=== PATIENT | male | born 1960 | race Caucasian/White ===

== ENCOUNTER 2016-12-01 20:32 | Emergency (ER) | payer MEDICARE ==
[2016-12-01] MEDS ORDERED: METHYLPREDNISOLONE INJ 125 MG/2 ML SDV IV ONE (20:49)
[2016-12-01] MEDS ORDERED: IPRATROPIUM/ALBUTEROL 0.5-2.5 MG/3 ML AMPUL NEB ONE ×2 (20:49)
--- NOTE | 2016-12-01 20:51 | ER Document Report ---
ED General - General Chief Complaint: Chest Pain Stated Complaint: CHEST PAIN Notes: Patient is a 56-year-old male that comes emergency department by EMS for complaints of chest pain, cough, feeling feverish, and shortness of breath. Patient states he did have a substernal chest pain that started about 1900, patient was given 324 mg of aspirin and 3 sublingual nitroglycerin doses, patient states the pressure has resolved but he still feels an intermittent sharp pain in the left side of his chest, still feels somewhat short of breath, and still has a cough. Patient smokes daily, has a history of COPD, has only albuterol inhaler at home, is not on home oxygen. Patient has also had a CABG after an IL in 2013 in [place]. He sees cardiology Dr. Tucker, Primary Dr. Leon. TRAVEL OUTSIDE OF THE [place] IN LAST 30 DAYS: No - Related Data Allergies/Adverse Reactions: codeine [Codeine] Allergy (Verified 04/10/14 08:13) latex [Latex] Allergy (Verified 04/10/14 08:13) adhesive tape [Adhesive Tape] Adverse Reaction (Intermediate, Verified 04/10/14 08:13) Urticaria Past Medical History - General Information source: Patient - Social History Smoking Status: Never Smoker Frequency of alcohol use: None Drug Abuse: None Lives with: Family Family History: Reviewed & Not Pertinent - Past Medical History Cardiac Medical History: Reports: Hx Coronary Artery Disease, Hx Heart Attack, Hx Hypercholesterolemia, Hx Hypertension Pulmonary Medical History: Reports: Hx Bronchitis, Hx COPD Denies: Hx Asthma, Hx Pneumonia, Hx Tuberculosis Neurological Medical History: Denies: Hx Cerebrovascular Accident, Hx Seizures Renal/ Medical History: Reports: Hx Benign Prostatic Hyperplasia GI Medical History: Reports: Hx Gastroesophageal Reflux Disease Musculoskeltal Medical History: Reports Hx Arthritis Psychiatric Medical History: Reports: Hx Bipolar Disorder, Hx Depression Traumatic Medical History: Reports: Hx Fractures - R wrist, nose Past Surgical History: Reports: Hx Cardiac Surgery - bypass 2007, Hx Coronary Artery Bypass Graft - 2007, Hx Orthopedic Surgery - metal plate in right wrist. Denies: Hx Pacemaker - Immunizations Hx Diphtheria, Pertussis, Tetanus Vaccination: Yes Hx Pneumococcal Vaccination: 09/11/10 Review of Systems - Review of Systems Constitutional: See HPI EENT: No symptoms reported Cardiovascular: See HPI Respiratory: See HPI Gastrointestinal: No symptoms reported Genitourinary: No symptoms reported Male Genitourinary: No symptoms reported Musculoskeletal: No symptoms reported Skin: No symptoms reported Hematologic/Lymphatic: No symptoms reported Neurological/Psychological: No symptoms reported Physical Exam - Vital signs Vitals: Resp Pulse Ox 25 H 97 12/01/16 21:07 12/01/16 21:07 Interpretation: Normal - General General appearance: Appears well In distress: None - HEENT Head: Normocephalic, Atraumatic Eyes: Normal Conjunctiva: Normal Extraocular movements intact: Yes Eyelashes: Normal Pupils: PERRL Nasal: Normal Mouth/Lips: Normal Mucous membranes: Normal Pharynx: Normal Neck: Normal - Respiratory Respiratory status: No respiratory distress, Tachypnea. No: Respiratory distress Chest status: Nontender Breath sounds: Nonproductive cough, Wheezing Chest palpation: Normal - Cardiovascular Rhythm: Regular Heart sounds: Normal auscultation Murmur: No - Abdominal Inspection: Normal Distension: No distension Bowel sounds: Normal Tenderness: Nontender Organomegaly: No organomegaly - Back Back: Normal, Nontender - Extremities General upper extremity: Normal inspection, Nontender, Normal color, Normal ROM , Normal temperature General lower extremity: Normal inspection, Nontender, Normal color, Normal ROM , Normal temperature, Normal weight bearing. No: Camille's sign - Neurological Neuro grossly intact: Yes Cognition: Normal Orientation: AAOx4 Magy Coma Scale Eye Opening: Spontaneous Magy Coma Scale Verbal: Oriented Magy Coma Scale Motor: Obeys Commands Magy Coma Scale Total: 15 Speech: Normal Motor strength normal: LUE, RUE, LLE, RLE Sensory: Normal - Psychological Associated symptoms: Normal affect, Normal mood - Skin Skin Temperature: Warm Skin Moisture: Dry Skin Color: Normal Course - Re-evaluation Re-evalutation: 12/01/16 22:15 On reassessment patient's tachypnea is resolved, patient's lungs are much clearer with only a few scattered rhonchi, wheezing has resolved. Patient states he feels much more comfortable, patient appears much more relaxed. 12/02/16 On begin evaluating patient patient is completely asymptomatic, smiling, states he wants to go home. EKG with no T-wave inversions in consecutive leads, no ST segment changes, patient denying chest pain without cough, patient denying any pain or symptoms at this time. Troponin indeterminate, cycled and second troponin negative. Chemistry generally unremarkable. X-ray unremarkable. CBC shows leukocytosis of 18,000 with no shift, patient always has some leukocytosis on evaluation of previous labs. Discussed with hospitalist, Dr. Mccoy, Dr. Mccoy recommends that if patient does well on ambulation with pulse ox that he could be treated at home with return precautions and primary care follow-up. Patient did very well in his ambulation, averaging about 92%, no labored breathing, continued to appear well. Patient again requesting to go home. Placing on Levaquin, prednisone, discussed return precautions in detail, patient states he will follow-up closely with primary care and return if he worsens in any way. - Vital Signs Vital signs: Temp Pulse Resp BP Pulse Ox 98.7 F 78 20 120/75 94 12/01/16 21:08 12/01/16 21:08 12/02/16 04:31 12/02/16 04:31 12/02/16 04:31 - Laboratory Result Diagrams: 12/01/16 21:00 12/01/16 21:00 Laboratory results interpreted by me: 12/01/16 12/01/16 21:00 21:00 WBC 18.3 H RBC 4.07 L Hgb 12.3 L Hct 36.3 L Absolute Neutrophils 11.2 H Absolute Lymphocytes 5.1 H Absolute Monocytes 1.6 H Carbon Dioxide 31 H Discharge - Discharge Clinical Impression: Cough, Shortness of breath Chest pain Qualifiers: Chest pain type: unspecified Qualified Code(s): R07.9 - Chest pain, unspecified Condition: Stable Disposition: HOME, SELF-CARE Additional Instructions: Please take the prednisone as directed, taking the antibiotic as directed. Follow-up within the next 2-3 days with her primary care provider for a reevaluation. Return the emergency department immediately if you worsen in any way. Prescriptions: Levofloxacin [Levaquin 750 mg Tablet] 750 mg PO DAILY #7 tablet Prednisone 20 mg PO DAILY #15 tablet Forms: Smoking Cessation Education
[2016-12-01 21:16] LABS: ABSOLUTE BASOPHILS # (AUTO) 0.1 10^3/uL (0.0-0.2); ABSOLUTE EOSINOPHILS # (AUTO) 0.4 10^3/uL (0.0-0.6); ABSOLUTE LYMPHOCYTES (AUTO) 5.1 10^3/uL (0.5-4.7); ABSOLUTE MONOCYTES (AUTO) 1.6 10^3/uL (0.1-1.4); ABSOLUTE NEUT (AUTO) 11.2 10^3/uL (1.7-8.2); BASOPHILS % (AUTO) 0.7 % (0-2); HEMATOCRIT 36.3 % (37.9-51.0); HEMOGLOBIN 12.3 g/dL (13.5-17.0); HGB HCT DIFFERENCE 0.6; LYMPHOCYTES % (AUTO) 27.6 % (13-45); MEAN CORPUSCULAR HEMOGLOBIN 30.3 pg (27.0-33.4); MEAN CORPUSCULAR VOLUME 89 fl (80-97); MONOCYTES % (AUTO) 8.5 % (3-13); RED BLOOD COUNT 4.07 10^6/uL (4.35-5.55); RED CELL DISTRIBUTION WIDTH 13.9 % (11.5-14.0); SEGMENTED NEUTROPHILS % (AUTO) 61.2 % (42-78); WHITE BLOOD COUNT 18.3 10^3/uL (4.0-10.5)
[2016-12-01] MEDS ORDERED: MORPHINE SULFATE 10 MG/ML INJ IV ONE (21:30)
[2016-12-01 21:34] LABS: ALANINE AMINOTRANSFERASE 22 U/L (21-72); ALBUMIN 3.7 g/dL (3.5-5.0); ALKALINE PHOSPHATASE 66 U/L (38-126); ANION GAP 10 (5-19); ASPARTATE AMINO TRANSFERASE 20 U/L (17-59); BILIRUBIN,DIRECT 0.4 mg/dL (0.0-0.4); BILIRUBIN,TOTAL 0.5 mg/dL (0.2-1.3); BLOOD UREA NITROGEN 12 mg/dL (7-20); CARBON DIOXIDE 31 mmol/L (22-30); CHLORIDE 98 mmol/L (98-107); CREATINE KINASE 109 U/L (55-170); CREATININE RESULT 0.72 mg/dL (0.52-1.25); GLUCOSE 102 mg/dL (75-110); POTASSIUM 4.4 mmol/L (3.6-5.0); SODIUM 139.4 mmol/L (137-145); TOTAL PROTEIN 6.9 g/dL (6.3-8.2)
[2016-12-01 21:46] LABS: CREATINE KINASE MB 1.14 ng/mL (<4.55); TROPONIN I 0.024 ng/mL
[2016-12-01] MEDS ORDERED: LEVOFLOXACIN 750 MG/D5W RTU 150 ML IV ONE (21:50)
[2016-12-01 22:40] LABS: VENOUS BLOOD BASE EXCESS 0.7 mmol/L; VENOUS BLOOD HCO3 26.7 mmol/L (20-32); VENOUS BLOOD PCO2 48.4 mmHg (35-63); VENOUS BLOOD PH 7.36 (7.30-7.42)
[2016-12-02 05:05] VITALS: BP 120/75
--- NOTE | 2016-12-02 08:35 | EKG REPORT ---
SEVERITY:- BORDERLINE ECG - SINUS RHYTHM NONSPECIFIC ST-T CHANGES ANT. LEADS : Confirmed by: Jeremy Curtis MD 02-Dec-2016 08:35:30
== END 2016-12-02 04:45 | disposition home or self-care (01) ==
LOC: ER 20:32
DX: R05 Cough (principal); R06.02 Shortness of breath; R07.9 Chest pain, unspecified; R50.9 Fever, unspecified; F17.200 Nicotine dependence, unspecified, uncomplicated; J44.9 Chronic obstructive pulmonary disease, unspecified
CPT/HCPCS: 94640 ×2; 99285; 96374; 96375; 36415; 87040; 82553; 82550; 85025; 87077; 80053; 84484; 87186; 82803; 71010; 93005; 93010; J2930; J2270; A9270; J7620

== ENCOUNTER 2016-12-21 22:37 | Emergency (ER) | payer MEDICARE ==
[2016-12-21 23:06] LABS: ABSOLUTE BASOPHILS # (AUTO) 0.1 10^3/uL (0.0-0.2); ABSOLUTE EOSINOPHILS # (AUTO) 0.3 10^3/uL (0.0-0.6); ABSOLUTE LYMPHOCYTES (AUTO) 2.5 10^3/uL (0.5-4.7); ABSOLUTE MONOCYTES (AUTO) 1.2 10^3/uL (0.1-1.4); ABSOLUTE NEUT (AUTO) 11.9 10^3/uL (1.7-8.2); BASOPHILS % (AUTO) 0.5 % (0-2); EOSINOPHILS % (AUTO) 1.8 % (0-6); HEMATOCRIT 43.2 % (37.9-51.0); HEMOGLOBIN 14.5 g/dL (13.5-17.0); HGB HCT DIFFERENCE 0.3; LYMPHOCYTES % (AUTO) 15.9 % (13-45); MEAN CORPUSCULAR HEMOGLOBIN 30.3 pg (27.0-33.4); MEAN CORPUSCULAR HGB CONC 33.5 g/dL (32.0-36.0); MEAN CORPUSCULAR VOLUME 90 fl (80-97); MONOCYTES % (AUTO) 7.2 % (3-13); RED BLOOD COUNT 4.78 10^6/uL (4.35-5.55); RED CELL DISTRIBUTION WIDTH 14.5 % (11.5-14.0); SEGMENTED NEUTROPHILS % (AUTO) 74.6 % (42-78); WHITE BLOOD COUNT 15.9 10^3/uL (4.0-10.5)
[2016-12-21 23:09] LABS: APPEARANCE,URINE CLEAR; BILIRUBIN,URINE NEGATIVE (NEGATIVE); GLUCOSE, URINE NEGATIVE (NEGATIVE); KETONES,URINE NEGATIVE (NEGATIVE); LEUKOCYTE ESTERASE,URINE NEGATIVE (NEGATIVE); NITRITE,URINE NEGATIVE (NEGATIVE); PROTEIN,URINE NEGATIVE (NEGATIVE); URINE SPECIFIC GRAVITY 1.002; UROBILINOGEN,URINE NEGATIVE mg/dL (<2.0)
[2016-12-21 23:36] LABS: ALANINE AMINOTRANSFERASE 27 U/L (21-72); ALBUMIN 4.3 g/dL (3.5-5.0); ALKALINE PHOSPHATASE 69 U/L (38-126); ANION GAP 15 (5-19); ASPARTATE AMINO TRANSFERASE 21 U/L (17-59); BILIRUBIN,DIRECT 0.2 mg/dL (0.0-0.4); BILIRUBIN,TOTAL 0.5 mg/dL (0.2-1.3); BLOOD UREA NITROGEN 10 mg/dL (7-20); CALCIUM 10.2 mg/dL (8.4-10.2); CARBON DIOXIDE 28 mmol/L (22-30); CHLORIDE 98 mmol/L (98-107); GLUCOSE 101 mg/dL (75-110); LIPASE 220.8 U/L (23-300); POTASSIUM 3.9 mmol/L (3.6-5.0); TOTAL PROTEIN 7.4 g/dL (6.3-8.2)
[2016-12-22] MEDS ORDERED: ONDANSETRON HCL INJ/PF 4 MG/2 ML SDV IV ONE (04:30)
[2016-12-22] MEDS ORDERED: NORMAL SALINE 1000 ML 1,000 ML IV ONE (04:30)
[2016-12-22] MEDS ORDERED: FENTANYL CITRATE INJ/PF 100 MCG/2 ML AMPUL IV ONE (04:30)
--- NOTE | 2016-12-22 04:36 | ER Document Report ---
ED General - General Chief Complaint: Abdominal Pain Stated Complaint: ABDOMINAL PAIN Notes: Patient is a 56-year-old male presents with complaint of bilateral lower abdominal pain. Also some pain and burning with urination. He says he feels like he has to go frequently. Says some vomiting. No diarrhea. No fevers. He did pull to call for him today. He is unsure if maybe the tick bite is causing his symptoms. No other complaints at this time. No recent abdominal surgeries. He denies alcohol use. TRAVEL OUTSIDE OF THE [place] IN LAST 30 DAYS: No - Related Data Allergies/Adverse Reactions: codeine [Codeine] Allergy (Verified 04/10/14 08:13) latex [Latex] Allergy (Verified 04/10/14 08:13) adhesive tape [Adhesive Tape] Adverse Reaction (Intermediate, Verified 04/10/14 08:13) Urticaria Past Medical History - Social History Smoking Status: Current Every Day Smoker Frequency of alcohol use: None Drug Abuse: Marijuana Family History: Reviewed & Not Pertinent Patient has suicidal ideation: No Patient has homicidal ideation: No - Past Medical History Cardiac Medical History: Reports: Hx Coronary Artery Disease, Hx Heart Attack, Hx Hypercholesterolemia, Hx Hypertension Pulmonary Medical History: Reports: Hx Bronchitis, Hx COPD Denies: Hx Asthma, Hx Pneumonia, Hx Tuberculosis Neurological Medical History: Denies: Hx Cerebrovascular Accident, Hx Seizures Renal/ Medical History: Reports: Hx Benign Prostatic Hyperplasia. Denies: Hx Peritoneal Dialysis GI Medical History: Reports: Hx Gastroesophageal Reflux Disease Musculoskeltal Medical History: Reports Hx Arthritis Psychiatric Medical History: Reports: Hx Bipolar Disorder, Hx Depression Traumatic Medical History: Reports: Hx Fractures - R wrist, nose Past Surgical History: Reports: Hx Cardiac Surgery - bypass 2007, Hx Coronary Artery Bypass Graft - 2007, Hx Orthopedic Surgery - metal plate in right wrist. Denies: Hx Pacemaker - Immunizations Hx Diphtheria, Pertussis, Tetanus Vaccination: Yes Hx Pneumococcal Vaccination: 09/11/10 Review of Systems - Review of Systems Notes: My Normal Review Basic REVIEW OF SYSTEMS: CONSTITUTIONAL : Denies fever, chills, or sweats. Denies recent illness. EENT: Denies eye, ear, throat, or mouth pain or symptoms. Denies nasal or sinus congestion. CARDIOVASCULAR: Denies chest pain. RESPIRATORY: Denies cough, cold, or chest congestion. Denies shortness of breath, difficulty breathing, or wheezing. GASTROINTESTINAL: Some lower abdominal pain. Some nausea and vomiting. No diarrhea. GENITOURINARY: Denies difficulty urinating, painful urination, burning, frequency, or blood in urine. MUSCULOSKELETAL: Denies neck or back pain or joint pain or swelling. SKIN: Denies rash or skin lesions. NEUROLOGICAL: Denies altered mental status or loss of consciousness. Denies headache. Denies weakness or paralysis or loss of use of either side. Denies problems with gait or speech. Denies sensory or motor loss. ALL OTHER SYSTEMS REVIEWED AND NEGATIVE. Physical Exam - Vital signs Vitals: Temp Pulse Resp BP Pulse Ox 97 F L 83 20 97/69 L 96 12/21/16 22:41 12/21/16 22:41 12/21/16 22:41 12/21/16 22:41 12/21/16 22:41 - Notes Notes: General Appearance: Well nourished, alert, cooperative, no acute distress, mild obvious discomfort. Actively vomiting. Vitals: reviewed, See vital signs table. Head: no swelling or tenderness to the head Eyes: PERRL, EOMI, Conjuctiva clear Mouth: No decreasd moisture Neck: Supple, no neck tenderness, No thyromegaly Lungs: No wheezing, No rales, No rhonci, No accessory muscle use, good air exchange bilaterally. Heart: Normal rate, Regular rythm, No murmur, no rub Abdomen: Normal BS, soft, No rigidity, mild bilateral lower abdominal tenderness to palpation, No guarding, no rebound, no abdominal masses, no organomegaly Extremities: strength 5/5 in all extremities, good pulses in all extremities, no swelling or tenderness in the extremities, no edema. Skin: Small area of redness where he pulled a tick off them over the right lower abdomen. No spreading erythema. No target lesion. Neuro: speech clear, oriented x 3, normal affect, responds appropriately to questions. Course - Re-evaluation Re-evalutation: 12/22/16 05:30 Patient is feeling improved. His pain is improved. He still has some nausea but says is improving comparison before. I will give him a little bit more nausea medication. CT scan was obtained was negative. He does have a leukocytosis but there is no acute findings on CT scan. Exam is not consistent with appendicitis. Patient is still receiving his IV fluids. We'll give him the Reglan and recheck him. - Vital Signs Vital signs: Temp Pulse Resp BP Pulse Ox 97.7 F 83 20 97/69 L 96 12/22/16 05:30 12/21/16 22:41 12/21/16 22:41 12/21/16 22:41 12/21/16 22:41 - Laboratory Result Diagrams: 12/21/16 22:55 12/21/16 22:55 Laboratory results interpreted by me: 12/21/16 22:55 WBC 15.9 H RDW 14.5 H Absolute Neutrophils 11.9 H - Transfer of Care Notes: 12/22/16 06:12 Patient feels much better after the Reglan. His nausea is gone. He no longer has pain. He looks well. He will be discharged home with a prescription for Reglan as well as a few Zofran pills to go home with. Encouraged return to ER in 12-25 hours for reevaluation if he still has any pain whatsoever. Encourage him to follow up with his doctor in one to 2 days. I encourage him to return to ER immediately if he has fevers, worsening recurrent pain, or recurrent vomiting. Patient agrees with plan will be discharged home. Dictation of this chart was performed using voice recognition software; therefore, there may be some unintended grammatical errors. Discharge - Discharge Clinical Impression: Abdominal pain Qualifiers: Abdominal location: lower abdomen, unspecified Qualified Code(s): R10.30 - Lower abdominal pain, unspecified Vomiting Qualifiers: Vomiting type: unspecified Vomiting Intractability: non-intractable Nausea presence: with nausea Qualified Code(s): R11.2 - Nausea with vomiting, unspecified Condition: Good Disposition: HOME, SELF-CARE Additional Instructions: ABDOMINAL PAIN: There are many causes of abdominal pain. Pain can mean a serious problem requiring surgery (such as appendicitis). It can also be an innocent problem that goes away on its own (such as a viral infection). Often, time must pass to determine the cause of pain. The physician does not feel that hospitalization is necessary, at present. Things may change within the next 24 hours. Call the doctor or come back for re- examination if any problems occur, such as: (1) Pain that becomes more severe, steady, or becomes concentrated in one specific area. Also, pain that is more severe with movement or coughing. (2) Vomiting that persists or becomes more frequent. (3) Blood in the vomitus, urine, or bowel movements. Blood in the stool may have a tarry or black appearance. (4) Shaking chills or fever greater than 100 degrees F. (5) The abdomen becomes more distended or swollen. (6) Bowel movements cease. (7) Failure to improve as expected. NORMAL EXAM AND WORKUP: At this time, your examination and workup show no significant abnormality. No significant abnormal physical findings are noted. All laboratory, EKG, and imaging (CT scans) studies that were ordered show no significant abnormality. Although your examination and all studies that were ordered showed no significant abnormal finding, there are no examinations and no studies that are 100% accurate. There is always the possibility that some abnormality could exist and not be detected with physical examination or within the limits and capabilities of laboratory and other studies. You should return or follow up as you were instructed on your visit today for further evaluation if your symptoms do not resolve. PAIN MEDICATION INJECTION: You have received an injection of a pain medication. You should experience significant pain relief within 45 minutes. This drug is a narcotic - - it will impair your judgement, slow your reaction time and make you sleepy ( as well as relieve your pain). Narcotics also can cause nausea. You should not drive, work with machinery, or perform any task requiring mental alertness until all effects of the medication are gone -- six to eight hours. Do not take any alcohol, or sedatives, and do not take any other medication without checking with your physician. ANTINAUSEA MEDICATION: You have been given a medication to suppress nausea and vomiting. This type of medication can be given as a shot, pill, or suppository. It will usually last for many hours. Pills and shots usually last six to eight hours, suppositories last about 12 hours. For the typical illness, only one or two doses of the medication may be necessary. Mild lightheadedness may occur. This type of medicine can cause drowsiness. Do not drive or operate dangerous machinery while under its influence. Do not mix with alcohol. See your doctor at once if you have muscle spasms or tightness, or uncontrollable motions (particularly of the neck, mouth, or jaw). Persistent vomiting or severe lightheadedness should also be evaluated by the physician. ORAL NARCOTIC MEDICATION: You have been given a prescription for pain control. This medication is a narcotic. It's best taken with food, as nausea can result if taken on an empty stomach. Don't operate machinery or drive within six hours of taking this medication. Do not combine this medicine with alcohol, or with any medication which can cause sedation (such as cold tablets or sleeping pills) unless you get permission from the physician. Narcotics tend to cause constipation. If possible, drink plenty of fluids and eat a diet high in fiber and fruits. Please be aware that prescription narcotics also have the potential for abuse. People become addicted to these medications because of the general sense of wellbeing that they induce. This feeling along with a significant reduction in tension, anxiety, and aggression provides a stimulating seductive quality to these drugs. Once your pain is under control, we encourage you to discard your unused narcotics. FOLLOW-UP CARE: If you have been referred to a physician for follow-up care, call the physician s office for an appointment as you were instructed or within the next two days. If you experience worsening or a significant change in your symptoms, notify the physician immediately or return to the Emergency Department at any time for re-evaluation. FOLLOW-UP CARE: You should return for re-evaluation in 12 hours if you are still having pain. This follow-up visit is important. If you are unable to return, or feel that the return visit is unnecessary, please call us. Please return to the ER immediately if you have worsening pain, fevers, or recurrent vomiting despite the nausea medication. Prescriptions: Metoclopramide HCl [Reglan 10 mg Tablet] 1 tab PO ASDIR PRN #20 tablet PRN Reason:
[2016-12-22] MEDS ORDERED: METOCLOPRAMIDE HCL INJ/PF 10 MG/2 ML SDV IV ONE (05:30)
[2016-12-22] MEDS ORDERED: ONDANSETRON ODT 4 MG TAB (6 TAB/DSPK) PO PRN (06:10)
[2016-12-22 06:25] VITALS: BP 119/76
[2016-12-24 12:38] LABS: ROCKY MTN SPOTTED FEV IGG EIA Positive (Negative)
[2016-12-25 12:44] LABS: ROCKY MTN SPOTTED FEV IGG IFA <1:64 (Neg <1:64)
== END 2016-12-22 06:26 | disposition home or self-care (01) ==
LOC: ER 22:37
DX: R10.30 Lower abdominal pain, unspecified (principal); R11.2 Nausea with vomiting, unspecified; R30.9 Painful micturition, unspecified; F17.200 Nicotine dependence, unspecified, uncomplicated
CPT/HCPCS: 99284; 96361; 96374; 96375; 36415; 83690; 85025; 80053; 81001; 86757 ×2; 74176; J3010; J2765; J2405; J7030; A9270

== ENCOUNTER → 2017-07-13 | Outpatient (CLI) | payer MEDICARE ==
--- NOTE | 2017-07-13 11:40 | RADIOLOGY REPORT (SQ) ---
EXAM DESCRIPTION: CT LUNG CANCER SCREENING COMPLETED DATE/TIME: 07/13/2017 8:36 am REASON FOR STUDY: TOBACCO USE Z87.891 PERSONAL HISTORY OF NICOTINE DEPENDENCE Has the patient had a Chest CT scan within the past year? No Was the patient offered tobacco cessation counseling? Yes Was the patient engaged in shared decision making for this test? Yes Does the patient have signs or symptoms of Lung Cancer? No Is the patient a smoker? Yes How many packs per year? 365 How many years since quitting smoking? Not applicable Patients age: 57 COMPARISON: CT abdomen pelvis 12/22/2016 TECHNIQUE: Low Dose CT scan performed of the chest without intravenous contrast for purposes of scre ening for lung cancer. Images reviewed with lung, soft tissue and bone windows. Reconstructed coron al and sagittal MPR images reviewed. All images stored on PACS. All CT scanners at this facility use dose modulation, iterative reconstruction, and/or weight based d osing when appropriate to reduce radiation dose to as low as reasonably achievable (ALARA). [facility]: Dose Right [facility]: CareDose [facility]: Dose Right [facility]: Teradose 4D [facility]: Smart [employer] RADIATION DOSE: CT Rad equipment meets quality standard of care and radiation dose reduction techniq ues were employed. CTDIvol: 2.1 mGy. DLP: 90 mGy-cm. mGy. . LIMITATIONS: None FINDINGS: LUNGS AND PLEURA: No worrisome nodules. Benign calcified granuloma right middle lobe near the major fissure axial image [id number]. No pleural effusions or calcifications. No pneumothorax. No scarring or interstitial changes. HILAR AND MEDIASTINAL STRUCTURES: No identified masses. No abnormal nodes. HEART AND VASCULAR STRUCTURES: No aortic aneurysm. No pericardial effusion. No cardiac devices. CORONARY ARTERY CALCIFICATIONS: No significant calcifications. UPPER ABDOMEN, THYROID, BONES, OTHER SOFT TISSUES: No significant findings. IMPRESSION: NO SIGNIFICANT FINDING IN THE LUNGS ON NON-CONTRASTED CHEST CT. NO OTHER CLINICALLY SIGNIFICANT/POTENTIALLY CLINICALLY SIGNIFICANT FINDINGS LUNGRADS: LUNGRADS: 1 NEGATIVE. NO NODULES, OR DEFINITELY BENIGN NODULES MODIFIER: NONE RECOMMENDATION: Continue annual screening with LDCT in 12 months. COMMENT: CRITERIA: No lung nodules. Nodules with specific calcifications: Complete, central, popcorn, concentric rings and fat containin g nodules. TECHNICAL DOCUMENTATION: JOB ID: [id number] Quality ID # [id number]: Final reports with documentation of one or more dose reduction techniques (e.g., Au tomated exposure control, adjustment of the mA and/or kV according to patient size, use of iterative reconstruction technique) 2010 [employer]
== END ==
LOC: RAD 08:15
PROVIDERS: ATTEND Internal Medicine
DX: J43.9 Emphysema, unspecified (principal); Z87.891 Personal history of nicotine dependence
CPT/HCPCS: G0297

== ENCOUNTER 2018-07-06 12:51 | Inpatient (IN) | payer MEDICARE ==
[2018-07-06] MEDS ORDERED: IPRATROPIUM/ALBUTEROL 0.5-2.5 MG/3 ML AMPUL NEB ONE ×2 (14:28→14:45)
[2018-07-06 14:48] LABS: ABSOLUTE EOSINOPHILS # (AUTO) 0.3 10^3/uL (0.0-0.6); ABSOLUTE LYMPHOCYTES (AUTO) 2.8 10^3/uL (0.5-4.7); ABSOLUTE NEUT (AUTO) 14.7 10^3/uL (1.7-8.2); BASOPHILS % (AUTO) 0.2 % (0-2); EOSINOPHILS % (AUTO) 1.5 % (0-6); HEMATOCRIT 41.8 % (37.9-51.0); HEMOGLOBIN 14.2 g/dL (13.5-17.0); LYMPHOCYTES % (AUTO) 14.1 % (13-45); MEAN CORPUSCULAR HEMOGLOBIN 30.9 pg (27.0-33.4); MEAN CORPUSCULAR VOLUME 91 fl (80-97); MONOCYTES % (AUTO) 9.9 % (3-13); PLATELET COUNT 360 10^3/uL (150-450); RED BLOOD COUNT 4.61 10^6/uL (4.35-5.55); RED CELL DISTRIBUTION WIDTH 14.2 % (11.5-14.0); SEGMENTED NEUTROPHILS % (AUTO) 74.3 % (42-78); TOTAL CELLS COUNTED % (AUTO) 100 %; WHITE BLOOD COUNT 19.8 10^3/uL (4.0-10.5)
--- NOTE | 2018-07-06 14:52 | RADIOLOGY REPORT (SQ) ---
EXAM DESCRIPTION: CHEST SINGLE VIEW COMPLETED DATE/TIME: 07/06/2018 2:41 pm REASON FOR STUDY: chest pian, cough, sob COMPARISON: Screening CT for lung cancer on 07/13/2017 AP chest 12/01/2016, 12/15/2012 EXAM PARAMETERS: NUMBER OF VIEWS: One view. TECHNIQUE: Single frontal radiographic view of the chest acquired. RADIATION DOSE: NA LIMITATIONS: None. FINDINGS: LUNGS AND PLEURA: No opacities, masses or pneumothorax. No pleural effusion. MEDIASTINUM AND HILAR STRUCTURES: No masses. Contour normal. HEART AND VASCULAR STRUCTURES: No cardiomegaly. Old sternotomy for CABG BONES: No acute findings. HARDWARE: None in the chest. OTHER: No other significant finding. IMPRESSION: Old sternotomy for CABG. No acute infiltrates TECHNICAL DOCUMENTATION: JOB ID: [id number] [employer]- All Rights Reserved Reading location - IP/workstation name: [email or web address]
[2018-07-06] MEDS: MAGNESIUM SULFATE/D5W 1 GM/100 ML RTUPB IV SCH ×2 (14:53→15:47)
--- NOTE | 2018-07-06 14:59 | ER Document Report ---
ED Respiratory Problem - General Chief Complaint: Shortness Of Breath Stated Complaint: SHORTNESS OF BREATH Time Seen by Provider: 07/06/18 14:38 Mode of Arrival: Medic Notes: Patient is a 58-year-old male presenting to the emergency department complaining of cough congestion and shortness of breath for the last 5-1/2 weeks. Patient states within the last week his cough has been producing brown/ green sputum. States he tried to get into his primary care provider but was unable due to his respiratory distress he presents to the emergency room. Patient states he smokes 2 packs of cigarettes a day. EMS found the patient with a room air oxygen saturation of 86%, they gave the patient 2 albuterol treatments and 125 mg IV Solu-Medrol prior to arrival to the emergency room. Patient states he is also having chest tightness along with respiratory distress. Patient denies fever, nausea, vomiting, diarrhea. Past medical history: Hypertension, CABG, COPD, asthma, neuropathy, bipolar Medications: Omeprazole, metoprolol, aspirin, gabapentin, risperidone, clopidogrel, simvastatin, albuterol, isosorbide, escitalopram, dicyclomine Allergies: Codeine, latex, adhesive tape Surgical history: CABG Patient admits to smoking 2 packs of cigarettes a day, also admits to marijuana use, denies EtOH use. TRAVEL OUTSIDE OF THE [place] IN LAST 30 DAYS: No - Related Data Allergies/Adverse Reactions: codeine [Codeine] Allergy (Verified 04/10/14 08:13) latex [Latex] Allergy (Verified 04/10/14 08:13) adhesive tape [Adhesive Tape] Adverse Reaction (Intermediate, Verified 04/10/14 08:13) Urticaria Past Medical History - General Information source: Patient - Social History Smoking Status: Current Every Day Smoker Drug Abuse: Marijuana Family History: Reviewed & Not Pertinent Patient has suicidal ideation: No Patient has homicidal ideation: No - Past Medical History Cardiac Medical History: Reports: Hx Coronary Artery Disease, Hx Heart Attack, Hx Hypercholesterolemia, Hx Hypertension Pulmonary Medical History: Reports: Hx Bronchitis, Hx COPD Denies: Hx Asthma, Hx Pneumonia, Hx Tuberculosis Neurological Medical History: Denies: Hx Cerebrovascular Accident, Hx Seizures Renal/ Medical History: Reports: Hx Benign Prostatic Hyperplasia. Denies: Hx Peritoneal Dialysis GI Medical History: Reports: Hx Gastroesophageal Reflux Disease Musculoskeletal Medical History: Reports Hx Arthritis Psychiatric Medical History: Reports: Hx Bipolar Disorder, Hx Depression Traumatic Medical History: Reports: Hx Fractures - R wrist, nose Past Surgical History: Reports: Hx Cardiac Surgery - bypass 2007, Hx Coronary Artery Bypass Graft - 2007, Hx Orthopedic Surgery - metal plate in right wrist. Denies: Hx Pacemaker - Immunizations Hx Diphtheria, Pertussis, Tetanus Vaccination: Yes Hx Pneumococcal Vaccination: 09/11/10 Review of Systems - Review of Systems Constitutional: See HPI EENT: See HPI Cardiovascular: See HPI Respiratory: See HPI Gastrointestinal: No symptoms reported Genitourinary: No symptoms reported Male Genitourinary: No symptoms reported Musculoskeletal: No symptoms reported Skin: No symptoms reported Hematologic/Lymphatic: No symptoms reported Neurological/Psychological: No symptoms reported Physical Exam - Vital signs Vitals: Resp Pulse Ox 30 H 92 07/06/18 12:59 07/06/18 12:59 - Notes Notes: GENERAL: Alert, interacts well, respiratory rate of 22 yet patient is taking very shallow breaths. Patient is unable to speak in full sentences. HEAD: Normocephalic, atraumatic. EYES: Pupils equal, round, and reactive to light. Extraocular movements intact. ENT: Oral mucosa moist, tongue midline. NECK: Full range of motion. Supple. Trachea midline. LUNGS: Wheezes inspiratory and expiratory heard in all lung stewart, rhonchi heard bilateral bases. No rales. HEART: Regular rate and rhythm. No murmur ABDOMEN: Soft, non-tender. Non-distended. Bowel sounds present in all 4 quadrants. EXTREMITIES: Moves all 4 extremities spontaneously. No edema, normal radial and dorsalis pedis pulses bilaterally. No cyanosis. BACK: no cervical, thoracic, lumbar midline tenderness. No saddle anesthesia, normal distal neurovascular exam. NEUROLOGICAL: Alert and oriented x3. Normal speech. cranial nerves II through XII grossly intact PSYCH: Normal affect, normal mood. SKIN: Warm, dry, normal turgor. No rashes or lesions noted. Course - Re-evaluation Re-evalutation: 07/06/18 14:59 Patient initially on 4 L of oxygen nasal cannula and a DuoNeb treatment ordered by nursing staff. Although patient has a respiratory rate of 22 he is taking very shallow breaths , still 94% on 4 L oxygen nasal cannula. BiPAP ordered, respiratory currently at patient's bedside. Patient currently on BiPAP with last respiratory distress. Maintains a oxygen saturation of 96%. Chest x-ray shows no signs of pneumonia, pneumothorax. Labs reveal leukocytosis, due to patient's current condition on BiPAP he will need to be admitted. Discussed case with Dr. Baumann who states Dr. Weller will admit the patient to [facility]. Discussed case with Dr. Weller who agrees to admission and will see the patient in the emergency room. - Vital Signs Vital signs: Temp Pulse Resp BP Pulse Ox 98.5 F 21 H 133/85 H 94 07/06/18 13:48 07/06/18 19:01 07/06/18 19:00 07/06/18 19:01 - Laboratory Result Diagrams: 07/06/18 12:25 07/06/18 12:25 Laboratory results interpreted by me: 07/06/18 07/06/18 07/06/18 12:25 12:25 15:14 WBC 19.8 H RDW 14.2 H Absolute Neutrophils 14.7 H Absolute Monocytes 2.0 H VBG pCO2 66.6 H* VBG HCO3 33.9 H Chloride 94 L Carbon Dioxide 35 H ALT 16 L Discharge - Discharge Clinical Impression: COPD exacerbation Condition: Stable Disposition: ADMITTED INPATIENT Admitting Provider: Hospitalist - Dr. Weller Unit Admitted: [facility]
[2018-07-06 15:08] LABS: ALANINE AMINOTRANSFERASE 16 U/L (21-72); ALBUMIN 3.6 g/dL (3.5-5.0); ALKALINE PHOSPHATASE 85 U/L (38-126); ANION GAP 10 (5-19); ASPARTATE AMINO TRANSFERASE 17 U/L (17-59); BILIRUBIN,DIRECT 0.3 mg/dL (0.0-0.4); BILIRUBIN,TOTAL 0.3 mg/dL (0.2-1.3); BLOOD UREA NITROGEN 8 mg/dL (7-20); CALCIUM 9.3 mg/dL (8.4-10.2); CARBON DIOXIDE 35 mmol/L (22-30); CHLORIDE 94 mmol/L (98-107); GLUCOSE 100 mg/dL (75-110); POTASSIUM 4.4 mmol/L (3.6-5.0); SODIUM 139.1 mmol/L (137-145)
[2018-07-06 15:35] LABS: VENOUS BLOOD BASE EXCESS 5.7 mmol/L; VENOUS BLOOD HCO3 33.9 mmol/L (20-32); VENOUS BLOOD PH 7.33 (7.30-7.42)
[2018-07-06 15:53] LABS: VENOUS BLOOD PCO2 66.6 mmHg (35-63)
[2018-07-06] MEDS ORDERED: ALBUTEROL SULFATE 0.083% NEB 2.5 MG/3 ML AMPUL NEB ONE (15:58)
[2018-07-06] MEDS ORDERED: NORMAL SALINE 1000 ML 1,000 ML IV PRN (18:08)
[2018-07-06] MEDS ORDERED: ACETAMINOPHEN 650 MG SUPP.RECT PR PRN (18:08)
[2018-07-06] MEDS ORDERED: ACETAMINOPHEN 325 MG TABLET PO PRN (18:08)
[2018-07-06] MEDS ORDERED: LEVALBUTEROL HCL NEB 1.25 MG/3 ML AMPUL NEB PRN (18:08)
--- NOTE | 2018-07-06 19:38 | PDOC H&P ---
History of Present Illness Admission Date/PCP: 07/06/18 17:08 LYNDA DUGGAN MD Patient complains of: Cough with difficulty breathing History of Present Illness: ELLA HILL is a 58 year old male with a complex history of chronic obstructive pulmonary disease. He also has a history of coronary disease disease including cardiac bypass. He is also bipolar. For the last 4-5 weeks he has been noticing increased cough and worsening shortness of breath. Multiple family members in the house have been sick with respiratory illness. He finally became compromised enough to present to the emergency department. When he presented to the emergency department he was hypoxic with oxygen saturation in the low 80s. With nebulizer treatments, IV magnesium and BiPAP his saturations are holding greater than 90. He will be admitted for aggressive management of his COPD with likely underlying infection. Past Medical History Past Medical History: The patient was unable to answer questions and extremely somnolent at the time of this encounter. History was obtained from old records as well as speaking with his Kait and 1 of his daughters. Cardiac Medical History: Reports: Coronary Artery Disease, Myocardial Infarction , Hyperlipidema, Hypertension, Other - Coronary artery bypass Pulmonary Medical History: Reports: Bronchitis, Chronic Obstructive Pulmonary Disease (COPD), Respiratory Failure Denies: Asthma, Pneumonia, Tuberculosis EENT Medical History: Reports: None Neurological Medical History: Denies: Hemorrhagic CVA, Ischemic CVA, Seizures Endocrine Medical History: Denies: Diabetes Mellitus Type 2, Hypothyroidism Renal/ Medical History: Denies: Chronic Kidney Disease Malignancy Medical History: Reports: None GI Medical History: Reports: Gastroesophageal Reflux Disease Denies: Cirrhosis, Hiatal Hernia, Peptic Ulcer Disease Musculoskeltal Medical History: Reports: Arthritis Skin Medical History: Denies: Eczema, Psoriasis Psychiatric Medical History: Reports: Bipolar Disorder, Depression, Tobacco Dependency Hematology: Denies: Anemia Past Surgical History Past Surgical History: Reports: Cardiac Catheterization, Coronary Artery Bypass Graft - 2007, Orthopedic Surgery - metal plate in right wrist Denies: Pacemaker Social History Information Source: [facility] Records - As well as his and 1 of his daughters Occupation: Unemployed Lives with: Family Smoking Status: Current Every Day Smoker Hx Recreational Drug Use: No Hx Prescription Drug Abuse: No - Advance Directive Resuscitation Status: Full Code Surrogate healthcare decision maker:: I spoke to the patient's Kait and 1 of her daughters in a separate phone call. After a brief discussion the did inform me that the patient's wishes were to be a full code. This despite his significant cardiopulmonary history. He does not have an advanced health care document in place. That is one thing that his states she would like to obtain. Family History Family History: Was not able to get further information from the patient due to his clinical state. Parental Family History Reviewed: No - Patient minimally responsive. Unable to provide history. Children Family History Reviewed: Unknown - See above Sibling(s) Family History Reviewed.: Unknown - See above Medication/Allergy Home Medications: Clopidogrel Bisulfate [Plavix 75 mg Tablet] 75 mg PO DAILY 07/06/18 Dicyclomine HCl [Bentyl 10 mg Capsule] 10 mg PO BID 07/06/18 Escitalopram Oxalate [Lexapro] 30 mg PO DAILY 07/06/18 Gabapentin [Neurontin 300 mg Capsule] 300 mg PO DAILY 07/06/18 Isosorbide Mononitrate [Imdur 30 mg Tablet.er] 60 mg PO Q12 07/06/18 Lorazepam [Ativan 1 mg Tablet] 1 mg PO Q6HP PRN 07/06/18 Metoprolol Tartrate [Lopressor 25 mg Tablet] 12.5 mg PO Q12 07/06/18 Omeprazole 40 mg PO DAILY 07/06/18 Pramipexole Di-HCl [Mirapex 0.5 mg Tablet] 0.5 mg PO QHS 07/06/18 Risperidone [Risperdal] 2 mg PO Q8 07/06/18 Simvastatin [Zocor 40 mg Tablet] 40 mg PO QPM 07/06/18 Allergies/Adverse Reactions: codeine [Codeine] Allergy (Verified 04/10/14 08:13) latex [Latex] Allergy (Verified 04/10/14 08:13) adhesive tape [Adhesive Tape] Adverse Reaction (Intermediate, Verified 04/10/14 08:13) Urticaria Review of Systems ROS unobtainable: Due to mental status - The patient was somnolent and on BiPAP. He only briefly opened his eyes and attempted to verbalize during the whole encounter. Respiratory: PRESENT: other - Per his she does state that people in the household have been sick and that the patient was progressing with respiratory difficulty. Physical Exam Vital Signs: Temp Pulse Resp BP Pulse Ox 98.5 F 25 H 157/103 H 93 07/06/18 13:48 07/06/18 17:01 07/06/18 17:01 07/06/18 17:01 General appearance: PRESENT: obese - BMI 25 Exam: The patient was in moderate respiratory distress Head exam: PRESENT: atraumatic, normocephalic Eye exam: PRESENT: conjunctiva pale. ABSENT: scleral icterus Ear exam: PRESENT: normal external ear exam Mouth exam: PRESENT: other - Unable to assess. BiPAP mask in place. Teeth exam: PRESENT: other - Unable to assess. BiPAP mask in place. Throat exam: PRESENT: other - Unable to assess. BiPAP mask in place. Neck exam: ABSENT: carotid bruit, JVD, lymphadenopathy Respiratory exam: PRESENT: accessory muscle use, prolonged expiratory phas, symmetrical, tachypnea. ABSENT: rales, rhonchi, wheezes Cardiovascular exam: PRESENT: RRR, +S1, +S2 Pulses: PRESENT: normal radial pulses GI/Abdominal exam: PRESENT: normal bowel sounds, soft. ABSENT: distended, tenderness Rectal exam: PRESENT: deferred Gentrourinary exam: ABSENT: indwelling catheter Extremities exam: ABSENT: calf tenderness, pedal edema Musculoskeletal exam: PRESENT: other - Decreased muscle mass Neurological exam: PRESENT: altered - Extremely somnolent Psychiatric exam: PRESENT: other - Patient not verbally responsive. Unable to assess. Focused psych exam: PRESENT: other - Unable to assess as above. Skin exam: PRESENT: erythema, other - Multiple excoriated lesions as well as small ulcerated areas especially on arms. Results Laboratory Results: Please see laboratory data. White blood cell count was increased to 19,000. Serum CO2 was 35. Impressions: Chest X-Ray 07/06/18 14:30 IMPRESSION: Old sternotomy for CABG. No acute infiltrates Assessment & Plan - Diagnosis (1) Acute on chronic respiratory failure with hypoxia Is this a current diagnosis for this admission?: Yes Plan: Patient has a history of chronic obstructive pulmonary disease. There is no evidence of inhaler therapy on his medication list. He is currently on BiPAP. We will try and taper him from this. We will try and keep his oxygen saturation between 90 and 95%. He likely lives between 88 and 94 or 95%. Chest x-ray did not reveal obvious infiltrate or pulmonary edema, pleural effusion or congestive failure. Because of the multiple respiratory infections in the household as well as his elevated white blood cell count the patient will be placed on antibiotic therapy with ceftriaxone and azithromycin.. We will repeat laboratory studies in the morning. In addition we will repeat an ABG this evening and tomorrow. (2) COPD exacerbation Is this a current diagnosis for this admission?: Yes Plan: As noted above this is likely an exacerbation of his COPD from an infectious source. Nebulizer treatments, antibiotics and steroids will be implemented. (3) Coronary artery disease involving [place] coronary artery of [place] heart Qualifiers: Associated angina: without angina Qualified Code(s): I25.10 - Atherosclerotic heart disease of [place] coronary artery without angina pectoris Is this a current diagnosis for this admission?: Yes Plan: The patient will continue on his metoprolol, simvastatin and isosorbide mononitrate therapy as well as Plavix. His first serum troponin was negative. He will have 2 additional studies. His EKG did not show evidence of acute change. (4) Bipolar disorder with depression Is this a current diagnosis for this admission?: Yes Plan: Patient was unable to provide specific details at this time. We will continue his current medications including Lexapro and Risperdal. (5) GERD (gastroesophageal reflux disease) Qualifiers: Esophagitis presence: without esophagitis Qualified Code(s): K21.9 - Gastro -esophageal reflux disease without esophagitis Is this a current diagnosis for this admission?: Yes Plan: The patient takes 40 mg of omeprazole daily at home. Because of a questionable swallow I will start with Protonix 40 mg by IV. If his swallow is deemed acceptable then we will use a therapeutic interchange of Prevacid during his hospitalization. (6) Advance care planning Is this a current diagnosis for this admission?: Yes Plan: As noted above I did discuss advance care planning with the patient's and daughter. Both confirmed that the patient's wishes would be to be aggressive in the event of a catastrophic failure. I did explain that patients with this level of illness typically do not do well after a catastrophic event. His did show interest in pursuing some advance care planning once her recovers. She also has chronic illnesses and will likely pursue the same for herself. - Time Time Spent: 50 to 70 Minutes Smoking Cessation Education: - Unable to pursue at this encounter due to the patient's clinical condition. Medications reviewed and adjusted accordingly: Yes - Inpatient Certification Based on my medical assessment, after consideration of the patient's comorbidities, presenting symptoms, or acuity I expect that the services needed warrant INPATIENT care.: Yes I certify that my determination is in accordance with my understanding of Medicare's requirements for reasonable and necessary INPATIENT services [42 CFR 412.3e].: Yes Medical Necessity: Significant Comorbidiites Make Outpatient Treatment Too Risky , Need For Continuous Telemetry Monitoring, Need for Nebulizer Therapy and Monitoring of Response, Need for IV Antibiotics, Risk of Complication if Not Cared For in Hospital - Plan Summary Plan Summary: The patient will be admitted to the IMCU. We will undertaken aggressive treatment plan as outlined above. I believe family will be visiting tomorrow.
[2018-07-06] MEDS: IPRATROPIUM/ALBUTEROL 0.5-2.5 MG/3 ML AMPUL NEB SCH (20:35)
[2018-07-06 21:11] LABS: ARTERIAL BLOOD BASE EXCESS 1.4 mmol/L; ARTERIAL BLOOD H2CO3 1.89 mmol/L (1.05-1.35); ARTERIAL BLOOD HCO3 29.5 mmol/L (20-24); ARTERIAL BLOOD O2 SATURATION 94.4 % (94-98); ARTERIAL BLOOD PCO2 62.8 mmHg (35-45); ARTERIAL BLOOD PH 7.29 (7.35-7.45); ARTERIAL BLOOD PO2 81.2 mmHg (80-100); ARTERIAL BLOOD TOTAL CO2 31.4 mmol/L (23-27)
[2018-07-06 21:15] LABS: ARTERIAL BLOOD FIO2 40%
[2018-07-06] MEDS: AZITHROMYCIN 500 MG in DEXTROSE 5%-WATER 250 ML IV SCH (22:39)
[2018-07-06] MEDS: METHYLPREDNISOLONE INJ 125 MG/2 ML SDV IV SCH (22:39)
[2018-07-06] MEDS: RISPERIDONE 1 MG TABLET PO SCH (22:50)
[2018-07-06] MEDS: METOPROLOL TARTRATE 25 MG TABLET PO SCH (22:51)
[2018-07-06] MEDS: ISOSORBIDE MONONITRATE 30 MG TAB.ER.24H PO SCH (22:51)
[2018-07-07] MEDS: IPRATROPIUM/ALBUTEROL 0.5-2.5 MG/3 ML AMPUL NEB SCH ×6 (00:14→20:23)
[2018-07-07] MEDS: RISPERIDONE 1 MG TABLET PO SCH ×3 (05:27→21:56)
[2018-07-07 06:49] LABS: MEAN CORPUSCULAR HEMOGLOBIN 30.2 pg (27.0-33.4); MEAN CORPUSCULAR HGB CONC 33.5 g/dL (32.0-36.0); MEAN CORPUSCULAR VOLUME 90 fl (80-97); PLATELET COUNT 336 10^3/uL (150-450); RED BLOOD COUNT 3.99 10^6/uL (4.35-5.55); RED CELL DISTRIBUTION WIDTH 14.4 % (11.5-14.0)
[2018-07-07 07:18] LABS: NT PRO BNP 330 pg/mL (5-900)
[2018-07-07 07:21] LABS: TROPONIN I < 0.012 ng/mL
[2018-07-07 07:31] LABS: APPEARANCE,URINE CLEAR; BILIRUBIN,URINE NEGATIVE (NEGATIVE); COLOR,URINE YELLOW; GLUCOSE, URINE NEGATIVE (NEGATIVE); KETONES,URINE NEGATIVE (NEGATIVE); LEUKOCYTE ESTERASE,URINE NEGATIVE (NEGATIVE); NITRITE,URINE NEGATIVE (NEGATIVE); PROTEIN,URINE NEGATIVE (NEGATIVE); UROBILINOGEN,URINE NEGATIVE mg/dL (<2.0)
[2018-07-07 07:39] LABS: HEMOGLOBIN 12.1 g/dL (13.5-17.0)
[2018-07-07 07:50] LABS: ABSOLUTE LYMPHOCYTES# (MANUAL) 1.3 10^3/uL (0.5-4.7); ABSOLUTE MONOCYTES # (MANUAL) 1.3 10^3/uL (0.1-1.4); ABSOLUTE NEUTROPHILS# (MANUAL) 28.8 10^3/uL (1.7-8.2); ANION GAP 12 (5-19); BAND NEUTROPHILS % (MANUAL) 3 % (3-5); BASOPHILS % (MANUAL) 0 % (0-2); BLOOD UREA NITROGEN 9 mg/dL (7-20); CALCIUM 9.3 mg/dL (8.4-10.2); CARBON DIOXIDE 29 mmol/L (22-30); CHLORIDE 98 mmol/L (98-107); EOSINOPHILS % (MANUAL) 0 % (0-6); GLUCOSE 134 mg/dL (75-110); LYMPHOCYTES % (MANUAL) 4 % (13-45); MONOCYTES % (MANUAL) 4 % (3-13); POTASSIUM 4.9 mmol/L (3.6-5.0); SEGMENTED NEUTROPHILS % (MAN) 89 % (42-78); SODIUM 138.6 mmol/L (137-145); TOTAL CELLS COUNTED 100
[2018-07-07 07:51] LABS: HYPOCHROMASIA SLIGHT; PLATELET COMMENT ADEQUATE; POLYCHROMASIA SLIGHT; TOXIC GRANULATION 1+; TOXIC VACUOLATION PRESENT
[2018-07-07 08:02] LABS: WHITE BLOOD COUNT 31.3 10^3/uL (4.0-10.5)
--- NOTE | 2018-07-07 09:04 | RADIOLOGY REPORT (SQ) ---
EXAM DESCRIPTION: CHEST SINGLE VIEW COMPLETED DATE/TIME: 07/07/2018 8:44 am REASON FOR STUDY: resp failure COMPARISON: CT chest 07/13/2017 AP chest 07/06/2018 EXAM PARAMETERS: NUMBER OF VIEWS: One view. TECHNIQUE: Single frontal radiographic view of the chest acquired. RADIATION DOSE: NA LIMITATIONS: None. FINDINGS: LUNGS AND PLEURA: Lungs are hyperinflated and hyperlucent from obstructive disease. No fo francheska infiltrates. No pleural effusion. No pneumothorax. MEDIASTINUM AND HILAR STRUCTURES: No masses. Contour normal. HEART AND VASCULAR STRUCTURES: Post sternotomy for CABG. No cardiomegaly BONES: No acute findings. HARDWARE: None in the chest. OTHER: No other significant finding. IMPRESSION: Obstructive lung disease. No acute infiltrate TECHNICAL DOCUMENTATION: JOB ID: [id number] [employer]- All Rights Reserved Reading location - IP/workstation name: [email or web address]
[2018-07-07] MEDS ORDERED: CEFTRIAXONE 1 GM/D5W RTU 1 GM/50 ML RTUPB IV SCH (10:00)
[2018-07-07] MEDS: CLOPIDOGREL BISULFATE 75 MG TABLET PO SCH (10:33)
[2018-07-07] MEDS: METOPROLOL TARTRATE 25 MG TABLET PO SCH ×2 (10:33→21:56)
[2018-07-07] MEDS: ISOSORBIDE MONONITRATE 30 MG TAB.ER.24H PO SCH ×2 (10:33→21:56)
[2018-07-07] MEDS: PANTOPRAZOLE SODIUM 40 MG VIAL IV SCH (10:33)
[2018-07-07] MEDS: ESCITALOPRAM OXALATE 10 MG TABLET PO SCH (10:34)
[2018-07-07] MEDS: GABAPENTIN 300 MG CAPSULE PO SCH (10:34)
[2018-07-07 10:35] LABS: ARTERIAL BLOOD HCO3 34.4 mmol/L (20-24); ARTERIAL BLOOD O2 SATURATION 97.6 % (94-98); ARTERIAL BLOOD PCO2 66.5 mmHg (35-45); ARTERIAL BLOOD PH 7.33 (7.35-7.45); ARTERIAL BLOOD PO2 110.2 mmHg (80-100); ARTERIAL BLOOD TOTAL CO2 36.5 mmol/L (23-27)
[2018-07-07] MEDS: ENOXAPARIN SODIUM INJ 40 MG/0.4 ML DISP.SYRIN SUBCUT SCH (10:35)
[2018-07-07] MEDS: NICOTINE 14 MG/24 HR PATCH.TD24 TD SCH (10:35)
[2018-07-07 10:36] LABS: ARTERIAL BLOOD FIO2 40%
[2018-07-07] MEDS: CEFTRIAXONE SODIUM 1,000 MG in DEXTROSE 5%-WATER 50 ML IV SCH (10:36)
[2018-07-07] MEDS: METHYLPREDNISOLONE INJ 125 MG/2 ML SDV IV SCH ×2 (10:38→21:56)
--- NOTE | 2018-07-07 10:47 | EKG REPORT ---
SEVERITY:- ABNORMAL ECG - SINUS TACHYCARDIA CONSIDER RIGHT VENTRICULAR HYPERTROPHY INFERIOR INFARCT, OLD : Confirmed by: Gabrielle Ballesteros 07-Jul-2018 10:46:43
[2018-07-07 11:40] LABS: PATH REVIEW PATHOLOGIST REVIEWED
[2018-07-07 17:07] LABS: ARTERIAL BLOOD BASE EXCESS 8.1 mmol/L; ARTERIAL BLOOD FIO2 35%; ARTERIAL BLOOD H2CO3 1.66 mmol/L (1.05-1.35); ARTERIAL BLOOD HCO3 34.3 mmol/L (20-24); ARTERIAL BLOOD O2 SATURATION 95.1 % (94-98); ARTERIAL BLOOD PCO2 55.1 mmHg (35-45); ARTERIAL BLOOD PH 7.41 (7.35-7.45)
[2018-07-07] MEDS: SIMVASTATIN 40 MG TABLET PO SCH (18:00)
[2018-07-07] MEDS: AZITHROMYCIN 500 MG in DEXTROSE 5%-WATER 250 ML IV SCH (21:57)
[2018-07-08] MEDS: IPRATROPIUM/ALBUTEROL 0.5-2.5 MG/3 ML AMPUL NEB SCH ×6 (00:27→20:08)
[2018-07-08] MEDS: RISPERIDONE 1 MG TABLET PO SCH ×3 (05:03→21:10)
[2018-07-08] MEDS: GABAPENTIN 300 MG CAPSULE PO SCH (09:54)
[2018-07-08] MEDS: CLOPIDOGREL BISULFATE 75 MG TABLET PO SCH (09:54)
[2018-07-08] MEDS: ESCITALOPRAM OXALATE 10 MG TABLET PO SCH (09:54)
[2018-07-08] MEDS: NICOTINE 14 MG/24 HR PATCH.TD24 TD SCH (09:55)
[2018-07-08] MEDS: METHYLPREDNISOLONE INJ 125 MG/2 ML SDV IV SCH (09:55)
[2018-07-08] MEDS: ISOSORBIDE MONONITRATE 30 MG TAB.ER.24H PO SCH ×2 (09:55→21:10)
[2018-07-08] MEDS: PANTOPRAZOLE SODIUM 40 MG VIAL IV SCH (09:56)
[2018-07-08] MEDS: ENOXAPARIN SODIUM INJ 40 MG/0.4 ML DISP.SYRIN SUBCUT SCH (09:56)
[2018-07-08] MEDS: CEFTRIAXONE SODIUM 1,000 MG in DEXTROSE 5%-WATER 50 ML IV SCH (09:56)
[2018-07-08] MEDS: METOPROLOL TARTRATE 25 MG TABLET PO SCH ×2 (09:58→21:09)
[2018-07-08] MEDS ORDERED: IPRATROPIUM/ALBUTEROL 0.5-2.5 MG/3 ML AMPUL NEB PRN (10:10)
[2018-07-08] MEDS ORDERED: BUDESONIDE/FORMOTEROL 160-4.5 MCG 60 PUFF/6 GM MDI IH ONE (10:14)
--- NOTE | 2018-07-08 10:26 | PDOC PROGRESS REPORT ---
Subjective Progress Note for:: 07/08/18 Subjective:: The patient is feeling much better today. He is awake alert resting in bed on nasal cannula. Reason For Visit: ACUTE RESP FAILURE,COMM ACQUIRED PNEUMONIA Physical Exam Vital Signs: Temp Pulse Resp BP Pulse Ox 98.3 F 83 20 152/82 H 90 L 07/08/18 07:56 07/08/18 07:56 07/08/18 07:56 07/08/18 07:56 07/08/18 07:56 Intake & Output 07/07/18 07/08/18 07/09/18 06:59 06:59 06:59 Intake Total 250 2251 Output Total 75 300 Balance 175 1951 Weight 69.1 kg 70.6 kg General appearance: PRESENT: no acute distress, cooperative, disheveled, well- developed Head exam: PRESENT: atraumatic, normocephalic Eye exam: PRESENT: conjunctiva pink. ABSENT: scleral icterus Mouth exam: PRESENT: moist, tongue midline Neck exam: PRESENT: full ROM. ABSENT: carotid bruit, JVD, lymphadenopathy Respiratory exam: PRESENT: decreased breath sounds, prolonged expiratory phas, symmetrical. ABSENT: crackles, rales, rhonchi, wheezes Cardiovascular exam: PRESENT: RRR, +S1, +S2 GI/Abdominal exam: PRESENT: normal bowel sounds, soft. ABSENT: distended, tenderness Extremities exam: ABSENT: pedal edema Musculoskeletal exam: PRESENT: normal inspection Neurological exam: PRESENT: alert, awake, oriented to person, oriented to place , oriented to situation, CN II-XII grossly intact Psychiatric exam: PRESENT: appropriate affect, normal mood. ABSENT: agitated, anxious Focused psych exam: ABSENT: restlessness Skin exam: PRESENT: other - Large benign polypoid growth lateral aspect of left fifth finger. Sporadic small excoriated lesions on arms and chest. Results Laboratory Results: 07/07/18 06:17 07/07/18 06:17 07/07/18 07/07/18 09:50 15:40 Carbonic Acid 2.00 H 1.66 H HCO3/H2CO3 Ratio 17:1 20:1 ABG pH 7.33 L 7.41 ABG pCO2 66.5 H 55.1 H ABG pO2 110.2 H 76.0 L ABG HCO3 34.4 H 34.3 H ABG O2 Saturation 97.6 95.1 ABG Base Excess 6.0 8.1 FiO2 40% 35% 07/07/18 07/07/18 00:10 06:17 Troponin I < 0.012 < 0.012 NT-Pro-B Natriuret Pep 330 Impressions: Chest X-Ray 07/07/18 06:00 IMPRESSION: Obstructive lung disease. No acute infiltrate Assessment & Plan - Diagnosis (1) Acute on chronic respiratory failure with hypoxia Is this a current diagnosis for this admission?: Yes Plan: Patient has a history of chronic obstructive pulmonary disease. There is no evidence of inhaler therapy on his medication list. He is currently on BiPAP. We will try and taper him from this. We will try and keep his oxygen saturation between 90 and 95%. He likely lives between 88 and 94 or 95%. Chest x-ray did not reveal obvious infiltrate or pulmonary edema, pleural effusion or congestive failure. Because of the multiple respiratory infections in the household as well as his elevated white blood cell count the patient will be placed on antibiotic therapy with ceftriaxone and azithromycin.. We will repeat laboratory studies in the morning. In addition we will repeat an ABG this evening and tomorrow. 07/08/2018-the patient is doing well. He is currently on nasal cannula. (2) COPD exacerbation Is this a current diagnosis for this admission?: Yes Plan: As noted above this is likely an exacerbation of his COPD from an infectious source. Nebulizer treatments, antibiotics and steroids will be implemented. 07/08/2018-I asked patient what medications he is on at home for his COPD. He told me a "red inhaler ". I asked him how often he uses it. He says that he uses it only once in a while and has not used it lately. I explained to him that if he keeps that pattern of behavior up he will not reach the age of 62. I told him we would start inhaler therapy today and that he should continue these inhalers as outpatient. He also needs to establish with a doctor in follow-up regularly. They may refer him to pulmonology as well. (3) Coronary artery disease involving [place] coronary artery of [place] heart Qualifiers: Associated angina: without angina Qualified Code(s): I25.10 - Atherosclerotic heart disease of [place] coronary artery without angina pectoris Is this a current diagnosis for this admission?: Yes Plan: The patient will continue on his metoprolol, simvastatin and isosorbide mononitrate therapy as well as Plavix. His first serum troponin was negative. He will have 2 additional studies. His EKG did not show evidence of acute change. 07/08/2018-patient had serial troponins negative x3. A brain atretic peptide was normal as well. He has no complaints of chest pain, pressure or palpitations. (4) Bipolar disorder with depression Is this a current diagnosis for this admission?: Yes Plan: Patient was unable to provide specific details at this time. We will continue his current medications including Lexapro and Risperdal. 07/08/2018-patient is back on his home regimen of medications. He is in good spirits and exhibits no anxiety or depressive symptoms. (5) GERD (gastroesophageal reflux disease) Qualifiers: Esophagitis presence: without esophagitis Qualified Code(s): K21.9 - Gastro -esophageal reflux disease without esophagitis Is this a current diagnosis for this admission?: Yes Plan: The patient takes 40 mg of omeprazole daily at home. Because of a questionable swallow I will start with Protonix 40 mg by IV. If his swallow is deemed acceptable then we will use a therapeutic interchange of Prevacid during his hospitalization. 07/08/2018-continue proton pump inhibitor therapy. (6) Tobacco abuse counseling Is this a current diagnosis for this admission?: Yes Plan: The patient continued to smoke up until the day of admission. I explained to the patient that he is he continues to smoke she will not reach the age of 62. He will also start spending more time in the hospital than he does at home. I explained to him that his life literally depends on him stopping his smoking. A nicotine patch is available but he defers using it. Hopefully his daughter will also continue to encourage him not to smoke once he is discharged. (7) Advance care planning Is this a current diagnosis for this admission?: Yes - Time Time Spent with patient: 25-34 minutes Smoking Cessation Education: 3 to 10 minutes Medications reviewed and adjusted accordingly: Yes Anticipated discharge: Home Within: within 48 hours
[2018-07-08] MEDS: TIOTROPIUM BROMIDE DPI 5 CAP/KIT (18 MCG/CAP) IH SCH (11:17)
[2018-07-08] MEDS: SIMVASTATIN 40 MG TABLET PO SCH (17:14)
[2018-07-08] MEDS: PRAMIPEXOLE DI-HCL 0.5 MG TABLET PO SCH (21:10)
[2018-07-08] MEDS: BUDESONIDE/FORMOTEROL 160-4.5 MCG 60 PUFF/6 GM MDI IH SCH (21:10)
[2018-07-08] MEDS: AZITHROMYCIN 500 MG in DEXTROSE 5%-WATER 250 ML IV SCH (22:00)
[2018-07-09] MEDS: IPRATROPIUM/ALBUTEROL 0.5-2.5 MG/3 ML AMPUL NEB SCH ×3 (00:07→08:31)
[2018-07-09] MEDS: RISPERIDONE 1 MG TABLET PO SCH ×3 (05:23→23:27)
[2018-07-09] MEDS ORDERED: LANSOPRAZOLE 30 MG TAB.RAP.DR PO SCH (06:00)
[2018-07-09 06:44] LABS: HEMATOCRIT 38.2 % (37.9-51.0); HEMOGLOBIN 12.8 g/dL (13.5-17.0); MEAN CORPUSCULAR HGB CONC 33.5 g/dL (32.0-36.0); MEAN CORPUSCULAR VOLUME 90 fl (80-97); PLATELET COUNT 388 10^3/uL (150-450); RED BLOOD COUNT 4.27 10^6/uL (4.35-5.55); RED CELL DISTRIBUTION WIDTH 14.4 % (11.5-14.0); WHITE BLOOD COUNT 24.1 10^3/uL (4.0-10.5)
[2018-07-09] MEDS ORDERED: ALBUTEROL SULFATE 0.083% NEB 2.5 MG/3 ML AMPUL NEB PRN (08:46)
[2018-07-09] MEDS: NICOTINE 14 MG/24 HR PATCH.TD24 TD SCH (09:34)
[2018-07-09] MEDS: TIOTROPIUM BROMIDE DPI 5 CAP/KIT (18 MCG/CAP) IH SCH (09:38)
[2018-07-09] MEDS: BUDESONIDE/FORMOTEROL 160-4.5 MCG 60 PUFF/6 GM MDI IH SCH ×2 (09:39→23:26)
[2018-07-09] MEDS: ISOSORBIDE MONONITRATE 30 MG TAB.ER.24H PO SCH ×2 (09:41→23:26)
[2018-07-09] MEDS: METOPROLOL TARTRATE 25 MG TABLET PO SCH ×2 (09:41→23:26)
[2018-07-09] MEDS: ESCITALOPRAM OXALATE 10 MG TABLET PO SCH (09:41)
[2018-07-09] MEDS: GABAPENTIN 300 MG CAPSULE PO SCH (09:41)
[2018-07-09] MEDS: CLOPIDOGREL BISULFATE 75 MG TABLET PO SCH (09:41)
[2018-07-09] MEDS: METHYLPREDNISOLONE INJ 40 MG/1 ML SDV IV SCH (09:42)
[2018-07-09] MEDS: CEFTRIAXONE SODIUM 1,000 MG in DEXTROSE 5%-WATER 50 ML IV SCH (09:42)
[2018-07-09] MEDS: PANTOPRAZOLE SODIUM 40 MG VIAL IV SCH (09:42)
[2018-07-09] MEDS: ENOXAPARIN SODIUM INJ 40 MG/0.4 ML DISP.SYRIN SUBCUT SCH (09:42)
[2018-07-09] MEDS ORDERED: METHYLPREDNISOLONE INJ 125 MG/2 ML SDV IV SCH ×2 (10:00)
--- NOTE | 2018-07-09 11:18 | PDOC PROGRESS REPORT ---
Subjective Progress Note for:: 07/09/18 Subjective:: The patient is feeling much better today. He is awake alert resting in bed on nasal cannula. 07/08/2018-the patient was up in the bathroom earlier. He ambulated to bed. He is on nasal cannula. He appears comfortable. Reason For Visit: ACUTE RESP FAILURE,COMM ACQUIRED PNEUMONIA Physical Exam Vital Signs: Temp Pulse Resp BP Pulse Ox 97.6 F 73 16 140/69 H 94 07/09/18 07:30 07/09/18 08:30 07/09/18 08:30 07/09/18 07:30 07/09/18 08:30 Intake & Output 07/08/18 07/09/18 07/10/18 06:59 06:59 06:59 Intake Total 2251 2920 50 Output Total 300 1800 Balance 1951 1120 50 Weight 70.6 kg 69.2 kg General appearance: PRESENT: no acute distress, cooperative, thin, well- developed Head exam: PRESENT: atraumatic, normocephalic Eye exam: PRESENT: conjunctiva pink. ABSENT: scleral icterus Ear exam: PRESENT: normal external ear exam Mouth exam: PRESENT: moist, tongue midline Teeth exam: PRESENT: poor dentation Neck exam: PRESENT: full ROM. ABSENT: carotid bruit, JVD, lymphadenopathy Respiratory exam: PRESENT: prolonged expiratory phas, symmetrical, unlabored, wheezes - Faint occasional expiratory wheeze. ABSENT: rales, rhonchi, tachypnea Cardiovascular exam: PRESENT: RRR, +S1, +S2, systolic murmur - 2/6 GI/Abdominal exam: PRESENT: normal bowel sounds, soft. ABSENT: distended, guarding, tenderness Neurological exam: PRESENT: alert, awake, oriented to person, oriented to place , oriented to situation, CN II-XII grossly intact Psychiatric exam: PRESENT: appropriate affect, normal mood - Appears to be in good spirits today. Focused psych exam: ABSENT: restlessness Skin exam: PRESENT: abrasion - Sparse excoriated lesions chest and arms. Likely from the patient scratching., other - Benign polypoid lesion left fifth finger Results Laboratory Results: 07/09/18 05:39 07/07/18 06:17 07/09/18 05:39 WBC 24.1 H RBC 4.27 L Hgb 12.8 L Hct 38.2 MCV 90 MCH 30.0 MCHC 33.5 RDW 14.4 H Plt Count 388 07/07/18 07/07/18 00:10 06:17 Troponin I < 0.012 < 0.012 NT-Pro-B Natriuret Pep 330 Impressions: Chest X-Ray 07/07/18 06:00 IMPRESSION: Obstructive lung disease. No acute infiltrate Assessment & Plan - Diagnosis (1) Acute on chronic respiratory failure with hypoxia Is this a current diagnosis for this admission?: Yes Plan: Patient has a history of chronic obstructive pulmonary disease. There is no evidence of inhaler therapy on his medication list. He is currently on BiPAP. We will try and taper him from this. We will try and keep his oxygen saturation between 90 and 95%. He likely lives between 88 and 94 or 95%. Chest x-ray did not reveal obvious infiltrate or pulmonary edema, pleural effusion or congestive failure. Because of the multiple respiratory infections in the household as well as his elevated white blood cell count the patient will be placed on antibiotic therapy with ceftriaxone and azithromycin.. We will repeat laboratory studies in the morning. In addition we will repeat an ABG this evening and tomorrow. 07/08/2018-the patient is doing well. He is currently on nasal cannula. 07/09/2017-the patient is much improved again today. At rest he was on 1 L. He does not wear oxygen at home. I did order a walking oximetry as well as PFTs pre-and post bronchodilator. I also ordered nocturnal oximetry. The patient does not have BiPAP at home either. Interestingly he was not on any inhaler therapy and continues to smoke. I believe he will need oxygen at home. He will continue his current inhaler regimen. I will refer him to pulmonology as an outpatient. (2) COPD exacerbation Is this a current diagnosis for this admission?: Yes Plan: As noted above this is likely an exacerbation of his COPD from an infectious source. Nebulizer treatments, antibiotics and steroids will be implemented. 07/08/2018-I asked patient what medications he is on at home for his COPD. He told me a "red inhaler ". I asked him how often he uses it. He says that he uses it only once in a while and has not used it lately. I explained to him that if he keeps that pattern of behavior up he will not reach the age of 62. I told him we would start inhaler therapy today and that he should continue these inhalers as outpatient. He also needs to establish with a doctor in follow-up regularly. They may refer him to pulmonology as well. 07/09/2018-as noted above the patient was not following with anyone for his COPD. He was not on any medications nor oxygen at home. He continues to smoke. Plan as outlined above. (3) Coronary artery disease involving [place] coronary artery of [place] heart Qualifiers: Associated angina: without angina Qualified Code(s): I25.10 - Atherosclerotic heart disease of [place] coronary artery without angina pectoris Is this a current diagnosis for this admission?: Yes Plan: The patient will continue on his metoprolol, simvastatin and isosorbide mononitrate therapy as well as Plavix. His first serum troponin was negative. He will have 2 additional studies. His EKG did not show evidence of acute change. 07/08/2018-patient had serial troponins negative x3. A brain atretic peptide was normal as well. He has no complaints of chest pain, pressure or palpitations. 07/09/2018-the patient has been resting comfortably. He has not exhibited any cardiac symptoms. Continue treatment as ordered. (4) Bipolar disorder with depression Is this a current diagnosis for this admission?: Yes Plan: Patient was unable to provide specific details at this time. We will continue his current medications including Lexapro and Risperdal. 07/08/2018-patient is back on his home regimen of medications. He is in good spirits and exhibits no anxiety or depressive symptoms. 07/09/2018-I have continue the patient's medications unchanged with the exception of his Mirapex which I decreased to 0.5 mg. Once he is more active at home this medication can be modified based on his clinical presentation. (5) GERD (gastroesophageal reflux disease) Qualifiers: Esophagitis presence: without esophagitis Qualified Code(s): K21.9 - Gastro -esophageal reflux disease without esophagitis Is this a current diagnosis for this admission?: Yes Plan: The patient takes 40 mg of omeprazole daily at home. Because of a questionable swallow I will start with Protonix 40 mg by IV. If his swallow is deemed acceptable then we will use a therapeutic interchange of Prevacid during his hospitalization. 07/08/2018-continue proton pump inhibitor therapy. 07/09/2018-asymptomatic on his proton pump inhibitor. Continue the same. (6) Tobacco abuse counseling Is this a current diagnosis for this admission?: Yes Plan: The patient continued to smoke up until the day of admission. I explained to the patient that he is he continues to smoke she will not reach the age of 62. He will also start spending more time in the hospital than he does at home. I explained to him that his life literally depends on him stopping his smoking. A nicotine patch is available but he defers using it. Hopefully his daughter will also continue to encourage him not to smoke once he is discharged. 07/09/2018-the patient has a NicoDerm patch available but has declined. I will continue to encourage smoking cessation. (7) Advance care planning Is this a current diagnosis for this admission?: Yes Plan: As noted above I did discuss advance care planning with the patient's and daughter. Both confirmed that the patient's wishes would be to be aggressive in the event of a catastrophic failure. I did explain that patients with this level of illness typically do not do well after a catastrophic event. His did show interest in pursuing some advance care planning once her recovers. She also has chronic illnesses and will likely pursue the same for herself. - Time Time Spent with patient: 25-34 minutes Smoking Cessation Education: 3 to 10 minutes Medications reviewed and adjusted accordingly: Yes Anticipated discharge: Home - Plan Summary Plan Summary: As outlined above
[2018-07-09] MEDS: ONDANSETRON HCL INJ/PF 4 MG/2 ML SDV IV PRN (13:48)
--- NOTE | 2018-07-09 15:00 | Progress Note ---
Provider Note Provider Note: This is an addendum to the progress note 07/09/2018. As contacted by respiratory therapy. We were trying to obtain PFTs on Mr. Turner. Prior therapy noted that he was unable to even provide 3 good breaths for the pre-bronchodilator testing. We will try again tomorrow. I will likely ask pulmonology to see the patient as well.
[2018-07-09] MEDS: SIMVASTATIN 40 MG TABLET PO SCH (18:10)
[2018-07-09] MEDS: AZITHROMYCIN 500 MG in DEXTROSE 5%-WATER 250 ML IV SCH (23:26)
[2018-07-09] MEDS: PRAMIPEXOLE DI-HCL 0.5 MG TABLET PO SCH (23:26)
[2018-07-10 04:58] LABS: HEMATOCRIT 39.9 % (37.9-51.0); HEMOGLOBIN 13.5 g/dL (13.5-17.0); MEAN CORPUSCULAR HEMOGLOBIN 30.3 pg (27.0-33.4); MEAN CORPUSCULAR HGB CONC 33.9 g/dL (32.0-36.0); MEAN CORPUSCULAR VOLUME 89 fl (80-97); PLATELET COUNT 352 10^3/uL (150-450); RED BLOOD COUNT 4.47 10^6/uL (4.35-5.55); RED CELL DISTRIBUTION WIDTH 14.2 % (11.5-14.0)
[2018-07-10 05:20] LABS: ANION GAP 9 (5-19); BLOOD UREA NITROGEN 14 mg/dL (7-20); CALCIUM 9.5 mg/dL (8.4-10.2); CARBON DIOXIDE 34 mmol/L (22-30); CHLORIDE 95 mmol/L (98-107); GLUCOSE 87 mg/dL (75-110); POTASSIUM 4.1 mmol/L (3.6-5.0); SODIUM 138.4 mmol/L (137-145)
[2018-07-10] MEDS: RISPERIDONE 1 MG TABLET PO SCH ×3 (06:34→22:15)
[2018-07-10] MEDS: ONDANSETRON HCL INJ/PF 4 MG/2 ML SDV IV PRN (08:13)
[2018-07-10 10:24] LABS: ALANINE AMINOTRANSFERASE 23 U/L (21-72); ALBUMIN 3.3 g/dL (3.5-5.0); ALKALINE PHOSPHATASE 76 U/L (38-126); ASPARTATE AMINO TRANSFERASE 22 U/L (17-59); BILIRUBIN,DIRECT 0.3 mg/dL (0.0-0.4); BILIRUBIN,TOTAL 0.4 mg/dL (0.2-1.3); LIPASE 77.4 U/L (23-300); TOTAL PROTEIN 6.2 g/dL (6.3-8.2)
[2018-07-10] MEDS: CEFTRIAXONE SODIUM 1,000 MG in DEXTROSE 5%-WATER 50 ML IV SCH (10:31)
[2018-07-10] MEDS: METOPROLOL TARTRATE 25 MG TABLET PO SCH ×2 (10:33→22:15)
[2018-07-10] MEDS: TIOTROPIUM BROMIDE DPI 5 CAP/KIT (18 MCG/CAP) IH SCH (10:36)
[2018-07-10] MEDS: ESCITALOPRAM OXALATE 10 MG TABLET PO SCH (10:36)
[2018-07-10] MEDS: BUDESONIDE/FORMOTEROL 160-4.5 MCG 60 PUFF/6 GM MDI IH SCH ×2 (10:37→22:15)
[2018-07-10] MEDS: METHYLPREDNISOLONE INJ 40 MG/1 ML SDV IV SCH (10:38)
[2018-07-10] MEDS: GABAPENTIN 300 MG CAPSULE PO SCH (10:38)
[2018-07-10] MEDS: ENOXAPARIN SODIUM INJ 40 MG/0.4 ML DISP.SYRIN SUBCUT SCH (10:38)
[2018-07-10] MEDS: CLOPIDOGREL BISULFATE 75 MG TABLET PO SCH (10:38)
[2018-07-10] MEDS: ISOSORBIDE MONONITRATE 30 MG TAB.ER.24H PO SCH ×2 (10:42→22:14)
[2018-07-10] MEDS: NICOTINE 14 MG/24 HR PATCH.TD24 TD SCH (11:01)
--- NOTE | 2018-07-10 11:16 | PDOC PROGRESS REPORT ---
Subjective Progress Note for:: 07/10/18 Subjective:: The patient is feeling much better today. He is awake alert resting in bed on nasal cannula. 07/09/2018-the patient was up in the bathroom earlier. He ambulated to bed. He is on nasal cannula. He appears comfortable. 07/10/2018-resting in bed. Quite comfortable. His breathing is relaxed. Reason For Visit: ACUTE RESP FAILURE,COMM ACQUIRED PNEUMONIA Physical Exam Vital Signs: Temp Pulse Resp BP Pulse Ox 97.6 F 72 14 154/85 H 95 07/10/18 07:30 07/10/18 07:30 07/10/18 07:30 07/10/18 07:30 07/10/18 07:30 Pulse Oximeter Nocturnal Start: 07/09/18 09: 00 Freq: Status: Active Document 07/09/18 12:00 [facility] (Rec: 07/09/18 12:23 [facility] [id number]) Nocturnal Pulse Oximetry Equipment Usage Initial Set Up Nocturnal Spo2 Charge Charge Now Oxygen Delivery Method (includes room Nasal Cannula air) O2 Sat by Pulse Oximetry (92-100) 97 Continuous Pulse Oximeter Set Up Yes Continuous SpO2 Discontinued No Continuous SpO2 Machine # [id number] Intake & Output 07/09/18 07/10/18 07/11/18 06:59 06:59 06:59 Intake Total 2920 1943 Output Total 1800 1600 Balance 1120 343 Weight 69.2 kg 66.6 kg General appearance: PRESENT: no acute distress, cooperative, thin, well- developed Head exam: PRESENT: atraumatic, normocephalic Respiratory exam: PRESENT: prolonged expiratory phas, symmetrical, wheezes - Faint sporadic expiratory wheeze otherwise clear. ABSENT: chest wall tenderness , crackles, rales, retraction, stridor Cardiovascular exam: PRESENT: RRR, +S1, +S2, systolic murmur Pulses: PRESENT: normal carotid pulses, normal radial pulses GI/Abdominal exam: PRESENT: normal bowel sounds, soft. ABSENT: distended, tenderness Musculoskeletal exam: PRESENT: ambulatory, normal inspection Neurological exam: PRESENT: alert, awake, oriented to person, oriented to place , oriented to situation, CN II-XII grossly intact Psychiatric exam: PRESENT: appropriate affect, normal mood. ABSENT: agitated, anxious Focused psych exam: ABSENT: restlessness Skin exam: PRESENT: other - Scattered excoriated areas both arms and chest likely from scratching Results Laboratory Results: 07/10/18 04:15 07/10/18 04:15 07/10/18 07/10/18 07/10/18 04:15 04:15 04:15 WBC 21.0 H RBC 4.47 Hgb 13.5 Hct 39.9 MCV 89 MCH 30.3 MCHC 33.9 RDW 14.2 H Plt Count 352 Sodium 138.4 Potassium 4.1 Chloride 95 L Carbon Dioxide 34 H Anion Gap 9 BUN 14 Creatinine 0.62 Est GFR ( Amer) > 60 Est GFR (Non-Af Amer) > 60 Glucose 87 Calcium 9.5 Total Bilirubin 0.4 AST 22 ALT 23 Alkaline Phosphatase 76 Total Protein 6.2 L Albumin 3.3 L Lipase 77.4 07/07/18 07/07/18 00:10 06:17 Troponin I < 0.012 < 0.012 NT-Pro-B Natriuret Pep 330 Impressions: Chest X-Ray 07/07/18 06:00 IMPRESSION: Obstructive lung disease. No acute infiltrate Assessment & Plan - Diagnosis (1) Acute on chronic respiratory failure with hypoxia Is this a current diagnosis for this admission?: Yes Plan: Patient has a history of chronic obstructive pulmonary disease. There is no evidence of inhaler therapy on his medication list. He is currently on BiPAP. We will try and taper him from this. We will try and keep his oxygen saturation between 90 and 95%. He likely lives between 88 and 94 or 95%. Chest x-ray did not reveal obvious infiltrate or pulmonary edema, pleural effusion or congestive failure. Because of the multiple respiratory infections in the household as well as his elevated white blood cell count the patient will be placed on antibiotic therapy with ceftriaxone and azithromycin.. We will repeat laboratory studies in the morning. In addition we will repeat an ABG this evening and tomorrow. 07/08/2018-the patient is doing well. He is currently on nasal cannula. 07/09/2017-the patient is much improved again today. At rest he was on 1 L. He does not wear oxygen at home. I did order a walking oximetry as well as PFTs pre-and post bronchodilator. I also ordered nocturnal oximetry. The patient does not have BiPAP at home either. Interestingly he was not on any inhaler therapy and continues to smoke. I believe he will need oxygen at home. He will continue his current inhaler regimen. I will refer him to pulmonology as an outpatient. 07/10/2017-patient is resting comfortably. He could not perform for a PFT test yesterday. He has been doing well on inhalers and steroid therapy. He also has a complex cardiac history but has been stable. Dr. Petersen will also be seeing the patient to establish pulmonary care and provide additional guidance regarding his treatment plan. (2) COPD exacerbation Is this a current diagnosis for this admission?: Yes Plan: As noted above this is likely an exacerbation of his COPD from an infectious source. Nebulizer treatments, antibiotics and steroids will be implemented. 07/08/2018-I asked patient what medications he is on at home for his COPD. He told me a "red inhaler ". I asked him how often he uses it. He says that he uses it only once in a while and has not used it lately. I explained to him that if he keeps that pattern of behavior up he will not reach the age of 62. I told him we would start inhaler therapy today and that he should continue these inhalers as outpatient. He also needs to establish with a doctor in follow-up regularly. They may refer him to pulmonology as well. 07/09/2018-as noted above the patient was not following with anyone for his COPD. He was not on any medications nor oxygen at home. He continues to smoke. Plan as outlined above. 07/10/2018-the patient needs an ongoing consistent plan of care including inhaler therapy, oxygen and establishing with pulmonology. (3) Coronary artery disease involving [place] coronary artery of [place] heart Qualifiers: Associated angina: without angina Qualified Code(s): I25.10 - Atherosclerotic heart disease of [place] coronary artery without angina pectoris Is this a current diagnosis for this admission?: Yes Plan: The patient will continue on his metoprolol, simvastatin and isosorbide mononitrate therapy as well as Plavix. His first serum troponin was negative. He will have 2 additional studies. His EKG did not show evidence of acute change. 07/08/2018-patient had serial troponins negative x3. A brain atretic peptide was normal as well. He has no complaints of chest pain, pressure or palpitations. 07/09/2018-the patient has been resting comfortably. He has not exhibited any cardiac symptoms. Continue treatment as ordered. 07/10/2018-complex cardiac history. Asymptomatic. Continue current regimen. (4) Bipolar disorder with depression Is this a current diagnosis for this admission?: Yes Plan: Patient was unable to provide specific details at this time. We will continue his current medications including Lexapro and Risperdal. 07/08/2018-patient is back on his home regimen of medications. He is in good spirits and exhibits no anxiety or depressive symptoms. 07/09/2018-I have continue the patient's medications unchanged with the exception of his Mirapex which I decreased to 0.5 mg. Once he is more active at home this medication can be modified based on his clinical presentation. 07/10/2018-patient has remained in excellent spirits. Continue current regimen. (5) GERD (gastroesophageal reflux disease) Qualifiers: Esophagitis presence: without esophagitis Qualified Code(s): K21.9 - Gastro -esophageal reflux disease without esophagitis Is this a current diagnosis for this admission?: Yes (6) Tobacco abuse counseling Is this a current diagnosis for this admission?: Yes Plan: The patient continued to smoke up until the day of admission. I explained to the patient that he is he continues to smoke she will not reach the age of 62. He will also start spending more time in the hospital than he does at home. I explained to him that his life literally depends on him stopping his smoking. A nicotine patch is available but he defers using it. Hopefully his daughter will also continue to encourage him not to smoke once he is discharged. 07/09/2018-the patient has a NicoDerm patch available but has declined. I will continue to encourage smoking cessation. 07/10/2018-once again I stressed the importance of not smoking. The patient has declined a nicotine patch but states emphatically that he is quitting. He also asked about family members smoking in the household. He said that they will be quitting as well. (7) Advance care planning Is this a current diagnosis for this admission?: Yes Plan: As noted above I did discuss advance care planning with the patient's and daughter. Both confirmed that the patient's wishes would be to be aggressive in the event of a catastrophic failure. I did explain that patients with this level of illness typically do not do well after a catastrophic event. His did show interest in pursuing some advance care planning once her recovers. She also has chronic illnesses and will likely pursue the same for herself. - Time Time Spent with patient: 15-24 minutes Smoking Cessation Education: 3 to 10 minutes Medications reviewed and adjusted accordingly: Yes Anticipated discharge: Home
[2018-07-10] MEDS: ONDANSETRON 4 MG TAB.RAPDIS PO PRN (12:11)
--- NOTE | 2018-07-10 17:09 | Pulmonary Function Test ---
Pulmonary Function Test Date of Procedure:: 07/10/18 INDICATION:: Dyspnea Referring Provider: Dr.E Weller - Report Spirometry: FVC 4.22 L 108% postbronchodilator 4.17 L 107% FEV1 1.88 L 59% postbronchodilator 1.67 L 53% FEV1/FVC % 45 postbronchodilator 40 predicted 81 FEF 25-75% 0.99 L 30% postbronchodilator 0.86 L 26% Impression: Severe obstructive ventilatory defect with insignificant response to bronchodilator therapy. This in and of itself does not preclude a clinical trial of bronchodilator therapy
[2018-07-10] MEDS: SIMVASTATIN 40 MG TABLET PO SCH (17:57)
[2018-07-10] MEDS: PRAMIPEXOLE DI-HCL 0.5 MG TABLET PO SCH (22:14)
[2018-07-10] MEDS: AZITHROMYCIN 500 MG in DEXTROSE 5%-WATER 250 ML IV SCH (22:18)
[2018-07-11] MEDS: RISPERIDONE 1 MG TABLET PO SCH ×3 (05:14→21:46)
[2018-07-11] MEDS: ONDANSETRON HCL INJ/PF 4 MG/2 ML SDV IV PRN ×2 (08:00→14:30)
[2018-07-11] MEDS: ISOSORBIDE MONONITRATE 30 MG TAB.ER.24H PO SCH ×2 (10:29→21:47)
[2018-07-11] MEDS: METOPROLOL TARTRATE 25 MG TABLET PO SCH ×2 (10:29→21:46)
[2018-07-11] MEDS: GABAPENTIN 300 MG CAPSULE PO SCH (10:30)
[2018-07-11] MEDS: METHYLPREDNISOLONE INJ 40 MG/1 ML SDV IV SCH (10:30)
[2018-07-11] MEDS: ESCITALOPRAM OXALATE 10 MG TABLET PO SCH (10:30)
[2018-07-11] MEDS: CLOPIDOGREL BISULFATE 75 MG TABLET PO SCH (10:30)
[2018-07-11] MEDS: CEFTRIAXONE SODIUM 1,000 MG in DEXTROSE 5%-WATER 50 ML IV SCH (10:32)
[2018-07-11] MEDS: BUDESONIDE/FORMOTEROL 160-4.5 MCG 60 PUFF/6 GM MDI IH SCH ×2 (10:32→21:47)
[2018-07-11] MEDS: ENOXAPARIN SODIUM INJ 40 MG/0.4 ML DISP.SYRIN SUBCUT SCH (10:33)
[2018-07-11] MEDS: NICOTINE 14 MG/24 HR PATCH.TD24 TD SCH (10:33)
[2018-07-11] MEDS: TIOTROPIUM BROMIDE DPI 5 CAP/KIT (18 MCG/CAP) IH SCH (10:33)
[2018-07-11] MEDS: ONDANSETRON 4 MG TAB.RAPDIS PO PRN ×2 (11:41→16:59)
--- NOTE | 2018-07-11 14:42 | PDOC PROGRESS REPORT ---
Subjective Progress Note for:: 07/11/18 Subjective:: Patient's denies any complaints today. Comfortably resting in bed. Not on nasal cannula. Reason For Visit: ACUTE RESP FAILURE,COMM ACQUIRED PNEUMONIA Physical Exam Vital Signs: Temp Pulse Resp BP Pulse Ox 98.5 F 73 17 137/90 H 94 07/11/18 12:37 07/11/18 14:00 07/11/18 12:37 07/11/18 12:37 07/11/18 12:37 Pulse Oximeter Nocturnal Start: 07/09/18 09: 00 Freq: Status: Active Document 07/10/18 21:50 [facility] (Rec: 07/10/18 22:21 [facility] [id number]) Nocturnal Pulse Oximetry Equipment Usage Equipment in Use Nocturnal Spo2 Charge Charge Now Oxygen Delivery Method (includes room Nasal Cannula air) O2 Sat by Pulse Oximetry (92-100) 94 Continuous Pulse Oximeter Set Up Yes Continuous SpO2 Discontinued No Continuous SpO2 Machine # [id number] Intake & Output 07/10/18 07/11/18 07/12/18 06:59 06:59 06:59 Intake Total 1943 1887 168 Output Total 1600 875 Balance 343 1012 168 Weight 66.6 kg 65.8 kg General appearance: PRESENT: no acute distress, well-developed, well-nourished Head exam: PRESENT: atraumatic, normocephalic Neck exam: ABSENT: carotid bruit, JVD, lymphadenopathy, thyromegaly Respiratory exam: PRESENT: clear to auscultation carlos, unlabored Cardiovascular exam: PRESENT: RRR. ABSENT: diastolic murmur, rubs, systolic murmur Pulses: PRESENT: normal dorsalis pedis pul GI/Abdominal exam: PRESENT: normal bowel sounds, soft. ABSENT: distended, guarding, mass, organolmegaly, rebound, tenderness Extremities exam: PRESENT: full ROM. ABSENT: calf tenderness, clubbing, pedal edema Neurological exam: PRESENT: alert, awake, oriented to person, oriented to place , oriented to time, oriented to situation, CN II-XII grossly intact. ABSENT: motor sensory deficit Skin exam: PRESENT: dry, intact, warm. ABSENT: cyanosis, rash Results Laboratory Results: 07/10/18 04:15 07/10/18 04:15 07/07/18 07/07/18 00:10 06:17 Troponin I < 0.012 < 0.012 NT-Pro-B Natriuret Pep 330 Impressions: Chest X-Ray 07/07/18 06:00 IMPRESSION: Obstructive lung disease. No acute infiltrate Assessment & Plan - Diagnosis (1) Acute on chronic respiratory failure with hypoxia Is this a current diagnosis for this admission?: Yes Plan: 07/11/2018 patient is not in respiratory distress. Patient was is on IV ceftriaxone and IV azithromycin and also on IV Solu-Medrol for community- acquired pneumonia the cultures came back negative I am going to change her medications to p.o. Levaquin and going to start him on a prednisone 10 mg p.o. twice daily. (2) COPD exacerbation Is this a current diagnosis for this admission?: Yes Plan: 07/11/2018 patient has history of COPD and recurrent episodes of exacerbation of COPD on. His pulse ox right now is 98% on room air he is not requiring any oxygen. He is presently on IV antibiotic therapy and IV Solu-Medrol I am going to change the medications to p.o. from today (3) Coronary artery disease involving [place] coronary artery of [place] heart Qualifiers: Associated angina: without angina Qualified Code(s): I25.10 - Atherosclerotic heart disease of [place] coronary artery without angina pectoris Is this a current diagnosis for this admission?: Yes Plan: 07/11/2018 patient asymptomatic plan is to continue with the current regimen. (4) Bipolar disorder with depression Is this a current diagnosis for this admission?: Yes Plan: 07/11/2018 patient denies any anxiety or depression today. Plan is to continue the present medication. - Time Time Spent with patient: 15-24 minutes
[2018-07-11] MEDS: LEVOFLOXACIN 500 MG TABLET PO SCH (16:57)
[2018-07-11] MEDS: SIMVASTATIN 40 MG TABLET PO SCH (17:00)
[2018-07-11] MEDS: PRAMIPEXOLE DI-HCL 0.5 MG TABLET PO SCH (21:48)
[2018-07-12] MEDS: RISPERIDONE 1 MG TABLET PO SCH (06:26)
[2018-07-12] MEDS: ONDANSETRON HCL INJ/PF 4 MG/2 ML SDV IV PRN (08:33)
[2018-07-12 08:39] VITALS: BP 130/93
[2018-07-12] MEDS: ISOSORBIDE MONONITRATE 30 MG TAB.ER.24H PO SCH (09:41)
[2018-07-12] MEDS: CLOPIDOGREL BISULFATE 75 MG TABLET PO SCH (09:42)
[2018-07-12] MEDS: GABAPENTIN 300 MG CAPSULE PO SCH (09:42)
[2018-07-12] MEDS: BUDESONIDE/FORMOTEROL 160-4.5 MCG 60 PUFF/6 GM MDI IH SCH (09:42)
[2018-07-12] MEDS: METOPROLOL TARTRATE 25 MG TABLET PO SCH (09:42)
[2018-07-12] MEDS: ESCITALOPRAM OXALATE 10 MG TABLET PO SCH (09:42)
[2018-07-12] MEDS: NICOTINE 14 MG/24 HR PATCH.TD24 TD SCH (09:43)
[2018-07-12] MEDS: ENOXAPARIN SODIUM INJ 40 MG/0.4 ML DISP.SYRIN SUBCUT SCH (09:43)
[2018-07-12] MEDS: LEVOFLOXACIN 500 MG TABLET PO SCH (10:01)
[2018-07-12] MEDS: TIOTROPIUM BROMIDE DPI 5 CAP/KIT (18 MCG/CAP) IH SCH (10:39)
--- NOTE | 2018-07-12 14:37 | PDOC DISCHARGE SUMMARY ---
General - Admit/Disc Date/PCP Admission Date/Primary Care Provider: 07/06/18 17:08 LNYDA DUGGAN MD Discharge Date: 07/12/18 - Discharge Diagnosis (1) Acute on chronic respiratory failure with hypoxia Is this a current diagnosis for this admission?: Yes Summary: 07/12/[id number]-old male with history of COPD admitted on 07/06/2018 with complaints of cough worsening shortness of breath, family members also are sick with respiratory illness. At the time of presentation to the hospital patient was hypoxic on pulse ox's are in the 80s. He was admitted for COPD exacerbation and possible underlying pneumonia and hypoxia. He was treated with IV antibiotic therapy and IV Solu-Medrol, his pulse ox are improved since yesterday he does not need any oxygen requirements pulse ox on room air this morning is 95%. Patient comfortably in the bed not in distress at all. We are planning to send him home on a Xopenex nebulization every 4 as needed. (2) COPD exacerbation Is this a current diagnosis for this admission?: Yes Summary: 07/12/2018-patient was admitted on 07/06/2018 for COPD exacerbation and possible underlying pneumonia. And on examination today chest bilateral entry was decreased no wheezing no crepitations no rhonchi was heard. COPD exacerbation was resolved. (3) Coronary artery disease involving [place] coronary artery of [place] heart Is this a current diagnosis for this admission?: Yes Summary: 09/11/2017-and history of coronary artery disease and bypass but no complaints of chest pain while he was in the hospital, patient is asymptomatic today. She was advised to continue his heart medications once he goes home. (4) Bipolar disorder with depression Is this a current diagnosis for this admission?: Yes Summary: 07/16/2018-has history of bipolar disorder and depression, no episodes of anxiety or depression episodes while he was in the hospital. - Additional Information Resuscitation Status: Full Code Discharge Diet: As Tolerated Discharge Activity: Activity As Tolerated Prescriptions: Levalbuterol HCl [Xopenex Neb 1.25 mg/3 ml Ampul] 1.25 mg NEB RTQ4HP PRN #20 vial.neb PRN Reason: Shortness Of Breath Levofloxacin [Levaquin 500 mg Tablet] 500 mg PO DAILY #7 tablet Ondansetron HCl [Zofran 4 mg Tablet] 1 - 2 tab PO Q4H PRN #10 tablet PRN Reason: Home Medications: Clopidogrel Bisulfate [Plavix 75 mg Tablet] 75 mg PO DAILY 07/06/18 Dicyclomine HCl [Bentyl 10 mg Capsule] 10 mg PO BID 07/06/18 Escitalopram Oxalate [Lexapro] 30 mg PO DAILY 07/06/18 Gabapentin [Neurontin 300 mg Capsule] 300 mg PO DAILY 07/06/18 Isosorbide Mononitrate [Imdur 30 mg Tablet.er] 60 mg PO Q12 07/06/18 Lorazepam [Ativan 1 mg Tablet] 1 mg PO Q6HP PRN 07/06/18 Metoprolol Tartrate [Lopressor 25 mg Tablet] 12.5 mg PO Q12 07/06/18 Omeprazole 40 mg PO DAILY 07/06/18 Pramipexole Di-HCl [Mirapex 0.5 mg Tablet] 0.5 mg PO QHS 07/06/18 Risperidone [Risperdal] 2 mg PO Q8 07/06/18 Simvastatin [Zocor 40 mg Tablet] 40 mg PO QPM 07/06/18 Levalbuterol HCl [Xopenex Neb 1.25 mg/3 ml Ampul] 1.25 mg NEB RTQ4HP PRN #20 vial.neb 07/12/18 Levofloxacin [Levaquin 500 mg Tablet] 500 mg PO DAILY #7 tablet 07/12/18 Ondansetron HCl [Zofran 4 mg Tablet] 1 - 2 tab PO Q4H PRN #10 tablet 07/12/18 History of Present Illness History of Present Illness: ELLA HILL is a 58 year old male with a complex history of chronic obstructive pulmonary disease. He also has a history of coronary disease disease including cardiac bypass. He is also bipolar. For the last 4-5 weeks he has been noticing increased cough and worsening shortness of breath. Multiple family members in the house have been sick with respiratory illness. He finally became compromised enough to present to the emergency department. When he presented to the emergency department he was hypoxic with oxygen saturation in the low 80s. With nebulizer treatments, IV magnesium and BiPAP his saturations are holding greater than 90. He will be admitted for aggressive management of his COPD with likely underlying infection. Physical Exam Vital Signs: Temp Pulse Resp BP Pulse Ox 98.1 F 116 H 14 130/93 H 96 07/12/18 10:25 07/12/18 10:25 07/12/18 10:25 07/12/18 07:39 07/12/18 10:25 Pulse Oximeter Nocturnal Start: 07/09/18 09: 00 Freq: Status: Complete Document 07/10/18 21:50 [facility] (Rec: 07/10/18 22:21 [facility] [id number]) Nocturnal Pulse Oximetry Equipment Usage Equipment in Use Nocturnal Spo2 Charge Charge Now Oxygen Delivery Method (includes room Nasal Cannula air) O2 Sat by Pulse Oximetry (92-100) 94 Continuous Pulse Oximeter Set Up Yes Continuous SpO2 Discontinued No Continuous SpO2 Machine # N-[id number] Intake & Output 07/11/18 07/12/18 07/13/18 06:59 06:59 06:59 Intake Total 1887 405 Output Total 875 Balance 1012 405 Weight 65.8 kg 64.1 kg General appearance: PRESENT: no acute distress Head exam: PRESENT: atraumatic Eye exam: PRESENT: PERRLA Neck exam: ABSENT: carotid bruit, JVD, lymphadenopathy, thyromegaly Respiratory exam: PRESENT: clear to auscultation carlos. ABSENT: rales, rhonchi, wheezes Cardiovascular exam: PRESENT: RRR. ABSENT: diastolic murmur, rubs, systolic murmur GI/Abdominal exam: PRESENT: normal bowel sounds, soft. ABSENT: distended, guarding, mass, organolmegaly, rebound, tenderness Neurological exam: PRESENT: alert, awake, oriented to person, oriented to place , oriented to time, oriented to situation, CN II-XII grossly intact. ABSENT: motor sensory deficit Results Laboratory Results: 07/10/18 04:15 07/10/18 04:15 07/07/18 06:17 Blood Blood Culture - Final NO GROWTH IN 5 DAYS 07/07/18 01:10 Blood Blood Culture - Final NO GROWTH IN 5 DAYS 07/07/18 07/07/18 00:10 06:17 Troponin I < 0.012 < 0.012 NT-Pro-B Natriuret Pep 330 Impressions: Chest X-Ray 07/07/18 06:00 IMPRESSION: Obstructive lung disease. No acute infiltrate Qualifiers - * PATIENT BEING DISCHARGED WITH ANY OF THE FOLLOWING DIAGNOSIS: No VTE patient discharged on overlapping Therapy?: Yes Plan Time Spent: Less than 30 Minutes
--- NOTE | 2018-07-17 14:53 | PDOC CONSULTATION ---
Consultation Consult Date: 07/10/18 Attending physician:: HANNAH MILLAN Consult reason:: Cute on chronic respiratory failure History of Present Illness Admission Date/PCP: 07/06/18 17:08 LYNDA DUGGAN MD History of Present Illness: ELLA HILL is a 58 year old male, presented to the emergency room with progressive shortness of breath and cough productive of yellow phlegm he states is been getting worse over the last 7 days most the members of his family also had carpal syndromes however they did not have the underlying edema diagnosed that the patient currently carries denies hemoptysis PPD was negative dates unknown no history of chronic lung disease as a child or adolescent missed exposure to passive smoke as a child as well as an adult has 1 dog no recent travel no angina-like chest pain sleeps on 2 pillows no PND no nocturnal cough intermittent episodes of edema snoring restless sleep nocturia 2-3 times per night on restful sleep and excessive daytime somnolence. Past Medical History Cardiac Medical History: Reports: Coronary Artery Disease, Myocardial Infarction , Hyperlipidema, Hypertension, Other - Coronary artery bypass Pulmonary Medical History: Reports: Bronchitis, Chronic Obstructive Pulmonary Disease (COPD), Respiratory Failure Denies: Asthma, Pneumonia, Tuberculosis EENT Medical History: Reports: None Neurological Medical History: Denies: Hemorrhagic CVA, Ischemic CVA, Seizures Endocrine Medical History: Denies: Diabetes Mellitus Type 2, Hypothyroidism Renal/ Medical History: Denies: Chronic Kidney Disease Malignancy Medical History: Reports: None GI Medical History: Reports: Gastroesophageal Reflux Disease Denies: Cirrhosis, Hiatal Hernia, Peptic Ulcer Disease Musculoskeltal Medical History: Reports: Arthritis Skin Medical History: Denies: Eczema, Psoriasis Psychiatric Medical History: Reports: Bipolar Disorder, Depression, Tobacco Dependency Hematology: Denies: Anemia Infectious Medical History: Denies: Hepatitis B, Hepatitis C, HIV Past Surgical History Past Surgical History: Reports: Cardiac Catheterization, Coronary Artery Bypass Graft - 2008, Orthopedic Surgery - metal plate in right wrist Denies: Pacemaker Social History Information Source: Patient, [facility] Records 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 Lives with: Family Smoking Status: Current Every Day Smoker Cigarettes Packs Per Day: 1 Number of Years Smokin Passive smoke exposure as: Both Hx Recreational Drug Use: No Hx Prescription Drug Abuse: No Do you have pets?: Yes Have you had any respiratory illnesses as a child?: No Have you been exposed to any sick contacts recently?: Yes Have you had any recent respiratory illnesses?: Yes Have you travelled outside of [place] in the past 12 months?: No - Advance Directive Resuscitation Status: Full Code Family History Family History: CAD, Hypertension Parental Family History Reviewed: Yes Children Family History Reviewed: Yes Sibling(s) Family History Reviewed.: Yes Medication/Allergy Home Medications: Clopidogrel Bisulfate [Plavix 75 mg Tablet] 75 mg PO DAILY 07/06/18 Dicyclomine HCl [Bentyl 10 mg Capsule] 10 mg PO BID 07/06/18 Escitalopram Oxalate [Lexapro] 30 mg PO DAILY 07/06/18 Gabapentin [Neurontin 300 mg Capsule] 300 mg PO DAILY 07/06/18 Isosorbide Mononitrate [Imdur 30 mg Tablet.er] 60 mg PO Q12 07/06/18 Lorazepam [Ativan 1 mg Tablet] 1 mg PO Q6HP PRN 07/06/18 Metoprolol Tartrate [Lopressor 25 mg Tablet] 12.5 mg PO Q12 07/06/18 Omeprazole 40 mg PO DAILY 07/06/18 Pramipexole Di-HCl [Mirapex 0.5 mg Tablet] 0.5 mg PO QHS 07/06/18 Risperidone [Risperdal] 2 mg PO Q8 07/06/18 Simvastatin [Zocor 40 mg Tablet] 40 mg PO QPM 07/06/18 Levalbuterol HCl [Xopenex Neb 1.25 mg/3 ml Ampul] 1.25 mg NEB RTQ4HP PRN #20 vial.neb 07/12/18 Levofloxacin [Levaquin 500 mg Tablet] 500 mg PO DAILY #7 tablet 07/12/18 Ondansetron HCl [Zofran 4 mg Tablet] 1 - 2 tab PO Q4H PRN #10 tablet 07/12/18 Allergies/Adverse Reactions: codeine [Codeine] Allergy (Verified 04/10/14 08:13) latex [Latex] Allergy (Verified 04/10/14 08:13) adhesive tape [Adhesive Tape] Adverse Reaction (Intermediate, Verified 04/10/14 08:13) Urticaria Review of Systems Constitutional: PRESENT: chills, fever(s) Eyes: ABSENT: visual disturbances Ears: ABSENT: hearing changes Nose, Mouth, and Throat: ABSENT: mouth pain Cardiovascular: PRESENT: dyspnea on exertion, edema. ABSENT: palpitations Respiratory: PRESENT: cough, dyspnea, sputum. ABSENT: hemoptysis Gastrointestinal: ABSENT: abdominal pain, bloating, coffee ground emesis, hematemesis, hematochezia, melena Genitourinary: ABSENT: difficulty urinating, dysuria, hematuria Integumentary: ABSENT: pruritus, rash Neurological: ABSENT: abnormal gait, abnormal movements, abnormal speech, focal weakness, frequent falls, memory loss Psychiatric: ABSENT: hallucinations, homidical ideation, suicidal ideation Endocrine: ABSENT: cold intolerance, heat intolerance, polydipsia, polyuria Hematologic/Lymphatic: ABSENT: easy bruising, lymphadenopathy Allergic/Immunologic: ABSENT: seasonal rhinorrhea Physical Exam Vital Signs: Temp Pulse Resp BP Pulse Ox 97.6 F 82 19 129/95 H 94 07/11/18 07:58 07/11/18 07:58 07/11/18 07:58 07/11/18 07:58 07/11/18 07:58 Pulse Oximeter Nocturnal Start: 07/09/18 09: 00 Freq: Status: Active Document 07/10/18 21:50 [facility] (Rec: 07/10/18 22:21 [facility] [id number]) Nocturnal Pulse Oximetry Equipment Usage Equipment in Use Nocturnal Spo2 Charge Charge Now Oxygen Delivery Method (includes room Nasal Cannula air) O2 Sat by Pulse Oximetry (92-100) 94 Continuous Pulse Oximeter Set Up Yes Continuous SpO2 Discontinued No Continuous SpO2 Machine # N-13 Intake & Output 07/10/18 07/11/18 07/12/18 06:59 06:59 06:59 Intake Total 1943 1887 Output Total 1600 875 Balance 343 1012 Weight 66.6 kg 65.8 kg General appearance: PRESENT: no acute distress, cooperative, disheveled, thin Head exam: PRESENT: atraumatic, normocephalic Eye exam: PRESENT: conjunctiva pale, EOMI. ABSENT: nystagmus, periorbital swelling Mouth exam: PRESENT: dry mucosa, neck supple, tongue midline Neck exam: ABSENT: carotid bruit, JVD, lymphadenopathy, thyromegaly, tracheal deviation Respiratory exam: PRESENT: decreased breath sounds, prolonged expiratory phas, rales, rhonchi, unlabored, wheezes. ABSENT: retraction, stridor Cardiovascular exam: PRESENT: RRR, +S1, +S2 Pulses: PRESENT: normal radial pulses GI/Abdominal exam: PRESENT: soft. ABSENT: tenderness Extremities exam: ABSENT: calf tenderness, clubbing, joint swelling, pedal edema Musculoskeletal exam: ABSENT: deformity, dislocation Neurological exam: PRESENT: awake Skin exam: PRESENT: dry, warm Results Laboratory Results: 07/10/18 04:15 07/10/18 04:15 07/10/18 04:15 Total Bilirubin 0.4 AST 22 ALT 23 Alkaline Phosphatase 76 Total Protein 6.2 L Albumin 3.3 L Lipase 77.4 07/07/18 07/07/18 00:10 06:17 Troponin I < 0.012 < 0.012 NT-Pro-B Natriuret Pep 330 Impressions: Chest X-Ray 07/07/18 06:00 IMPRESSION: Obstructive lung disease. No acute infiltrate Assessment & Plan - Diagnosis (1) Acute on chronic respiratory failure with hypoxia Is this a current diagnosis for this admission?: Yes Plan: Supplemental oxygen BiPAP as needed (2) COPD exacerbation Is this a current diagnosis for this admission?: Yes Plan: Continue current bronchodilator therapy (3) GERD (gastroesophageal reflux disease) Qualifiers: Esophagitis presence: without esophagitis Qualified Code(s): K21.9 - Gastro -esophageal reflux disease without esophagitis Is this a current diagnosis for this admission?: Yes Plan: PPI elevate head of bed (4) Tobacco abuse counseling Is this a current diagnosis for this admission?: Yes Plan: Stop smoking
--- NOTE | 2018-07-17 14:55 | PDOC PROGRESS REPORT ---
Subjective Progress Note for:: 07/11/18 Subjective:: Somewhat better Reason For Visit: ACUTE RESP FAILURE,COMM ACQUIRED PNEUMONIA Physical Exam Vital Signs: Temp Pulse Resp BP Pulse Ox 97.6 F 82 19 129/95 H 94 07/11/18 07:58 07/11/18 07:58 07/11/18 07:58 07/11/18 07:58 07/11/18 07:58 Pulse Oximeter Nocturnal Start: 07/09/18 09: 00 Freq: Status: Active Document 07/10/18 21:50 [facility] (Rec: 07/10/18 22:21 [facility] [id number]) Nocturnal Pulse Oximetry Equipment Usage Equipment in Use Nocturnal Spo2 Charge Charge Now Oxygen Delivery Method (includes room Nasal Cannula air) O2 Sat by Pulse Oximetry (92-100) 94 Continuous Pulse Oximeter Set Up Yes Continuous SpO2 Discontinued No Continuous SpO2 Machine # [id number]-13 Intake & Output 07/10/18 07/11/18 07/12/18 06:59 06:59 06:59 Intake Total 1943 1887 Output Total 1600 875 Balance 343 1012 Weight 66.6 kg 65.8 kg General appearance: PRESENT: no acute distress, cooperative, disheveled, thin Head exam: PRESENT: atraumatic, normocephalic Eye exam: PRESENT: conjunctiva pale, EOMI. ABSENT: nystagmus, periorbital swelling, scleral icterus Mouth exam: PRESENT: dry mucosa, neck supple, tongue midline Neck exam: ABSENT: carotid bruit, JVD, lymphadenopathy, thyromegaly, tracheal deviation, tracheostomy Respiratory exam: PRESENT: decreased breath sounds, prolonged expiratory phas, rales, rhonchi, unlabored. ABSENT: retraction, stridor, tachypnea Cardiovascular exam: PRESENT: RRR, +S1, +S2 Pulses: PRESENT: normal radial pulses GI/Abdominal exam: PRESENT: soft. ABSENT: tenderness Extremities exam: ABSENT: calf tenderness, clubbing, joint swelling, pedal edema Musculoskeletal exam: ABSENT: deformity, dislocation Neurological exam: PRESENT: alert, awake Psychiatric exam: PRESENT: normal mood Skin exam: PRESENT: dry, warm Results Laboratory Results: 07/10/18 04:15 07/10/18 04:15 07/10/18 04:15 Total Bilirubin 0.4 AST 22 ALT 23 Alkaline Phosphatase 76 Total Protein 6.2 L Albumin 3.3 L Lipase 77.4 07/07/18 07/07/18 00:10 06:17 Troponin I < 0.012 < 0.012 NT-Pro-B Natriuret Pep 330 Impressions: Chest X-Ray 07/07/18 06:00 IMPRESSION: Obstructive lung disease. No acute infiltrate Assessment & Plan - Diagnosis (1) Acute on chronic respiratory failure with hypoxia Is this a current diagnosis for this admission?: Yes Plan: Supplemental oxygen BiPAP as needed (2) COPD exacerbation Is this a current diagnosis for this admission?: Yes Plan: Continue current bronchodilator therapy (3) GERD (gastroesophageal reflux disease) Qualifiers: Esophagitis presence: without esophagitis Qualified Code(s): K21.9 - Gastro -esophageal reflux disease without esophagitis Is this a current diagnosis for this admission?: Yes Plan: PPI elevate head of bed (4) Tobacco abuse counseling Is this a current diagnosis for this admission?: Yes Plan: Stop smoking
--- NOTE | 2018-07-17 15:00 | PDOC PROGRESS REPORT ---
Subjective Progress Note for:: 07/12/18 Subjective:: Somewhat better Reason For Visit: ACUTE RESP FAILURE,COMM ACQUIRED PNEUMONIA Physical Exam Vital Signs: Temp Pulse Resp BP Pulse Ox 98.1 F 116 H 14 130/93 H 96 07/12/18 10:25 07/12/18 10:25 07/12/18 10:25 07/12/18 07:39 07/12/18 10:25 Pulse Oximeter Nocturnal Start: 07/09/18 09: 00 Freq: Status: Complete Document 07/10/18 21:50 [facility] (Rec: 07/10/18 22:21 [facility] [id number]) Nocturnal Pulse Oximetry Equipment Usage Equipment in Use Nocturnal Spo2 Charge Charge Now Oxygen Delivery Method (includes room Nasal Cannula air) O2 Sat by Pulse Oximetry (92-100) 94 Continuous Pulse Oximeter Set Up Yes Continuous SpO2 Discontinued No Continuous SpO2 Machine # [id number]-13 General appearance: PRESENT: no acute distress, cooperative, disheveled, thin Head exam: PRESENT: atraumatic, normocephalic Eye exam: PRESENT: conjunctiva pale, EOMI. ABSENT: nystagmus, periorbital swelling Mouth exam: PRESENT: dry mucosa, neck supple, tongue midline Neck exam: ABSENT: carotid bruit, JVD, lymphadenopathy, thyromegaly, tracheal deviation, tracheostomy Respiratory exam: PRESENT: rhonchi, wheezes. ABSENT: decreased breath sounds, prolonged expiratory phas, retraction, stridor, unlabored Cardiovascular exam: PRESENT: RRR, +S1, +S2 Pulses: PRESENT: normal radial pulses GI/Abdominal exam: PRESENT: soft. ABSENT: tenderness Extremities exam: ABSENT: calf tenderness, clubbing, joint swelling, pedal edema Musculoskeletal exam: ABSENT: deformity, dislocation Neurological exam: PRESENT: alert, awake Skin exam: PRESENT: dry, warm Results Laboratory Results: 07/10/18 04:15 07/10/18 04:15 07/07/18 07/07/18 00:10 06:17 Troponin I < 0.012 < 0.012 NT-Pro-B Natriuret Pep 330 Impressions: Chest X-Ray 07/07/18 06:00 IMPRESSION: Obstructive lung disease. No acute infiltrate Assessment & Plan - Diagnosis (1) Acute on chronic respiratory failure with hypoxia Is this a current diagnosis for this admission?: Yes Plan: Supplemental oxygen BiPAP as needed (2) COPD exacerbation Is this a current diagnosis for this admission?: Yes Plan: Continue current bronchodilator therapy (3) GERD (gastroesophageal reflux disease) Qualifiers: Esophagitis presence: without esophagitis Qualified Code(s): K21.9 - Gastro -esophageal reflux disease without esophagitis Is this a current diagnosis for this admission?: Yes Plan: PPI elevate head of bed (4) Tobacco abuse counseling Is this a current diagnosis for this admission?: Yes Plan: Stop smoking
== END 2018-07-12 10:54 | disposition home or self-care (01) | DRG 190 ==
LOC: ER 12:51 → EH 17:08 → 3S 19:56 → 3N 07-09 21:35
PROVIDERS: ADMIT Hospitalist; ATTEND Hospitalist
PROC: 5A09457 Assistance with Respiratory Ventilation, 24-96 Consecutive Hours, Continuous Positive Airway Pressure (ICD-10-PCS; principal; 2018-07-06)
PROC: 3E0F73Z Introduction of Anti-inflammatory into Respiratory Tract, Via Natural or Artificial Opening (ICD-10-PCS; 2018-07-06)
PROC: 3E02340 Introduction of Influenza Vaccine into Muscle, Percutaneous Approach (ICD-10-PCS; 2018-07-12)
DX: J44.1 Chronic obstructive pulmonary disease with (acute) exacerbation (principal); J96.21 Acute and chronic respiratory failure with hypoxia; I25.10 Atherosclerotic heart disease of native coronary artery without angina pectoris; F31.9 Bipolar disorder, unspecified; E78.00 Pure hypercholesterolemia, unspecified; M19.90 Unspecified osteoarthritis, unspecified site; I10 Essential (primary) hypertension; F17.210 Nicotine dependence, cigarettes, uncomplicated; K21.9 Gastro-esophageal reflux disease without esophagitis; N40.0 Benign prostatic hyperplasia without lower urinary tract symptoms; I25.2 Old myocardial infarction; Z23 Encounter for immunization; Z79.899 Other long term (current) drug therapy; Z95.1 Presence of aortocoronary bypass graft; Z88.6 Allergy status to analgesic agent; Z91.040 Latex allergy status; Z79.02 Long term (current) use of antithrombotics/antiplatelets; Z82.49 Family history of ischemic heart disease and other diseases of the circulatory system
CPT/HCPCS: 36415; 36600; 71045; 80048; 80053; 80076; 81001; 82803; 83690; 83735; 83880; 84484; 85025; 85027; 87040; 90686; 93005; 93010; 94640; 94660; 94762; 96365; 96366; 99285; J0456; J0696; J1650; J2405; J2920; J2930; J3475; J3490; J7030; J7060; J7620; S0119; S0164

== ENCOUNTER 2019-01-22 08:57 | Emergency (ER) | payer MEDICARE ==
[2019-01-22] MEDS ORDERED: METHYLPREDNISOLONE INJ 125 MG/2 ML SDV ONE (09:02)
[2019-01-22] MEDS ORDERED: IPRATROPIUM/ALBUTEROL 0.5-2.5 MG/3 ML AMPUL NEB ONE ×2 (09:02→09:56)
[2019-01-22] MEDS ORDERED: VECURONIUM BROMIDE INJ 10 MG VIAL IV ONE ×2 (09:05→09:06)
[2019-01-22] MEDS ORDERED: NORMAL SALINE 1000 ML 1,000 ML IV ONE ×2 (09:05→09:06)
[2019-01-22] MEDS ORDERED: PIPERACILLIN/TAZOBACTAM 3.375 GM VIAL IV ONE (09:06)
[2019-01-22] MEDS ORDERED: KETAMINE HCL INJ 500 MG/10 ML VIAL IV ONE (09:07)
--- NOTE | 2019-01-22 09:09 | ER Document Report ---
ED Respiratory Problem - General Stated Complaint: UNRESPONSIVE Time Seen by Provider: 01/22/19 09:04 Primary Care Provider: LYNDA DUGGAN MD [COMMUNITY BASED STAFF] - Follow up as needed Notes: 58-year-old male to emerge department chief complaint of respiratory arrest. Patient was having a hard time breathing according to family. Family member that wears oxygen checked his oxygen level and noticed that it was in the 70s so she put some of her oxygen on him. Patient became unresponsive. By the time EMS got there patient had complete unconsciousness but was breathing approximately 40 times a minute, with pale and diaphoretic. Under medical direction EMS performed RSI and intubated the patient. Patient was brought to the ER. Patient seen immediately on arrival. Tube placement was confirmed. TRAVEL OUTSIDE OF THE [place] IN LAST 30 DAYS: No - HPI Patient complains to provider of: COPD Onset: Just prior to arrival Duration: Continuous Severity: Severe - Related Data Allergies/Adverse Reactions: codeine [Codeine] Allergy (Verified 04/10/14 08:13) latex [Latex] Allergy (Verified 04/10/14 08:13) adhesive tape [Adhesive Tape] Adverse Reaction (Intermediate, Verified 04/10/14 08:13) Urticaria Past Medical History - General Information source: Relative, [facility] Records Cannot obtain history due to: Unstable vital signs, Uncooperative, Altered mental status - Social History Smoking Status: Smoker,Current Status Unk Lives with: Spouse/Significant other Family History: CAD, Hypertension - Past Medical History Cardiac Medical History: Reports: Hx Coronary Artery Disease, Hx Heart Attack, Hx Hypercholesterolemia, Hx Hypertension Pulmonary Medical History: Reports: Hx Bronchitis, Hx COPD, Hx Respiratory Failure Denies: Hx Asthma, Hx Pneumonia, Hx Tuberculosis Neurological Medical History: Denies: Hx Cerebrovascular Accident, Hx Seizures Endocrine Medical History: Denies: Hx Diabetes Mellitus Type 2, Hx Hypothyroidism Renal/ Medical History: Reports: Hx Benign Prostatic Hyperplasia. Denies: Hx Peritoneal Dialysis GI Medical History: Reports: Hx Gastroesophageal Reflux Disease. Denies: Hx Cirrhosis, Hx Hiatal Hernia Musculoskeletal Medical History: Reports Hx Arthritis Skin Medical History: Denies Hx Eczema, Denies Hx Psoriasis Psychiatric Medical History: Reports: Hx Bipolar Disorder, Hx Depression Traumatic Medical History: Reports: Hx Fractures - R wrist, nose Infectious Medical History: Denies: Hx HIV Past Surgical History: Reports: Hx Cardiac Catheterization, Hx Cardiac Surgery - bypass 2007, Hx Coronary Artery Bypass Graft - 2007, Hx Orthopedic Surgery - metal plate in right wrist. Denies: Hx Pacemaker - Immunizations Hx Diphtheria, Pertussis, Tetanus Vaccination: Yes Hx Pneumococcal Vaccination: 09/11/10 Review of Systems - Review of Systems -: Yes ROS unobtainable due to patient's medical condition Physical Exam - Vital signs Vitals: Resp BP Pulse Ox 16 95/75 L 100 01/22/19 08:59 01/22/19 08:59 01/22/19 08:59 Interpretation: Normal - General General appearance: Appears well, Alert - HEENT Head: Normocephalic, Atraumatic Eyes: Normal Pupils: PERRL Notes: Endotracheal tube is present. - Respiratory Respiratory status: No respiratory distress Chest status: Nontender Breath sounds: Wheezing Chest palpation: Normal - Cardiovascular Rhythm: Regular Heart sounds: Normal auscultation Murmur: No - Abdominal Inspection: Normal Distension: No distension Bowel sounds: Normal Tenderness: Nontender Organomegaly: No organomegaly - Back Back: Normal, Nontender - Extremities General upper extremity: Normal inspection, Nontender, Normal color, Normal ROM, Normal temperature General lower extremity: Normal inspection, Nontender, Normal color, Normal ROM, Normal temperature, Normal weight bearing. No: Camille's sign - Neurological Neuro grossly intact: Yes Noel Coma Scale Eye Opening: None Magy Coma Scale Verbal: None Magy Coma Scale Motor: None Magy Coma Scale Total: 3 - Skin Skin Temperature: Warm Skin Moisture: Dry Skin Color: Normal Course - Re-evaluation Re-evalutation: 01/22/19 11:07 Patient was seen immediately on arrival. Tube placement was confirmed with chest x-ray and auscultation. In-line breathing treatment, Solu-Medrol ordered. His blood pressure was very low so 2 L of normal saline bolus ordered. Antibiotics ordered for presumed sepsis. EKG shows minimal ST depression in the inferior leads. EKG x2 does not show any ST elevation. Cardiac troponin is elevated as well as CK-MB. pH of 7.22 with a PCO2 of 88. Patient with presumed hypercarbic and hypoxic respiratory failure with myocardial ischemia. Will transfer to higher level of care at this time. 01/22/19 11:08 Laboratory 01/22/19 01/22/19 01/22/19 09:00 09:00 09:00 WBC 20.8 H RBC 3.72 L Hgb 11.4 L Hct 34.0 L MCV 92 MCH 30.7 MCHC 33.5 RDW 14.6 H Plt Count 364 Total Counted 100 Seg Neutrophils % Not Reportable Seg Neuts % (Manual) 95 H Band Neutrophils % 4 Lymphocytes % Not Reportable Lymphocytes % (Manual) 1 L Monocytes % Not Reportable Monocytes % (Manual) 0 L Eosinophils % Not Reportable Eosinophils % (Manual) 0 Basophils % Not Reportable Basophils % (Manual) 0 Absolute Neutrophils Not Reportable Abs Neuts (Manual) 20.6 H Absolute Lymphocytes Not Reportable Abs Lymphs (Manual) 0.2 L Absolute Monocytes Not Reportable Abs Monocytes (Manual) 0.0 L Absolute Eosinophils Not Reportable Absolute Eos (Manual) 0.0 Absolute Basophils Not Reportable Abs Basophils (Manual) 0.0 Platelet Comment ADEQUATE Anisocytosis SLIGHT Carbonic Acid HCO3/H2CO3 Ratio ABG pH ABG pCO2 ABG pO2 ABG HCO3 ABG Total CO2 ABG O2 Saturation ABG Base Excess FiO2 Sodium 135.7 L Potassium 4.6 Chloride 92 L Carbon Dioxide 34 H Anion Gap 10 BUN 13 Creatinine 0.44 L Est GFR ( Amer) > 60 Est GFR (Non-Af Amer) > 60 Glucose 169 H Lactic Acid Calcium 9.4 Total Bilirubin 0.3 Direct Bilirubin 0.3 Neonat Total Bilirubin Not Reportable Neonat Direct Bilirubin Not Reportable Neonat Indirect Bili Not Reportable AST 26 ALT 20 L Alkaline Phosphatase 97 Creatine Kinase 147 CK-MB (CK-2) 17.60 H Troponin I 0.837 Total Protein 6.7 Albumin 3.2 L 01/22/19 01/22/19 09:00 09:00 WBC RBC Hgb Hct MCV MCH MCHC RDW Plt Count Total Counted Seg Neutrophils % Seg Neuts % (Manual) Band Neutrophils % Lymphocytes % Lymphocytes % (Manual) Monocytes % Monocytes % (Manual) Eosinophils % Eosinophils % (Manual) Basophils % Basophils % (Manual) Absolute Neutrophils Abs Neuts (Manual) Absolute Lymphocytes Abs Lymphs (Manual) Absolute Monocytes Abs Monocytes (Manual) Absolute Eosinophils Absolute Eos (Manual) Absolute Basophils Abs Basophils (Manual) Platelet Comment Anisocytosis Carbonic Acid 2.65 H HCO3/H2CO3 Ratio 14:1 ABG pH 7.25 L ABG pCO2 88.1 H* ABG pO2 559.1 H ABG HCO3 38.0 H ABG Total CO2 40.7 H ABG O2 Saturation 99.9 H ABG Base Excess 7.5 FiO2 100% Sodium Potassium Chloride Carbon Dioxide Anion Gap BUN Creatinine Est GFR ( Amer) Est GFR (Non-Af Amer) Glucose Lactic Acid 1.0 Calcium Total Bilirubin Direct Bilirubin Neonat Total Bilirubin Neonat Direct Bilirubin Neonat Indirect Bili AST ALT Alkaline Phosphatase Creatine Kinase CK-MB (CK-2) Troponin I Total Protein Albumin Chest X-Ray 01/22/19 09:05 IMPRESSION: Good position of support apparatus. No pneumothorax. 01/22/19 11:08 Dr. Valdez at [facility] has accepted to the ICU. Pending transfer at this time. 01/22/19 11:12 01/22/19 13:12 Patient starting on heparin drip at this time. Aspirin given rectally. Fentanyl and Versed added for sedation. Still having quite low blood pressure for so potential of sepsis still exist as well with a low-grade fever so proceeding with antibiotics and sepsis protocol. 01/22/19 13:16 Troponin is gone from a 0.8-2.1. CK-MB is gone from 17-24. We will continue with the heparin drip. Aspirin rectally. Repeat EKG performed. Patient still has ST depression in V3, V4, V5 with some T wave inversion in lead III. Unchanged from prior. 01/22/19 13:32 Patient is adequately sedated. Patient's blood pressure 87/60 on the vent. Heart rate 101. Patient remained stable for transport at this time. - Vital Signs Vital signs: Temp Pulse Resp BP Pulse Ox 18 106/83 100 01/22/19 11:00 01/22/19 11:00 01/22/19 11:00 - Laboratory Result Diagrams: 01/22/19 09:00 01/22/19 09:00 Laboratory results interpreted by me: 01/22/19 01/22/19 01/22/19 09:00 09:00 09:00 WBC 20.8 H RBC 3.72 L Hgb 11.4 L Hct 34.0 L RDW 14.6 H Seg Neuts % (Manual) 95 H Lymphocytes % (Manual) 1 L Monocytes % (Manual) 0 L Abs Neuts (Manual) 20.6 H Abs Lymphs (Manual) 0.2 L Abs Monocytes (Manual) 0.0 L Carbonic Acid ABG pH ABG pCO2 ABG pO2 ABG HCO3 ABG Total CO2 ABG O2 Saturation Sodium 135.7 L Chloride 92 L Carbon Dioxide 34 H Creatinine 0.44 L Glucose 169 H POC Glucose ALT 20 L Creatine Kinase CK-MB (CK-2) 17.60 H Albumin 3.2 L 01/22/19 01/22/19 01/22/19 09:00 12:21 12:21 WBC RBC Hgb Hct RDW Seg Neuts % (Manual) Lymphocytes % (Manual) Monocytes % (Manual) Abs Neuts (Manual) Abs Lymphs (Manual) Abs Monocytes (Manual) Carbonic Acid 2.65 H ABG pH 7.25 L ABG pCO2 88.1 H* ABG pO2 559.1 H ABG HCO3 38.0 H ABG Total CO2 40.7 H ABG O2 Saturation 99.9 H Sodium Chloride Carbon Dioxide Creatinine Glucose POC Glucose ALT Creatine Kinase 197 H CK-MB (CK-2) 29.00 H Albumin 01/22/19 13:08 WBC RBC Hgb Hct RDW Seg Neuts % (Manual) Lymphocytes % (Manual) Monocytes % (Manual) Abs Neuts (Manual) Abs Lymphs (Manual) Abs Monocytes (Manual) Carbonic Acid ABG pH ABG pCO2 ABG pO2 ABG HCO3 ABG Total CO2 ABG O2 Saturation Sodium Chloride Carbon Dioxide Creatinine Glucose POC Glucose 142 H ALT Creatine Kinase CK-MB (CK-2) Albumin - EKG Interpretation by Me Rate: Tachycardia Additional EKG results interpreted by me: 01/22/19 11:10 Patient was sinus tachycardia. Nonspecific intraventricular conduction delay with old infarct. Has ST depression in the V3 and V4 and V5 leads. 01/22/19 11:11 KG #2: Normal sinus rhythm with a rate of 95. Minimal ST depression in V3 and V4. T wave inversion in lead III and aVF Critical Care Note - Critical Care Note Total time excluding time spent on procedures (mins): 90 Comments: Hypercarbia, respiratory failure, sepsis, consultation with specialist, non-ST segment elevation AK, multiple medication management. Discharge - Discharge Clinical Impression: NSTEMI (non-ST elevated myocardial infarction), Acute respiratory failure with hypoxia and hypercarbia Condition: Poor Disposition: [facility] Referrals: LYNDA DUGGAN MD [COMMUNITY BASED STAFF] - Follow up as needed
[2019-01-22 09:21] LABS: HEMOGLOBIN 11.4 g/dL (13.5-17.0); MEAN CORPUSCULAR HEMOGLOBIN 30.7 pg (27.0-33.4); MEAN CORPUSCULAR HGB CONC 33.5 g/dL (32.0-36.0); MEAN CORPUSCULAR VOLUME 92 fl (80-97); PLATELET COUNT 364 10^3/uL (150-450); RED BLOOD COUNT 3.72 10^6/uL (4.35-5.55); RED CELL DISTRIBUTION WIDTH 14.6 % (11.5-14.0); WHITE BLOOD COUNT 20.8 10^3/uL (4.0-10.5)
[2019-01-22 09:25] LABS: ARTERIAL BLOOD BASE EXCESS 7.5 mmol/L; ARTERIAL BLOOD FIO2 100%; ARTERIAL BLOOD H2CO3 2.65 mmol/L (1.05-1.35); ARTERIAL BLOOD O2 SATURATION 99.9 % (94-98); ARTERIAL BLOOD PH 7.25 (7.35-7.45); ARTERIAL BLOOD PO2 559.1 mmHg (80-100); ARTERIAL BLOOD TOTAL CO2 40.7 mmol/L (23-27)
[2019-01-22 09:27] LABS: ARTERIAL BLOOD PCO2 88.1 mmHg (35-45)
[2019-01-22] MEDS ORDERED: METHYLPREDNISOLONE INJ 125 MG/2 ML SDV IV ONE (09:34)
[2019-01-22 09:42] LABS: ALANINE AMINOTRANSFERASE 20 U/L (21-72); ALBUMIN 3.2 g/dL (3.5-5.0); ALKALINE PHOSPHATASE 97 U/L (38-126); ANION GAP 10 (5-19); ASPARTATE AMINO TRANSFERASE 26 U/L (17-59); BILIRUBIN,DIRECT 0.3 mg/dL (0.0-0.4); BILIRUBIN,TOTAL 0.3 mg/dL (0.2-1.3); BLOOD UREA NITROGEN 13 mg/dL (7-20); CALCIUM 9.4 mg/dL (8.4-10.2); CARBON DIOXIDE 34 mmol/L (22-30); CHLORIDE 92 mmol/L (98-107); CREATINE KINASE 147 U/L (55-170); GLUCOSE 169 mg/dL (75-110); POTASSIUM 4.6 mmol/L (3.6-5.0); SODIUM 135.7 mmol/L (137-145); TOTAL PROTEIN 6.7 g/dL (6.3-8.2)
[2019-01-22 09:44] LABS: ABSOLUTE LYMPHOCYTES# (MANUAL) 0.2 10^3/uL (0.5-4.7); ABSOLUTE NEUTROPHILS# (MANUAL) 20.6 10^3/uL (1.7-8.2); BAND NEUTROPHILS % (MANUAL) 4 % (3-5); BASOPHILS % (MANUAL) 0 % (0-2); EOSINOPHILS % (MANUAL) 0 % (0-6); LYMPHOCYTES % (MANUAL) 1 % (13-45); MONOCYTES % (MANUAL) 0 % (3-13); SEGMENTED NEUTROPHILS % (MAN) 95 % (42-78); TOTAL CELLS COUNTED 100
[2019-01-22 09:45] LABS: ANISOCYTOSIS SLIGHT
[2019-01-22 09:46] LABS: PLATELET COMMENT ADEQUATE
[2019-01-22] MEDS ORDERED: KETAMINE HCL IV PRN ×2 (09:53)
[2019-01-22] MEDS ORDERED: NORMAL SALINE IV PRN ×2 (09:53)
--- NOTE | 2019-01-22 09:59 | RADIOLOGY REPORT (SQ) ---
EXAM DESCRIPTION: CHEST SINGLE VIEW COMPLETED DATE/TIME: 01/22/2019 9:35 am REASON FOR STUDY: ET AND NG TUBE PLACEMENT COMPARISON: 07/07/2018 EXAM PARAMETERS: NUMBER OF VIEWS: One view. TECHNIQUE: Single frontal radiographic view of the chest acquired. RADIATION DOSE: NA LIMITATIONS: None. FINDINGS: LUNGS AND PLEURA: Apical pleural thickening. No infiltrate or pneumothorax. MEDIASTINUM AND HILAR STRUCTURES: No masses. Contour normal. HEART AND VASCULAR STRUCTURES: Heart normal in size. Normal vasculature. BONES: No acute findings. HARDWARE: CABG. OTHER: Endotracheal tube tip between thoracic inlet and [place]. Nasogastric tube tip overlying stoma ch. IMPRESSION: Good position of support apparatus. No pneumothorax. TECHNICAL DOCUMENTATION: JOB ID: [id number] [employer]- All Rights Reserved Reading location - IP/workstation name: [email or web address]
[2019-01-22 10:06] LABS: CREATINE KINASE MB 17.6 ng/mL (<4.55)
[2019-01-22 10:09] LABS: TROPONIN I 0.837 ng/mL
--- NOTE | 2019-01-22 11:48 | RADIOLOGY REPORT (SQ) ---
EXAM DESCRIPTION: CT HEAD WITHOUT COMPLETED DATE/TIME: 01/22/2019 11:35 am REASON FOR STUDY: altered mental COMPARISON: None. TECHNIQUE: Axial images acquired through the brain without intravenous contrast. Images reviewed wi th bone, brain and subdural windows. Additional sagittal and coronal reconstructions were generated. Images stored on PACS. All CT scanners at this facility use dose modulation, iterative reconstruction, and/or weight based d osing when appropriate to reduce radiation dose to as low as reasonably achievable (ALARA). [facility]: Dose Right [facility]: CareDose [facility]: Dose Right [facility]: Teradose 4D [facility]: Secret Space RADIATION DOSE: CT Rad equipment meets quality standard of care and radiation dose reduction techniq ues were employed. CTDIvol: 53.2 mGy. DLP: 1097 mGy-cm. mGy. LIMITATIONS: None. FINDINGS: VENTRICLES: Normal size and contour. CEREBRUM: No masses. No hemorrhage. No midline shift. No evidence for acute infarction. Normal gra y/white matter differentiation. No areas of low density in the white matter. CEREBELLUM: No masses. No hemorrhage. No alteration of density. No evidence for acute infarction. EXTRAAXIAL SPACES: No fluid collections. No masses. ORBITS AND GLOBE: No intra- or extraconal masses. Normal contour of globe without masses. CALVARIUM: No fracture. PARANASAL SINUSES: No fluid or mucosal thickening. SOFT TISSUES: No mass or hematoma. OTHER: No other significant finding. IMPRESSION: NORMAL BRAIN CT WITHOUT CONTRAST. EVIDENCE OF ACUTE STROKE: NO. COMMENT: Quality ID # 436: Final reports with documentation of one or more dose reduction techniques (e.g., Automated exposure control, adjustment of the mA and/or kV according to patient size, use of iterative reconstruction technique) TECHNICAL DOCUMENTATION: JOB ID: [id number] [employer]- All Rights Reserved Reading location - IP/workstation name: [email or web address]
--- NOTE | 2019-01-22 12:00 | RADIOLOGY REPORT (SQ) ---
EXAM DESCRIPTION: CTA CHEST COMPLETED DATE/TIME: 01/22/2019 11:35 am REASON FOR STUDY: sob, unresponsive COMPARISON: None. TECHNIQUE: CT scan of the chest performed using helical scanning technique with dynamic intravenous contrast injection. Images reviewed with lung, soft tissue and bone windows. Reconstructed coronal and sagittal MPR images reviewed. Additional 3 dimensional post-processing performed to develop Maximal Intensity Projection images (TN P). All images stored on PACS. All CT scanners at this facility use dose modulation, iterative reconstruction, and/or weight based d osing when appropriate to reduce radiation dose to as low as reasonably achievable (ALARA). [facility]: Dose Right [facility]: CareDose [facility]: Dose Right [facility]: Teradose 4D [facility]: CallAround CONTRAST TYPE AND DOSE: contrast/concentration: Isovue 350.00 mg/ml; Total Contrast Delivered: 67.0 ml; Total Saline Delivered: 90.0 ml Contrast bolus optimized for the pulmonary arteries. Not diagnostic for the aorta. RENAL FUNCTION: GFR > 60. RADIATION DOSE: CT Rad equipment meets quality standard of care and radiation dose reduction techniq ues were employed. CTDIvol: 29.8 - 37.2 mGy. DLP: 1280 mGy-cm. . LIMITATIONS: None. FINDINGS: LUNGS AND PLEURA: No pneumothorax. Scattered parenchymal nodular and tree-in-bud opacitie s throughout both lungs. There are scattered areas of emphysema and bronchiectasis with endoluminal debris. Small areas of basilar subsegmental atelectasis. Trace left pleural effusion. . AORTA AND GREAT VESSELS: No aneurysm. Contrast bolus not optimized for the aorta. HEART: No pericardial effusion. CABG. PULMONARY ARTERIES: No emboli visualized in the main pulmonary arteries or the segmental branches. HILAR AND MEDIASTINAL STRUCTURES: No identified masses or abnormal nodes. HARDWARE: CABG. UPPER ABDOMEN: Small areas of ascites and hepatic periportal edema. . Limited exam. THYROID AND OTHER SOFT TISSUES: No masses. No adenopathy. BONES: No acute or significant finding. 3D MIPS: Confirm above findings. OTHER: Endotracheal tube and nasogastric tubes are in expected position. IMPRESSION: No emboli visualized in the main pulmonary arteries or the segmental branches. Scattered parenchymal nodular and tree-in-bud opacities throughout both lungs, this appearance can b e seen with small airways fungal infections. There are scattered areas of emphysema and bronchiectas is with endoluminal debris. Small areas of basilar subsegmental atelectasis. Trace left pleural eff usion. Small areas of ascites and hepatic periportal edema. COMMENT: Quality ID # [id number]: Final reports with documentation of one or more dose reduction techniques (e.g., Automated exposure control, adjustment of the mA and/or kV according to patient size, use of iterative reconstruction technique) TECHNICAL DOCUMENTATION: JOB ID: [id number] [employer]- All Rights Reserved Reading location - IP/workstation name: [email or web address]
[2019-01-22] MEDS ORDERED: DEXTROSE 5%-WATER 250 ML with NOREPINEPHRINE BITARTRATE 4 MG IV PRN ×2 (12:33)
[2019-01-22] MEDS ORDERED: FENTANYL CITRATE INJ/PF 100 MCG/2 ML AMPUL IV ONE (12:58)
[2019-01-22] MEDS ORDERED: MIDAZOLAM 2 MG/2 ML INJ IV ONE (12:59)
[2019-01-22 13:06] LABS: TROPONIN I 2.37 ng/mL
[2019-01-22] MEDS ORDERED: HEPARIN SODIUM,PORCINE/D5W 25,000 UNIT/250 ML RTUINJ IV PRN (13:11)
[2019-01-22] MEDS ORDERED: HEPARIN SOD (PORCINE) 1,000 UNIT/ML 10 ML VIAL IV ONE (13:11)
[2019-01-22] MEDS ORDERED: ASPIRIN 300 MG SUPP, RECTAL PR ONE (13:11)
--- NOTE | 2019-01-22 13:22 | EKG REPORT ---
SEVERITY:- ABNORMAL ECG - SINUS RHYTHM NONSPECIFIC INTRAVENTRICULAR CONDUCTION DELAY CONSIDER INFERIOR INFARCT , OLD , SEEN IN LAST EKG.BUT NEW INFERIOR ST-T CHANGES ARE NEW, NEED CLINI CHAVO CORRELATION. MINIMAL ST DEPRESSION, INFERIOR LEADS : Confirmed by: Jeremy Curtis MD 22-Jan-2019 13:21:54
[2019-01-22 13:24] LABS: INTERNATIONAL RATION (INR) 0.92; PROTHROMBIN TIME 12.9 SEC (11.4-15.4)
[2019-01-22] MEDS ORDERED: NOREPINEPHRINE BITARTRATE INJ/PF 4 MG/4 ML SDV IV ONE (13:25)
[2019-01-22] MEDS ORDERED: HEPARIN SODIUM,PORCINE/D5W 250 ML IV PRN (13:35)
[2019-01-22 14:06] VITALS: BP 87/70
[2019-01-22] MEDS ORDERED: HEPARIN SOD (PORCINE) 1,000 UNIT/ML 10 ML VIAL IV PRN (16:12)
--- NOTE | 2019-01-23 08:06 | EKG REPORT ---
SEVERITY:- ABNORMAL ECG - SINUS TACHYCARDIA PROBABLE LEFT ATRIAL ABNORMALITY NONSPECIFIC INTRAVENTRICULAR CONDUCTION DELAY PROBABLE INFERIOR INFARCT, OLD : Confirmed by: Jeremy Curtis MD 23-Jan-2019 08:05:53
--- NOTE | 2019-01-23 13:59 | EKG REPORT ---
SEVERITY:- ABNORMAL ECG - SINUS TACHYCARDIA RIGHT ATRIAL ABNORMALITY NONSPECIFIC INTRAVENTRICULAR CONDUCTION DELAY INFERIOR INFARCT, AGE INDETERMINATE ST DEPRESSION, CONSIDER ISCHEMIA, ANT LEADS, NEW. : Confirmed by: Jeremy Curtis MD 23-Jan-2019 13:58:13
== END 2019-01-22 13:45 | disposition short-term general hospital (02) ==
LOC: ER 08:57
DX: I21.4 Non-ST elevation (NSTEMI) myocardial infarction (principal); J96.02 Acute respiratory failure with hypercapnia; J96.01 Acute respiratory failure with hypoxia; R40.4 Transient alteration of awareness; I95.9 Hypotension, unspecified; R61 Generalized hyperhidrosis; Z91.040 Latex allergy status; Z88.6 Allergy status to analgesic agent
CPT/HCPCS: 93005; 94640 ×2; 99291; 99292; 96375; 96365; 36415; 87040; 82553; 82962; 82803; 82550; 85025; 85610; 85730; 80053; 84484; 83605; 71045; 70450; 71275; 94660; 93010; J2250; J1644 ×2; A9270 ×2; J3010; J3490 ×3; J2930; J7060; J7030; J7040; J2543; J7620

== ENCOUNTER 2019-05-30 18:37 | Emergency (ER) | payer MEDICARE ==
--- NOTE | 2019-05-30 19:20 | ER Document Report ---
ED Medical Screen (RME) - General Chief Complaint: Nausea/Vomiting Stated Complaint: NAUSEA/VOMITING Time Seen by Provider: 05/30/19 19:17 Primary Care Provider: BAUDILIO BAINS MD [Primary Care Provider] - Follow up as needed Mode of Arrival: Ambulatory Information source: Patient Notes: 59-year-old male presented to ED for complaint of vomiting for the last 3 weeks. He states he is lost 20 pounds in the last 3 weeks. He still has a MD about 2 weeks ago started him on Zofran. He states he is continued to vomit. He has seen the slate cutter today Dr. Lukas Reid and [place] and they told him that he needed to go straight to the ER. She states he went to the ER in [place] and states that there was a major accident would be at least 3 hours or more before he was seen so she came here. She states that she does live here. He does have a history of [place] with a 3 way back past and beginnings of heart failure. He does have high blood pressure cholesterol reflux COPD anxiety. He has broken his right wrist and had surgical repair. He states he is having upper abdominal pain level 4 / 5 was cramping. He states he has been taking his nausea medicine as instructed. He does smoke a pack a day even with his heart failure and COPD. He does not drink alcohol but he does smoke marijuana. He is disabled living with his family. I have greeted and performed a rapid initial assessment of this patient. A comprehensive ED assessment and evaluation of the patient, analysis of test results and completion of medical decision making process will be conducted by an additional ED providers. TRAVEL OUTSIDE OF THE [place] IN LAST 30 DAYS: No - Related Data Allergies/Adverse Reactions: codeine [Codeine] Allergy (Verified 05/30/19 19:13) latex [Latex] Allergy (Verified 05/30/19 19:13) adhesive tape [Adhesive Tape] Adverse Reaction (Intermediate, Verified 05/30/19 19:13) Urticaria Past Medical History - Past Medical History Cardiac Medical History: Reports: Hx Coronary Artery Disease, Hx Heart Attack, Hx Hypercholesterolemia, Hx Hypertension Pulmonary Medical History: Reports: Hx Bronchitis, Hx COPD, Hx Respiratory Failure Denies: Hx Asthma, Hx Pneumonia, Hx Tuberculosis Neurological Medical History: Denies: Hx Cerebrovascular Accident, Hx Seizures Endocrine Medical History: Denies: Hx Diabetes Mellitus Type 2, Hx H ypothyroidism Renal/ Medical History: Reports: Hx Benign Prostatic Hyperplasia. Denies: Hx Peritoneal Dialysis GI Medical History: Reports: Hx Gastroesophageal Reflux Disease. Denies: Hx Cirrhosis, Hx Hiatal Hernia Musculoskeltal Medical History: Reports Hx Arthritis Skin Medical History: Denies Hx Eczema, Denies Hx Psoriasis Psychiatric Medical History: Reports: Hx Bipolar Disorder, Hx Depression Traumatic Medical History: Reports: Hx Fractures - R wrist, nose Infectious Medical History: Denies: Hx HIV Past Surgical History: Reports: Hx Cardiac Catheterization, Hx Cardiac Surgery - bypass 2007, Hx Coronary Artery Bypass Graft - 2007, Hx Orthopedic Surgery - metal plate in right wrist. Denies: Hx Pacemaker - Immunizations Hx Diphtheria, Pertussis, Tetanus Vaccination: Yes Physical Exam - Vital signs Vitals: Temp Pulse Resp BP Pulse Ox 97.8 F 100 20 165/104 H 92 05/30/19 18:41 05/30/19 18:41 05/30/19 18:41 05/30/19 18:41 05/30/19 18:41 Course - Vital Signs Vital signs: Temp Pulse Resp BP Pulse Ox 97.8 F 100 20 165/104 H 92 05/30/19 18:41 05/30/19 18:41 05/30/19 18:41 05/30/19 18:41 05/30/19 18:41 Doctor's Discharge - Discharge Referrals: BAUDILIO BAINS MD [Primary Care Provider] - Follow up as needed
[2019-05-30 20:30] LABS: ABSOLUTE BASOPHILS # (AUTO) 0.1 10^3/uL (0.0-0.2); ABSOLUTE EOSINOPHILS # (AUTO) 0.1 10^3/uL (0.0-0.6); ABSOLUTE LYMPHOCYTES (AUTO) 2.2 10^3/uL (0.5-4.7); ABSOLUTE MONOCYTES (AUTO) 2.3 10^3/uL (0.1-1.4); ABSOLUTE NEUT (AUTO) 14.3 10^3/uL (1.7-8.2); BASOPHILS % (AUTO) 0.4 % (0-2); EOSINOPHILS % (AUTO) 0.4 % (0-6); HEMATOCRIT 46.2 % (37.9-51.0); HEMOGLOBIN 15.7 g/dL (13.5-17.0); LYMPHOCYTES % (AUTO) 11.5 % (13-45); MEAN CORPUSCULAR HEMOGLOBIN 31.1 pg (27.0-33.4); MEAN CORPUSCULAR VOLUME 91 fl (80-97); MONOCYTES % (AUTO) 12.1 % (3-13); PLATELET COUNT 403 10^3/uL (150-450); RED BLOOD COUNT 5.06 10^6/uL (4.35-5.55); RED CELL DISTRIBUTION WIDTH 13.9 % (11.5-14.0); SEGMENTED NEUTROPHILS % (AUTO) 75.6 % (42-78); TOTAL CELLS COUNTED % (AUTO) 100 %; WHITE BLOOD COUNT 18.9 10^3/uL (4.0-10.5)
--- NOTE | 2019-05-30 20:33 | RADIOLOGY REPORT (SQ) ---
US ABDOMEN DOPPLER LIMITED EXAM DATE: 05/30/2019 7:21 PM CDT HISTORY: Right upper quadrant pain. COMPARISON: None. TECHNIQUE: Grayscale and color Doppler imaging of the right upper quadrant was performed. FINDINGS: There is increased echogenicity of the hepatic parenchyma, likely representing hepatic steatosis. The main portal vein has normal hepatopetal flow. No shadowing gallstones are seen. No pericholecystic fluid or gallbladder wall thickening. The common bile duct is normal caliber. The visualized portions of the pancreas are unremarkable. No hydronephrosis or shadowing renal stones are identified. The right kidney is normal in size. The visualized portions of the IVC and aorta are patent. IMPRESSION: No gallstones or acute cholecystitis. Hepatic steatosis.
[2019-05-30 20:43] LABS: APPEARANCE,URINE SLIGHTLY-CLOUDY; BILIRUBIN,URINE NEGATIVE (NEGATIVE); COLOR,URINE YELLOW; GLUCOSE, URINE NEGATIVE (NEGATIVE); KETONES,URINE NEGATIVE (NEGATIVE); LEUKOCYTE ESTERASE,URINE NEGATIVE (NEGATIVE); NITRITE,URINE NEGATIVE (NEGATIVE); PROTEIN,URINE 30 mg/dL (NEGATIVE); URINE SPECIFIC GRAVITY 1.014
[2019-05-30 20:47] LABS: ALBUMIN 4.4 g/dL (3.5-5.0); ALKALINE PHOSPHATASE 84 U/L (38-126); ANION GAP 11 (5-19); ASPARTATE AMINO TRANSFERASE 34 U/L (17-59); BILIRUBIN,DIRECT 0.2 mg/dL (0.0-0.4); BILIRUBIN,TOTAL 0.5 mg/dL (0.2-1.3); BLOOD UREA NITROGEN 7 mg/dL (7-20); CALCIUM 9.9 mg/dL (8.4-10.2); CARBON DIOXIDE 34 mmol/L (22-30); CHLORIDE 83 mmol/L (98-107); GLUCOSE 117 mg/dL (75-110); POTASSIUM 4.4 mmol/L (3.6-5.0); TOTAL PROTEIN 7.9 g/dL (6.3-8.2)
--- NOTE | 2019-05-31 00:49 | ER Document Report ---
ED GI/ - General Chief Complaint: Vomiting Stated Complaint: NAUSEA/VOMITING Time Seen by Provider: 05/31/19 00:50 Primary Care Provider: BAUDILIO BAINS MD [Primary Care Provider] - Follow up as needed Mode of Arrival: Ambulatory Information source: Patient, Relative Notes: HISTORY OF PRESENT ILLNESS: Patient is a 59-year-old male with a past medical history of COPD, coronary artery disease, and bipolar disorder who presents with 3 weeks of persistent nausea and decreased food tolerance, also associated with nausea and vomiting that he describes as nonbloody and nonbilious. Patient denies injuries, has been seen by his primary physician who "is supposed to be sending us to a specialist." Location: Abdomen Onset: 3 weeks ago Alleviation: None Provocation: Food intake Quality: Nausea, burning Radiation: None Severity: Mild to moderate Timing: Constant History of abdominal surgery: None Associated symptoms: Denies fevers or chills, no chest pain or shortness of breath, no diarrhea or constipation Last bowel movement: Today and normal REVIEW OF SYSTEMS: CONSTITUTIONAL : Denies fever or chills, no sweats. Denies recent illness. EENT: Denies eye, ear, throat, or mouth pain or symptoms. Denies nasal or sinus congestion. CARDIOVASCULAR: Denies chest pain. Denies swelling of the legs. RESPIRATORY: Denies cough, cold, or chest congestion. Denies shortness of breath or difficulty breathing. Denies wheezing. GASTROINTESTINAL: Denies abdominal pain. Positive for nausea vomiting but no diarrhea. Denies constipation. GENITOURINARY: Denies difficulty urinating, painful urination, burning, frequency, or blood in urine. FEMALE GENITOURINARY: Denies vaginal bleeding, abnormal or irregular periods. MUSCULOSKELETAL: Denies neck or back pain or joint pain or swelling. SKIN: Denies rash or skin lesions. HEMATOLOGIC : Denies easy bruising or bleeding. LYMPHATIC: Denies swollen, enlarged glands. NEUROLOGICAL: Denies altered mental status or loss of consciousness. Denies headache. Denies weakness or paralysis or loss of use of either side. Denies problems with gait or speech. Denies sensory or motor loss. PSYCHIATRIC: Denies anxiety or stress or depression. All other systems reviewed and negative. PHYSICAL EXAMINATION: GENERAL: Somewhat disheveled-appearing, well-nourished and in no acute distress. HEAD: Atraumatic, normocephalic. No scalp deformity, depression, or crepitance. EYES: Pupils are 3 mm and equal/round/reactive to light, extraocular movements intact, sclera anicteric, conjunctiva are normal. ENT: Nares patent bilaterally, oropharynx. Moist mucous membranes. No tonsil hypertrophy. NECK: Normal range of motion, supple without lymphadenopathy. LUNGS: Breath sounds present diminished bilaterally. No wheezes, rales, or rhonchi. HEART: Regular rate and rhythm without murmurs, rubs, or gallops. 2+ peripheral pulses. Normal capillary refill. ABDOMEN: Soft, nontender, nondistended. Normoactive bowel sounds. No guarding, no rebound. No masses appreciated. BACK: Normal contour, no midline tenderness. Rectal exam deferred. GENITAL/PELVIC: Deferred. EXTREMITIES: Normal range of motion, no pitting or edema. No cyanosis. NEUROLOGICAL: No focal neurological deficits. Moves all extremities spontaneously and on command. PSYCH: Normal mood, normal affect. No suicidal thoughts/ideations. No homicidal thoughts/ideations. No hallucinations. SKIN: Warm, dry, normal turgor, no rashes or lesions noted. ASSESSMENT AND PLAN: This patient is a 59-year-old male who presents with 3 weeks of progressively worsening and persistent nausea, abdomen is benign on exam. Concern for gastritis versus pancreatitis versus cholecystitis. 1. Will obtain labs, urine, lipase, and reassess. 2. Will give IV fluids with Reglan. TRAVEL OUTSIDE OF THE [place] IN LAST 30 DAYS: No - HPI Patient complains to provider of: Vomiting Onset: Other - 3 weeks ago Timing/Duration: Constant Quality of pain: No pain Severity at maximum: Moderate Severity in ED: Mild Pain Level: Denies Location: Epigastric Associated symptoms: Nausea, Vomiting Exacerbated by: Food Relieved by: Denies Similar symptoms previously: Yes Recently seen / treated by doctor: No - Related Data Allergies/Adverse Reactions: codeine [Codeine] Allergy (Verified 05/30/19 19:13) latex [Latex] Allergy (Verified 05/30/19 19:13) adhesive tape [Adhesive Tape] Adverse Reaction (Intermediate, Verified 05/30/19 19:13) Urticaria Home Medications: see med list copied on chart from patient. Past Medical History - General Information source: Patient, Relative - Social History Smoking Status: Current Every Day Smoker Chew tobacco use (# tins/day): No Frequency of alcohol use: None Drug Abuse: Marijuana Lives with: Family Family History: CAD, Hypertension Patient has suicidal ideation: No Patient has homicidal ideation: No - Past Medical History Cardiac Medical History: Reports: Hx Coronary Artery Disease, Hx Heart Attack, Hx Hypercholesterolemia, Hx Hypertension Pulmonary Medical History: Reports: Hx Bronchitis, Hx COPD, Hx Respiratory Failure Denies: Hx Asthma, Hx Pneumonia, Hx Tuberculosis EENT Medical History: Reports: None Neurological Medical History: Reports: None. Denies: Hx Cerebrovascular Ac cident, Hx Seizures Endocrine Medical History: Reports: None. Denies: Hx Diabetes Mellitus Type 2, Hx Hypothyroidism Renal/ Medical History: Reports: Hx Benign Prostatic Hyperplasia. Denies: Hx Peritoneal Dialysis Malignancy Medical History: Reports None GI Medical History: Reports: Hx Gastroesophageal Reflux Disease. Denies: Hx Cirrhosis, Hx Hiatal Hernia Musculoskeletal Medical History: Reports Hx Arthritis Skin Medical History: Reports None, Denies Hx Eczema, Denies Hx Psoriasis Psychiatric Medical History: Reports: Hx Bipolar Disorder, Hx Depression Traumatic Medical History: Reports: Hx Fractures - R wrist, nose Infectious Medical History: Reports: None. Denies: Hx HIV Past Surgical History: Reports: Hx Cardiac Catheterization, Hx Cardiac Surgery - bypass 2007, Hx Coronary Artery Bypass Graft - 2007, Hx Orthopedic Surgery - met al plate in right wrist. Denies: Hx Pacemaker - Immunizations Hx Diphtheria, Pertussis, Tetanus Vaccination: Yes Hx Pneumococcal Vaccination: 09/11/10 Review of Systems - Review of Systems Constitutional: No symptoms reported EENT: No symptoms reported Cardiovascular: No symptoms reported Respiratory: No symptoms reported Gastrointestinal: See HPI, Nausea, Vomiting Genitourinary: No symptoms reported Male Genitourinary: No symptoms reported Musculoskeletal: No symptoms reported Skin: No symptoms reported Hematologic/Lymphatic: No symptoms reported Neurological/Psychological: No symptoms reported -: Yes All other systems reviewed and negative Physical Exam - Vital signs Vitals: Temp Pulse Resp BP Pulse Ox 97.8 F 100 20 165/104 H 92 05/30/19 18:41 05/30/19 18:41 05/30/19 18:41 05/30/19 18:41 05/30/19 18:41 Interpretation: Normal Course - Re-evaluation Re-evalutation: 05/31/19 05:25 Initial hyponatremia has improved and the patient is able to tolerate oral intake. Will discharge the patient home with strict return precautions and follow-up with primary care. All results were explained to and discussed with the patient, and all questions addressed and answered. The patient voices both understanding and agreeing with the plan. - Vital Signs Vital signs: Temp Pulse Resp BP Pulse Ox 97.7 F 81 22 H 155/94 H 92 05/30/19 23:33 05/30/19 23:33 05/31/19 05:00 05/31/19 05:00 05/31/19 05:00 - Laboratory Result Diagrams: 05/30/19 20:13 05/30/19 20:13 Laboratory results interpreted by me: 05/30/19 05/30/19 05/30/19 20:04 20:13 20:13 WBC 18.9 H Lymph % (Auto) 11.5 L Absolute Neuts (auto) 14.3 H Absolute Monos (auto) 2.3 H Sodium 128.3 L Chloride 83 L Carbon Dioxide 34 H Glucose 117 H Urine Protein 30 H Urine Urobilinogen 4.0 H Discharge - Discharge Clinical Impression: Dyspepsia, Hyponatremia Condition: Good Disposition: HOME, SELF-CARE Instructions: Dyspepsia ([facility]) Additional Instructions: You have been evaluated in the Emergency Department for vomiting. While here, you had blood work and were given medications with improvement and it is now safe to be discharged home. Please follow-up with your primary physician as instructed in one week to be rechecked. Return to the Emergency Department if you experience worsening vomiting, uncontrollable abdominal pain, bloody vomit or blood in your stools, or any other concerning symptoms. Prescriptions: Metoclopramide HCl [Reglan 10 mg Tablet] 10 mg PO Q8HP PRN #30 tablet PRN Reason: For Nausea/Vomiting Referrals: BAUDILIO BAINS MD [Primary Care Provider] - Follow up as needed Print Language: Hungarian
[2019-05-31] MEDS ORDERED: NORMAL SALINE 1000 ML 1,000 ML IV ONE (02:05)
[2019-05-31] MEDS ORDERED: METOCLOPRAMIDE HCL INJ/PF 10 MG/2 ML SDV IV ONE (02:06)
[2019-05-31] MEDS ORDERED: METOPROLOL TARTRATE PF/INJ 5 MG/5 ML SDV IV ONE (02:27)
[2019-05-31 05:24] VITALS: BP 155/94
== END 2019-05-31 05:00 | disposition home or self-care (01) ==
LOC: ER 18:37
DX: E87.1 Hypo-osmolality and hyponatremia (principal); R10.13 Epigastric pain; R11.2 Nausea with vomiting, unspecified; J44.9 Chronic obstructive pulmonary disease, unspecified; I25.10 Atherosclerotic heart disease of native coronary artery without angina pectoris; E78.00 Pure hypercholesterolemia, unspecified; I10 Essential (primary) hypertension; Z95.1 Presence of aortocoronary bypass graft; Z88.6 Allergy status to analgesic agent; Z91.040 Latex allergy status; I25.2 Old myocardial infarction
CPT/HCPCS: 36415; 83690; 85025; 80053; 81001; 76705; 93976; J2765; J3490; J7030; 96361; 96374; 96375; 99284

== ENCOUNTER 2019-06-05 15:16 | Inpatient (IN) | payer MEDICARE ==
[2019-06-05] MEDS ORDERED: ALBUTEROL SULFATE 0.083% NEB 2.5 MG/3 ML AMPUL NEB ONE (15:28)
[2019-06-05 15:35] LABS: HEMATOCRIT 38.3 % (37.9-51.0); HEMOGLOBIN 12.8 g/dL (13.5-17.0); MEAN CORPUSCULAR HEMOGLOBIN 30.9 pg (27.0-33.4); MEAN CORPUSCULAR HGB CONC 33.6 g/dL (32.0-36.0); MEAN CORPUSCULAR VOLUME 92 fl (80-97); PLATELET COUNT 351 10^3/uL (150-450); RED BLOOD COUNT 4.15 10^6/uL (4.35-5.55); RED CELL DISTRIBUTION WIDTH 13.9 % (11.5-14.0)
--- NOTE | 2019-06-05 15:35 | ER Document Report ---
ED General - General Chief Complaint: Breathing Difficulty Stated Complaint: DIFFICULTY BREATHING Time Seen by Provider: 06/05/19 15:20 Primary Care Provider: BAUDILIO BAINS MD [Primary Care Provider] - Follow up as needed TRAVEL OUTSIDE OF THE [place] IN LAST 30 DAYS: No - HPI Notes: Patient is a 59-year-old male that presents to the emergency department for chief complaint of shortness of breath. Patient reports history of COPD. He states he has been getting progressively short of breath over the last 1 to 2 weeks. He states his symptoms became more severe today. Patient was seen at an urgent care facility who reported his O2 saturation was 78% on room air. EMS was called and states they got 88% on room air, this was after patient received 1 DuoNeb and 12 mg of Decadron at the urgent care. Patient states he does not wear oxygen at home. He does have a history of intubation from his COPD in the past. He is currently still smoking. He denies recent illness fevers and chills. He denies associated chest pain nausea vomiting or diaphoresis. Past Medical History: COPD Past Surgical History: Reviewed in chart Social History: Daily tobacco. Denies drug use Family History: Reviewed and noncontributory for presenting illness Allergies: Reviewed, see documented allergy list. REVIEW OF SYSTEMS: CONSTITUTIONAL : No fever No chills No diaphoresis No recent illness EENT: No vision changes No congestion No sore throat CARDIOVASCULAR: No chest pain No palpitations RESPIRATORY: Shortness of breath Cough Difficulty breathing GASTROINTESTINAL: No abdominal pain No nausea No vomiting No diarrhea GENITOURINARY: No dysuria No hematuria No difficulty urinating MUSCULOSKELETAL: No back pain No leg pain No arm pain SKIN: No rashes No lesions LYMPHATIC: No swollen, enlarged glands. NEUROLOGICAL: No lightheadedness No headache No weakness No paresthesias PSYCHIATRIC: No anxiety No depression PHYSICAL EXAMINATION: Vital signs reviewed, nursing noted reviewed. GENERAL: Well-appearing, thin and in moderate acute distress. HEAD: Atraumatic, normocephalic. EYES: Eyes appear normal, extraocular movements intact, sclera anicteric, conjunctiva are normal. ENT: nares patent, oropharynx clear without exudates. Moist mucous membranes. NECK: Normal range of motion, supple without lymphadenopathy LUNGS: Breath sounds diminished to auscultation bilaterally. Prolonged expiratory phase. Moderate accessory muscle use. No retractions. Pursed lip breathing. HEART: Regular rate and rhythm without murmurs ABDOMEN: Soft, nontender, normoactive bowel sounds. No rebound, guarding, or rigidity. No masses appreciated. EXTREMITIES: Nontender, good range of motion, no pitting or edema. NEUROLOGICAL: No focal neurological deficits. Moves all extremities spontaneously Motor and sensory grossly intact on exam. PSYCH: Normal mood, normal affect. SKIN: Warm, Dry, normal turgor, no rashes or lesions noted on exposed skin - Related Data Allergies/Adverse Reactions: codeine [Codeine] Allergy (Verified 05/30/19 19:13) latex [Latex] Allergy (Verified 05/30/19 19:13) adhesive tape [Adhesive Tape] Adverse Reaction (Intermediate, Verified 05/30/19 19:13) Urticaria Past Medical History - Social History Smoking Status: Current Every Day Smoker Family History: CAD, Hypertension - Past Medical History Cardiac Medical History: Reports: Hx Coronary Artery Disease, Hx Heart Attack, Hx Hypercholesterolemia, Hx Hypertension Pulmonary Medical History: Reports: Hx Bronchitis, Hx COPD, Hx Respiratory Failure Denies: Hx Asthma, Hx Pneumonia, Hx Tuberculosis Neurological Medical History: Denies: Hx Cerebrovascular Accident, Hx Seizures Endocrine Medical History: Denies: Hx Diabetes Mellitus Type 2, Hx Hypothyroidism Renal/ Medical History: Reports: Hx Benign Prostatic Hyperplasia. Denies: Hx Peritoneal Dialysis GI Medical History: Reports: Hx Gastroesophageal Reflux Disease. Denies: Hx Cirrhosis, Hx Hiatal Hernia Musculoskeletal Medical History: Reports Hx Arthritis Skin Medical History: Denies Hx Eczema, Denies Hx Psoriasis Psychiatric Medical History: Reports: Hx Bipolar Disorder, Hx Depression Traumatic Medical History: Reports: Hx Fractures - R wrist, nose Infectious Medical History: Denies: Hx HIV Past Surgical History: Reports: Hx Cardiac Catheterization, Hx Cardiac Surgery - bypass 2007, Hx Coronary Artery Bypass Graft - 2007, Hx Orthopedic Surgery - metal plate in right wrist. Denies: Hx Pacemaker - Immunizations Hx Diphtheria, Pertussis, Tetanus Vaccination: Yes Hx Pneumococcal Vaccination: 09/11/10 Physical Exam - Vital signs Vitals: Resp Pulse Ox 29 H 97 06/05/19 15:23 06/05/19 15:23 Course - Re-evaluation Re-evalutation: 06/05/19 15:34 Vitals reviewed. Nursing notes reviewed. Patient presentation consistent with acute COPD exacerbation. He received 12 mg of Decadron by urgent care facility prior to coming to the emergency room. Patient also received 3 DuoNeb treatments. He still have significant decreased air movement to auscultation and will be ordered BiPAP and albuterol for further management. Patient currently protecting his airway not requiring intubation. 06/05/19 16:26 Patient's chest x-ray shows bibasilar opacities concerning for possible early pneumonia. He does have a WBC count of 27. Patient was given Levaquin for possible underlying pneumonia. His ABG shows hypercapnic respiratory failure with respiratory acidosis. Patient is tolerating BiPAP well. He also has hyponatremia which is worse than previous testing. Patients potassium is slightly elevated, he has no EKG changes of hyperkalemia and will be initially treated with fluid resuscitation. Patient's troponin is also slightly elevated at 0.111, he has a history of CAD but has not had any active chest pain to suggest ACS. This is likely secondary to prolonged hypoxia. Patient will be admitted to the hospital for further medical management. He is improved at time of admission. Care discussed with admitting provider Laboratory 06/05/19 06/05/19 06/05/19 14:55 14:55 14:55 WBC 27.0 H RBC 4.15 L Hgb 12.8 L Hct 38.3 MCV 92 MCH 30.9 MCHC 33.6 RDW 13.9 Plt Count 351 Lymph % (Auto) Not Reportable Meagher % (Auto) Not Reportable Eos % (Auto) Not Reportable Baso % (Auto) Not Reportable Absolute Neuts (auto) Not Reportable Absolute Lymphs (auto) Not Reportable Absolute Monos (auto) Not Reportable Absolute Eos (auto) Not Reportable Absolute Basos (auto) Not Reportable Total Counted 100 Seg Neutrophils % Not Reportable Seg Neuts % (Manual) 84 H Band Neutrophils % 1 L Lymphocytes % (Manual) 7 L Monocytes % (Manual) 8 Eosinophils % (Manual) 0 Basophils % (Manual) 0 Abs Neuts (Manual) 23.0 H Abs Lymphs (Manual) 1.9 Abs Monocytes (Manual) 2.2 H Absolute Eos (Manual) 0.0 Abs Basophils (Manual) 0.0 Platelet Comment ADEQUATE Carbonic Acid HCO3/H2CO3 Ratio ABG pH ABG pCO2 ABG pO2 ABG HCO3 ABG Total CO2 ABG O2 Saturation ABG Base Excess FiO2 Sodium 123.5 L Potassium 5.1 H Chloride 82 L Carbon Dioxide 34 H Anion Gap 8 BUN 11 Creatinine 0.46 L Est GFR ( Amer) > 60 Est GFR (MDRD) Non-Af > 60 Glucose 109 Calcium 9.3 Total Bilirubin 0.6 Direct Bilirubin 0.2 Neonat Total Bilirubin Not Reportable Neonat Direct Bilirubin Not Reportable Neonat Indirect Bili Not Reportable AST 36 ALT 34 Alkaline Phosphatase 82 Troponin I 0.111 Total Protein 6.6 Albumin 3.4 L 06/05/19 15:28 WBC RBC Hgb Hct MCV MCH MCHC RDW Plt Count Lymph % (Auto) Meagher % (Auto) Eos % (Auto) Baso % (Auto) Absolute Neuts (auto) Absolute Lymphs (auto) Absolute Monos (auto) Absolute Eos (auto) Absolute Basos (auto) Total Counted Seg Neutrophils % Seg Neuts % (Manual) Band Neutrophils % Lymphocytes % (Manual) Monocytes % (Manual) Eosinophils % (Manual) Basophils % (Manual) Abs Neuts (Manual) Abs Lymphs (Manual) Abs Monocytes (Manual) Absolute Eos (Manual) Abs Basophils (Manual) Platelet Comment Carbonic Acid 2.24 H HCO3/H2CO3 Ratio 16:1 ABG pH 7.31 L ABG pCO2 74.4 H* ABG pO2 94.5 ABG HCO3 36.2 H ABG Total CO2 38.5 H ABG O2 Saturation 96.2 ABG Base Excess 7.2 FiO2 7L Sodium Potassium Chloride Carbon Dioxide Anion Gap BUN Creatinine Est GFR ( Amer) Est GFR (MDRD) Non-Af Glucose Calcium Total Bilirubin Direct Bilirubin Neonat Total Bilirubin Neonat Direct Bilirubin Neonat Indirect Bili AST ALT Alkaline Phosphatase Troponin I Total Protein Albumin Chest X-Ray 06/05/19 15:20 IMPRESSION: FAINT PARENCHYMAL DENSITIES IN THE LOWER LOBES. POSSIBLE ATELECTASIS, PNEUMONITIS, OR EARLY PNEUMONIA. - Vital Signs Vital signs: Temp Pulse Resp BP Pulse Ox 17 114/71 90 L 06/05/19 16:00 06/05/19 16:00 06/05/19 16:01 - Laboratory Result Diagrams: 06/05/19 14:55 06/05/19 14:55 Laboratory results interpreted by me: 06/05/19 06/05/19 06/05/19 14:55 14:55 15:28 WBC 27.0 H RBC 4.15 L Hgb 12.8 L Seg Neuts % (Manual) 84 H Band Neutrophils % 1 L Lymphocytes % (Manual) 7 L Abs Neuts (Manual) 23.0 H Abs Monocytes (Manual) 2.2 H Carbonic Acid 2.24 H ABG pH 7.31 L ABG pCO2 74.4 H* ABG HCO3 36.2 H ABG Total CO2 38.5 H Sodium 123.5 L Potassium 5.1 H Chloride 82 L Carbon Dioxide 34 H Creatinine 0.46 L Albumin 3.4 L - EKG Interpretation by Me Additional EKG results interpreted by me: 06/05/19 15:34 Interpreted by myself 1526: Normal sinus rhythm, rate 96, normal axis, no STEMI, no ectopy Critical Care Note - Critical Care Note Total time excluding time spent on procedures (mins): 36 Comments: Critical care time 36 exclusive from separate billable procedures for a patient requiring complex medical decision making, and high potential for clinical deterioration. Time spent obtaining history from patient or surrogate, discussions with consultants, development of treatment plan with patient or surrogate, evaluation of patient's response to treatment, examination of patient, ordering and performing treatments and interventions, ordering and review of laboratory studies, re-evaluation of patient's condition, ordering and review of radiographic studies and review of old charts Discharge - Discharge Clinical Impression: COPD exacerbation, Hyponatremia, Hyperkalemia, Elevated troponin Hypercapnic respiratory failure Qualifiers: Chronicity: acute Qualified Code(s): J96.02 - Acute respiratory failure with hypercapnia Pneumonia Qualifiers: Pneumonia type: due to unspecified organism Laterality: bilateral Lung location: lower lobe of lung Qualified Code(s): J18.1 - Lobar pneumonia, unspecified organism Condition: Stable Disposition: ADMITTED INPATIENT Admitting Provider: Rebeca (Hospitalist) Unit Admitted: IMCU Referrals: BAUDILIO BAINS MD [Primary Care Provider] - Follow up as needed
[2019-06-05 15:41] LABS: ARTERIAL BLOOD BASE EXCESS 7.2 mmol/L; ARTERIAL BLOOD H2CO3 2.24 mmol/L (1.05-1.35); ARTERIAL BLOOD HCO3 36.2 mmol/L (20-24); ARTERIAL BLOOD O2 SATURATION 96.2 % (94-98); ARTERIAL BLOOD PH 7.31 (7.35-7.45); ARTERIAL BLOOD PO2 94.5 mmHg (80-100); ARTERIAL BLOOD TOTAL CO2 38.5 mmol/L (23-27)
[2019-06-05 15:47] LABS: ARTERIAL BLOOD FIO2 7L; ARTERIAL BLOOD PCO2 74.4 mmHg (35-45)
[2019-06-05 15:47] LABS: ALBUMIN 3.4 g/dL (3.5-5.0); ALKALINE PHOSPHATASE 82 U/L (38-126); ANION GAP 8 (5-19); ASPARTATE AMINO TRANSFERASE 36 U/L (17-59); BILIRUBIN,DIRECT 0.2 mg/dL (0.0-0.4); BILIRUBIN,TOTAL 0.6 mg/dL (0.2-1.3); BLOOD UREA NITROGEN 11 mg/dL (7-20); CALCIUM 9.3 mg/dL (8.4-10.2); CARBON DIOXIDE 34 mmol/L (22-30); CHLORIDE 82 mmol/L (98-107); GLUCOSE 109 mg/dL (75-110); POTASSIUM 5.1 mmol/L (3.6-5.0); TOTAL PROTEIN 6.6 g/dL (6.3-8.2)
[2019-06-05 15:51] LABS: ABSOLUTE LYMPHOCYTES# (MANUAL) 1.9 10^3/uL (0.5-4.7); ABSOLUTE MONOCYTES # (MANUAL) 2.2 10^3/uL (0.1-1.4); BAND NEUTROPHILS % (MANUAL) 1 % (3-5); BASOPHILS % (MANUAL) 0 % (0-2); EOSINOPHILS % (MANUAL) 0 % (0-6); LYMPHOCYTES % (MANUAL) 7 % (13-45); MONOCYTES % (MANUAL) 8 % (3-13); PLATELET COMMENT ADEQUATE; SEGMENTED NEUTROPHILS % (MAN) 84 % (42-78); TOTAL CELLS COUNTED 100
--- NOTE | 2019-06-05 16:16 | RADIOLOGY REPORT (SQ) ---
EXAM DESCRIPTION: CHEST SINGLE VIEW COMPLETED DATE/TIME: 06/05/2019 4:04 pm REASON FOR STUDY: shortness of breath COMPARISON: 01/22/2019. EXAM PARAMETERS: NUMBER OF VIEWS: One view. TECHNIQUE: Single frontal radiographic view of the chest acquired. RADIATION DOSE: NA LIMITATIONS: None. FINDINGS: LUNGS AND PLEURA: Indistinct parenchymal densities in the lower lobes, slightly more promi nent on the right. No pleural effusion. No pneumothorax. MEDIASTINUM AND HILAR STRUCTURES: No masses. Contour normal. HEART AND VASCULAR STRUCTURES: Heart normal in size. Normal vasculature. BONES: No acute findings. HARDWARE: None in the chest. OTHER: No other significant finding. IMPRESSION: FAINT PARENCHYMAL DENSITIES IN THE LOWER LOBES. POSSIBLE ATELECTASIS, PNEUMONITIS, OR E LAW PNEUMONIA. TECHNICAL DOCUMENTATION: JOB ID: [id number] [employer]- All Rights Reserved Reading location - IP/workstation name: [email or web address]
[2019-06-05] MEDS ORDERED: ASPIRIN 81 MG TABLET, CHEWABLE PO ONE (16:19)
[2019-06-05] MEDS ORDERED: NORMAL SALINE 1000 ML 1,000 ML IV ONE (16:21)
[2019-06-05] MEDS ORDERED: LEVOFLOXACIN 750 MG/D5W RTU 750 MG/150 ML RTUPB IV ONE ×2 (16:21→16:44)
[2019-06-05] MEDS ORDERED: NORMAL SALINE 1000 ML 1,000 ML IV PRN (16:54)
[2019-06-05] MEDS ORDERED: ACETAMINOPHEN 325 MG TABLET PO PRN (16:54)
[2019-06-05] MEDS ORDERED: ONDANSETRON HCL INJ/PF 4 MG/2 ML SDV IV PRN (16:54)
--- NOTE | 2019-06-05 17:21 | PDOC H&P ---
History of Present Illness Admission Date/PCP: 06/05/19 16:49 BAUDILIO BAINS MD Patient complains of: Shortness of breath from this morning History of Present Illness: ELLA HILL is a 59 year old male history of COPD not on home oxygen, chronic smoker, history of coronary artery disease with CABG in 2018 and has another heart attack in December this year, hypertension, hypercholesterolemia went to his primary care physician's office found to have a pulse ox of 79% and he was referred to the ER for further evaluation. In the emergency room patient required BiPAP to bring his pulse ox is more than 80%. Chest x-ray suggestive of bilateral basilar infiltrates. WBC count is 27,000 and medical consult was called for admission. He received nebulizer treatments and IV Solu-Medrol in the emergency room. if Needed patient wants intubation but did not want CPR. Past Medical History Cardiac Medical History: Reports: Coronary Artery Disease, Myocardial Infarction, Hyperlipidema, Hypertension Pulmonary Medical History: Reports: Bronchitis, Chronic Obstructive Pulmonary Disease (COPD), Respiratory Failure Denies: Asthma, Pneumonia, Tuberculosis Neurological Medical History: Denies: Seizures Endocrine Medical History: Denies: Diabetes Mellitus Type 2, Hypothyroidism GI Medical History: Reports: Gastroesophageal Reflux Disease Denies: Cirrhosis, Hiatal Hernia Musculoskeltal Medical History: Reports: Arthritis Skin Medical History: Denies: Eczema, Psoriasis Psychiatric Medical History: Reports: Bipolar Disorder, Depression Hematology: Denies: Anemia Infectious Medical History: Denies: HIV Past Surgical History Past Surgical History: Reports: Cardiac Catheterization, Coronary Artery Bypass Graft - 2007, Orthopedic Surgery - metal plate in right wrist Denies: Pacemaker Social History Smoking Status: Current Every Day Smoker Hx Recreational Drug Use: No Hx Prescription Drug Abuse: No - Advance Directive Resuscitation Status: If necessary requesting intubation. Family History Family History: CAD, Hypertension Parental Family History Reviewed: Yes - Family history of coronary artery disease and hypertension. Children Family History Reviewed: Yes Sibling(s) Family History Reviewed.: Yes Medication/Allergy Allergies/Adverse Reactions: codeine [Codeine] Allergy (Verified 05/30/19 19:13) latex [Latex] Allergy (Verified 05/30/19 19:13) adhesive tape [Adhesive Tape] Adverse Reaction (Intermediate, Verified 05/30/19 19:13) Urticaria Review of Systems Constitutional: PRESENT: fatigue, weakness. ABSENT: fever(s), headache(s), night sweats Eyes: ABSENT: visual disturbances Ears: ABSENT: hearing changes Nose, Mouth, and Throat: ABSENT: sore throat Cardiovascular: PRESENT: dyspnea on exertion, palpitations. ABSENT: chest pain, edema, orthropnea Respiratory: PRESENT: dyspnea, other - Coughing yellowish-green sputum.. ABSENT: hemoptysis Gastrointestinal: ABSENT: abdominal pain, constipation, diarrhea, hematemesis, hematochezia, nausea, vomiting Musculoskeletal: ABSENT: joint swelling Neurological: ABSENT: abnormal gait, abnormal speech, confusion, dizziness, focal weakness, syncope Psychiatric: ABSENT: anxiety, depression, homidical ideation, suicidal ideation Physical Exam Vital Signs: Temp Pulse Resp BP Pulse Ox 17 114/71 90 L 06/05/19 16:00 06/05/19 16:00 06/05/19 16:01 Intake & Output 06/04/19 06/05/19 06/06/19 06:59 06:59 06:59 Weight 63.2 kg General appearance: PRESENT: no acute distress, disheveled, thin Head exam: PRESENT: atraumatic Eye exam: PRESENT: PERRLA Mouth exam: PRESENT: dry mucosa, neck supple Teeth exam: PRESENT: poor dentation Neck exam: ABSENT: carotid bruit, JVD, lymphadenopathy, thyromegaly Respiratory exam: PRESENT: decreased breath sounds, wheezes Cardiovascular exam: PRESENT: tachycardia GI/Abdominal exam: PRESENT: normal bowel sounds, soft. ABSENT: distended, guarding, mass, organolmegaly, rebound, tenderness Rectal exam: PRESENT: deferred Neurological exam: PRESENT: alert, awake, oriented to person, oriented to place, oriented to time, oriented to situation, CN II-XII grossly intact. ABSENT: motor sensory deficit Psychiatric exam: PRESENT: appropriate affect, normal mood. ABSENT: homicidal ideation, suicidal ideation Results Laboratory Results: 06/05/19 14:55 06/05/19 14:55 06/05/19 06/05/19 06/05/19 14:55 14:55 15:28 WBC 27.0 H RBC 4.15 L Hgb 12.8 L Hct 38.3 MCV 92 MCH 30.9 MCHC 33.6 RDW 13.9 Plt Count 351 Seg Neutrophils % Not Reportable Carbonic Acid 2.24 H HCO3/H2CO3 Ratio 16:1 ABG pH 7.31 L ABG pCO2 74.4 H* ABG pO2 94.5 ABG HCO3 36.2 H ABG O2 Saturation 96.2 ABG Base Excess 7.2 FiO2 7L Sodium 123.5 L Potassium 5.1 H Chloride 82 L Carbon Dioxide 34 H Anion Gap 8 BUN 11 Creatinine 0.46 L Est GFR ( Amer) > 60 Glucose 109 Lactic Acid Calcium 9.3 Total Bilirubin 0.6 AST 36 Alkaline Phosphatase 82 Total Protein 6.6 Albumin 3.4 L 06/05/19 16:35 WBC RBC Hgb Hct MCV MCH MCHC RDW Plt Count Seg Neutrophils % Carbonic Acid HCO3/H2CO3 Ratio ABG pH ABG pCO2 ABG pO2 ABG HCO3 ABG O2 Saturation ABG Base Excess FiO2 Sodium Potassium Chloride Carbon Dioxide Anion Gap BUN Creatinine Est GFR ( Amer) Glucose Lactic Acid 0.5 L Calcium Total Bilirubin AST Alkaline Phosphatase Total Protein Albumin 06/05/19 14:55 Troponin I 0.111 Impressions: Chest X-Ray 06/05/19 15:20 IMPRESSION: FAINT PARENCHYMAL DENSITIES IN THE LOWER LOBES. POSSIBLE ATE LECTASIS, PNEUMONITIS, OR EARLY PNEUMONIA. Assessment and Plan - Diagnosis (1) Acute on chronic respiratory failure with hypoxia Is this a current diagnosis for this admission?: Yes Plan: 06/05/2019-patient is going to be admitted to [facility] for acute on chronic respiratory failure with hypoxia and hypercapnia. Patient request is no CPR but if necessary requesting intubation. To start him on IV Levaquin 750 mg daily, Xopenex nebulizations, chest physical therapy was requested. Started on IV Solu-Medrol 40 mg every 8 hours. To continue BiPAP on PRN basis. GI prophylaxis DVT prophylaxis initiated. Blood cultures and sputum cultures urine cultures are requested. (2) Elevated troponin Is this a current diagnosis for this admission?: Yes Plan: 06/05/2019-troponin is 0.11 elevated troponin most likely secondary to COPD exacerbation. Plan is to trend the troponins. (3) Hyperkalemia Is this a current diagnosis for this admission?: Yes Plan: 06/05/2019-serum potassium is 5.1 hyperkalemia plan is to recheck the labs tomorrow. (4) Hyponatremia Is this a current diagnosis for this admission?: Yes Plan: 06/05/2019-serum sodium is 123.5 hyponatremia most likely secondary to prerenal causes. Patient is receiving normal saline at 75 cc/h. (5) Pneumonia Qualifiers: Pneumonia type: due to unspecified organism Laterality: bilateral Lung location: lower lobe of lung Qualified Code(s): J18.1 - Lobar pneumonia, unspecified organism Is this a current diagnosis for this admission?: Yes Plan: 06/05/2019-chest x-ray suggestive of bilateral basilar infiltrates most likely community-acquired pneumonia. Most likely gram-positive organisms responsible. Blood cultures sputum cultures requested started on IV levo floxacillin 750 mg daily. (6) COPD exacerbation Is this a current diagnosis for this admission?: Yes Plan: 06/05/2019-patient has history of COPD most likely secondary to chronic smoking. Patient is current day smoker. He is not on home oxygen. To check for the home oxygen requirements at the time of discharge. To treat him with IV Levaquin 750 mg daily, Xopenex nebulizations, IV Solu-Medrol 40 mg every 8 hours. (7) Tobacco abuse Is this a current diagnosis for this admission?: No Plan: 06/05/2019-patient is a daily day smoker smoking counseling was provided for more than 20 minutes to placement nicotine patch 21 mg daily. - Time Time Spent with patient: 25-34 minutes Smoking Cessation Education: over 10 minutes Medications reviewed and adjusted accordingly: Yes Anticipated discharge: Home
[2019-06-05 18:46] LABS: URINE AMPHETAMINES SCREEN NEGATIVE; URINE BARBITURATES SCREEN NEGATIVE; URINE BENZODIAZEPINES SCREEN NEGATIVE; URINE COCAINE SCREEN NEGATIVE; URINE MARIJUANA (THC) SCREEN UNCONFIRMED POSITIVE; URINE METHADONE SCREEN NEGATIVE; URINE PHENCYCLIDINE SCREEN NEGATIVE
--- NOTE | 2019-06-05 21:43 | EKG REPORT ---
SEVERITY:- ABNORMAL ECG - SINUS RHYTHM NONSPECIFIC INTRAVENTRICULAR CONDUCTION DELAY PROBABLE INFEROLATERAL INFARCT, AGE INDETERM : Confirmed by: Gabrielle Ballesteros 05-Jun-2019 21:42:16
[2019-06-05] MEDS ORDERED: FAMOTIDINE 20 MG TABLET PO SCH (22:00)
[2019-06-05] MEDS: HEPARIN SOD (PORCINE) 5,000 UNIT/ML 1 ML VIAL SUBCUT SCH (22:51)
[2019-06-05] MEDS: METHYLPREDNISOLONE INJ 40 MG/1 ML SDV IV SCH (22:51)
--- NOTE | 2019-06-06 00:48 | RADIOLOGY REPORT (SQ) ---
CLINICAL HISTORY: pneumonia COMPARISON: None. TECHNIQUE: CT CHEST WITH IV CONTRAST on 06/05/2019 12:00 AM CDT. MIPS reconstructions were generated. This exam was performed according to our departmental dose-optimization program, which includes automated exposure control, adjustment of the mA and/or kV according to patient size and/or use of iterative reconstruction technique. MIP images were generated. FINDINGS: Thoracic aorta is normal in course and caliber without aneurysm or dissection. Pulmonary arteries are adequately opacified without acute or chronic filling defects. The heart is normal in size. There is no pericardial effusion. Intrathoracic lymph nodes are not enlarged. There is no pleural effusion, pleural thickening or pneumothorax. Central airways are patent. There are moderate diffuse tree-in-bud nodules throughout both lungs, the lower lung predominance. There are no acute abnormalities within the limited images of the upper abdomen. There are no acute osseous findings. No suspicious bony lesions. IMPRESSION: Diffuse most likely infectious bronchiolitis.
[2019-06-06] MEDS: METHYLPREDNISOLONE INJ 40 MG/1 ML SDV IV SCH ×2 (06:27→17:27)
[2019-06-06] MEDS: HEPARIN SOD (PORCINE) 5,000 UNIT/ML 1 ML VIAL SUBCUT SCH ×3 (06:27→22:44)
[2019-06-06 07:42] LABS: HEMATOCRIT 42.4 % (37.9-51.0); HEMOGLOBIN 14.3 g/dL (13.5-17.0); MEAN CORPUSCULAR HEMOGLOBIN 31.1 pg (27.0-33.4); MEAN CORPUSCULAR HGB CONC 33.8 g/dL (32.0-36.0); MEAN CORPUSCULAR VOLUME 92 fl (80-97); PLATELET COUNT 408 10^3/uL (150-450); RED BLOOD COUNT 4.61 10^6/uL (4.35-5.55); WHITE BLOOD COUNT 22.5 10^3/uL (4.0-10.5)
[2019-06-06 07:59] LABS: ALBUMIN 3.8 g/dL (3.5-5.0); ALKALINE PHOSPHATASE 109 U/L (38-126); ANION GAP 10 (5-19); ASPARTATE AMINO TRANSFERASE 30 U/L (17-59); BILIRUBIN,DIRECT 0.2 mg/dL (0.0-0.4); BILIRUBIN,TOTAL 0.4 mg/dL (0.2-1.3); BLOOD UREA NITROGEN 8 mg/dL (7-20); CARBON DIOXIDE 33 mmol/L (22-30); CHLORIDE 90 mmol/L (98-107); CHOLESTEROL 170.75 mg/dL (0-200); GLUCOSE 155 mg/dL (75-110); POTASSIUM 4.9 mmol/L (3.6-5.0); TOTAL PROTEIN 7.3 g/dL (6.3-8.2); TRIGLYCERIDES 115 mg/dL (<150)
[2019-06-06] MEDS ORDERED: ZOLPIDEM TARTRATE 5 MG TABLET PO PRN (08:04)
[2019-06-06 08:09] LABS: DIRECT LDL 81 mg/dL (<100)
[2019-06-06] MEDS: LORAZEPAM 1 MG TABLET PO PRN ×2 (08:23→14:44)
[2019-06-06] MEDS: PANTOPRAZOLE SODIUM 40 MG TABLET.DR PO SCH (08:25)
--- NOTE | 2019-06-06 09:53 | PDOC PROGRESS REPORT ---
Subjective Progress Note for:: 06/06/19 Subjective:: 59 year old male history of COPD not on home oxygen, chronic smoker, history of coronary artery disease with CABG in 2018 and has another heart attack in December this year, hypertension, hypercholesterolemia went to his primary care physician's office found to have a pulse ox of 79% and he was referred to the ER for further evaluation. In the emergency room patient required BiPAP to bring his pulse ox is more than 80%. Chest x-ray suggestive of bilateral basilar in filtrates. WBC count is 27,000 and medical consult was called for admission. He received nebulizer treatments and IV Solu-Medrol in the emergency room. if Needed patient wants intubation but did not want CPR. 06/[id number]-puii-old male with history of COPD chronic smoker admitted with increasing shortness of breath acute on chronic respiratory failure with hypoxia and hypercapnia requiring BiPAP in the emergency room. Pulse ox this morning is 98% on 2 L. Significant improvement in his respiratory status. No acute events in the last 24 hours. Afebrile. Reason For Visit: COPD EXACERBATION,HYPERCAPNIC RESPIRATORY FAILURE, Physical Exam Vital Signs: Temp Pulse Resp BP Pulse Ox 97.3 F 100 17 150/96 H 97 06/06/19 08:18 06/06/19 08:18 06/06/19 08:18 06/06/19 08:18 06/06/19 08:18 Intake & Output 06/05/19 06/06/19 06/07/19 06:59 06:59 06:59 Intake Total 1150 Output Total 775 Balance 375 Weight 66.5 kg General appearance: PRESENT: no acute distress, cooperative, thin Head exam: PRESENT: atraumatic Eye exam: PRESENT: PERRLA Mouth exam: PRESENT: neck supple Teeth exam: PRESENT: poor dentation Neck exam: ABSENT: carotid bruit, JVD, lymphadenopathy, thyromegaly Respiratory exam: PRESENT: decreased breath sounds, wheezes Cardiovascular exam: PRESENT: tachycardia GI/Abdominal exam: PRESENT: normal bowel sounds, soft. ABSENT: distended, guarding, mass, organolmegaly, rebound, tenderness Rectal exam: PRESENT: deferred Extremities exam: PRESENT: full ROM. ABSENT: calf tenderness, clubbing, pedal edema Neurological exam: PRESENT: alert, awake, oriented to person, oriented to place, oriented to time, oriented to situation, CN II-XII grossly intact. ABSENT: motor sensory deficit Psychiatric exam: PRESENT: appropriate affect, normal mood. ABSENT: homicidal ideation, suicidal ideation Results Laboratory Results: 06/06/19 07:16 06/06/19 07:16 06/05/19 06/05/19 06/05/19 14:55 14:55 15:28 WBC 27.0 H RBC 4.15 L Hgb 12.8 L Hct 38.3 MCV 92 MCH 30.9 MCHC 33.6 RDW 13.9 Plt Count 351 Seg Neutrophils % Not Reportable Carbonic Acid 2.24 H HCO3/H2CO3 Ratio 16:1 ABG pH 7.31 L ABG pCO2 74.4 H* ABG pO2 94.5 ABG HCO3 36.2 H ABG O2 Saturation 96.2 ABG Base Excess 7.2 FiO2 7L Sodium 123.5 L Potassium 5.1 H Chloride 82 L Carbon Dioxide 34 H Anion Gap 8 BUN 11 Creatinine 0.46 L Est GFR ( Amer) > 60 Glucose 109 Lactic Acid Calcium 9.3 Magnesium Total Bilirubin 0.6 AST 36 Alkaline Phosphatase 82 Total Protein 6.6 Albumin 3.4 L Triglycerides Cholesterol LDL Cholesterol Direct VLDL Cholesterol HDL Cholesterol TSH 06/05/19 06/06/19 06/06/19 16:35 07:16 07:16 WBC 22.5 H RBC 4.61 Hgb 14.3 Hct 42.4 MCV 92 MCH 31.1 MCHC 33.8 RDW 14.0 Plt Count 408 Seg Neutrophils % Carbonic Acid HCO3/H2CO3 Ratio ABG pH ABG pCO2 ABG pO2 ABG HCO3 ABG O2 Saturation ABG Base Excess FiO2 Sodium 132.8 L Potassium 4.9 Chloride 90 L Carbon Dioxide 33 H Anion Gap 10 BUN 8 Creatinine 0.49 L Est GFR ( Amer) > 60 Glucose 155 H Lactic Acid 0.5 L Calcium 10.0 Magnesium 2.1 Total Bilirubin 0.4 AST 30 Alkaline Phosphatase 109 Total Protein 7.3 Albumin 3.8 Triglycerides 115 Cholesterol 170.75 LDL Cholesterol Direct 81 VLDL Cholesterol 23.0 HDL Cholesterol 56 TSH 06/06/19 07:16 WBC RBC Hgb Hct MCV MCH MCHC RDW Plt Count Seg Neutrophils % Carbonic Acid HCO3/H2CO3 Ratio ABG pH ABG pCO2 ABG pO2 ABG HCO3 ABG O2 Saturation ABG Base Excess FiO2 Sodium Potassium Chloride Carbon Dioxide Anion Gap BUN Creatinine Est GFR ( Amer) Glucose Lactic Acid Calcium Magnesium Total Bilirubin AST Alkaline Phosphatase Total Protein Albumin Triglycerides Cholesterol LDL Cholesterol Direct VLDL Cholesterol HDL Cholesterol TSH 0.41 L 06/05/19 06/05/19 06/05/19 14:55 14:55 14:55 Creatine Kinase 144 CK-MB (CK-2) 5.81 H Troponin I 0.111 06/06/19 06/06/19 06/06/19 00:04 00:04 00:04 Creatine Kinase 94 CK-MB (CK-2) 4.85 H Troponin I 0.116 Cancelled Impressions: Chest CT 06/05/19 00:00 IMPRESSION: Diffuse most likely infectious bronchiolitis. Chest X-Ray 06/05/19 15:20 IMPRESSION: FAINT PARENCHYMAL DENSITIES IN THE LOWER LOBES. POSSIBLE ATELECTASIS, PNEUMONITIS, OR EARLY PNEUMONIA. Assessment and Plan - Diagnosis (1) Acute on chronic respiratory failure with hypoxia Is this a current diagnosis for this admission?: Yes Plan: 06/05/2019-patient is going to be admitted to [facility] for acute on chronic respiratory failure with hypoxia and hypercapnia. Patient request is no CPR but if necessary requesting intubation. To start him on IV Levaquin 750 mg daily, Xopenex nebulizations, chest physical therapy was requested. Started on IV Solu-Medrol 40 mg every 8 hours. To continue BiPAP on PRN basis. GI prophylaxis DVT prophylaxis initiated. Blood cultures and sputum cultures urine cultures are requested. 06/[id number]-ul[age]-old male admitted with acute on chronic respiratory failure with hypoxia requiring BiPAP in the emergency room. Pulse ox today is 98% on 2 L. Improving. Acute on chronic respiratory failure with hypoxia and hypercapnia most likely secondary to underlying pneumonia. And is to decrease the IV Solu-Medrol to 40 mg every 12 hours and continue Xopenex nebulizations and chest physical therapy. (2) Elevated troponin Is this a current diagnosis for this admission?: Yes Plan: 06/05/2019-troponin is 0.11 elevated troponin most likely secondary to COPD exacerbation. Plan is to trend the troponins. 06/06/2019-second troponin is 0.116 stable. Elevated troponin most likely secondary to COPD exacerbation. No complaints of chest pains. (3) Hyperkalemia Is this a current diagnosis for this admission?: Yes Plan: 06/05/2019-serum potassium is 5.1 hyperkalemia plan is to recheck the labs tomorrow. 06/06/2019-patient came in with serum potassium of 5.1, repeat potassium today is 4.9. Hyperkalemia resolved. (4) Hyponatremia Is this a current diagnosis for this admission?: Yes Plan: 06/05/2019-serum sodium is 123.5 hyponatremia most likely secondary to prerenal causes. Patient is receiving normal saline at 75 cc/h. 06/06/2019-patient admitted with serum sodium of 123.5 with IV fluids normal saline at 75 cc/h rate improved to 132.8 today. Plan is to discontinue IV fluids. (5) Pneumonia Qualifiers: Pneumonia type: due to unspecified organism Laterality: bilateral Lung location: lower lobe of lung Qualified Code(s): J18.1 - Lobar pneumonia, unspecified organism Is this a current diagnosis for this admission?: Yes Plan: 06/05/2019-chest x-ray suggestive of bilateral basilar infiltrates most likely community-acquired pneumonia. Most likely gram-positive organisms responsible. Blood cultures sputum cultures requested started on IV levo floxacillin 750 mg daily. 06/06/2019-chest x-ray suggestive of pneumonia CT scan of the chest suggestive of bronchiolitis plan is to continue IV levo floxacillin 750 mg daily. Blood cultures and sputum cultures are pending. (6) COPD exacerbation Is this a current diagnosis for this admission?: Yes Plan: 06/05/2019-patient has history of COPD most likely secondary to chronic smoking. Patient is current day smoker. To treat him with IV Levaquin 750 mg daily, Xopenex nebulizations, IV Solu-Medrol 40 mg every 8 hours. 06/06/2019-pulse ox today is 98% on 2 L on examination chest bilateral entry was severely decreased minimal wheezing plan is to decrease IV Solu-Medrol to 40 mg every 12 hours continue Xopenex nebulizations and chest physical therapy. pt is not on home oxygen, plan to check for home oxygen requirements at the time of discharge. (7) Tobacco abuse Is this a current diagnosis for this admission?: No - Time Time Spent with patient: 25-34 minutes Smoking Cessation Education: over 10 minutes Medications reviewed and adjusted accordingly: Yes Anticipated discharge: Home
[2019-06-06] MEDS ORDERED: (PENDING PHARMACY ID) (Risperidone [Risperdal] 2 MG) PO SCH (10:00)
[2019-06-06] MEDS ORDERED: (PENDING PHARMACY ID) (Escitalopram Oxalate [Lexapro] 30 MG) PO SCH (10:00)
[2019-06-06] MEDS ORDERED: METHYLPREDNISOLONE INJ 40 MG/1 ML SDV IV SCH (10:00)
[2019-06-06] MEDS ORDERED: (PENDING PHARMACY ID) (Umeclidinium Brm/Vilanterol Tr [Anoro Ellipta 62.5-25 Mcg Inh] 1 PU IH SCH (10:00)
[2019-06-06] MEDS: ESCITALOPRAM OXALATE 10 MG TABLET PO SCH (10:23)
[2019-06-06] MEDS: RISPERIDONE 1 MG TABLET PO SCH ×2 (10:24→22:44)
[2019-06-06] MEDS: RANOLAZINE 500 MG TAB.SR.12H PO SCH ×2 (10:24→22:44)
[2019-06-06] MEDS: GABAPENTIN 300 MG CAPSULE PO SCH (10:24)
[2019-06-06] MEDS: METOPROLOL TARTRATE 25 MG TABLET PO SCH (10:25)
[2019-06-06] MEDS: NICOTINE 21 MG/24 HR PATCH.TD24 TD SCH (10:25)
[2019-06-06] MEDS ORDERED: METHYLPREDNISOLONE INJ 40 MG/1 ML SDV ONE (10:35)
[2019-06-06] MEDS: DICYCLOMINE HCL 10 MG CAPSULE PO SCH ×2 (10:36→17:28)
[2019-06-06 11:35] LABS: CREATINE KINASE MB 7.59 ng/mL (<4.55)
[2019-06-06 11:50] LABS: TROPONIN I 0.149 ng/mL
[2019-06-06] MEDS: LEVALBUTEROL HCL NEB 1.25 MG/3 ML AMPUL NEB PRN (11:50)
[2019-06-06] MEDS: LEVOFLOXACIN 750 MG/D5W RTU 750 MG/150 ML RTUPB IV SCH (17:26)
[2019-06-06] MEDS: ATORVASTATIN CALCIUM 80 MG TABLET PO SCH (22:44)
[2019-06-07] MEDS: HEPARIN SOD (PORCINE) 5,000 UNIT/ML 1 ML VIAL SUBCUT SCH ×3 (05:35→21:19)
[2019-06-07] MEDS: PANTOPRAZOLE SODIUM 40 MG TABLET.DR PO SCH (05:36)
[2019-06-07] MEDS: LEVALBUTEROL HCL NEB 1.25 MG/3 ML AMPUL NEB PRN (06:58)
--- NOTE | 2019-06-07 09:58 | PDOC PROGRESS REPORT ---
Subjective Progress Note for:: 06/07/19 Subjective:: 59 year old male history of COPD not on home oxygen, chronic smoker, history of coronary artery disease with CABG in 2018 and has another heart attack in December this year, hypertension, hypercholesterolemia went to his primary care physician's office found to have a pulse ox of 79% and he was referred to the ER for further evaluation. In the emergency room patient required BiPAP to bring his pulse ox is more than 80%. Chest x-ray suggestive of bilateral basilar in filtrates. WBC count is 27,000 and medical consult was called for admission. He received nebulizer treatments and IV Solu-Medrol in the emergency room. if Needed patient wants intubation but did not want CPR. 06/06/[id number]-lzjx-old male with history of COPD chronic smoker admitted with increasing shortness of breath acute on chronic respiratory failure with hypoxia and hypercapnia requiring BiPAP in the emergency room. Pulse ox this morning is 98% on 2 L. Significant improvement in his respiratory status. No acute events in the last 24 hours. Afebrile. 06/07/[id number]-vamx-old male with history of COPD chronic smoker not on home oxygen admitted with COPD exacerbation and shortness of breath. Initially required BiPAP. Today his pulse ox is 96% on 3 L. Coughing up yellowish sputum. Receiving IV levo floxacillin. Reason For Visit: COPD EXACERBATION,HYPERCAPNIC RESPIRATORY FAILURE, Physical Exam Vital Signs: Temp Pulse Resp BP Pulse Ox 98.1 F 101 H 17 141/94 H 100 06/07/19 08:00 06/07/19 08:00 06/07/19 08:00 06/07/19 08:00 06/07/19 08:00 Intake & Output 06/06/19 06/07/19 06/08/19 06:59 06:59 06:59 Intake Total 1150 870 Output Total 775 1500 Balance 375 -630 Weight 66.5 kg 65.2 kg General appearance: PRESENT: no acute distress, disheveled Head exam: PRESENT: atraumatic Eye exam: PRESENT: PERRLA Mouth exam: PRESENT: moist, tongue midline Teeth exam: PRESENT: poor dentation Neck exam: ABSENT: carotid bruit, JVD, lymphadenopathy, thyromegaly Respiratory exam: PRESENT: decreased breath sounds Cardiovascular exam: PRESENT: RRR. ABSENT: diastolic murmur, rubs, systolic murmur GI/Abdominal exam: PRESENT: normal bowel sounds, soft. ABSENT: distended, guarding, mass, organolmegaly, rebound, tenderness Rectal exam: PRESENT: deferred Extremities exam: PRESENT: full ROM. ABSENT: calf tenderness, clubbing, pedal edema Neurological exam: PRESENT: alert, awake, oriented to person, oriented to place, oriented to time, oriented to situation, CN II-XII grossly intact. ABSENT: motor sensory deficit Psychiatric exam: PRESENT: appropriate affect, normal mood. ABSENT: homicidal ideation, suicidal ideation Results Laboratory Results: 06/06/19 07:16 06/06/19 07:16 06/05/19 16:35 Catheterized Urine Urine Culture - Final NO GROWTH 2 DAYS 06/05/19 06/05/19 06/05/19 14:55 14:55 14:55 Creatine Kinase 144 CK-MB (CK-2) 5.81 H Troponin I 0.111 06/06/19 06/06/19 06/06/19 00:04 00:04 00:04 Creatine Kinase 94 CK-MB (CK-2) 4.85 H Troponin I 0.116 Cancelled 06/06/19 06/06/19 09:43 09:43 Creatine Kinase 108 CK-MB (CK-2) 7.59 H Troponin I 0.149 Impressions: Chest CT 06/05/19 00:00 IMPRESSION: Diffuse most likely infectious bronchiolitis. Chest X-Ray 06/05/19 15:20 IMPRESSION: FAINT PARENCHYMAL DENSITIES IN THE LOWER LOBES. POSSIBLE ATELECTASIS, PNEUMONITIS, OR EARLY PNEUMONIA. Assessment and Plan - Diagnosis (1) Acute on chronic respiratory failure with hypoxia Is this a current diagnosis for this admission?: Yes Plan: 06/05/2019-patient is going to be admitted to [facility] for acute on chronic respiratory failure with hypoxia and hypercapnia. Patient request is no CPR but if necessary requesting intubation. To start him on IV Levaquin 750 mg daily, Xopenex nebulizations, chest physical therapy was requested. Started on IV Solu-Medrol 40 mg every 8 hours. To continue BiPAP on PRN basis. GI prophylaxis DVT prophylaxis initiated. Blood cultures and sputum cultures urine cultures are requested. 06/06/[id number]-pbfw-old male admitted with acute on chronic respiratory failure with hypoxia requiring BiPAP in the emergency room. Pulse ox today is 98% on 2 L. Improving. Acute on chronic respiratory failure with hypoxia and hyperc apnia most likely secondary to underlying pneumonia. And is to decrease the IV Solu-Medrol to 40 mg every 12 hours and continue Xopenex nebulizations and chest physical therapy. 06/07/[id number]-wyzo-old male admitted with acute on chronic respiratory failure with hypoxia presently on oxygen 3 L per nasal cannula pulse ox 96%. On examination chest bilateral entry was still severely decreased minimal wheezing present. (2) Elevated troponin Is this a current diagnosis for this admission?: Yes Plan: 06/05/2019-troponin is 0.11 elevated troponin most likely secondary to COPD exacerbation. Plan is to trend the troponins. 06/06/2019-second troponin is 0.116 stable. Elevated troponin most likely secondary to COPD exacerbation. No complaints of chest pains. 06/07/2019-patient's latest troponin is 0.146 most likely secondary to COPD exacerbation due to oxygen supply demand mismatch. (3) Hyperkalemia Is this a current diagnosis for this admission?: Yes Plan: 06/05/2019-serum potassium is 5.1 hyperkalemia plan is to recheck the labs tomorrow. 06/06/2019-patient came in with serum potassium of 5.1, repeat potassium today is 4.9. Hyperkalemia resolved. 06/07/2019-patient came in with potassium of 5.1 today's potassium levels are pending. (4) Hyponatremia Is this a current diagnosis for this admission?: Yes Plan: 06/05/2019-serum sodium is 123.5 hyponatremia most likely secondary to prerenal causes. Patient is receiving normal saline at 75 cc/h. 06/06/2019-patient admitted with serum sodium of 123.5 with IV fluids normal saline at 75 cc/h rate improved to 132.8 today. Plan is to discontinue IV fluids. 06/07/2019-patient serum sodium is 132.8 today. Improved. To check his labs today. (5) Pneumonia Qualifiers: Pneumonia type: due to unspecified organism Laterality: bilateral Lung location: lower lobe of lung Qualified Code(s): J18.1 - Lobar pneumonia, unspecified organism Is this a current diagnosis for this admission?: Yes Plan: 06/05/2019-chest x-ray suggestive of bilateral basilar infiltrates most likely community-acquired pneumonia. Most likely gram-positive organisms responsible. Blood cultures sputum cultures requested started on IV levo floxacillin 750 mg daily. 06/06/2019-chest x-ray suggestive of pneumonia CT scan of the chest suggestive of bronchiolitis plan is to continue IV levo floxacillin 750 mg daily. Blood cultures and sputum cultures are pending. 2018-CT of the chest suggestive of bronchiolitis. On IV levo floxacillin. Blood cultures and sputum cultures are negative so far. (6) COPD exacerbation Is this a current diagnosis for this admission?: Yes (7) Tobacco abuse Is this a current diagnosis for this admission?: No - Time Time Spent with patient: 25-34 minutes Smoking Cessation Education: over 10 minutes Medications reviewed and adjusted accordingly: Yes Anticipated discharge: Home
[2019-06-07] MEDS: NICOTINE 21 MG/24 HR PATCH.TD24 TD SCH (10:14)
[2019-06-07] MEDS: METOPROLOL TARTRATE 25 MG TABLET PO SCH (10:16)
[2019-06-07] MEDS: GABAPENTIN 300 MG CAPSULE PO SCH (10:16)
[2019-06-07] MEDS: METHYLPREDNISOLONE INJ 40 MG/1 ML SDV IV SCH ×2 (10:16→17:44)
[2019-06-07] MEDS: DICYCLOMINE HCL 10 MG CAPSULE PO SCH ×2 (10:16→17:44)
[2019-06-07] MEDS: RISPERIDONE 1 MG TABLET PO SCH ×2 (10:16→21:19)
[2019-06-07] MEDS: ESCITALOPRAM OXALATE 10 MG TABLET PO SCH (10:16)
[2019-06-07] MEDS: RANOLAZINE 500 MG TAB.SR.12H PO SCH ×2 (10:17→21:19)
[2019-06-07] MEDS: LEVOFLOXACIN 750 MG/D5W RTU 750 MG/150 ML RTUPB IV SCH (17:44)
[2019-06-07] MEDS: ATORVASTATIN CALCIUM 80 MG TABLET PO SCH (21:19)
[2019-06-08 04:39] LABS: ABSOLUTE BASOPHILS # (AUTO) 0.1 10^3/uL (0.0-0.2); ABSOLUTE MONOCYTES (AUTO) 1.5 10^3/uL (0.1-1.4); BASOPHILS % (AUTO) 0.8 % (0-2); HEMATOCRIT 40.6 % (37.9-51.0); HEMOGLOBIN 13.5 g/dL (13.5-17.0); LYMPHOCYTES % (AUTO) 5.8 % (13-45); MEAN CORPUSCULAR HEMOGLOBIN 30.5 pg (27.0-33.4); MEAN CORPUSCULAR HGB CONC 33.2 g/dL (32.0-36.0); MEAN CORPUSCULAR VOLUME 92 fl (80-97); MONOCYTES % (AUTO) 8.7 % (3-13); PLATELET COUNT 399 10^3/uL (150-450); RED BLOOD COUNT 4.41 10^6/uL (4.35-5.55); RED CELL DISTRIBUTION WIDTH 13.8 % (11.5-14.0); SEGMENTED NEUTROPHILS % (AUTO) 84.7 % (42-78); TOTAL CELLS COUNTED % (AUTO) 100 %; WHITE BLOOD COUNT 17.7 10^3/uL (4.0-10.5)
[2019-06-08 05:04] LABS: BLOOD UREA NITROGEN 13 mg/dL (7-20); CALCIUM 9.1 mg/dL (8.4-10.2); GLUCOSE 96 mg/dL (75-110)
[2019-06-08 05:05] LABS: ALKALINE PHOSPHATASE 75 U/L (38-126); ASPARTATE AMINO TRANSFERASE 39 U/L (17-59); BILIRUBIN,DIRECT 0.2 mg/dL (0.0-0.4); BILIRUBIN,TOTAL 0.4 mg/dL (0.2-1.3); POTASSIUM 4.5 mmol/L (3.6-5.0)
[2019-06-08 05:11] LABS: CARBON DIOXIDE 39 mmol/L (22-30); CHLORIDE 89 mmol/L (98-107)
[2019-06-08 05:12] LABS: ANION GAP 4 (5-19)
[2019-06-08] MEDS: HEPARIN SOD (PORCINE) 5,000 UNIT/ML 1 ML VIAL SUBCUT SCH ×3 (05:30→21:55)
[2019-06-08] MEDS: PANTOPRAZOLE SODIUM 40 MG TABLET.DR PO SCH (05:30)
[2019-06-08] MEDS: DICYCLOMINE HCL 10 MG CAPSULE PO SCH ×2 (09:21→17:26)
[2019-06-08] MEDS: METOPROLOL TARTRATE 25 MG TABLET PO SCH (09:22)
[2019-06-08] MEDS: RISPERIDONE 1 MG TABLET PO SCH ×2 (09:22→21:55)
[2019-06-08] MEDS: RANOLAZINE 500 MG TAB.SR.12H PO SCH ×2 (09:22→21:55)
[2019-06-08] MEDS: ESCITALOPRAM OXALATE 10 MG TABLET PO SCH (09:24)
[2019-06-08] MEDS: LORAZEPAM 1 MG TABLET PO PRN (09:25)
[2019-06-08] MEDS: METHYLPREDNISOLONE INJ 40 MG/1 ML SDV IV SCH ×2 (09:25→17:26)
[2019-06-08] MEDS: GABAPENTIN 300 MG CAPSULE PO SCH (09:26)
[2019-06-08] MEDS: NICOTINE 21 MG/24 HR PATCH.TD24 TD SCH (09:26)
--- NOTE | 2019-06-08 13:24 | PDOC PROGRESS REPORT ---
Subjective Progress Note for:: 06/08/19 Subjective:: The patient is resting in bed and appears comfortable on his nasal cannula. Fingers are nicotine stained. No acute complaints. Reason For Visit: COPD EXACERBATION,HYPERCAPNIC RESPIRATORY FAILURE, Physical Exam Vital Signs: Temp Pulse Resp BP Pulse Ox 97.8 F 82 18 144/93 H 95 06/08/19 08:27 06/08/19 08:27 06/08/19 08:27 06/08/19 08:27 06/08/19 09:13 Intake & Output 06/07/19 06/08/19 06/09/19 06:59 06:59 06:59 Intake Total 870 2052 360 Output Total 1500 Balance -630 2052 360 Weight 65.2 kg 64.4 kg General appearance: PRESENT: no acute distress, cooperative, thin, well- developed Head exam: PRESENT: atraumatic, normocephalic Ear exam: PRESENT: normal external ear exam. ABSENT: bleeding, drainage Mouth exam: PRESENT: dry mucosa, tongue midline Respiratory exam: PRESENT: symmetrical, unlabored, wheezes - Sporadic expiratory wheezes. ABSENT: rales, rhonchi, tachypnea Cardiovascular exam: PRESENT: RRR, +S1, +S2 GI/Abdominal exam: PRESENT: normal bowel sounds, soft. ABSENT: distended, guarding, tenderness Rectal exam: PRESENT: deferred Gentrourinary exam: ABSENT: indwelling catheter Extremities exam: PRESENT: full ROM. ABSENT: pedal edema Musculoskeletal exam: PRESENT: ambulatory, full ROM, normal inspection Neurological exam: PRESENT: alert, awake, oriented to person, oriented to place, oriented to time, oriented to situation, CN II-XII grossly intact Psychiatric exam: PRESENT: appropriate affect. ABSENT: agitated, anxious Focused psych exam: ABSENT: delusional, restlessness Skin exam: PRESENT: dry, normal color, warm, other - Badly stained fingers from nicotine Results Laboratory Results: 06/08/19 03:47 06/08/19 03:47 06/08/19 06/08/19 03:47 03:47 WBC 17.7 H RBC 4.41 Hgb 13.5 Hct 40.6 MCV 92 MCH 30.5 MCHC 33.2 RDW 13.8 Plt Count 399 Seg Neutrophils % 84.7 H Sodium 132.0 L Potassium 4.5 Chloride 89 L Carbon Dioxide 39 H Anion Gap 4 L BUN 13 Creatinine 0.55 Est GFR ( Amer) > 60 Glucose 96 Calcium 9.1 Magnesium 2.1 Total Bilirubin 0.4 AST 39 Alkaline Phosphatase 75 Total Protein 6.0 L Albumin 3.0 L 06/05/19 06/05/19 06/05/19 14:55 14:55 14:55 Creatine Kinase 144 CK-MB (CK-2) 5.81 H Troponin I 0.111 06/06/19 06/06/19 06/06/19 00:04 00:04 00:04 Creatine Kinase 94 CK-MB (CK-2) 4.85 H Troponin I 0.116 Cancelled 06/06/19 06/06/19 09:43 09:43 Creatine Kinase 108 CK-MB (CK-2) 7.59 H Troponin I 0.149 Impressions: Chest CT 06/05/19 00:00 IMPRESSION: Diffuse most likely infectious bronchiolitis. Chest X-Ray 06/05/19 15:20 IMPRESSION: FAINT PARENCHYMAL DENSITIES IN THE LOWER LOBES. POSSIBLE ATELECTASIS, PNEUMONITIS, OR EARLY PNEUMONIA. Assessment and Plan - Diagnosis (1) Acute on chronic respiratory failure with hypoxia Is this a current diagnosis for this admission?: Yes Plan: 06/08/2019-continue nebulizer treatments and oxygen supplementation. I have instituted Brio Ellipta and Umeclidinium inhalers (2) Elevated troponin Is this a current diagnosis for this admission?: Yes Plan: 06/08/2019-likely supply demand mismatch with COPD. His troponin was increasing. I have ordered another troponin for the morning just to ensure that it is starting to decrease. (3) Hyperkalemia Is this a current diagnosis for this admission?: Yes Plan: 06/08/2019-resolved. Continue to monitor potassium (4) Hyponatremia Is this a current diagnosis for this admission?: Yes Plan: 06/08/2019-still with low sodium likely related to his primary pulmonary process. Continue to monitor sodium. (5) COPD exacerbation Is this a current diagnosis for this admission?: Yes Plan: 06/08/2019-the patient is on systemic steroids. In an effort to transition to home I have started Brio Ellipta and Umeclidinium. We will try and taper the oxygen to off and I explained to the patient that he needs to keep his saturation between 88 and 92%. I did ask the nurse for a walking oximetry to see if the patient needs and/or qualifies for home oxygen. (6) Pneumonia Qualifiers: Pneumonia type: due to unspecified organism Laterality: bilateral Lung location: lower lobe of lung Qualified Code(s): J18.1 - Lobar pneumonia, unspecified organism Is this a current diagnosis for this admission?: Yes Plan: 06/08/2019-continue levofloxacin (7) Tobacco abuse Is this a current diagnosis for this admission?: Yes Plan: 06/08/2019-continue nicotine patch and encourage cessation - Time Time Spent with patient: 15-24 minutes Smoking Cessation Education: 3 to 10 minutes Medications reviewed and adjusted accordingly: Yes Anticipated discharge: Home
[2019-06-08] MEDS: LEVALBUTEROL HCL NEB 1.25 MG/3 ML AMPUL NEB PRN ×2 (17:19→22:34)
[2019-06-08] MEDS: LEVOFLOXACIN 750 MG/D5W RTU 750 MG/150 ML RTUPB IV SCH (17:26)
[2019-06-08] MEDS: ATORVASTATIN CALCIUM 80 MG TABLET PO SCH (21:55)
[2019-06-09] MEDS: PANTOPRAZOLE SODIUM 40 MG TABLET.DR PO SCH (05:50)
[2019-06-09] MEDS: HEPARIN SOD (PORCINE) 5,000 UNIT/ML 1 ML VIAL SUBCUT SCH ×3 (05:51→21:37)
[2019-06-09 06:29] LABS: ABSOLUTE LYMPHOCYTES (AUTO) 1.9 10^3/uL (0.5-4.7); ABSOLUTE MONOCYTES (AUTO) 1.8 10^3/uL (0.1-1.4); ABSOLUTE NEUT (AUTO) 14.1 10^3/uL (1.7-8.2); BASOPHILS % (AUTO) 0.1 % (0-2); HEMATOCRIT 41.4 % (37.9-51.0); HEMOGLOBIN 13.9 g/dL (13.5-17.0); LYMPHOCYTES % (AUTO) 10.6 % (13-45); MEAN CORPUSCULAR HEMOGLOBIN 30.8 pg (27.0-33.4); MEAN CORPUSCULAR HGB CONC 33.7 g/dL (32.0-36.0); MEAN CORPUSCULAR VOLUME 92 fl (80-97); MONOCYTES % (AUTO) 10.3 % (3-13); PLATELET COUNT 414 10^3/uL (150-450); RED BLOOD COUNT 4.52 10^6/uL (4.35-5.55); RED CELL DISTRIBUTION WIDTH 13.7 % (11.5-14.0); TOTAL CELLS COUNTED % (AUTO) 100 %; WHITE BLOOD COUNT 17.8 10^3/uL (4.0-10.5)
[2019-06-09 07:00] LABS: ANION GAP 6 (5-19); BLOOD UREA NITROGEN 12 mg/dL (7-20); CALCIUM 9.3 mg/dL (8.4-10.2); CARBON DIOXIDE 35 mmol/L (22-30); CHLORIDE 91 mmol/L (98-107); GLUCOSE 107 mg/dL (75-110); POTASSIUM 4.2 mmol/L (3.6-5.0)
[2019-06-09] MEDS: NICOTINE 21 MG/24 HR PATCH.TD24 TD SCH (10:12)
[2019-06-09] MEDS: RANOLAZINE 500 MG TAB.SR.12H PO SCH ×2 (10:13→21:36)
[2019-06-09] MEDS: ESCITALOPRAM OXALATE 10 MG TABLET PO SCH (10:13)
[2019-06-09] MEDS: GABAPENTIN 300 MG CAPSULE PO SCH (10:13)
[2019-06-09] MEDS: METOPROLOL TARTRATE 25 MG TABLET PO SCH (10:13)
[2019-06-09] MEDS: DICYCLOMINE HCL 10 MG CAPSULE PO SCH ×2 (10:13→17:13)
[2019-06-09] MEDS: RISPERIDONE 1 MG TABLET PO SCH ×2 (10:13→21:36)
[2019-06-09] MEDS: FLUTICASONE/VILANTEROL 200-25 MCG/DOSE IH SCH (10:14)
[2019-06-09] MEDS: FLUTICASONE NASAL SPRAY 50 MCG/SPRY 120 SPRAY/16 GM NASL SCH ×2 (10:15→21:37)
[2019-06-09] MEDS: UMECLIDINIUM BROMIDE 62.5 MCG/DOSE IH SCH (10:15)
[2019-06-09] MEDS: METHYLPREDNISOLONE INJ 40 MG/1 ML SDV IV SCH ×2 (10:15→17:13)
--- NOTE | 2019-06-09 14:21 | PDOC PROGRESS REPORT ---
Subjective Progress Note for:: 06/09/19 Subjective:: No adverse events overnight. No new complaints. Vital signs been stable. He is not having any chest pain or shortness of breath. His relates that he has a rather extensive history of coronary artery disease and she says he also has a history of congestive heart failure. He apparently had some cardiac testing in [place] earlier this summer. She said that the recruiting coordinator there told him that there was nothing else really they could do for him, since he is already had bypass surgery and they did not think that he would be able to tolerate having any more cardiac stents placed. Reason For Visit: COPD EXACERBATION,HYPERCAPNIC RESPIRATORY FAILURE, Physical Exam Vital Signs: Temp Pulse Resp BP Pulse Ox 97.4 F 88 18 104/84 94 06/09/19 11:59 06/09/19 11:59 06/09/19 11:59 06/09/19 11:59 06/09/19 11:59 Intake & Output 06/08/19 06/09/19 06/10/19 06:59 06:59 06:59 Intake Total 2051 1482 250 Balance 2051 1482 250 Weight 64.4 kg 63.9 kg General appearance: PRESENT: no acute distress, cooperative, disheveled Teeth exam: PRESENT: poor dentation Respiratory exam: PRESENT: decreased breath sounds, prolonged expiratory phas, symmetrical, unlabored, other - Increased AP chest diameter. ABSENT: accessory muscle use, chest wall tenderness, crackles, rales, rhonchi, tachypnea, wheezes Cardiovascular exam: PRESENT: RRR, +S1, +S2 Pulses: PRESENT: normal carotid pulses Vascular exam: PRESENT: normal capillary refill GI/Abdominal exam: PRESENT: normal bowel sounds, soft. ABSENT: distended, guarding, rebound, tenderness Extremities exam: ABSENT: clubbing, pedal edema Musculoskeletal exam: PRESENT: normal inspection. ABSENT: deformity Neurological exam: PRESENT: alert, awake, oriented to person, oriented to place, oriented to situation Psychiatric exam: PRESENT: appropriate affect, normal mood Skin exam: PRESENT: dry, warm Results Laboratory Results: 06/09/19 06:09 06/09/19 06:09 06/09/19 06/09/19 06:09 06:09 WBC 17.8 H RBC 4.52 Hgb 13.9 Hct 41.4 MCV 92 MCH 30.8 MCHC 33.7 RDW 13.7 Plt Count 414 Seg Neutrophils % 79.0 H Sodium 132.1 L Potassium 4.2 Chloride 91 L Carbon Dioxide 35 H Anion Gap 6 BUN 12 Creatinine 0.56 Est GFR ( Amer) > 60 Glucose 107 Calcium 9.3 Magnesium 2.1 06/05/19 06/05/19 06/05/19 14:55 14:55 14:55 Creatine Kinase 144 CK-MB (CK-2) 5.81 H Troponin I 0.111 06/06/19 06/06/19 06/06/19 00:04 00:04 00:04 Creatine Kinase 94 CK-MB (CK-2) 4.85 H Troponin I 0.116 Cancelled 06/06/19 06/06/19 06/09/19 09:43 09:43 06:09 Creatine Kinase 108 CK-MB (CK-2) 7.59 H Troponin I 0.149 0.848 06/09/19 11:42 Creatine Kinase CK-MB (CK-2) Troponin I 0.868 Impressions: Chest CT 06/05/19 00:00 IMPRESSION: Diffuse most likely infectious bronchiolitis. Chest X-Ray 06/05/19 15:20 IMPRESSION: FAINT PARENCHYMAL DENSITIES IN THE LOWER LOBES. POSSIBLE ATELECTASIS, PNEUMONITIS, OR EARLY PNEUMONIA. Assessment and Plan - Diagnosis (1) COPD exacerbation Is this a current diagnosis for this admission?: Yes Plan: Improved nicely. Anticipate discharge home with a burst of prednisone. (2) Elevated troponin Is this a current diagnosis for this admission?: Yes Plan: I think this is just troponin spillage from a demand mismatch, not an acute WA. He is not having any chest pain. On repeat a troponin just to make sure it trends down. (3) Hypercapnic respiratory failure Qualifiers: Chronicity: acute on chronic Qualified Code(s): J96.22 - Acute and chronic respiratory failure with hypercapnia Is this a current diagnosis for this admission?: Yes Plan: He is a chronic CO2 retainer. He is now at baseline. (4) Tobacco abuse Is this a current diagnosis for this admission?: Yes Plan: Strongly encourage cessation, but his fingers are stained with nicotine and he still smells of it (5) Pneumonia Qualifiers: Pneumonia type: due to unspecified organism Laterality: bilateral Lung location: lower lobe of lung Qualified Code(s): J18.1 - Lobar pneumonia, unspecified organism Is this a current diagnosis for this admission?: Yes Plan: We will continue Levaquin - Time Time Spent with patient: 15-24 minutes
[2019-06-09] MEDS: LEVOFLOXACIN 750 MG/D5W RTU 750 MG/150 ML RTUPB IV SCH (17:13)
[2019-06-09] MEDS: ATORVASTATIN CALCIUM 80 MG TABLET PO SCH (21:36)
[2019-06-09] MEDS: LORAZEPAM 1 MG TABLET PO PRN (21:36)
[2019-06-10] MEDS: HEPARIN SOD (PORCINE) 5,000 UNIT/ML 1 ML VIAL SUBCUT SCH ×2 (06:34→13:16)
[2019-06-10] MEDS: PANTOPRAZOLE SODIUM 40 MG TABLET.DR PO SCH (06:34)
[2019-06-10] MEDS: NICOTINE 21 MG/24 HR PATCH.TD24 TD SCH (10:26)
[2019-06-10] MEDS: DICYCLOMINE HCL 10 MG CAPSULE PO SCH (10:26)
[2019-06-10] MEDS: RANOLAZINE 500 MG TAB.SR.12H PO SCH (10:26)
[2019-06-10] MEDS: RISPERIDONE 1 MG TABLET PO SCH (10:26)
[2019-06-10] MEDS: METOPROLOL TARTRATE 25 MG TABLET PO SCH (10:26)
[2019-06-10] MEDS: FLUTICASONE NASAL SPRAY 50 MCG/SPRY 120 SPRAY/16 GM NASL SCH (10:27)
[2019-06-10] MEDS: ESCITALOPRAM OXALATE 10 MG TABLET PO SCH (10:27)
[2019-06-10] MEDS: GABAPENTIN 300 MG CAPSULE PO SCH (10:27)
[2019-06-10] MEDS: UMECLIDINIUM BROMIDE 62.5 MCG/DOSE IH SCH (10:27)
[2019-06-10] MEDS: FLUTICASONE/VILANTEROL 200-25 MCG/DOSE IH SCH (10:27)
[2019-06-10] MEDS: METHYLPREDNISOLONE INJ 40 MG/1 ML SDV IV SCH (10:27)
[2019-06-10 14:28] VITALS: BP 141/94
--- NOTE | 2019-06-10 16:50 | PDOC DISCHARGE SUMMARY ---
Impression - Admit/DC Date/PCP Admission Date/Primary Care Provider: 06/05/19 16:49 BAUDILIO BAINS MD Discharge Date: 06/10/19 - Discharge Diagnosis (1) COPD exacerbation Is this a current diagnosis for this admission?: Yes (2) Elevated troponin Is this a current diagnosis for this admission?: Yes (3) Hypercapnic respiratory failure Is this a current diagnosis for this admission?: Yes (4) Tobacco abuse Is this a current diagnosis for this admission?: Yes (5) Pneumonia Is this a current diagnosis for this admission?: Yes - Additional Information Resuscitation Status: If necessary requesting intubation. Discharge Diet: Cardiac Discharge Activity: Activity As Tolerated, Balance Activity w/Rest Referrals: BAUDILIO BAINS MD [Primary Care Provider] - Follow up as needed Prescriptions: Prednisone [Deltasone] 40 mg PO DAILY #10 tablet Doxycycline Hyclate 100 mg PO BID #10 capsule Home Medications: Albuterol Sulfate [Albuterol Sulfate Hfa] 2 puff IH Q6HP PRN 06/05/19 Atorvastatin Calcium [Lipitor 80 mg Tablet] 80 mg PO QPM@2000 06/05/19 Escitalopram Oxalate [Lexapro] 30 mg PO DAILY 06/05/19 Gabapentin [Neurontin 300 mg Capsule] 300 mg PO DAILY 06/05/19 Lorazepam [Ativan 1 mg Tablet] 1 mg PO Q6HP PRN 06/05/19 Metoprolol Tartrate [Lopressor 25 mg Tablet] 12.5 mg PO DAILY 06/05/19 Omeprazole 40 mg PO DAILY 06/05/19 Ranolazine [Ranolazine ER] 500 mg PO Q12 06/05/19 Risperidone [Risperdal] 2 mg PO Q8 06/05/19 Umeclidinium Brm/Vilanterol Tr [Anoro Ellipta 62.5-25 Mcg INH] 1 puff IH DAILY 06/05/19 Aspirin [Ecotrin 81 mg EC Tablet] 81 mg PO DAILY 06/09/19 Budesonide/Formoterol Fumarate [Symbicort HFA 80-4.5 mcg Inhaler 6.9 gm] 2 puff IH Q12 06/09/19 Ipratropium/Albuterol Sulfate [Duoneb 3 ml Ampul] 3 ml NEB Q4HP PRN 06/09/19 Isosorbide Mononitrate [Imdur 30 mg Tablet.er] 15 mg PO DAILY 06/09/19 Lisinopril [Prinivil 5 mg Tablet] 5 mg PO DAILY 06/09/19 Tiotropium Hector [Spiriva Handihaler 5 Cap/Kit (18 Mcg/Cap)] 1 puff IH DAILY 06/09/19 Doxycycline Hyclate 100 mg PO BID #10 capsule 06/10/19 Prednisone [Deltasone] 40 mg PO DAILY #10 tablet 06/10/19 History of Present Illiness History of Present Illness: ELLA HILL is a 59 year old male history of COPD not on home oxygen, chr onic smoker, history of coronary artery disease with CABG in 2018 and has another heart attack in December this year, hypertension, hypercholesterolemia went to his primary care physician's office found to have a pulse ox of 79% and he was referred to the ER for further evaluation. In the emergency room patient required BiPAP to bring his pulse ox is more than 80%. Chest x-ray suggestive of bilateral basilar infiltrates. WBC count is 27,000 and medical consult was called for admission. He received nebulizer treatments and IV Solu-Medrol in the emergency room. if Needed patient wants intubation but did not want CPR. Hospital Course Hospital Course: He responded well to steroids and bronchodilators. He has not complained of any chest pain but some out a troponin was checked. He does have a impressive cardiac history. No intervention was done, but the troponins began to trend down. This was likely just demand mismatch. Patient will finish up a short course of prednisone and antibiotics as an outpatient. His labs and examination were reassuring and he was discharged in good condition. Physical Exam Vital Signs: Temp Pulse Resp BP Pulse Ox 97.4 F 68 18 141/94 H 96 06/10/19 14:26 06/10/19 14:26 06/10/19 14:26 06/10/19 14:26 06/10/19 14:26 Intake & Output 06/09/19 06/10/19 06/11/19 06:59 06:59 06:59 Intake Total 1482 2204 700 Balance 1482 2204 700 Weight 63.9 kg 62.6 kg General appearance: PRESENT: no acute distress, cooperative, disheveled Teeth exam: PRESENT: poor dentation Respiratory exam: PRESENT: decreased breath sounds, prolonged expiratory phas, symmetrical, unlabored, other - Increased AP chest diameter. ABSENT: accessory muscle use, chest wall tenderness, crackles, rales, rhonchi, tachypnea, wheezes Cardiovascular exam: PRESENT: RRR, +S1, +S2 Pulses: PRESENT: normal carotid pulses Vascular exam: PRESENT: normal capillary refill GI/Abdominal exam: PRESENT: normal bowel sounds, soft. ABSENT: distended, guarding, rebound, tenderness Extremities exam: ABSENT: clubbing, pedal edema Musculoskeletal exam: PRESENT: normal inspection. ABSENT: deformity Neurological exam: PRESENT: alert, awake, oriented to person, oriented to place, oriented to situation Psychiatric exam: PRESENT: appropriate affect, normal mood Skin exam: PRESENT: dry, warm Results Laboratory Results: WBC 17.8 10^3/uL (4.0-10.5) H 06/09/19 06:09 RBC 4.52 10^6/uL (4.35-5.55) 06/09/19 06:09 Hgb 13.9 g/dL (13.5-17.0) 06/09/19 06:09 Hct 41.4 % (37.9-51.0) 06/09/19 06:09 MCV 92 fl (80-97) 06/09/19 06:09 MCH 30.8 pg (27.0-33.4) 06/09/19 06:09 MCHC 33.7 g/dL (32.0-36.0) 06/09/19 06:09 RDW 13.7 % (11.5-14.0) 06/09/19 06:09 Plt Count 414 10^3/uL (150-450) 06/09/19 06:09 Lymph % (Auto) 10.6 % (13-45) L 06/09/19 06:09 Lawrence % (Auto) 10.3 % (3-13) 06/09/19 06:09 Eos % (Auto) 0.0 % (0-6) 06/09/19 06:09 Baso % (Auto) 0.1 % (0-2) 06/09/19 06:09 Absolute Neuts (auto) 14.1 10^3/uL (1.7-8.2) H 06/09/19 06:09 Absolute Lymphs (auto) 1.9 10^3/uL (0.5-4.7) 06/09/19 06:09 Absolute Monos (auto) 1.8 10^3/uL (0.1-1.4) H 06/09/19 06:09 Absolute Eos (auto) 0.0 10^3/uL (0.0-0.6) 06/09/19 06:09 Absolute Basos (auto) 0.0 10^3/uL (0.0-0.2) 06/09/19 06:09 Total Counted 100 06/05/19 14:55 Seg Neutrophils % 79.0 % (42-78) H 06/09/19 06:09 Seg Neuts % (Manual) 84 % (42-78) H 06/05/19 14:55 Band Neutrophils % 1 % (3-5) L 06/05/19 14:55 Lymphocytes % (Manual) 7 % (13-45) L 06/05/19 14:55 Monocytes % (Manual) 8 % (3-13) 06/05/19 14:55 Eosinophils % (Manual) 0 % (0-6) 06/05/19 14:55 Basophils % (Manual) 0 % (0-2) 06/05/19 14:55 Abs Neuts (Manual) 23.0 10^3/uL (1.7-8.2) H 06/05/19 14:55 Abs Lymphs (Manual) 1.9 10^3/uL (0.5-4.7) 06/05/19 14:55 Abs Monocytes (Manual) 2.2 10^3/uL (0.1-1.4) H 06/05/19 14:55 Absolute Eos (Manual) 0.0 10^3/uL (0.0-0.6) 06/05/19 14:55 Abs Basophils (Manual) 0.0 10^3/uL (0.0-0.2) 06/05/19 14:55 Platelet Comment ADEQUATE 06/05/19 14:55 Carbonic Acid 2.24 mmol/L (1.05-1.35) H 06/05/19 15:28 HCO3/H2CO3 Ratio 16:1 06/05/19 15:28 ABG pH 7.31 (7.35-7.45) L 06/05/19 15:28 ABG pCO2 74.4 mmHg (35-45) H* 06/05/19 15:28 ABG pO2 94.5 mmHg (80-100) 06/05/19 15:28 ABG HCO3 36.2 mmol/L (20-24) H 06/05/19 15:28 ABG Total CO2 38.5 mmol/L (23-27) H 06/05/19 15:28 ABG O2 Saturation 96.2 % (94-98) 06/05/19 15:28 ABG Base Excess 7.2 mmol/L 06/05/19 15:28 FiO2 7L 06/05/19 15:28 Sodium 132.1 mmol/L (137-145) L 06/09/19 06:09 Potassium 4.2 mmol/L (3.6-5.0) 06/09/19 06:09 Chloride 91 mmol/L (98-107) L 06/09/19 06:09 Carbon Dioxide 35 mmol/L (22-30) H 06/09/19 06:09 Anion Gap 6 (5-19) 06/09/19 06:09 BUN 12 mg/dL (7-20) 06/09/19 06:09 Creatinine 0.56 mg/dL (0.52-1.25) 06/09/19 06:09 Est GFR ( Amer) > 60 (>60) 06/09/19 06:09 Est GFR (MDRD) Non-Af > 60 (>60) 06/09/19 06:09 Glucose 107 mg/dL (75-110) 06/09/19 06:09 Lactic Acid 0.5 mmol/L (0.7-2.1) L 06/05/19 16:35 Calcium 9.3 mg/dL (8.4-10.2) 06/09/19 06:09 Magnesium 2.1 mg/dL (1.6-2.3) 06/09/19 06:09 Total Bilirubin 0.4 mg/dL (0.2-1.3) 06/08/19 03:47 Direct Bilirubin 0.2 mg/dL (0.0-0.4) 06/08/19 03:47 Neonat Total Bilirubin Not Reportable 06/08/19 03:47 Neonat Direct Bilirubin Not Reportable 06/08/19 03:47 Neonat Indirect Bili Not Reportable 06/08/19 03:47 AST 39 U/L (17-59) 06/08/19 03:47 ALT 49 U/L (<50) 06/08/19 03:47 Alkaline Phosphatase 75 U/L (38-126) 06/08/19 03:47 Creatine Kinase 108 U/L (55-170) 06/06/19 09:43 CK-MB (CK-2) 7.59 ng/mL (<4.55) H 06/06/19 09:43 Troponin I 0.640 ng/mL 06/09/19 17:40 Total Protein 6.0 g/dL (6.3-8.2) L 06/08/19 03:47 Albumin 3.0 g/dL (3.5-5.0) L 06/08/19 03:47 Triglycerides 115 mg/dL (<150) 06/06/19 07:16 Cholesterol 170.75 mg/dL (0-200) 06/06/19 07:16 LDL Cholesterol Direct 81 mg/dL (<100) 06/06/19 07:16 VLDL Cholesterol 23.0 mg/dL (10-31) 06/06/19 07:16 HDL Cholesterol 56 mg/dL (>40) 06/06/19 07:16 TSH 0.41 uIU/mL (0.47-4.68) L 06/06/19 07:16 Urine Opiates Screen NEGATIVE 06/05/19 16:35 Urine Methadone Screen NEGATIVE 06/05/19 16:35 Ur Barbiturates Screen NEGATIVE 06/05/19 16:35 Ur Phencyclidine Scrn NEGATIVE 06/05/19 16:35 Ur Amphetamines Screen NEGATIVE 06/05/19 16:35 U Benzodiazepines Scrn NEGATIVE 06/05/19 16:35 Urine Cocaine Screen NEGATIVE 06/05/19 16:35 U Marijuana (THC) Screen UNCONFIRMED POSITIVE 06/05/19 16:35 06/05/19 06/05/19 06/06/19 14:55 14:55 00:04 CK-MB (CK-2) 5.81 H Troponin I 0.111 0.116 06/06/19 06/06/19 06/09/19 00:04 09:43 06:09 CK-MB (CK-2) 4.85 H 7.59 H Troponin I Cancelled 0.149 0.848 06/09/19 06/09/19 11:42 17:40 CK-MB (CK-2) Troponin I 0.868 0.640 Impressions: Chest CT 06/05/19 00:00 IMPRESSION: Diffuse most likely infectious bronchiolitis. Chest X-Ray 06/05/19 15:20 IMPRESSION: FAINT PARENCHYMAL DENSITIES IN THE LOWER LOBES. POSSIBLE ATELECTASIS, PNEUMONITIS, OR EARLY PNEUMONIA. Plan Time Spent: Greater than 30 Minutes Stroke Is this a Stroke Patient?: No Acute Heart Failure - Is this a Heart Failure Patient?: No
== END 2019-06-10 15:01 | disposition home or self-care (01) | DRG 189 ==
LOC: ER 15:16 → EH 16:49 → 3S 21:55
PROVIDERS: ADMIT Internal Medicine; ATTEND Internal Medicine
DX: J96.22 Acute and chronic respiratory failure with hypercapnia (principal); J18.1 Lobar pneumonia, unspecified organism; J44.1 Chronic obstructive pulmonary disease with (acute) exacerbation; E87.2 Acidosis; E87.1 Hypo-osmolality and hyponatremia; R79.89 Other specified abnormal findings of blood chemistry; J96.21 Acute and chronic respiratory failure with hypoxia; E87.5 Hyperkalemia; I25.10 Atherosclerotic heart disease of native coronary artery without angina pectoris; I10 Essential (primary) hypertension; E78.00 Pure hypercholesterolemia, unspecified; N40.0 Benign prostatic hyperplasia without lower urinary tract symptoms; E11.8 Type 2 diabetes mellitus with unspecified complications; E03.9 Hypothyroidism, unspecified; K21.9 Gastro-esophageal reflux disease without esophagitis; F31.9 Bipolar disorder, unspecified; I25.2 Old myocardial infarction; F17.210 Nicotine dependence, cigarettes, uncomplicated; Z95.1 Presence of aortocoronary bypass graft
CPT/HCPCS: 36415; 71045; 71260; 80048; 80053; 80061; 80307; 82550; 82553; 82803; 83605; 83735; 84443; 84484; 85025; 85027; 87040; 87070; 87086; 87205; 93005; 93010; 94640; 94660; 99291; J1644; J1956; J2405; J2920; J3490; J7030

== ENCOUNTER 2019-08-01 19:31 | Inpatient (IN) | payer MEDICARE ==
[2019-08-01] MEDS ORDERED: IPRATROPIUM/ALBUTEROL 0.5-2.5 MG/3 ML AMPUL NEB ONE ×2 (20:02→21:03)
[2019-08-01] MEDS ORDERED: METHYLPREDNISOLONE INJ 125 MG/2 ML SDV ONE (20:06)
[2019-08-01 21:03] LABS: ALBUMIN 3.7 g/dL (3.5-5.0); ALKALINE PHOSPHATASE 79 U/L (38-126); ANION GAP 7 (5-19); ASPARTATE AMINO TRANSFERASE 30 U/L (17-59); BILIRUBIN,DIRECT 0.2 mg/dL (0.0-0.4); BILIRUBIN,TOTAL 0.4 mg/dL (0.2-1.3); BLOOD UREA NITROGEN 7 mg/dL (7-20); CALCIUM 9.6 mg/dL (8.4-10.2); CARBON DIOXIDE 38 mmol/L (22-30); CHLORIDE 89 mmol/L (98-107); CREATINE KINASE 90 U/L (55-170); GLUCOSE 112 mg/dL (75-110); POTASSIUM 4.6 mmol/L (3.6-5.0)
[2019-08-01] MEDS ORDERED: ALBUTEROL SULFATE 0.083% NEB 2.5 MG/3 ML AMPUL NEB ONE (21:03)
[2019-08-01] MEDS ORDERED: METHYLPREDNISOLONE INJ 125 MG/2 ML SDV IV ONE (21:03)
--- NOTE | 2019-08-01 21:08 | ER Document Report ---
ED General - General Chief Complaint: Altered Mental Status Stated Complaint: ALTERED MENTAL STATE Time Seen by Provider: 08/01/19 20:22 Primary Care Provider: BAUDILIO BAINS MD [Primary Care Provider] - Follow up as needed Notes: 59-year-old male presents emergency department complaining of increasing shortness of breath starting this afternoon, denies cough, denies chest pain, denies fevers. states that the patient has a history of COPD and has been on BiPAP before, states that he has been out of his Ativan for a week and was given his first dose of Ativan in a week this afternoon. Patient reportedly had an IL 6 months ago but was not cathed. Patient is a poor historian. TRAVEL OUTSIDE OF THE [place] IN LAST 30 DAYS: No - Related Data Allergies/Adverse Reactions: codeine [Codeine] Allergy (Verified 05/30/19 19:13) latex [Latex] Allergy (Verified 05/30/19 19:13) adhesive tape [Adhesive Tape] Adverse Reaction (Intermediate, Verified 05/30/19 19:13) Urticaria Past Medical History - General Information source: Patient, Relative - Social History Smoking Status: Current Every Day Smoker Frequency of alcohol use: Occasional Drug Abuse: Marijuana Family History: CAD, Hypertension Patient has suicidal ideation: No Patient has homicidal ideation: No - Past Medical History Cardiac Medical History: Reports: Hx Coronary Artery Disease, Hx Heart Attack, Hx Hypercholesterolemia, Hx Hypertension Pulmonary Medical History: Reports: Hx Bronchitis, Hx COPD, Hx Respiratory Failure Denies: Hx Asthma, Hx Pneumonia, Hx Tuberculosis Neurological Medical History: Denies: Hx Cerebrovascular Accident, Hx Seizures Endocrine Medical History: Denies: Hx Diabetes Mellitus Type 2, Hx Hypot hyroidism Renal/ Medical History: Reports: Hx Benign Prostatic Hyperplasia. Denies: Hx Peritoneal Dialysis GI Medical History: Reports: Hx Gastroesophageal Reflux Disease. Denies: Hx Cirrhosis, Hx Hiatal Hernia Musculoskeletal Medical History: Reports Hx Arthritis Skin Medical History: Denies Hx Eczema, Denies Hx Psoriasis Psychiatric Medical History: Reports: Hx Bipolar Disorder, Hx Depression Traumatic Medical History: Reports: Hx Fractures - R wrist, nose Infectious Medical History: Denies: Hx HIV Past Surgical History: Reports: Hx Cardiac Catheterization, Hx Cardiac Surgery - bypass 2007, Hx Coronary Artery Bypass Graft - 2007, Hx Orthopedic Surgery - metal plate in right wrist. Denies: Hx Pacemaker - Immunizations Hx Diphtheria, Pertussis, Tetanus Vaccination: Yes Hx Pneumococcal Vaccination: 09/11/10 Review of Systems - Review of Systems Constitutional: denies: Chills, Diaphoresis, Fever EENT: No symptoms reported Cardiovascular: No symptoms reported. denies: Chest pain, Syncope, Dizziness Respiratory: See HPI, Short of breath. denies: Cough -: Yes All other systems reviewed and negative Physical Exam - Vital signs Vitals: Temp Pulse Resp BP Pulse Ox 97.6 F 107 H 25 H 123/76 84 L 08/01/19 19:53 08/01/19 19:53 08/01/19 19:53 08/01/19 19:53 08/01/19 19:53 Interpretation: Tachycardic, Hypoxic, Tachypneic - Notes Notes: GENERAL: Sleeping, had to be shaken to be woken up, on BiPAP, able to answer questions once he is awake. HEAD: Normocephalic, atraumatic EYES: Pupils equal, round and reactive to light, extraocular movements intact. ENT: Oral mucosa moist, tongue midline. NECK: Full range of motion, supple, trachea midline. LUNGS: Diffuse expiratory wheezing, on BiPAP, tachypneic. HEART: Tachycardic rate and rhythm, no murmurs, gallops, rubs. Well-healed sternotomy scar noted ABDOMEN: Soft, nontender, nondistended, bowel sounds present in all 4 quadrants. EXTREMITIES: Moves all 4 extremities spontaneously, no edema, radial and dorsalis pedis pulses 2/4 bilaterally. No cyanosis. NEUROLOGICAL: Sleeping but able to be awakened, and oriented x3, normal speech. PSYCH: Normal mood, normal affect. SKIN: Warm, Dry, normal turgor, skin tears in various degrees of healing. Course - Re-evaluation Re-evalutation: 08/02/19 01:39 CBC shows leukocytosis of 14.9, CMP shows slight low sodium at 134, CO2 elevated at 38, glucose elevated at 112, cardiac enzymes negative x2, chest x-ray does not show an acute pneumonia, there is a previous sternotomy, ABG shows acute on chronic respiratory acidosis with a pH of 7.32, PCO2 of 71.2, oxygen saturation is 88%. Upon arrival in the emergency department patient was immediately seen, started on BiPAP, breathing treatments and Solu-Medrol. Patient's wheezing improved however he has remained on BiPAP. Patient has been consistently sleepy while here, he has not been getting worsening somnolence. When I walk into the room he does not wake up to voice however he does wake up when I shake his shoulder and then he will answer my questions. Discussed with Dr. Baumann who agrees to accept the patient to his service on the medical floor. - Vital Signs Vital signs: Temp Pulse Resp BP Pulse Ox 97.6 F 107 H 29 H 103/72 92 08/01/19 20:59 08/01/19 20:59 08/02/19 01:33 08/01/19 23:30 08/02/19 01:33 - Laboratory Result Diagrams: 08/01/19 20:00 08/01/19 20:00 Laboratory results interpreted by me: 08/01/19 08/01/19 08/01/19 20:00 20:00 20:38 WBC 14.9 H RDW 15.5 H Absolute Neuts (auto) 9.7 H Absolute Monos (auto) 1.7 H Carbonic Acid 2.14 H ABG pH 7.32 L ABG pCO2 71.2 H* ABG pO2 61.5 L ABG HCO3 35.9 H ABG Total CO2 38.1 H ABG O2 Saturation 88.8 L Sodium 134.0 L Chloride 89 L Carbon Dioxide 38 H Glucose 112 H - EKG Interpretation by Me Additional EKG results interpreted by me: 08/01/19 21:07 EKG shows sinus rhythm at a rate of 91, interventricular conduction delay, no ST segment elevations or depressions, poor R wave progression, no T wave inversions per my interpretation. Critical Care Note - Critical Care Note Total time excluding time spent on procedures (mins): 55 Discharge - Discharge Clinical Impression: Acute on chronic respiratory failure with hypoxia, Acute on chronic respiratory acidosis Condition: Fair Disposition: ADMITTED INPATIENT Admitting Provider: Pastor (Hospitalist) Unit Admitted: Medical Floor Referrals: BAUDILIO BAINS MD [Primary Care Provider] - Follow up as needed
[2019-08-01 21:10] LABS: ABSOLUTE BASOPHILS # (AUTO) 0.1 10^3/uL (0.0-0.2); ABSOLUTE EOSINOPHILS # (AUTO) 0.2 10^3/uL (0.0-0.6); ABSOLUTE LYMPHOCYTES (AUTO) 3.3 10^3/uL (0.5-4.7); ABSOLUTE MONOCYTES (AUTO) 1.7 10^3/uL (0.1-1.4); ABSOLUTE NEUT (AUTO) 9.7 10^3/uL (1.7-8.2); BASOPHILS % (AUTO) 0.4 % (0-2); EOSINOPHILS % (AUTO) 1.4 % (0-6); HEMATOCRIT 41.6 % (37.9-51.0); MEAN CORPUSCULAR HEMOGLOBIN 31.8 pg (27.0-33.4); MEAN CORPUSCULAR HGB CONC 33.7 g/dL (32.0-36.0); MEAN CORPUSCULAR VOLUME 95 fl (80-97); MONOCYTES % (AUTO) 11.4 % (3-13); PLATELET COUNT 431 10^3/uL (150-450); RED CELL DISTRIBUTION WIDTH 15.5 % (11.5-14.0); SEGMENTED NEUTROPHILS % (AUTO) 64.8 % (42-78); TOTAL CELLS COUNTED % (AUTO) 100 %; WHITE BLOOD COUNT 14.9 10^3/uL (4.0-10.5)
[2019-08-01 21:13] LABS: ARTERIAL BLOOD BASE EXCESS 7.3 mmol/L; ARTERIAL BLOOD H2CO3 2.14 mmol/L (1.05-1.35); ARTERIAL BLOOD HCO3 35.9 mmol/L (20-24); ARTERIAL BLOOD O2 SATURATION 88.8 % (94-98); ARTERIAL BLOOD PH 7.32 (7.35-7.45); ARTERIAL BLOOD PO2 61.5 mmHg (80-100); ARTERIAL BLOOD TOTAL CO2 38.1 mmol/L (23-27)
[2019-08-01 21:15] LABS: CREATINE KINASE MB 4.53 ng/mL (<4.55); TROPONIN I 0.016 ng/mL
[2019-08-01 21:15] LABS: ARTERIAL BLOOD FIO2 ROOM AIR; ARTERIAL BLOOD PCO2 71.2 mmHg (35-45)
--- NOTE | 2019-08-01 21:25 | RADIOLOGY REPORT (SQ) ---
EXAM DESCRIPTION: [facility]: XR CHEST 1 VIEW CLINICAL HISTORY: 59 years Male, SOB, cough COMPARISON: 06/05/2019 FINDINGS: There is no focal infiltrate. Mildly increased interstitial markings in both lungs are similar to prior exam. No pneumothorax or pleural effusion. Sternal wires are again noted. Mediastinum is unchanged. Bony structures are unremarkable. IMPRESSION: 1. No focal acute infiltrates 2. Previous sternotomy
--- NOTE | 2019-08-01 23:46 | EKG REPORT ---
SEVERITY:- ABNORMAL ECG - SINUS RHYTHM NONSPECIFIC INTRAVENTRICULAR CONDUCTION DELAY PROBABLE INFERIOR INFARCT, OLD : Confirmed by: Jeremy Curtis MD 01-Aug-2019 23:44:07
[2019-08-02] MEDS ORDERED: ALBUTEROL SULFATE 0.083% NEB 2.5 MG/3 ML AMPUL NEB ONE (00:34)
[2019-08-02] MEDS ORDERED: MAGNESIUM HYDROXIDE SUSP 30 ML UDCUP PO PRN (01:58)
[2019-08-02] MEDS ORDERED: PROMETHAZINE HCL INJ 25 MG/1 ML VIAL IV PRN ×2 (01:58→11:30)
[2019-08-02] MEDS ORDERED: MAG HYDROX/AL HYDROX/SIMETH SUSP 30 ML UDCUP PO PRN (01:58)
[2019-08-02] MEDS ORDERED: LEVALBUTEROL HCL NEB 0.63 MG/3 ML AMPUL NEB PRN (01:58)
[2019-08-02] MEDS ORDERED: NICOTINE 21 MG/24 HR PATCH.TD24 TD PRN (02:03)
[2019-08-02] MEDS ORDERED: NALBUPHINE HCL INJ 10 MG/1 ML AMPULE IV PRN ×3 (02:03→03:06)
[2019-08-02] MEDS ORDERED: ACETAMINOPHEN 325 MG TABLET PO PRN (02:03)
[2019-08-02] MEDS ORDERED: HYDRALAZINE HCL INJ/PF 20 MG/1 ML SDV IV PRN (02:03)
[2019-08-02] MEDS ORDERED: METHYLPREDNISOLONE INJ 40 MG/1 ML SDV IV SCH (02:15)
--- NOTE | 2019-08-02 04:11 | PDOC H&P ---
History of Present Illness Admission Date/PCP: 08/02/2019 01:45 BAUDILIO BAINS MD Patient complains of: Dyspnea History of Present Illness: ELLA HILL is a 59 year old male who presented emergency room with a 3- week history of dyspnea. Patient admits to progressively worsening dyspnea over the last 3 weeks becoming severe on the afternoon prior to admission. His dyspnea is made worse by exertion or activity and is somewhat improved by rest. He admits to associated intermittently productive cough with small amounts of yellow to green mucus. He denies other associated or accompanying signs and symptoms. He admits prior similar episodes with exacerbations of his COPD in past. He has not identified any additional aggravating or ameliorating factors for his dyspnea. In the emergency the patient was found to have hypoxia and hypercapnia with a mild respiratory acidosis. He was subsequently treated with BiPAP and admitted to the hospital for further evaluation and treatment. Past Medical History Cardiac Medical History: Reports: Coronary Artery Disease, Myocardial Infarction, Hyperlipidema, Hypertension Pulmonary Medical History: Reports: Bronchitis, Chronic Obstructive Pulmonary Disease (COPD), Respiratory Failure Denies: Asthma, Intubation, Pneumonia, Tuberculosis EENT Medical History: Denies: Cataracts, Ears - Hearing aids Neurological Medical History: Denies: Hemorrhagic CVA, Ischemic CVA, Seizures Endocrine Medical History: Denies: Diabetes Mellitus Type 1, Diabetes Mellitus Type 2, Hyperthyroidism, Hypothyroidism Renal/ Medical History: Denies: Chronic Kidney Disease, Nephrolithiasis Malignancy Medical History: Reports: None GI Medical History: Reports: Gastroesophageal Reflux Disease Denies: Cirrhosis, Crohn's Disease, Hepatitis, Hiatal Hernia, Peptic Ulcer Disease, Ulcerative Colitis Musculoskeltal Medical History: Reports: Arthritis Denies: Fibromyalgia, Gout Skin Medical History: Denies: Eczema, Psoriasis Psychiatric Medical History: Reports: Bipolar Disorder, Depression, Tobacco Dependency Denies: Alcohol Dependency, Substance Abuse Traumatic Medical History: Reports: None Hematology: Denies: Anemia, Bleeding Tendencies Infectious Medical History: Reports: None Past Surgical History Past Surgical History: Reports: Cardiac Catheterization, Coronary Artery Bypass Graft - 2007, Orthopedic Surgery - Right wrist fracture treated with internal fixation using hardware Social History Information Source: Patient Lives with: Spouse/Significant other Smoking Status: Current Every Day Smoker Electronic Cigarette use?: No Frequency of Alcohol Use: None Hx Recreational Drug Use: Yes Drugs: Marijuana Hx Prescription Drug Abuse: No - Advance Directive Resuscitation Status: Full Code Surrogate healthcare decision maker:: Pretty Marie Family History Family History: CAD, DM, Hypertension, Malignancy Parental Family History Reviewed: Yes Children Family History Reviewed: No Sibling(s) Family History Reviewed.: Yes Medication/Allergy Home Medications: Albuterol Sulfate [Albuterol Sulfate Hfa] 2 puff IH Q6HP PRN 06/05/19 Atorvastatin Calcium [Lipitor 80 mg Tablet] 80 mg PO QPM@2000 06/05/19 Escitalopram Oxalate [Lexapro] 30 mg PO DAILY 06/05/19 Gabapentin [Neurontin 300 mg Capsule] 300 mg PO DAILY 06/05/19 Lorazepam [Ativan 1 mg Tablet] 1 mg PO Q6HP PRN 06/05/19 Metoprolol Tartrate [Lopressor 25 mg Tablet] 12.5 mg PO DAILY 06/05/19 Omeprazole 40 mg PO DAILY 06/05/19 Ranolazine [Ranolazine ER] 500 mg PO Q12 06/05/19 Risperidone [Risperdal] 2 mg PO Q8 06/05/19 Umeclidinium Brm/Vilanterol Tr [Anoro Ellipta 62.5-25 Mcg INH] 1 puff IH DAILY 06/05/19 Aspirin [Ecotrin 81 mg EC Tablet] 81 mg PO DAILY 06/09/19 Budesonide/Formoterol Fumarate [Symbicort HFA 80-4.5 mcg Inhaler 6.9 gm] 2 puff IH Q12 06/09/19 Ipratropium/Albuterol Sulfate [Duoneb 3 ml Ampul] 3 ml NEB Q4HP PRN 06/09/19 Isosorbide Mononitrate [Imdur 30 mg Tablet.er] 15 mg PO DAILY 06/09/19 Lisinopril [Prinivil 5 mg Tablet] 5 mg PO DAILY 06/09/19 Tiotropium [place] [Spiriva Handihaler 5 Cap/Kit (18 Mcg/Cap)] 1 puff IH DAILY 06/09/19 Doxycycline Hyclate 100 mg PO BID #10 capsule 06/10/19 Prednisone [Deltasone] 40 mg PO DAILY #10 tablet 06/10/19 Allergies/Adverse Reactions: codeine [Codeine] Allergy (Verified 05/30/19 19:13) latex [Latex] Allergy (Verified 05/30/19 19:13) adhesive tape [Adhesive Tape] Adverse Reaction (Intermediate, Verified 05/30/19 19:13) Urticaria Review of Systems Constitutional: ABSENT: chills, fever(s) Eyes: ABSENT: visual disturbances, other - Eye pain Ears: ABSENT: hearing changes, other - Ear pain Nose, Mouth, and Throat: ABSENT: headache(s), mouth pain, sore throat Cardiovascular: PRESENT: as per HPI, dyspnea on exertion. ABSENT: chest pain, edema, orthropnea, palpitations Respiratory: PRESENT: as per HPI, cough, dyspnea, sputum. ABSENT: hemoptysis Gastrointestinal: ABSENT: abdominal pain, constipation, diarrhea, nausea, vomiting Genitourinary: ABSENT: dysuria, hematuria Musculoskeletal: ABSENT: back pain, joint swelling, muscle weakness Integumentary: ABSENT: pruritus, rash Neurological: ABSENT: confusion, convulsions, focal weakness, memory loss, syncope Psychiatric: ABSENT: anxiety, depression Endocrine: ABSENT: cold intolerance, heat intolerance Hematologic/Lymphatic: ABSENT: easy bleeding, easy bruising Allergic/Immunologic: ABSENT: seasonal rhinorrhea Physical Exam Vital Signs: Temp Pulse Resp BP Pulse Ox 97.6 F 107 H 29 H 103/72 92 08/01/19 20:59 08/01/19 20:59 08/02/19 01:33 08/01/19 23:30 08/02/19 01:33 Intake & Output 07/31/19 08/01/19 08/02/19 23:59 23:59 23:59 Output Total 350 Balance -350 Weight 66 kg General appearance: PRESENT: no acute distress, cooperative, other - On BiPAP Head exam: PRESENT: atraumatic, normocephalic Eye exam: PRESENT: conjunctiva pink. ABSENT: conjunctival injection, scleral icterus Ear exam: PRESENT: normal external ear exam. ABSENT: bleeding, drainage Mouth exam: PRESENT: dry mucosa, neck supple Neck exam: ABSENT: thyromegaly, tracheal deviation Respiratory exam: PRESENT: decreased breath sounds - Mildly decreased breath sounds present throughout, prolonged expiratory phas - Moderately prolonged expiratory phase present stewart, symmetrical, wheezes - Expiratory wheezes present throughout all stewart, other - On BiPAP Cardiovascular exam: PRESENT: RRR. ABSENT: clicks, gallop, rubs Pulses: PRESENT: normal radial pulses, normal dorsalis pedis pul Vascular exam: PRESENT: normal capillary refill. ABSENT: pallor GI/Abdominal exam: PRESENT: normal bowel sounds, soft Rectal exam: PRESENT: deferred Extremities exam: ABSENT: joint swelling, pedal edema Musculoskeletal exam: ABSENT: deformity, dislocation Neurological exam: PRESENT: alert, oriented to person, oriented to place, oriented to time, oriented to situation, CN II-XII grossly intact. ABSENT: motor sensory deficit Psychiatric exam: PRESENT: appropriate affect, normal mood Skin exam: PRESENT: dry, intact, warm. ABSENT: jaundice, rash, urticaria Results Laboratory Results: 08/01/19 20:00 08/01/19 20:00 08/01/19 08/01/19 08/01/19 20:00 20:00 20:38 WBC 14.9 H RBC 4.40 Hgb 14.0 Hct 41.6 MCV 95 MCH 31.8 MCHC 33.7 RDW 15.5 H Plt Count 431 Seg Neutrophils % 64.8 Carbonic Acid 2.14 H HCO3/H2CO3 Ratio 16:1 ABG pH 7.32 L ABG pCO2 71.2 H* ABG pO2 61.5 L ABG HCO3 35.9 H ABG O2 Saturation 88.8 L ABG Base Excess 7.3 FiO2 ROOM AIR Sodium 134.0 L Potassium 4.6 Chloride 89 L Carbon Dioxide 38 H Anion Gap 7 BUN 7 Creatinine 0.63 Est GFR ( Amer) > 60 Glucose 112 H Calcium 9.6 Total Bilirubin 0.4 AST 30 Alkaline Phosphatase 79 Total Protein 7.0 Albumin 3.7 08/01/19 08/01/19 08/01/19 20:00 20:00 22:34 Creatine Kinase 90 CK-MB (CK-2) 4.53 Troponin I 0.016 0.012 Impressions: Chest X-Ray 08/01/19 20:27 IMPRESSION: 1. No focal acute infiltrates 2. Previous sternotomy Assessment and Plan - Diagnosis (1) COPD exacerbation Is this a current diagnosis for this admission?: Yes (2) Acute respiratory failure with hypoxia and hypercapnia Is this a current diagnosis for this admission?: Yes (3) Coronary artery disease involving [place] coronary artery of [place] heart Qualifiers: Associated angina: without angina Qualified Code(s): I25.10 - Atherosclero tic heart disease of [place] coronary artery without angina pectoris Is this a current diagnosis for this admission?: Yes (4) Bipolar disorder with depression Is this a current diagnosis for this admission?: Yes (5) GERD (gastroesophageal reflux disease) Qualifiers: Esophagitis presence: with esophagitis Qualified Code(s): K21.0 - Gastro- esophageal reflux disease with esophagitis Is this a current diagnosis for this admission?: Yes (6) Tobacco abuse Is this a current diagnosis for this admission?: Yes - Plan Summary Summary: Patient will be admitted to medical floor where he will receive routine supportive and symptomatic cares. He will receive supplemental oxygen utilizing BiPAP in order to maintain an O2 sat between 90 and 94%. He will receive an aggressive pulmonary toilet utilizing Xopenex, Atrovent and Pulmicort delivered via nebulizer. He receive a short course of IV Solu-Medrol. He will receive Nubain 5 to 10 mg IV every 3 hours as needed on a as needed basis using a sliding scale for dosage. ABGs, CBC and metabolic profiles will be obtained as needed. Smoking cessation is advised and counseled briefly at the bedside. He will be continued on his usual medications for his chronic medical problems if appropriate. A nicotine replacement patch will be available for the patient's use, if desired. - Time Time Spent with patient: 25-34 minutes Smoking Cessation Education: 3 to 10 minutes Medications reviewed and adjusted accordingly: Yes Anticipated discharge: Home - Inpatient Certification Based on my medical assessment, after consideration of the patient's comorbiditi es, presenting symptoms, or acuity I expect that the services needed warrant INPATIENT care.: Yes I certify that my determination is in accordance with my understanding of [facility]'s requirements for reasonable and necessary INPATIENT services [42 CFR 412.3e].: Yes Medical Necessity: Need Close Monitoring Due to Risk of Patient Decompensation, Need for Nebulizer Therapy and Monitoring of Response, Risk of Complication if Not Cared For in Hospital
[2019-08-02] MEDS: HEPARIN SOD (PORCINE) 5,000 UNIT/ML 1 ML VIAL SUBCUT SCH ×3 (06:17→21:25)
[2019-08-02] MEDS: LEVALBUTEROL HCL NEB 1.25 MG/3 ML AMPUL NEB SCH ×2 (08:23→18:19)
[2019-08-02] MEDS: IPRATROPIUM BROMIDE 0.02% NEB 0.5 MG/2.5 ML AMPUL NEB SCH ×2 (08:23→18:19)
[2019-08-02] MEDS: BUDESONIDE NEB 0.5 MG/2 ML AMPUL NEB SCH ×2 (08:23→20:51)
[2019-08-02] MEDS: FAMOTIDINE 20 MG TABLET PO SCH ×2 (10:27→21:21)
[2019-08-02] MEDS: DOCUSATE SODIUM 100 MG CAPSULE PO SCH ×2 (10:28→18:46)
[2019-08-02] MEDS ORDERED: LORAZEPAM INJ 2 MG/1 ML VIAL IV PRN (11:50)
[2019-08-02] MEDS: METHYLPREDNISOLONE INJ 40 MG/1 ML SDV IV SCH ×2 (12:10→18:46)
[2019-08-02] MEDS ORDERED: LORAZEPAM INJ 2 MG/1 ML VIAL IV ONE (12:15)
[2019-08-02] MEDS ORDERED: TRAMADOL HCL 50 MG TABLET PO PRN (13:19)
[2019-08-02] MEDS ORDERED: (PENDING PHARMACY ID) (Umeclidinium Brm/Vilanterol Tr [Anoro Ellipta 62.5-25 Mcg Inh] 1 PU IH SCH (13:30)
[2019-08-02] MEDS ORDERED: ISOSORBIDE MONONITRATE 20 MG TABLET PO SCH (13:30)
[2019-08-02] MEDS: LORAZEPAM 1 MG TABLET PO SCH ×2 (15:10→21:21)
[2019-08-02] MEDS: LISINOPRIL 5 MG TABLET PO SCH (15:14)
[2019-08-02] MEDS: ISOSORBIDE MONONITRATE 30 MG TAB.ER.24H PO SCH (15:14)
[2019-08-02] MEDS: ESCITALOPRAM OXALATE 10 MG TABLET PO SCH (15:14)
[2019-08-02] MEDS: RANOLAZINE 500 MG TAB.SR.12H PO SCH ×2 (15:14→21:21)
[2019-08-02] MEDS: DICYCLOMINE HCL 10 MG CAPSULE PO SCH (15:15)
[2019-08-02] MEDS: METOPROLOL TARTRATE 25 MG TABLET PO SCH (15:15)
[2019-08-02] MEDS ORDERED: (PENDING PHARMACY ID) (Risperidone [Risperdal] 2 MG) PO SCH (18:00)
[2019-08-02] MEDS: RISPERIDONE 1 MG TABLET PO SCH (21:22)
[2019-08-02] MEDS: ATORVASTATIN CALCIUM 80 MG TABLET PO SCH (21:22)
[2019-08-03] MEDS: LEVALBUTEROL HCL NEB 1.25 MG/3 ML AMPUL NEB SCH ×3 (00:46→15:46)
[2019-08-03] MEDS: IPRATROPIUM BROMIDE 0.02% NEB 0.5 MG/2.5 ML AMPUL NEB SCH ×3 (00:46→15:46)
[2019-08-03 04:35] LABS: HEMATOCRIT 38.6 % (37.9-51.0); MEAN CORPUSCULAR HEMOGLOBIN 31.4 pg (27.0-33.4); MEAN CORPUSCULAR HGB CONC 33.8 g/dL (32.0-36.0); MEAN CORPUSCULAR VOLUME 93 fl (80-97); PLATELET COUNT 423 10^3/uL (150-450); RED BLOOD COUNT 4.15 10^6/uL (4.35-5.55); WHITE BLOOD COUNT 15.9 10^3/uL (4.0-10.5)
[2019-08-03 04:53] LABS: ANION GAP 6 (5-19); BLOOD UREA NITROGEN 8 mg/dL (7-20); CALCIUM 9.4 mg/dL (8.4-10.2); CARBON DIOXIDE 36 mmol/L (22-30); CHLORIDE 93 mmol/L (98-107); GLUCOSE 115 mg/dL (75-110); POTASSIUM 4.8 mmol/L (3.6-5.0)
[2019-08-03 06:40] LABS: ARTERIAL BLOOD BASE EXCESS 8.1 mmol/L; ARTERIAL BLOOD HCO3 34.1 mmol/L (20-24); ARTERIAL BLOOD O2 SATURATION 92.2 % (94-98); ARTERIAL BLOOD PCO2 53.3 mmHg (35-45); ARTERIAL BLOOD PH 7.42 (7.35-7.45); ARTERIAL BLOOD TOTAL CO2 35.7 mmol/L (23-27)
[2019-08-03 06:41] LABS: ARTERIAL BLOOD FIO2 21%
[2019-08-03] MEDS: HEPARIN SOD (PORCINE) 5,000 UNIT/ML 1 ML VIAL SUBCUT SCH ×3 (06:42→22:10)
[2019-08-03] MEDS: LORAZEPAM 1 MG TABLET PO SCH ×3 (06:42→22:11)
[2019-08-03] MEDS: DICYCLOMINE HCL 10 MG CAPSULE PO SCH ×2 (07:31→17:44)
[2019-08-03] MEDS: BUDESONIDE NEB 0.5 MG/2 ML AMPUL NEB SCH ×2 (07:36→20:59)
[2019-08-03] MEDS: RISPERIDONE 1 MG TABLET PO SCH ×2 (09:11→22:11)
[2019-08-03] MEDS: ESCITALOPRAM OXALATE 10 MG TABLET PO SCH (09:11)
[2019-08-03] MEDS: LISINOPRIL 5 MG TABLET PO SCH (09:11)
[2019-08-03] MEDS: DOCUSATE SODIUM 100 MG CAPSULE PO SCH ×2 (09:12→17:44)
[2019-08-03] MEDS: GABAPENTIN 300 MG CAPSULE PO SCH (09:12)
[2019-08-03] MEDS: FAMOTIDINE 20 MG TABLET PO SCH ×2 (09:12→22:11)
[2019-08-03] MEDS: RANOLAZINE 500 MG TAB.SR.12H PO SCH ×2 (09:12→22:11)
[2019-08-03] MEDS: METOPROLOL TARTRATE 25 MG TABLET PO SCH (09:12)
[2019-08-03] MEDS: ISOSORBIDE MONONITRATE 30 MG TAB.ER.24H PO SCH (09:12)
[2019-08-03] MEDS: LEVOFLOXACIN 500 MG TABLET PO SCH (10:33)
--- NOTE | 2019-08-03 13:26 | PDOC PROGRESS REPORT ---
Subjective Progress Note for:: 08/03/19 Subjective:: ELLA HILL is a 59 year old male with past medical history of CAD, hyperlipidemia, hypertension, COPD, bipolar disorder, tobacco dependency, presented to ED complaining of 3 weeks of worsening dyspnea. 08/03/2018. No acute events overnight. Patient has been more compliant with his BiPAP, denies any fever, chills, nausea, vomiting, diarrhea, constipation or any urinary symptoms. Reason For Visit: ACUTE EXACERBATION OF COPD,ACUTE RESPIRATORY Physical Exam Vital Signs: Temp Pulse Resp BP Pulse Ox 97.4 F 76 16 124/83 99 08/03/19 12:32 08/03/19 12:32 08/03/19 12:32 08/03/19 12:32 08/03/19 12:32 Intake & Output 08/02/19 08/03/19 08/04/19 06:59 06:59 06:59 Intake Total 880 4378 738 Output Total 350 120 Balance 530 4258 738 Weight 66.2 kg 66.4 kg General appearance: PRESENT: no acute distress, well-developed, well-nourished Head exam: PRESENT: atraumatic, normocephalic Respiratory exam: PRESENT: prolonged expiratory phas, wheezes. ABSENT: rales, rhonchi GI/Abdominal exam: PRESENT: normal bowel sounds, soft. ABSENT: distended, guarding, mass, organolmegaly, rebound, tenderness Neurological exam: PRESENT: alert, awake, oriented to person, oriented to place, oriented to time, oriented to situation, CN II-XII grossly intact. ABSENT: motor sensory deficit Results Laboratory Results: 08/03/19 03:41 08/03/19 03:41 08/03/19 08/03/19 08/03/19 03:41 03:41 06:20 WBC 15.9 H RBC 4.15 L Hgb 13.0 L Hct 38.6 MCV 93 MCH 31.4 MCHC 33.8 RDW 15.0 H Plt Count 423 Carbonic Acid 1.60 H HCO3/H2CO3 Ratio 21:1 ABG pH 7.42 ABG pCO2 53.3 H ABG pO2 63.0 L ABG HCO3 34.1 H ABG O2 Saturation 92.2 L ABG Base Excess 8.1 FiO2 21% Sodium 134.7 L Potassium 4.8 Chloride 93 L Carbon Dioxide 36 H Anion Gap 6 BUN 8 Creatinine 0.48 L Est GFR ( Amer) > 60 Glucose 115 H Calcium 9.4 Magnesium 2.1 08/01/19 08/01/19 08/01/19 20:00 20:00 22:34 Creatine Kinase 90 CK-MB (CK-2) 4.53 Troponin I 0.016 0.012 Impressions: Chest X-Ray 08/01/19 20:27 IMPRESSION: 1. No focal acute infiltrates 2. Previous sternotomy Assessment and Plan - Diagnosis (1) Acute respiratory failure with hypoxemia Is this a current diagnosis for this admission?: Yes Plan: Improving. Due to COPD exacerbation. Initial ABG positive for hypoxemia and hypercarbia. Continue duo nebs, IV steroids, empiric IV antibiotics, flutter valve, BiPAP, incentive spirometer, LMA, ICS, LABA. (2) Bipolar disorder with depression Is this a current diagnosis for this admission?: Yes Plan: Restart home meds. (3) COPD exacerbation Is this a current diagnosis for this admission?: Yes Plan: As per #1. (4) Coronary artery disease involving [place] coronary artery of [place] heart Qualifiers: Associated angina: without angina Qualified Code(s): I25.10 - At herosclerotic heart disease of [place] coronary artery without angina pectoris Is this a current diagnosis for this admission?: Yes Plan: Denies any anginal symptoms. Restart home meds. Adjust meds as needed. (5) GERD (gastroesophageal reflux disease) Qualifiers: Esophagitis presence: with esophagitis Qualified Code(s): K21.0 - Gastro- esophageal reflux disease with esophagitis Is this a current diagnosis for this admission?: Yes (6) Tobacco abuse Is this a current diagnosis for this admission?: Yes Plan: Counseled on quitting. NicoDerm patch provided. (7) Hypertension Is this a current diagnosis for this admission?: Yes Plan: Euvolemic. Normotensive. Restart home meds. Adjust dosage as needed. (8) Hyperlipidemia Is this a current diagnosis for this admission?: Yes Plan: Restart home meds. Diet and lifestyle modification recommended.
[2019-08-03] MEDS: METHYLPREDNISOLONE INJ 40 MG/1 ML SDV IV SCH ×2 (14:04→22:11)
[2019-08-03 15:28] LABS: ARTERIAL BLOOD BASE EXCESS 12.2 mmol/L; ARTERIAL BLOOD H2CO3 1.76 mmol/L (1.05-1.35); ARTERIAL BLOOD HCO3 38.8 mmol/L (20-24); ARTERIAL BLOOD O2 SATURATION 89.6 % (94-98); ARTERIAL BLOOD PCO2 58.5 mmHg (35-45); ARTERIAL BLOOD PH 7.44 (7.35-7.45); ARTERIAL BLOOD PO2 56.3 mmHg (80-100); ARTERIAL BLOOD TOTAL CO2 40.6 mmol/L (23-27)
[2019-08-03 15:31] LABS: ARTERIAL BLOOD FIO2 ROOM AIR
[2019-08-03] MEDS: ATORVASTATIN CALCIUM 80 MG TABLET PO SCH (22:11)
[2019-08-04] MEDS: IPRATROPIUM BROMIDE 0.02% NEB 0.5 MG/2.5 ML AMPUL NEB SCH ×3 (00:58→16:13)
[2019-08-04] MEDS: LEVALBUTEROL HCL NEB 1.25 MG/3 ML AMPUL NEB SCH ×3 (00:58→16:13)
[2019-08-04 05:14] LABS: HEMATOCRIT 38.9 % (37.9-51.0); HEMOGLOBIN 13.1 g/dL (13.5-17.0); MEAN CORPUSCULAR HEMOGLOBIN 31.4 pg (27.0-33.4); MEAN CORPUSCULAR HGB CONC 33.5 g/dL (32.0-36.0); MEAN CORPUSCULAR VOLUME 94 fl (80-97); PLATELET COUNT 395 10^3/uL (150-450); RED BLOOD COUNT 4.16 10^6/uL (4.35-5.55); RED CELL DISTRIBUTION WIDTH 14.8 % (11.5-14.0); WHITE BLOOD COUNT 11.9 10^3/uL (4.0-10.5)
[2019-08-04 05:43] LABS: ABSOLUTE LYMPHOCYTES# (MANUAL) 0.8 10^3/uL (0.5-4.7); ABSOLUTE MONOCYTES # (MANUAL) 0.4 10^3/uL (0.1-1.4); ANISOCYTOSIS SLIGHT; BAND NEUTROPHILS % (MANUAL) 4 % (3-5); BASOPHILS % (MANUAL) 0 % (0-2); EOSINOPHILS % (MANUAL) 0 % (0-6); LYMPHOCYTES % (MANUAL) 7 % (13-45); MONOCYTES % (MANUAL) 3 % (3-13); SEGMENTED NEUTROPHILS % (MAN) 86 % (42-78); TOTAL CELLS COUNTED 100
[2019-08-04 05:44] LABS: PLATELET COMMENT ADEQUATE
[2019-08-04] MEDS: METHYLPREDNISOLONE INJ 40 MG/1 ML SDV IV SCH ×3 (06:26→21:45)
[2019-08-04] MEDS: HEPARIN SOD (PORCINE) 5,000 UNIT/ML 1 ML VIAL SUBCUT SCH ×3 (06:26→21:46)
[2019-08-04] MEDS: LORAZEPAM 1 MG TABLET PO SCH ×3 (06:26→21:46)
[2019-08-04 06:40] LABS: ARTERIAL BLOOD BASE EXCESS 4.4 mmol/L; ARTERIAL BLOOD H2CO3 1.54 mmol/L (1.05-1.35); ARTERIAL BLOOD HCO3 30.5 mmol/L (20-24); ARTERIAL BLOOD O2 SATURATION 89.7 % (94-98); ARTERIAL BLOOD PCO2 51.1 mmHg (35-45); ARTERIAL BLOOD PH 7.39 (7.35-7.45); ARTERIAL BLOOD PO2 58.2 mmHg (80-100); ARTERIAL BLOOD TOTAL CO2 32.1 mmol/L (23-27)
[2019-08-04 06:46] LABS: ARTERIAL BLOOD FIO2 28%
[2019-08-04] MEDS: BUDESONIDE NEB 0.5 MG/2 ML AMPUL NEB SCH ×2 (08:10→21:17)
[2019-08-04] MEDS: RANOLAZINE 500 MG TAB.SR.12H PO SCH ×2 (09:45→21:46)
[2019-08-04] MEDS: METOPROLOL TARTRATE 25 MG TABLET PO SCH (09:45)
[2019-08-04] MEDS: FAMOTIDINE 20 MG TABLET PO SCH ×2 (09:47→21:46)
[2019-08-04] MEDS: DOCUSATE SODIUM 100 MG CAPSULE PO SCH ×2 (09:47→18:24)
[2019-08-04] MEDS: ISOSORBIDE MONONITRATE 30 MG TAB.ER.24H PO SCH (09:47)
[2019-08-04] MEDS: ESCITALOPRAM OXALATE 10 MG TABLET PO SCH (09:48)
[2019-08-04] MEDS: LISINOPRIL 5 MG TABLET PO SCH (09:48)
[2019-08-04] MEDS: GABAPENTIN 300 MG CAPSULE PO SCH (09:48)
[2019-08-04] MEDS: LEVOFLOXACIN 500 MG TABLET PO SCH (09:48)
[2019-08-04] MEDS: DICYCLOMINE HCL 10 MG CAPSULE PO SCH ×2 (09:49→18:24)
[2019-08-04] MEDS: RISPERIDONE 1 MG TABLET PO SCH ×2 (09:49→21:54)
[2019-08-04] MEDS: ATORVASTATIN CALCIUM 80 MG TABLET PO SCH (21:46)
[2019-08-05] MEDS: LEVALBUTEROL HCL NEB 1.25 MG/3 ML AMPUL NEB SCH ×2 (01:15→08:06)
[2019-08-05] MEDS: IPRATROPIUM BROMIDE 0.02% NEB 0.5 MG/2.5 ML AMPUL NEB SCH ×2 (01:15→08:06)
[2019-08-05] MEDS: METHYLPREDNISOLONE INJ 40 MG/1 ML SDV IV SCH (06:40)
[2019-08-05] MEDS: HEPARIN SOD (PORCINE) 5,000 UNIT/ML 1 ML VIAL SUBCUT SCH (06:41)
[2019-08-05] MEDS: LORAZEPAM 1 MG TABLET PO SCH (06:41)
[2019-08-05] MEDS: BUDESONIDE NEB 0.5 MG/2 ML AMPUL NEB SCH (08:06)
[2019-08-05 08:09] LABS: ARTERIAL BLOOD BASE EXCESS 5.9 mmol/L; ARTERIAL BLOOD H2CO3 1.55 mmol/L (1.05-1.35); ARTERIAL BLOOD HCO3 31.9 mmol/L (20-24); ARTERIAL BLOOD O2 SATURATION 92.7 % (94-98); ARTERIAL BLOOD PCO2 51.4 mmHg (35-45); ARTERIAL BLOOD PH 7.41 (7.35-7.45); ARTERIAL BLOOD PO2 65.1 mmHg (80-100); ARTERIAL BLOOD TOTAL CO2 33.5 mmol/L (23-27)
[2019-08-05] MEDS: LISINOPRIL 5 MG TABLET PO SCH (09:14)
[2019-08-05] MEDS: METOPROLOL TARTRATE 25 MG TABLET PO SCH (09:15)
[2019-08-05] MEDS: GABAPENTIN 300 MG CAPSULE PO SCH (09:15)
[2019-08-05] MEDS: ESCITALOPRAM OXALATE 10 MG TABLET PO SCH (09:15)
[2019-08-05] MEDS: FAMOTIDINE 20 MG TABLET PO SCH (09:16)
[2019-08-05] MEDS: DOCUSATE SODIUM 100 MG CAPSULE PO SCH (09:17)
[2019-08-05] MEDS: RANOLAZINE 500 MG TAB.SR.12H PO SCH (09:17)
[2019-08-05] MEDS: ISOSORBIDE MONONITRATE 30 MG TAB.ER.24H PO SCH (09:17)
[2019-08-05] MEDS: DICYCLOMINE HCL 10 MG CAPSULE PO SCH (09:18)
[2019-08-05] MEDS: RISPERIDONE 1 MG TABLET PO SCH (09:18)
[2019-08-05] MEDS: LEVOFLOXACIN 500 MG TABLET PO SCH (09:19)
[2019-08-05] MEDS ORDERED: INFLUENZA QUAD (6MOS+) 2019-20 VAC 0.5 ML SYR IM ONE (09:26)
[2019-08-05 12:03] VITALS: BP 123/76
--- NOTE | 2019-08-05 17:58 | PDOC DISCHARGE SUMMARY ---
Impression - Admit/DC Date/PCP Admission Date/Primary Care Provider: 08/02/19 02:08 BAUDILIO BAINS MD Discharge Date: 08/05/19 - Discharge Diagnosis (1) Acute respiratory failure with hypoxemia Is this a current diagnosis for this admission?: Yes (2) Bipolar disorder with depression Is this a current diagnosis for this admission?: Yes (3) COPD exacerbation Is this a current diagnosis for this admission?: Yes (4) Coronary artery disease involving [place] coronary artery of [place] heart Is this a current diagnosis for this admission?: Yes (5) GERD (gastroesophageal reflux disease) Is this a current diagnosis for this admission?: Yes (6) Tobacco abuse Is this a current diagnosis for this admission?: Yes (7) Hypertension Is this a current diagnosis for this admission?: Yes (8) Hyperlipidemia Is this a current diagnosis for this admission?: Yes - Additional Information Resuscitation Status: Full Code Discharge Diet: Cardiac Discharge Activity: Activity As Tolerated, Balance Activity w/Rest, Energy Conservation Referrals: BAUDILIO BAINS MD [Primary Care Provider] - 08/09/19 1:15 pm TRACY PETERSEN MD [ACTIVE STAFF] - (DX: COPD) Prescriptions: Levofloxacin [Levaquin 500 mg Tablet] 500 mg PO DAILY 4 Days #4 tablet Prednisone 50 mg PO DAILY 5 Days #5 tablet Home Medications: Atorvastatin Calcium [Lipitor 80 mg Tablet] 80 mg PO QHS 08/02/19 Dicyclomine HCl [Bentyl 10 mg Capsule] 10 mg PO BID 08/02/19 Escitalopram Oxalate [Lexapro] 20 mg PO DAILY 08/02/19 Gabapentin [Neurontin 300 mg Capsule] 300 mg PO DAILY 08/02/19 Isosorbide Mononitrate [Ismo 20 Mg Tablet] 15 mg PO DAILY 08/02/19 Lisinopril [Prinivil 5 mg Tablet] 5 mg PO DAILY 08/02/19 Lorazepam [Ativan 1 mg Tablet] 1 mg PO Q8 08/02/19 Metoprolol Tartrate [Lopressor 25 mg Tablet] 12.5 mg PO DAILY 08/02/19 Omeprazole 40 mg PO DAILY 08/02/19 Ranolazine [Ranexa 500 mg Tab.sr] 500 mg PO Q12 08/02/19 Risperidone [Risperdal] 2 mg PO BID 08/02/19 Tramadol HCl [Ultram 50 mg Tablet] 50 mg PO QIDP PRN 08/02/19 Umeclidinium Brm/Vilanterol Tr [Anoro Ellipta 62.5-25 Mcg INH] 1 puff IH DAILY 08/02/19 Levofloxacin [Levaquin 500 mg Tablet] 500 mg PO DAILY 4 Days #4 tablet 08/05/19 Prednisone 50 mg PO DAILY 5 Days #5 tablet 08/05/19 History of Present Illiness History of Present Illness: ELLA HILL is a 59 year old male with past medical history of CAD, hyperlipidemia, hypertension, COPD, bipolar disorder, tobacco dependency, presented to ED complaining of 3 weeks of worsening dyspnea. Hospital Course Hospital Course: (1) Acute respiratory failure with hypoxemia Improved. Improving. Due to COPD exacerbation. Initial ABG positive for hypoxemia and hypercarbia. Was started on duo nebs, IV steroids, empiric IV antibiotics, flutter valve, BiPAP, incentive spirometer, LMA, ICS, LABA. SPO2 WNL on room air throughout hospitalization. Patient was ambulated to see if he required home O2. Patient SPO2 remained WNL on ambulation. Was asked to follow-up with Dr. Petersen hotel front desk clerk as outpatient for evaluation of ADELA and management of COPD. (2) Bipolar disorder with depression Restarted home meds. (3) COPD exacerbation As per #1. (4) Coronary artery disease involving [place] coronary artery of [place] heart Denied any anginal symptoms. Restarted home meds. (5) GERD (gastroesophageal reflux disease) Restarted home meds. (6) Tobacco abuse Counseled on quitting. NicoDerm patch provided. (7) Hypertension Euvolemic. Normotensive. Restarted home meds. (8) Hyperlipidemia Restarted home meds. Diet and lifestyle modification recommended. Physical Exam Vital Signs: Temp Pulse Resp BP Pulse Ox 97.7 F 87 16 123/76 93 08/05/19 11:57 08/05/19 11:57 08/05/19 11:57 08/05/19 11:57 08/05/19 11:57 Intake & Output 08/04/19 08/05/19 08/06/19 06:59 06:59 06:59 Intake Total 3190 3178 Output Total 600 Balance 3190 2578 Weight 64.2 kg 63.9 kg General appearance: PRESENT: no acute distress, well-developed, well-nourished Head exam: PRESENT: atraumatic, normocephalic Eye exam: PRESENT: conjunctiva pink, EOMI, PERRLA. ABSENT: scleral icterus Ear exam: PRESENT: normal external ear exam Mouth exam: PRESENT: moist, tongue midline Neck exam: ABSENT: carotid bruit, JVD, lymphadenopathy, thyromegaly Respiratory exam: PRESENT: clear to auscultation carlos. ABSENT: rales, rhonchi, wheezes Cardiovascular exam: PRESENT: RRR. ABSENT: diastolic murmur, rubs, systolic murmur Pulses: PRESENT: normal dorsalis pedis pul Vascular exam: PRESENT: normal capillary refill GI/Abdominal exam: PRESENT: normal bowel sounds, soft. ABSENT: distended, guarding, mass, organolmegaly, rebound, tenderness Rectal exam: PRESENT: deferred Extremities exam: PRESENT: full ROM. ABSENT: calf tenderness, clubbing, pedal edema Neurological exam: PRESENT: alert, awake, oriented to person, oriented to place, oriented to time, oriented to situation, CN II-XII grossly intact. ABSENT: motor sensory deficit Psychiatric exam: PRESENT: appropriate affect, normal mood. ABSENT: homicidal ideation, suicidal ideation Skin exam: PRESENT: dry, intact, warm. ABSENT: cyanosis, rash Results Laboratory Results: WBC 11.9 10^3/uL (4.0-10.5) H 08/04/19 04:26 RBC 4.16 10^6/uL (4.35-5.55) L 08/04/19 04:26 Hgb 13.1 g/dL (13.5-17.0) L 08/04/19 04:26 Hct 38.9 % (37.9-51.0) 08/04/19 04:26 MCV 94 fl (80-97) 08/04/19 04:26 MCH 31.4 pg (27.0-33.4) 08/04/19 04:26 MCHC 33.5 g/dL (32.0-36.0) 08/04/19 04:26 RDW 14.8 % (11.5-14.0) H 08/04/19 04:26 Plt Count 395 10^3/uL (150-450) 08/04/19 04:26 Lymph % (Auto) Not Reportable 08/04/19 04:26 [place] % (Auto) Not Reportable 08/04/19 04:26 Eos % (Auto) Not Reportable 08/04/19 04:26 Baso % (Auto) Not Reportable 08/04/19 04:26 Absolute Neuts (auto) Not Reportable 08/04/19 04:26 Absolute Lymphs (auto) Not Reportable 08/04/19 04:26 Absolute Monos (auto) Not Reportable 08/04/19 04:26 Absolute Eos (auto) Not Reportable 08/04/19 04:26 Absolute Basos (auto) Not Reportable 08/04/19 04:26 Total Counted 100 08/04/19 04:26 Seg Neutrophils % Not Reportable 08/04/19 04:26 Seg Neuts % (Manual) 86 % (42-78) H 08/04/19 04:26 Band Neutrophils % 4 % (3-5) 08/04/19 04:26 Lymphocytes % (Manual) 7 % (13-45) L 08/04/19 04:26 Monocytes % (Manual) 3 % (3-13) 08/04/19 04:26 Eosinophils % (Manual) 0 % (0-6) 08/04/19 04:26 Basophils % (Manual) 0 % (0-2) 08/04/19 04:26 Abs Neuts (Manual) 10.7 10^3/uL (1.7-8.2) H 08/04/19 04:26 Abs Lymphs (Manual) 0.8 10^3/uL (0.5-4.7) 08/04/19 04:26 Abs Monocytes (Manual) 0.4 10^3/uL (0.1-1.4) 08/04/19 04:26 Absolute Eos (Manual) 0.0 10^3/uL (0.0-0.6) 08/04/19 04:26 Abs Basophils (Manual) 0.0 10^3/uL (0.0-0.2) 08/04/19 04:26 Platelet Comment ADEQUATE 08/04/19 04:26 Anisocytosis SLIGHT 08/04/19 04:26 Carbonic Acid 1.55 mmol/L (1.05-1.35) H 08/05/19 08:00 HCO3/H2CO3 Ratio 20:1 08/05/19 08:00 ABG pH 7.41 (7.35-7.45) 08/05/19 08:00 ABG pCO2 51.4 mmHg (35-45) H 08/05/19 08:00 ABG pO2 65.1 mmHg (80-100) L 08/05/19 08:00 ABG HCO3 31.9 mmol/L (20-24) H 08/05/19 08:00 ABG Total CO2 33.5 mmol/L (23-27) H 08/05/19 08:00 ABG O2 Saturation 92.7 % (94-98) L 08/05/19 08:00 ABG Base Excess 5.9 mmol/L 08/05/19 08:00 FiO2 2.00 08/05/19 08:00 Sodium 134.7 mmol/L (137-145) L 08/03/19 03:41 Potassium 4.8 mmol/L (3.6-5.0) 08/03/19 03:41 Chloride 93 mmol/L (98-107) L 08/03/19 03:41 Carbon Dioxide 36 mmol/L (22-30) H 08/03/19 03:41 Anion Gap 6 (5-19) 08/03/19 03:41 BUN 8 mg/dL (7-20) 08/03/19 03:41 Creatinine 0.48 mg/dL (0.52-1.25) L 08/03/19 03:41 Est GFR ( Amer) > 60 (>60) 08/03/19 03:41 Est GFR (MDRD) Non-Af > 60 (>60) 08/03/19 03:41 Glucose 115 mg/dL (75-110) H 08/03/19 03:41 Calcium 9.4 mg/dL (8.4-10.2) 08/03/19 03:41 Magnesium 2.1 mg/dL (1.6-2.3) 08/03/19 03:41 Total Bilirubin 0.4 mg/dL (0.2-1.3) 08/01/19 20:00 Direct Bilirubin 0.2 mg/dL (0.0-0.4) 08/01/19 20:00 Neonat Total Bilirubin Not Reportable 08/01/19 20:00 Neonat Direct Bilirubin Not Reportable 08/01/19 20:00 Neonat Indirect Bili Not Reportable 08/01/19 20:00 AST 30 U/L (17-59) 08/01/19 20:00 ALT 26 U/L (<50) 08/01/19 20:00 Alkaline Phosphatase 79 U/L (38-126) 08/01/19 20:00 Creatine Kinase 90 U/L (55-170) 08/01/19 20:00 CK-MB (CK-2) 4.53 ng/mL (<4.55) 08/01/19 20:00 Troponin I 0.012 ng/mL 08/01/19 22:34 Total Protein 7.0 g/dL (6.3-8.2) 08/01/19 20:00 Albumin 3.7 g/dL (3.5-5.0) 08/01/19 20:00 08/01/19 08/01/19 20:00 22:34 CK-MB (CK-2) 4.53 Troponin I 0.016 0.012 Impressions: Chest X-Ray 08/01/19 20:27 IMPRESSION: 1. No focal acute infiltrates 2. Previous sternotomy Plan Time Spent: Greater than 30 Minutes Stroke Is this a Stroke Patient?: No Acute Heart Failure - Is this a Heart Failure Patient?: No
== END 2019-08-05 12:35 | disposition home or self-care (01) | DRG 189 ==
LOC: ER 19:31 → EH 08-02 02:08 → 5 08-02 03:57
PROVIDERS: ADMIT Emergency Medicine; ATTEND Emergency Medicine
DX: J96.01 Acute respiratory failure with hypoxia (principal); J44.1 Chronic obstructive pulmonary disease with (acute) exacerbation; J96.02 Acute respiratory failure with hypercapnia; F17.200 Nicotine dependence, unspecified, uncomplicated; I10 Essential (primary) hypertension; I25.10 Atherosclerotic heart disease of native coronary artery without angina pectoris; M19.90 Unspecified osteoarthritis, unspecified site; F31.9 Bipolar disorder, unspecified; K21.9 Gastro-esophageal reflux disease without esophagitis; E78.5 Hyperlipidemia, unspecified; Z82.49 Family history of ischemic heart disease and other diseases of the circulatory system; I25.2 Old myocardial infarction; Z95.1 Presence of aortocoronary bypass graft; Z79.82 Long term (current) use of aspirin; Z79.899 Other long term (current) drug therapy; Z88.5 Allergy status to narcotic agent; Z91.040 Latex allergy status
CPT/HCPCS: 36415; 36600; 71045; 80048; 80053; 82550; 82553; 82803; 83735; 84484; 85025; 85027; 90686; 93005; 93010; 94640; 94660; 96374; 99291; J1644; J2060; J2920; J2930; J3490; J7614; J7620

== ENCOUNTER 2019-09-10 22:39 | Emergency (ER) | payer MEDICARE ==
[2019-09-10] MEDS ORDERED: IPRATROPIUM/ALBUTEROL 0.5-2.5 MG/3 ML AMPUL NEB ONE ×2 (22:48→22:55)
[2019-09-10] MEDS ORDERED: METHYLPREDNISOLONE INJ 125 MG/2 ML SDV IV ONE (22:55)
[2019-09-10 23:08] LABS: HEMATOCRIT 42.5 % (37.9-51.0); HEMOGLOBIN 14.4 g/dL (13.5-17.0); MEAN CORPUSCULAR HEMOGLOBIN 31.2 pg (27.0-33.4); MEAN CORPUSCULAR HGB CONC 33.8 g/dL (32.0-36.0); MEAN CORPUSCULAR VOLUME 92 fl (80-97); PLATELET COUNT 353 10^3/uL (150-450); RED BLOOD COUNT 4.61 10^6/uL (4.35-5.55); RED CELL DISTRIBUTION WIDTH 13.6 % (11.5-14.0); WHITE BLOOD COUNT 20.4 10^3/uL (4.0-10.5)
[2019-09-10 23:36] LABS: ALKALINE PHOSPHATASE 104 U/L (38-126); ANION GAP 8 (5-19); ASPARTATE AMINO TRANSFERASE 41 U/L (17-59); BILIRUBIN,TOTAL 0.3 mg/dL (0.2-1.3); BLOOD UREA NITROGEN 9 mg/dL (7-20); CALCIUM 9.7 mg/dL (8.4-10.2); CARBON DIOXIDE 35 mmol/L (22-30); CHLORIDE 81 mmol/L (98-107); CREATINE KINASE 216 U/L (55-170); GLUCOSE 138 mg/dL (75-110); POTASSIUM 4.9 mmol/L (3.6-5.0); TOTAL PROTEIN 7.2 g/dL (6.3-8.2)
[2019-09-10 23:44] LABS: ABSOLUTE MONOCYTES # (MANUAL) 2.4 10^3/uL (0.1-1.4); BASOPHILS % (MANUAL) 0 % (0-2); EOSINOPHILS % (MANUAL) 0 % (0-6); LYMPHOCYTES % (MANUAL) 5 % (13-45); MONOCYTES % (MANUAL) 12 % (3-13); SEGMENTED NEUTROPHILS % (MAN) 83 % (42-78); TOTAL CELLS COUNTED 100
[2019-09-10 23:46] LABS: POIKILOCYTOSIS SLIGHT; TOXIC GRANULATION SLIGHT
[2019-09-10 23:47] LABS: OVALOCYTES SLIGHT; TEAR DROP CELLS SLIGHT
[2019-09-10 23:48] LABS: PLATELET COMMENT ADEQUATE
[2019-09-10 23:49] LABS: CREATINE KINASE MB 11.7 ng/mL (<4.55)
[2019-09-10 23:51] LABS: TROPONIN I 0.25 ng/mL
[2019-09-10 23:54] LABS: ARTERIAL BLOOD BASE EXCESS 3.9 mmol/L; ARTERIAL BLOOD H2CO3 2.48 mmol/L (1.05-1.35); ARTERIAL BLOOD HCO3 34.3 mmol/L (20-24); ARTERIAL BLOOD O2 SATURATION 83.7 % (94-98); ARTERIAL BLOOD PH 7.24 (7.35-7.45); ARTERIAL BLOOD PO2 57.9 mmHg (80-100); ARTERIAL BLOOD TOTAL CO2 36.8 mmol/L (23-27)
[2019-09-11] MEDS ORDERED: ASPIRIN 81 MG TABLET, CHEWABLE PO ONE (00:01)
[2019-09-11] MEDS ORDERED: NITROGLYCERIN 2% OINTMENT 1 GM PACKET TP ONE (00:01)
[2019-09-11] MEDS ORDERED: FUROSEMIDE INJ/PF 20 MG/2 ML SDV IV ONE (00:02)
--- NOTE | 2019-09-11 00:05 | RADIOLOGY REPORT (SQ) ---
CLINICAL HISTORY: Shortness of breath COMPARISON: 08/01/2019. TECHNIQUE: XR CHEST 2 VIEWS 09/10/2019 10:56 PM GEAR STRAIGHTENER FINDINGS: The heart is normal in size. Sternotomy was performed. There is mild left basilar airspace disease. There is no pleural effusion. There is no pneumothorax. There are no acute osseous findings. IMPRESSION: Possible left basilar pneumonia.
[2019-09-11 00:10] LABS: ARTERIAL BLOOD FIO2 3L
[2019-09-11 00:11] LABS: ARTERIAL BLOOD PCO2 82.4 mmHg (35-45)
[2019-09-11] MEDS ORDERED: ASPIRIN 81 MG TABLET, CHEWABLE ONE (00:20)
--- NOTE | 2019-09-11 00:27 | ER Document Report ---
ED Respiratory Problem - General Chief Complaint: Breathing Difficulty Stated Complaint: DIFFICULTY BREATHING Time Seen by Provider: 09/10/19 22:54 Primary Care Provider: BAUDILIO BAINS MD [Primary Care Provider] - Follow up as needed Information source: Patient Notes: 59-year-old man presents to the emergency department with a complaint of increase shortness of breath and dyspnea. His significant other noted that his oxygen saturation was low in the 60-70 range, he was placed on O2 and then came to the emergency department for further evaluation and treatment. The patient denies chest pain, has had increased work to brief. Did a nebulizer treatment prior to coming to the emergency department. He smokes approximately 1 pack of cigarettes per day. The patient has had a cough which he describes as white to yellowish sputum, denies fever and also continues to deny chest pain. Past medical history of COPD, coronary artery bypass surgery and myocardial infarct with CAD. TRAVEL OUTSIDE OF THE [place] IN LAST 30 DAYS: No - Related Data Allergies/Adverse Reactions: codeine [Codeine] Allergy (Verified 05/30/19 19:13) latex [Latex] Allergy (Verified 05/30/19 19:13) Sulfa (Sulfonamide Antibiotics) Allergy (Verified 09/10/19 23:31) adhesive tape [Adhesive Tape] Adverse Reaction (Intermediate, Verified 05/30/19 19:13) Urticaria Home Medications: isosorbide, dicyclomine, aspirin, gabapentin, anoro ellipta, lisinopril, risperidone, omperazole, atorvastatin, lorazepam, escitalopram, flonase, ranolazine, metoprolol, multivitamin Past Medical History - Social History Smoking Status: Current Every Day Smoker Family History: CAD, DM, Hypertension, Malignancy Patient has suicidal ideation: No Patient has homicidal ideation: No - Past Medical History Cardiac Medical History: Reports: Hx Coronary Artery Disease, Hx Heart Attack, Hx Hypercholesterolemia, Hx Hypertension Pulmonary Medical History: Reports: Hx Bronchitis, Hx COPD, Hx Respiratory Failure Denies: Hx Asthma, Hx Pneumonia, Hx Intubation, Hx Tuberculosis Neurological Medical History: Denies: Hx Cerebrovascular Accident, Hx Seizures Endocrine Medical History: Denies: Hx Diabetes Mellitus Type 1, Hx Diabetes Mellitus Type 2, Hx Hyperthyroidism, Hx Hypothyroidism Renal/ Medical History: Reports: Hx Benign Prostatic Hyperplasia. Denies: Hx Peritoneal Dialysis GI Medical History: Reports: Hx Gastroesophageal Reflux Disease. Denies: Hx Cirrhosis, Hx Crohn's Disease, Hx Hepatitis, Hx Hiatal Hernia, Hx Ulcerative Colitis Musculoskeletal Medical History: Reports Hx Arthritis, Denies Hx Fibromyalgia, Denies Hx Gout Skin Medical History: Denies Hx Eczema, Denies Hx Psoriasis Psychiatric Medical History: Reports: Hx Bipolar Disorder, Hx Depression Traumatic Medical History: Reports: Hx Fractures - R wrist, nose Infectious Medical History: Denies: Hx Hepatitis, Hx HIV Past Surgical History: Reports: Hx Cardiac Catheterization, Hx Cardiac Surgery - cabg, Hx Coronary Artery Bypass Graft - 2007, Hx Orthopedic Surgery - Right wrist fracture treated with internal fixation using hardware. Denies: Hx Pacemaker - Immunizations Hx Diphtheria, Pertussis, Tetanus Vaccination: Yes Hx Pneumococcal Vaccination: 09/11/10 Review of Systems - Review of Systems Notes: Constitutional: Negative for fever. HENT: Negative for sore throat. Eyes: Negative for visual changes. Cardiovascular: Negative for chest pain. Respiratory: + Shortness of breath, + cough. Gastrointestinal: Negative for abdominal pain, vomiting or diarrhea. Genitourinary: Negative for dysuria. Musculoskeletal: Negative for back pain. Skin: Negative for rash. Neurological: Negative for headaches, weakness or numbness. 10 point ROS negative except as marked above and in HPI. Physical Exam - Vital signs Vitals: Temp Resp BP Pulse Ox 97.9 F 21 H 130/72 H 89 L 09/10/19 22:49 09/10/19 22:49 09/10/19 22:49 09/10/19 22:49 - Notes Notes: PHYSICAL EXAMINATION: Physical Exam: General: Chronically ill-appearing 59-year-old man in marked respiratory distress HEENT: NC/AT, pupils equal round and reactive to light, MM moist,nares clear, Neck: supple, no adenopathy, no masses + JVD. Lungs: Poor air movement, mild wheezing, tripoding with accessory muscle respiration use. CVS: Tachycardic, rate and rhythm no murmur gallop or rub Abdomen: Soft active nontender, no masses, no hepatosplenomegaly Ext: No edema clubbing or cyanosis. Neuro: Alert and responsive, moving all 4 extremities on command, cranial nerves intact. Skin: Intact no open lesions, no rash Course - Re-evaluation Re-evalutation: 09/11/19 00:53 Patient continued to have increased respiratory difficulties, chest x-ray suggests a basilar infiltrate on the left sided pneumonia, blood cultures are drawn and the patient is given Rocephin and Zithromax IV. Cardiac connection at [facility] was called and notes that the patient has obstructed grafts which are not amenable to further interventions at this time. Given his elevated troponin and pneumonia, it is felt that transfer to the hospitalist service might be a better option. Dr. Dhillon cardiac fellow states that they will follow the patient while he is at their facility. I discussed these findings and disposition with the patient and his family and they are in agreement with the transfer. 09/11/19 02:09 After discussion with the hospitalist Dr. Jiménez, the decision was made that the patient should be admitted to the cardiology service. Patient was accepted at [facility]. Dr. Quinteros is excepting for Dr. Miller. - Vital Signs Vital signs: Temp Pulse Resp BP Pulse Ox 97.9 F 20 148/88 H 95 09/10/19 22:49 09/11/19 00:25 09/11/19 00:04 09/11/19 00:25 - Laboratory Result Diagrams: 09/10/19 22:54 09/10/19 22:54 Laboratory results interpreted by me: 09/10/19 09/10/19 09/10/19 22:54 22:54 22:54 WBC 20.4 H Seg Neuts % (Manual) 83 H Lymphocytes % (Manual) 5 L Abs Neuts (Manual) 16.9 H Abs Monocytes (Manual) 2.4 H Carbonic Acid ABG pH ABG pCO2 ABG pO2 ABG HCO3 ABG Total CO2 ABG O2 Saturation Sodium 124.2 L Chloride 81 L Carbon Dioxide 35 H Glucose 138 H Creatine Kinase 216 H CK-MB (CK-2) 11.70 H NT-Pro-B Natriuret Pep 7250 H 09/10/19 23:26 WBC Seg Neuts % (Manual) Lymphocytes % (Manual) Abs Neuts (Manual) Abs Monocytes (Manual) Carbonic Acid 2.48 H ABG pH 7.24 L ABG pCO2 82.4 H* ABG pO2 57.9 L ABG HCO3 34.3 H ABG Total CO2 36.8 H ABG O2 Saturation 83.7 L Sodium Chloride Carbon Dioxide Glucose Creatine Kinase CK-MB (CK-2) NT-Pro-B Natriuret Pep I have reviewed laboratory data and used this information for the treatment decisions regarding the patient. 09/11/19 00:58 - Diagnostic Test Radiology reviewed: Image reviewed, Reports reviewed - Chest x-ray: Left basilar infiltrate likely pneumonia. - EKG Interpretation by Ri Rate: Tachycardia - Rate 145, right axis deviation, Q waves in II,iii, and F, poor R wave progression and borderline prolonged QT interval. Critical Care Note - Critical Care Note Total time excluding time spent on procedures (mins): 60 - Critical care time spent obtaining history from patient or surrogate, discussions with consultants, development of treatment plan with patient or surrogate, evaluation of patient's response to treatment, examination of patient, ordering and performing treatments and interventions, ordering and review of laboratory studies, re- evaluation of patient's condition, ordering and review of radiographic studies and review of old charts Discharge - Discharge Clinical Impression: COPD exacerbation, Elevated troponin, Hyponatremia, Acute respiratory failure with hypoxia and hypercapnia Pneumonia Qualifiers: Aspiration pneumonia type: unspecified Laterality: left Lung location: lower lobe of lung Condition: Critical Disposition: [facility] Referrals: BAUDILIO BAINS MD [Primary Care Provider] - Follow up as needed
[2019-09-11] MEDS ORDERED: AZITHROMYCIN INJ 500 MG VIAL IV ONE (00:49)
[2019-09-11] MEDS ORDERED: CEFTRIAXONE 1 GM/D5W RTU 1 GM/50 ML RTUPB IV SCH (01:00)
[2019-09-11 01:37] LABS: APPEARANCE,URINE CLEAR; BILIRUBIN,URINE NEGATIVE (NEGATIVE); COLOR,URINE YELLOW; GLUCOSE, URINE NEGATIVE (NEGATIVE); KETONES,URINE NEGATIVE (NEGATIVE); LEUKOCYTE ESTERASE,URINE NEGATIVE (NEGATIVE); NITRITE,URINE NEGATIVE (NEGATIVE); PROTEIN,URINE NEGATIVE (NEGATIVE); URINE SPECIFIC GRAVITY 1.008; UROBILINOGEN,URINE NEGATIVE mg/dL (<2.0)
[2019-09-11 02:12] LABS: ARTERIAL BLOOD BASE EXCESS 4.8 mmol/L; ARTERIAL BLOOD H2CO3 2.47 mmol/L (1.05-1.35); ARTERIAL BLOOD O2 SATURATION 90.5 % (94-98); ARTERIAL BLOOD PH 7.25 (7.35-7.45); ARTERIAL BLOOD PO2 70.3 mmHg (80-100); ARTERIAL BLOOD TOTAL CO2 37.5 mmol/L (23-27)
[2019-09-11 02:13] LABS: ARTERIAL BLOOD FIO2 35%
[2019-09-11 02:17] LABS: ARTERIAL BLOOD PCO2 81.9 mmHg (35-45)
[2019-09-11 02:46] VITALS: BP 116/83
--- NOTE | 2019-09-11 07:28 | EKG REPORT ---
SEVERITY:- ABNORMAL ECG - SINUS TACHYCARDIA PROBABLE LEFT ATRIAL ABNORMALITY RIGHT AXIS DEVIATION = LPFB INFERIOR INFARCT, AGE INDETERMINATE CONSIDER ANTERIOR INFARCT BORDERLINE PROLONGED QT INTERVAL : Confirmed by: Jeremy Curtis MD 11-Sep-2019 07:28:07
== END 2019-09-11 02:46 | disposition short-term general hospital (02) ==
LOC: ER 22:39
DX: J18.1 Lobar pneumonia, unspecified organism (principal); J96.02 Acute respiratory failure with hypercapnia; J96.01 Acute respiratory failure with hypoxia; E87.1 Hypo-osmolality and hyponatremia; R79.89 Other specified abnormal findings of blood chemistry; J44.1 Chronic obstructive pulmonary disease with (acute) exacerbation; Z88.6 Allergy status to analgesic agent; Z91.040 Latex allergy status; Z88.2 Allergy status to sulfonamides; Z95.1 Presence of aortocoronary bypass graft; I25.2 Old myocardial infarction
CPT/HCPCS: 93005; 99291; 96375; 96365; 96367; 36415; 87040; 82553; 82803; 82550; 83605; 85025; 80053; 81001; 84484; 83880; 71046; 93010; 94660; A9270 ×3; J1940; J2930; J0456; J0696; J7620

== ENCOUNTER → 2020-04-06 | Emergency (ER) | payer MEDICARE ==
[~2020-04-06] MED LIST: ALBUTEROL SULFATE 0.083% NEB 2.5 MG/3 ML AMPUL NEB ONE; ASPIRIN 81 MG TABLET, CHEWABLE PO ONE; CALCIUM GLUCONATE 1000 MG/10 ML INJ IV ONE; CEFEPIME 2 GM/D5W RTU 2 GM/50 ML RTUPB IV ONE; DEXTROSE 50%-WATER 25 GM/50 ML DISP.SYRIN IV ONE; HEPARIN SOD (PORCINE) 1,000 UNIT/ML 10 ML VIAL IV PRN; HEPARIN SODIUM,PORCINE/D5W 25,000 UNIT/250 ML RTUINJ IV PRN; INSULIN REG, HUMAN 100 UNIT/ML 3 ML VIAL (PYX) IV ONE; LORAZEPAM INJ 2 MG/1 ML VIAL IV ONE; NORMAL SALINE 500 ML IV ONE; RINGERS SOLUTION,LACTATED 1,000 ML IV ONE; SODIUM BICARBONATE 8.4% INJ 50 MEQ/50 ML DISP.SYRIN IV ONE; SODIUM CHLORIDE 3% 500 ML IV PRN; SODIUM CHLORIDE 3% 500 ML IV SCH; VANCOMYCIN HCL INJ 1000 MG VIAL IV ONE
[2020-04-06 06:57] LABS: HEMATOCRIT 39.8 % (37.9-51.0); HEMOGLOBIN 13.6 g/dL (13.5-17.0); MEAN CORPUSCULAR HEMOGLOBIN 30.5 pg (27.0-33.4); MEAN CORPUSCULAR VOLUME 90 fl (80-97); PLATELET COUNT 439 10^3/uL (150-450); RED BLOOD COUNT 4.45 10^6/uL (4.35-5.55); RED CELL DISTRIBUTION WIDTH 14.4 % (11.5-14.0); WHITE BLOOD COUNT 20.7 10^3/uL (4.0-10.5)
[2020-04-06 07:00] LABS: INTERNATIONAL RATION (INR) 0.88; PROTHROMBIN TIME 12.2 SEC (11.4-15.4)
[2020-04-06 07:01] LABS: PARTIAL THROMBOPLASTIN TIME 41.1 SEC (23.5-35.8)
[2020-04-06] MEDS: MAGNESIUM SULFATE/D5W 1 GM/100 ML RTUPB IV SCH ×2 (07:01→07:30)
[2020-04-06 07:03] LABS: D-DIMER 0.88 ug/mL (0.00-0.50)
[2020-04-06 07:16] LABS: ALBUMIN 3.5 g/dL (3.5-5.0); ALKALINE PHOSPHATASE 102 U/L (38-126); ANION GAP 5 (5-19); ASPARTATE AMINO TRANSFERASE 461 U/L (17-59); BILIRUBIN,TOTAL 0.6 mg/dL (0.2-1.3); BLOOD UREA NITROGEN 10 mg/dL (7-20); CALCIUM 9.4 mg/dL (8.4-10.2); CARBON DIOXIDE 34 mmol/L (22-30); CHLORIDE 75 mmol/L (98-107); GLUCOSE 110 mg/dL (75-110); TOTAL PROTEIN 6.6 g/dL (6.3-8.2)
[2020-04-06 07:26] LABS: VENOUS BLOOD BASE EXCESS 7.5 mmol/L; VENOUS BLOOD HCO3 38.2 mmol/L (20-32); VENOUS BLOOD PH 7.26 (7.30-7.42)
[2020-04-06 07:27] LABS: ACETAMINOPHEN < 10 ug/mL (10-30); ALCOHOL < 10 mg/dL (NONE DETECTED)
[2020-04-06 07:28] LABS: ABSOLUTE LYMPHOCYTES# (MANUAL) 0.6 10^3/uL (0.5-4.7); ABSOLUTE MONOCYTES # (MANUAL) 2.1 10^3/uL (0.1-1.4); ANISOCYTOSIS SLIGHT; BASOPHILS % (MANUAL) 0 % (0-2); EOSINOPHILS % (MANUAL) 0 % (0-6); LYMPHOCYTES % (MANUAL) 3 % (13-45); MONOCYTES % (MANUAL) 10 % (3-13); OVALOCYTES SLIGHT; PLATELET COMMENT ADEQUATE; SEGMENTED NEUTROPHILS % (MAN) 87 % (42-78); TOTAL CELLS COUNTED 100; VENOUS BLOOD PCO2 87.6 mmHg (35-63)
[2020-04-06 07:29] LABS: POTASSIUM 6.3 mmol/L (3.6-5.0)
[2020-04-06 07:30] LABS: TROPONIN I 0.224 ng/mL
[2020-04-06 07:37] LABS: ARTERIAL BLOOD BASE EXCESS 9.8 mmol/L; ARTERIAL BLOOD HCO3 40.6 mmol/L (20-24); ARTERIAL BLOOD O2 SATURATION 93.8 % (94-98); ARTERIAL BLOOD PH 7.26 (7.35-7.45); ARTERIAL BLOOD PO2 82.7 mmHg (80-100); ARTERIAL BLOOD TOTAL CO2 43.5 mmol/L (23-27)
[2020-04-06 07:37] LABS: CREATINE KINASE 19613 U/L (55-170)
[2020-04-06 07:38] LABS: ARTERIAL BLOOD FIO2 40%
--- NOTE | 2020-04-06 07:42 | RADIOLOGY REPORT (SQ) ---
EXAM DESCRIPTION: XR CHEST 1 VIEW COMPLETED DATE/TME: 04/06/2020 06:42 CLINICAL HISTORY: 60 years, Male, sobr COMPARISON: 09/10/2019 NUMBER OF VIEWS: One TECHNIQUE: AP view the chest LIMITATIONS: None. FINDINGS: The lungs are well-inflated and clear. The heart is normal in size. There is no pneumothorax or pleural effusion. Median sternotomy wires are noted. No intraperitoneal free air. IMPRESSION: No acute cardiopulmonary abnormality. copyright 2010 [employer] All Rights Reserved
[2020-04-06 08:10] LABS: APPEARANCE,URINE SLIGHTLY-CLOUDY; BILIRUBIN,URINE NEGATIVE (NEGATIVE); COLOR,URINE YELLOW; GLUCOSE, URINE NEGATIVE (NEGATIVE); KETONES,URINE NEGATIVE (NEGATIVE); LEUKOCYTE ESTERASE,URINE NEGATIVE (NEGATIVE); NITRITE,URINE NEGATIVE (NEGATIVE); PROTEIN,URINE 100 mg/dL (NEGATIVE); URINE SPECIFIC GRAVITY 1.016
[2020-04-06 08:23] LABS: URINE AMPHETAMINES SCREEN NEGATIVE; URINE BARBITURATES SCREEN NEGATIVE; URINE BENZODIAZEPINES SCREEN NEGATIVE; URINE COCAINE SCREEN NEGATIVE; URINE MARIJUANA (THC) SCREEN UNCONFIRMED POSITIVE; URINE METHADONE SCREEN NEGATIVE; URINE PHENCYCLIDINE SCREEN NEGATIVE
--- NOTE | 2020-04-06 08:32 | EKG REPORT ---
SEVERITY:- ABNORMAL ECG - SINUS RHYTHM PROBABLE LEFT ATRIAL ABNORMALITY NONSPECIFIC INTRAVENTRICULAR CONDUCTION DELAY MINIMAL ST DEPRESSION, INFERIOR LEADS : Confirmed by: Tyrone Alcantar MD 06-Apr-2020 08:31:47
[2020-04-06 11:37] LABS: VENOUS BLOOD BASE EXCESS 7.1 mmol/L; VENOUS BLOOD HCO3 38.8 mmol/L (20-32); VENOUS BLOOD PH 7.21 (7.30-7.42)
[2020-04-06 11:40] LABS: VENOUS BLOOD PCO2 98.3 mmHg (35-63)
[2020-04-06 11:53] LABS: BLOOD UREA NITROGEN 10 mg/dL (7-20); CALCIUM 8.7 mg/dL (8.4-10.2); CARBON DIOXIDE 38 mmol/L (22-30); CHLORIDE 77 mmol/L (98-107); GLUCOSE 144 mg/dL (75-110)
[2020-04-06 12:00] LABS: ANION GAP 3 (5-19); POTASSIUM 4.8 mmol/L (3.6-5.0)
--- NOTE | 2020-04-06 12:21 | RADIOLOGY REPORT (SQ) ---
EXAM DESCRIPTION: CT HEAD WITHOUT IMAGES COMPLETED DATE/TIME: 04/06/2020 12:11 pm REASON FOR STUDY: altered mental status COMPARISON: 01/22/2019 TECHNIQUE: Axial images acquired through the brain without intravenous contrast. Images reviewed wit h bone, brain and subdural windows. Images stored on PACS. All CT scanners at this facility use dose modulation, iterative reconstruction, and/or weight based d osing when appropriate to reduce radiation dose to as low as reasonably achievable (ALARA). [facility]: Dose Right [facility]: CareDose [facility]: Dose Right [facility]: Teradose 4D [facility]: [employer] RADIATION DOSE: CT Rad equipment meets quality standard of care and radiation dose reduction techniq ues were employed. CTDIvol: 53.2 mGy. DLP: 1070 mGy-cm.. LIMITATIONS: Oblique positioning and mild motion. FINDINGS: VENTRICLES: Normal size and contour. CEREBRUM: No hemorrhage. No midline shift. Age appropriate white matter. No evidence for acute infar ction. CEREBELLUM: No masses. No hemorrhage. No alteration of density. No evidence for acute infarction. EXTRA-AXIAL SPACES: No fluid collections. ORBITS AND GLOBE: No intra- or extraconal masses. Normal contour of globe without masses. CALVARIUM: No fracture. PARANASAL SINUSES: No fluid or mucosal thickening. SOFT TISSUES: No mass or hematoma. OTHER: No other significant finding. IMPRESSION: NO ACUTE INTRACRANIAL FINDINGS. EVIDENCE OF ACUTE STROKE: NO. TECHNICAL DOCUMENTATION: JOB ID: [id number] Quality ID # [id number]: Final reports with documentation of one or more dose reduction techniques (e.g., Au tomated exposure control, adjustment of the mA and/or kV according to patient size, use of iterative reconstruction technique) 2010 [employer]- All Rights Reserved Reading location - IP/workstation name: [email or web address]
--- NOTE | 2020-04-06 12:29 | RADIOLOGY REPORT (SQ) ---
EXAM DESCRIPTION: CTA CHEST IMAGES COMPLETED DATE/TIME: 04/06/2020 12:11 pm REASON FOR STUDY: sobr/elevated d dimer COMPARISON: 06/05/2019 and 04/06/2020 TECHNIQUE: CT scan of the chest performed using helical scanning technique with dynamic intravenous contrast injection. Images reviewed with lung, soft tissue and bone windows. Reconstructed coronal and sagittal MPR images reviewed. Additional 3 dimensional post-processing performed to develop Maximal Intensity Projection images (UT P). All images stored on PACS. All CT scanners at this facility use dose modulation, iterative reconstruction, and/or weight based d osing when appropriate to reduce radiation dose to as low as reasonably achievable (ALARA). [facility]: Dose Right [facility]: CareDose [facility]: Dose Right [facility]: Teradose 4D [facility]: [employer] CONTRAST TYPE AND DOSE: contrast/concentration: Isovue 350.00 mmol/ml; Total Contrast Delivered: 52. 0 ml; Total Saline Delivered: 76.0 ml Contrast bolus adequate for pulmonary arteries and aorta. RENAL FUNCTION: GFR > 60. RADIATION DOSE: CT Rad equipment meets quality standard of care and radiation dose reduction techniq ues were employed. CTDIvol: 13.2 - 29.8 mGy. DLP: 1261 mGy-cm. . LIMITATIONS: Patient motion artifact FINDINGS: LUNGS AND PLEURA: Evaluation of the lungs is limited by patient motion artifact. Re- demo nstration of paraseptal emphysematous changes involving predominantly the apical lungs. Few residual versus recurrent tree-in-bud opacities are demonstrated. No focal consolidation. No pleural effusi on. No pneumothorax. AORTA AND GREAT VESSELS: No aneurysm. Contrast bolus not optimized for the aorta. HEART: No pericardial effusion. Moderate to marked coronary artery calcifications. PULMONARY ARTERIES: No emboli visualized in the main pulmonary arteries or the segmental branches. HILAR AND MEDIASTINAL STRUCTURES: No identified masses or abnormal nodes. HARDWARE: None in the chest. UPPER ABDOMEN: No significant findings. Limited exam. THYROID AND OTHER SOFT TISSUES: Enlarged, heterogeneous appearing thyroid gland. No focal mass. No supraclavicular or axillary lymphadenopathy. BONES: No acute or significant finding. 3D MIPS: Confirm above findings. OTHER: No other significant finding. IMPRESSION: No evidence of central or segmental pulmonary embolus. Limited evaluation of the lungs demonstrates few residual versus recurrent tree-in-bud opacities. No focal consolidation. COMMENT: Quality ID # [id number]: Final reports with documentation of one or more dose reduction techniques (e.g., Automated exposure control, adjustment of the mA and/or kV according to patient size, use of iterative reconstruction technique) TECHNICAL DOCUMENTATION: JOB ID: [id number] 2010 [employer]- All Rights Reserved Reading location - IP/workstation name: [email or web address]
[2020-04-06 13:46] LABS: ARTERIAL BLOOD BASE EXCESS 5.5 mmol/L; ARTERIAL BLOOD H2CO3 2.04 mmol/L (1.05-1.35); ARTERIAL BLOOD HCO3 33.8 mmol/L (20-24); ARTERIAL BLOOD O2 SATURATION 88.8 % (94-98); ARTERIAL BLOOD PCO2 67.8 mmHg (35-45); ARTERIAL BLOOD PH 7.32 (7.35-7.45); ARTERIAL BLOOD PO2 61.6 mmHg (80-100); ARTERIAL BLOOD TOTAL CO2 35.9 mmol/L (23-27)
[2020-04-06 13:49] LABS: ARTERIAL BLOOD FIO2 35%
--- NOTE | 2020-04-06 14:11 | PDOC CRITICAL CARE PROG REPORT ---
General Date:: 04/06/20 Events in the past 12 to 24 Hours:: This 60-year-old male seen in consultation at the request of Dr. Garcia for recommendations on further evaluation and management of acute on chronic hypoxemic and hypercapnic respiratory failure. The patient was reportedly brought to the [facility] emergency department by EMS with complaints of shortness of breath. EMS provided supplemental oxygen. In the emergency department, the patient was placed on BiPAP 16/8. FiO2 has been titrated down to 35%. Initial ABG: pH 7.26/PCO2 93/PO2 82. At the time of clinical interview, the patient is awake. He does protect his airway. He is confused. He is minimally participatory in clinical interview. Nonetheless, he denies chest pain. He does endorse shortness of breath. He denies fever. He denies chills. He denies cough or sputum production. 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 Initial ER evaluation did include twelve-lead EKG, troponin and proBNP all of which were abnormal. PAST MEDICAL HISTORY: Coronary artery disease/myocardial infarction, coronary artery bypass graft (2007) Hyperlipidemia Hypertension COPD Gastroesophageal reflux disorder Arthritis Bipolar disorder Depression Tobacco abuse Right wrist fracture, treated with internal fixation SOCIAL HISTORY: Tobacco: Current smoker. Alcohol: Denies Illicit drugs: Marijuana FAMILY HISTORY: Coronary artery disease Diabetes Hypertension Malignancy ALLERGIES: The patient reports adverse reactions to codeine, latex, sulfa, adhesive - Medications: Medications reviewed and adjusted accordingly: Yes Physical Exam Vital Signs: Temp Pulse Resp BP Pulse Ox 19 110/80 99 04/06/20 09:01 04/06/20 07:02 04/06/20 09:01 Intake & Output 04/05/20 04/06/20 04/07/20 06:59 06:59 06:59 Intake Total 700 Balance 700 Weight 66.6 kg Weight/Height Weight 66.6 kg Height 1.68 m General appearance: PRESENT: no acute distress, disheveled, well-developed, well-nourished, other - On BiPAP Head exam: PRESENT: atraumatic, normocephalic Eye exam: PRESENT: conjunctiva pink, EOMI, PERRLA. ABSENT: scleral icterus Mouth exam: PRESENT: moist, tongue midline Neck exam: PRESENT: carotid bruit Respiratory exam: PRESENT: crackles, decreased breath sounds. ABSENT: rales, rhonchi, wheezes Cardiovascular exam: PRESENT: RRR. ABSENT: diastolic murmur, rubs, systolic murmur Pulses: PRESENT: normal dorsalis pedis pul GI/Abdominal exam: PRESENT: normal bowel sounds, soft. ABSENT: distended, guarding, mass, organolmegaly, rebound, tenderness Extremities exam: PRESENT: full ROM, other - Ischemic necrosis involving virtually all of the digits (both hands, both feet). ABSENT: calf tenderness, clubbing, pedal edema Neurological exam: PRESENT: awake, oriented to person, oriented to place, oriented to situation, reflexes normal, CN II-XII grossly intact. ABSENT: motor sensory deficit Skin exam: PRESENT: dry, intact, warm. ABSENT: cyanosis, rash Laboratory/Radiographs Laboratory Results: 04/06/20 06:33 04/06/20 11:25 04/06/20 04/06/20 04/06/20 06:33 06:33 06:33 WBC 20.7 H RBC 4.45 Hgb 13.6 Hct 39.8 MCV 90 MCH 30.5 MCHC 34.0 RDW 14.4 H Plt Count 439 Seg Neutrophils % Not Reportable Carbonic Acid HCO3/H2CO3 Ratio ABG pH ABG pCO2 ABG pO2 ABG HCO3 ABG O2 Saturation ABG Base Excess VBG pH VBG pCO2 VBG HCO3 VBG Base Excess FiO2 Sodium 113.9 L* Potassium 6.3 H* Chloride 75 L Carbon Dioxide 34 H Anion Gap 5 BUN 10 Creatinine 0.44 L Est GFR ( Amer) > 60 Glucose 110 Lactic Acid 1.1 Calcium 9.4 Total Bilirubin 0.6 AST 461 H Alkaline Phosphatase 102 Total Protein 6.6 Albumin 3.5 Lipase 88.6 Urine Color Urine Appearance Urine pH Ur Specific [place] Urine Protein Urine Glucose (UA) Urine Ketones Urine Blood Urine Nitrite Ur Leukocyte Esterase Urine WBC (Auto) Urine RBC (Auto) 04/06/20 04/06/20 04/06/20 06:33 07:12 07:21 WBC RBC Hgb Hct MCV MCH MCHC RDW Plt Count Seg Neutrophils % Carbonic Acid 2.80 H HCO3/H2CO3 Ratio 14:1 ABG pH 7.26 L ABG pCO2 93.0 H* ABG pO2 82.7 ABG HCO3 40.6 H ABG O2 Saturation 93.8 L ABG Base Excess 9.8 VBG pH 7.26 L VBG pCO2 87.6 H* VBG HCO3 38.2 H VBG Base Excess 7.5 FiO2 40% Sodium Potassium Chloride Carbon Dioxide Anion Gap BUN Creatinine Est GFR ( Amer) Glucose Lactic Acid Calcium Total Bilirubin AST Alkaline Phosphatase Total Protein Albumin Lipase Urine Color YELLOW Urine Appearance SLIGHTLY-CLOUDY Urine pH 6.0 Ur Specific [place] 1.016 Urine Protein 100 H Urine Glucose (UA) NEGATIVE Urine Ketones NEGATIVE Urine Blood LARGE H Urine Nitrite NEGATIVE Ur Leukocyte Esterase NEGATIVE Urine WBC (Auto) 4 Urine RBC (Auto) 5 04/06/20 04/06/20 04/06/20 11:25 11:25 11:25 WBC RBC Hgb Hct MCV MCH MCHC RDW Plt Count Seg Neutrophils % Carbonic Acid HCO3/H2CO3 Ratio ABG pH ABG pCO2 ABG pO2 ABG HCO3 ABG O2 Saturation ABG Base Excess VBG pH 7.21 L VBG pCO2 98.3 H* VBG HCO3 38.8 H VBG Base Excess 7.1 FiO2 Sodium 118.3 L* Potassium 4.8 D Chloride 77 L Carbon Dioxide 38 H Anion Gap 3 L BUN 10 Creatinine 0.59 Est GFR ( Amer) > 60 Glucose 144 H Lactic Acid 1.3 Calcium 8.7 Total Bilirubin AST Alkaline Phosphatase Total Protein Albumin Lipase Urine Color Urine Appearance Urine pH Ur Specific [place] Urine Protein Urine Glucose (UA) Urine Ketones Urine Blood Urine Nitrite Ur Leukocyte Esterase Urine WBC (Auto) Urine RBC (Auto) 04/06/20 13:30 WBC RBC Hgb Hct MCV MCH MCHC RDW Plt Count Seg Neutrophils % Carbonic Acid 2.04 H HCO3/H2CO3 Ratio 16:1 ABG pH 7.32 L ABG pCO2 67.8 H ABG pO2 61.6 L ABG HCO3 33.8 H ABG O2 Saturation 88.8 L ABG Base Excess 5.5 VBG pH VBG pCO2 VBG HCO3 VBG Base Excess FiO2 35% Sodium Potassium Chloride Carbon Dioxide Anion Gap BUN Creatinine Est GFR ( Amer) Glucose Lactic Acid Calcium Total Bilirubin AST Alkaline Phosphatase Total Protein Albumin Lipase Urine Color Urine Appearance Urine pH Ur Specific [place] Urine Protein Urine Glucose (UA) Urine Ketones Urine Blood Urine Nitrite Ur Leukocyte Esterase Urine WBC (Auto) Urine RBC (Auto) 04/06/20 04/06/20 04/06/20 06:33 06:33 11:25 Creatine Kinase 57943 H Troponin I 0.224 0.360 NT-Pro-B Natriuret Pep 08249 H Impressions: Chest X-Ray 04/06/20 06:42 IMPRESSION: No acute cardiopulmonary abnormality. copyright 2010 [employer]- All Rights Reserved Chest/Abdomen CTA 04/06/20 07:27 IMPRESSION: No evidence of central or segmental pulmonary embolus. Limited evaluation of the lungs demonstrates few residual versus recurrent tree-in-bud opacities. No focal consolidation. Head CT 04/06/20 08:42 IMPRESSION: NO ACUTE INTRACRANIAL FINDINGS. EVIDENCE OF ACUTE STROKE: NO. All labs, radiographs, diagnostic studies and EKGs were personally reviewed: Yes In addition, reports of radiographic and diagnostic studies were read: Yes Assessment and Plan Plan Summary: I have discussed this case with Dr. Garcia. At this time, the patient does not, in fact, need ICU admission at this time. On the other hand, the patient appears to have a complicated cardiac history and is currently struggling with decompensated heart failure. EKG changes and elevated troponin raise concern for the possibility of an acute myocardial infarction. Also, the ischemic changes found on the digits raise concern for significant peripheral vascular disease. Alternatively, this can be seen with acute COVID-19, albeit the ischemic changes are quite severe and advanced compared to that seen with COVID-19. This patient should be transferred to a hospital that has an interventional cardiology service and has vascular surgery. Critical Time Critical Time (minutes): 45 Level of Care: ICU -: 1. The care of a critical patient is a dynamic process. This note is a in store marketing representative synopsis but static in nature. The timeframe for treatments given in order is not necessarily the actual time these treatments may have been done. 2. This patient requires critical care secondary to ongoing requirements for therapy not offered or safe outside the critical care environment. Transfer to a lower level of care will result in altered life or limb morbidity and mortality. 3. Multidisciplinary rounds completed. 4. ABCDE bundle addressed.
--- NOTE | 2020-04-06 17:17 | ER Document Report ---
Entered by SUDEEP WELDON SCRIBE 04/06/20 0642 Acting as scribe for:TORRES CALABRESE MD ED Respiratory Problem - General Stated Complaint: COPD/EMPHYSEMA Time Seen by Provider: 04/06/20 06:39 Primary Care Provider: BAUDILIO BAINS MD [Primary Care Provider] - Follow up as needed Information source: Emergency Med Personnel, [facility] Records Cannot obtain history due to: Other - Respiratory distress Notes: This 60 year old male patient presents to the emergency department today with arrival by EMS for respiratory distress. EMS personnel are at bedside and providing the patient's medical history. EMS states they were called this morning due to the patient being short of breath. On arrival, patient was tachypneic and hypoxic, having an oxygen saturation in the 80's. EMS also reported diffuse inspiratory and expiratory wheezing. En route to the ED, EMS administered x3 nebulizer treatments and Solumedrol 125 mg. EMS also administered Magnesium, but the patient ripped out the IV before he could receive the treatment. Patient has a history of emphysema, COPD, CAD, CO, and CABG. TRAVEL OUTSIDE OF THE [place] IN LAST 30 DAYS: No - Related Data Allergies/Adverse Reactions: codeine [Codeine] Allergy (Verified 05/30/19 19:13) latex [Latex] Allergy (Verified 05/30/19 19:13) Sulfa (Sulfonamide Antibiotics) Allergy (Verified 09/10/19 23:31) adhesive tape [Adhesive Tape] Adverse Reaction (Intermediate, Verified 05/30/19 19:13) Urticaria Past Medical History - General Information source: Emergency Med Personnel, [facility] Records Cannot obtain history due to: Other - Respiratory distress - Social History Smoking Status: Unknown if Ever Smoked Family History: CAD, DM, Hypertension, Malignancy - Past Medical History Cardiac Medical History: Reports: Hx Coronary Artery Disease, Hx Heart Attack, Hx Hypercholesterolemia, Hx Hypertension Pulmonary Medical History: Reports: Hx Bronchitis, Hx COPD, Hx Respiratory Failure, Other - Emphysema Renal/ Medical History: Reports: Hx Benign Prostatic Hyperplasia GI Medical History: Reports: Hx Gastroesophageal Reflux Disease Musculoskeletal Medical History: Reports Hx Arthritis Psychiatric Medical History: Reports: Hx Bipolar Disorder, Hx Depression Traumatic Medical History: Reports: Hx Fractures - R wrist, nose Past Surgical History: Reports: Hx Cardiac Catheterization, Hx Cardiac Surgery - cabg, Hx Coronary Artery Bypass Graft - 2007, Hx Orthopedic Surgery - Right wr ist fracture treated with internal fixation using hardware - Immunizations Hx Diphtheria, Pertussis, Tetanus Vaccination: Yes Hx Pneumococcal Vaccination: 09/11/10 Review of Systems - Review of Systems -: Yes ROS unobtainable due to patient's medical condition Physical Exam - Vital signs Vitals: Resp BP Pulse Ox 22 H 126/86 H 100 04/06/20 06:33 04/06/20 06:33 04/06/20 06:33 - General Notes: Appears emaciated and in distress. Appearance is unkempt, with dirt covering bilateral LE. - HEENT Head: Normocephalic, Atraumatic Eyes: Normal Pupils: PERRL - Respiratory Notes: Respiratory distress. Shallow breathing. No wheezing. Diminished breath sounds in bases bilaterally. Hypoxic on arrival and placed on bi-pap. - Cardiovascular Rhythm: Regular Heart sounds: Normal auscultation, S1 appreciated, S2 appreciated Murmur: No - Abdominal Inspection: Other - Soft Distension: No distension Bowel sounds: Normal Tenderness: Nontender - Extremities Notes: Burnt skin on thumb and index fingers of bilateral upper extremities, R>L. Skin is denuded and black. Lower bilateral extremities are without edema. - Neurological Notes: Arousable. Somnolent. Too weak to reply to questions. - Skin Skin Temperature: Warm Skin Moisture: Dry Skin Color: Normal Course - Re-evaluation Re-evalutation: 04/06/20 13:[address] De La Cruz who will be in the emergency department to evaluate patient. 04/06/20 16:[address] De La Cruz who recommended the patient be transferred to another hospital due to his increase in troponin. 04/06/20 16:10 Patient presented in extreme shortness of breath and EMS was called to the scene patient sats were in the 88% range at the time of EMS arrival patient had diffuse wheezing inspiratory expiratory and patient was treated with 3 neb treatments IV Solu-Medrol and IV magnesium was begun. Patient pulled out his IV so therefore a magnesium never really was administered. On arrival here patient was somnolent and had a saturation in the low 90s on nonrebreather facemask patient was placed on BiPAP 06/04 with FiO2 of 50% and a rate of 12. Patient's oxygenation improved up to 100% however patient continued to be somnolent. [place] smuch as we did not know if patient has had a bleed or some kind of cardiac or neurological event patient was worked up for both. CT scan of head did not show any acute process because of an elevated level of the d-dimer a CT angiogram was done and again no evidence that there was any pulmonary emboli or infiltrate. On chest patient's blood pressure remains somewhat marginal around 85-9 95-100. Patient was given a bolus of fluids to maintain his blood pressure between 95 and 100 if possible. Patient also had elevated troponins on initial as well as an increase on repeat exam therefore our scuba instructor suggested that patient be transferred to another hospital patient's sodium on presentation was 113 and to avoid seizure activity this is a lower low level of sodium we elected to place patient on 3% normal saline and treated him with that for 250 mL over 2 hours. Repeat test shows that patient's hyponatremia had improved to 118. Patient was also treated for hyperkalemia and patient's potassium normalized to 4.8. 04/06/20 16:13 Discussed with patient's Ms. Delilah Turner .I requested to her knowledge of patient's advanced care document or intentions and patient is stated that patient stated he prefers not to be intubated but if it was going to save his life he would prefer to be intubated. But in addition there is not to be any CPR or or chest compressions but you could do a cardiac resuscitation with IV medications and defibrillation only. She reports that patient does not like being on a mass he prefers nasal cannula and he is at home his nasal cannula is is 2 L nasal O2 and his oxygen saturation remains anywhere between 83 and 88% which patient tolerates well at home according to his . With that said we D escalated on the BiPAP since patient did have set CO2 retention patient awakened has normal conversation not showing any signs of respiratory distress at this time alert oriented and able to answer questions as well. We also asked patient what is his normal blood pressure at home what is his baseline and he says anywhere between 85 and 95 systolic. With that said again it I chose not to bolus patient with additional IV fluids but keep him on a maintenance rate of IV normal saline at this time. Patient denies any chest pain any shortness of breath at this time patient is drinking a Sprite without having any signs of distress while eating and swallowing or drinking this beverage. Patient is moving all extremities and not having any focal neuro findings at this time. Currently we are waiting for a return call from the scuba instructor at [facility]. I will update them on patient's condition. 04/06/20 16:21 04/06/20 16:21 04/06/20 16:29 Discussed case with the transfer center and [facility] that patient's condition has improved and that he is weaned off of the BiPAP and is now on nasal cannula. At this time we are still pending a phone call back from [facility]. 04/06/20 17:[address] Drake at [facility] intensive intensive care unit and Dr. Drake based on the presentation and the progress of patient is made at this point in time did not feel that the ICU was the appropriate transfer setting for patient and therefore he has decided to share with the the transfer center that patient would be better served in the IMC unit [facility] and the hospitalist should be calling back shortly. - Vital Signs Vital signs: Temp Pulse Resp BP Pulse Ox 99.5 F 17 99/88 H 96 04/06/20 16:48 04/06/20 23:01 04/06/20 23:01 04/07/20 00:45 - Laboratory Result Diagrams: 04/06/20 06:33 04/06/20 11:25 Laboratory results interpreted by me: 04/06/20 04/06/20 04/06/20 06:33 06:33 06:33 WBC 20.7 H RDW 14.4 H Seg Neuts % (Manual) 87 H Lymphocytes % (Manual) 3 L Abs Neuts (Manual) 18.0 H Abs Monocytes (Manual) 2.1 H APTT 41.1 H D-Dimer 0.88 H Carbonic Acid ABG pH ABG pCO2 ABG pO2 ABG HCO3 ABG Total CO2 ABG O2 Saturation VBG pH VBG pCO2 VBG HCO3 Sodium 113.9 L* Potassium 6.3 H* Chloride 75 L Carbon Dioxide 34 H Anion Gap Creatinine 0.44 L Glucose POC Glucose AST 461 H ALT 81 H Creatine Kinase 32968 H NT-Pro-B Natriuret Pep Urine Protein Urine Blood Urine Urobilinogen Acetaminophen < 10 L 04/06/20 04/06/20 04/06/20 06:33 06:33 07:12 WBC RDW Seg Neuts % (Manual) Lymphocytes % (Manual) Abs Neuts (Manual) Abs Monocytes (Manual) APTT D-Dimer Carbonic Acid 2.80 H ABG pH 7.26 L ABG pCO2 93.0 H* ABG pO2 ABG HCO3 40.6 H ABG Total CO2 43.5 H ABG O2 Saturation 93.8 L VBG pH 7.26 L VBG pCO2 87.6 H* VBG HCO3 38.2 H Sodium Potassium Chloride Carbon Dioxide Anion Gap Creatinine Glucose POC Glucose AST ALT Creatine Kinase NT-Pro-B Natriuret Pep 75019 H Urine Protein Urine Blood Urine Urobilinogen Acetaminophen 04/06/20 04/06/20 04/06/20 07:21 09:01 09:50 WBC RDW Seg Neuts % (Manual) Lymphocytes % (Manual) Abs Neuts (Manual) Abs Monocytes (Manual) APTT D-Dimer Carbonic Acid ABG pH ABG pCO2 ABG pO2 ABG HCO3 ABG Total CO2 ABG O2 Saturation VBG pH VBG pCO2 VBG HCO3 Sodium Potassium Chloride Carbon Dioxide Anion Gap Creatinine Glucose POC Glucose 123 H 264 H AST ALT Creatine Kinase NT-Pro-B Natriuret Pep Urine Protein 100 H Urine Blood LARGE H Urine Urobilinogen 2.0 H Acetaminophen 04/06/20 04/06/20 04/06/20 11:25 11:25 13:30 WBC RDW Seg Neuts % (Manual) Lymphocytes % (Manual) Abs Neuts (Manual) Abs Monocytes (Manual) APTT D-Dimer Carbonic Acid 2.04 H ABG pH 7.32 L ABG pCO2 67.8 H ABG pO2 61.6 L ABG HCO3 33.8 H ABG Total CO2 35.9 H ABG O2 Saturation 88.8 L VBG pH 7.21 L VBG pCO2 98.3 H* VBG HCO3 38.8 H Sodium 118.3 L* Potassium Chloride 77 L Carbon Dioxide 38 H Anion Gap 3 L Creatinine Glucose 144 H POC Glucose AST ALT Creatine Kinase NT-Pro-B Natriuret Pep Urine Protein Urine Blood Urine Urobilinogen Acetaminophen - Diagnostic Test Radiology reviewed: Image reviewed, Reports reviewed Radiology results interpreted by me: 04/06/20 16:22 Chest x-ray did not show any infiltrate. CT angiogram head chest and abdomen shows no acute process no evidence of pulmon magen emboli and no infiltrate or any other acute process other than emphysema noted. CT scan of head did not disclose any acute stroke no acute process noted. - EKG Interpretation by Me Additional EKG results interpreted by me: 04/06/20 16:25 Twelve-lead EKG shows normal sinus rhythm rate of 93 left atrial abnormality noted, nonspecific intraventricular conduction delay. Minimal ST depressions in the inferior leads. Second EKG shows normal sinus rhythm rate of 86 occasional PVC. Again nonspecific specific intraventricular conduction delay., Probable inferior CO, old. - Transfer of Care Care transferred to following provider: Dr Rapp Critical Care Note - Critical Care Note Total time excluding time spent on procedures (mins): 95 - Management of patient's respiratory distress on arrival with change in patient's delivery of O2 to a BiPAP and IV fluid bolus challenge. Patient neurological status is was somnolent and unable to answer any questions. Patient was worked up to determine if there had been a stroke as well as a cardiac event. Patient had a evaluations of EKGs blood work and metabolic derangements. Patient had hyperk alemia requiring attention immediately with this potassium was 6.3. Also patient had high pole natremia requiring 3% hypertonic 8 normal saline solution infiltration to improve his sodium of 113. Patient has an elevated troponin that increased over time requiring us to begin patient on heparin therapy and aspirin therapy. Also improving patient's respiratory status by decelerating to nasal cannula nasal O2 at this time. Discussed with the scuba instructor at [facility] who recommended that patient be transferred to another facility because of the rising troponin. Also discussed with restaurant area director regarding patient's condition EKGs and troponin levels and all are in agreement that patient should be transferred to another hospital. And phone calls to discuss patient at the consulting [facility]. Also discussed with family member patient's condition to determine his status in terms of advance care. Discharge - Discharge Clinical Impression: Acute on chronic respiratory acidosis, Acute respiratory failure with hypoxia and hypercapnia, Advance care planning, COPD exacerbation, Elevated troponin Coronary artery disease involving cahuilla coronary artery of cahuilla heart Qualifiers: Associated angina: without angina Qualified Code(s): I25.10 - Atherosclerotic heart disease of cahu[place] coronary artery without angina pectoris Condition: Critical Disposition: [facility] Referrals: BAUDILIO BAINS MD [Primary Care Provider] - Follow up as needed I personally performed the services described in the documentation, reviewed and edited the documentation which was dictated to the scribe in my presence, and it accurately records my words and actions.
--- NOTE | 2020-04-06 17:53 | ER Document Report ---
Doctor's Note Notes: 04/06/20 17:51 I received patient in sign out from Dr Garcia. I discussed with Dr Sanchez and patient was accepted in transfer to medical service to [facility].
--- NOTE | 2020-04-06 20:14 | EKG REPORT ---
SEVERITY:- ABNORMAL ECG - SINUS RHYTHM VENTRICULAR PREMATURE COMPLEX NONSPECIFIC INTRAVENTRICULAR CONDUCTION DELAY : Confirmed by: Tyrone Alcantar MD 06-Apr-2020 20:14:14
[2020-04-07 00:03] VITALS: BP 99/88
--- NOTE | 2020-04-07 02:04 | ER Document Report ---
Doctor's Note Notes: 04/07/20 02:03 Transport has arrived for patient. I went to reassess him. He is alert and oriented, his complaint is that he is hungry. He is stable for transfer at this time.
== END ==
LOC: ER 06:31
DX: E87.2 Acidosis (principal); J96.01 Acute respiratory failure with hypoxia; J96.02 Acute respiratory failure with hypercapnia; J43.9 Emphysema, unspecified; R79.89 Other specified abnormal findings of blood chemistry; Z88.2 Allergy status to sulfonamides; Z88.8 Allergy status to other drugs, medicaments and biological substances; I25.10 Atherosclerotic heart disease of native coronary artery without angina pectoris; I25.2 Old myocardial infarction; I10 Essential (primary) hypertension; Z20.828 Contact with and (suspected) exposure to other viral communicable diseases
CPT/HCPCS: 93005; 96376; 99291; 99292; 51702; 96375; 96365; 36415; 87040; 87070; 87880; 82962; 80307 ×3; 82803 ×2; 82550; 83605; 83690; 85025; 85610; 85730; 80053; 81001; 84484; 85379; 83880; 71045; 70450; 71275; 93010; U0003; J1644 ×2; A9270 ×3; J0610; J3490 ×3; J2060; J3475; J7040; J7120; J3370; J0692; C9803; 87635; J1815

== ENCOUNTER 2020-07-08 10:57 | Inpatient (IN) | payer MEDICARE, OTHER ==
[2020-07-08 11:25] LABS: INTERNATIONAL RATION (INR) 1.05; PROTHROMBIN TIME 13.9 SEC (11.4-15.4)
[2020-07-08 11:26] LABS: HEMATOCRIT 40.5 % (37.9-51.0); HEMOGLOBIN 14.5 g/dL (13.5-17.0); MEAN CORPUSCULAR HEMOGLOBIN 30.8 pg (27.0-33.4); MEAN CORPUSCULAR HGB CONC 35.8 g/dL (32.0-36.0); MEAN CORPUSCULAR VOLUME 86 fl (80-97); PLATELET COUNT 296 10^3/uL (150-450); RED BLOOD COUNT 4.71 10^6/uL (4.35-5.55); RED CELL DISTRIBUTION WIDTH 14.9 % (11.5-14.0)
[2020-07-08 11:47] LABS: ALBUMIN 3.7 g/dL (3.5-5.0); ALKALINE PHOSPHATASE 90 U/L (38-126); ASPARTATE AMINO TRANSFERASE 39 U/L (17-59); BILIRUBIN,DIRECT 0.2 mg/dL (0.0-0.4); BILIRUBIN,TOTAL 1.2 mg/dL (0.2-1.3); BLOOD UREA NITROGEN 18 mg/dL (7-20); CALCIUM 8.6 mg/dL (8.4-10.2); CARBON DIOXIDE 36 mmol/L (22-30); CHLORIDE 58 mmol/L (98-107); CREATINE KINASE 367 U/L (55-170); GLUCOSE 221 mg/dL (75-110); POTASSIUM 3.3 mmol/L (3.6-5.0); TOTAL PROTEIN 6.1 g/dL (6.3-8.2)
[2020-07-08 11:48] LABS: ANION GAP 10 (5-19)
--- NOTE | 2020-07-08 11:50 | ER Document Report ---
ED General - General Chief Complaint: Probable Seizure Stated Complaint: POSSIBLE SEIZURE/AMS Mode of Arrival: Medic Information source: Emergency Med Personnel Cannot obtain history due to: Altered mental status Notes: Patient is a 60-year-old male brought into the emergency department by EMS chief complaint of seizure while at home. Remainder of HPI and review of systems is unobtainable secondary to patient condition. On presentation to the emergency department the patient is obviously postictal and mildly combative. Soft restraints were needed to prevent pulling out of IV catheter and subsequently [place] catheter. TRAVEL OUTSIDE OF THE [place] IN LAST 30 DAYS: No - HPI Onset: Just prior to arrival Onset/Duration: Sudden Quality of pain: No pain Severity: None Pain Level: Denies Associated symptoms: None Exacerbated by: Denies Relieved by: Denies Similar symptoms previously: No Recently seen / treated by doctor: No - Related Data Allergies/Adverse Reactions: codeine [Codeine] Allergy (Verified 05/30/19 19:13) latex [Latex] Allergy (Verified 05/30/19 19:13) Sulfa (Sulfonamide Antibiotics) Allergy (Verified 09/10/19 23:31) adhesive tape [Adhesive Tape] Adverse Reaction (Intermediate, Verified 05/30/19 19:13) Urticaria Past Medical History - General Information source: Emergency Med Personnel, [facility] Records Cannot obtain history due to: Altered mental status - Social History Smoking Status: Current Some Day Smoker Cigarette use (# per day): Yes Chew tobacco use (# tins/day): No Smoking Education Provided: No Frequency of alcohol use: uto Drug Abuse: Other - uto Family History: CAD, DM, Hypertension, Malignancy Patient has suicidal ideation: No Patient has homicidal ideation: No - Past Medical History Cardiac Medical History: Reports: Hx Coronary Artery Disease, Hx Heart Attack, Hx Hypercholesterolemia, Hx Hypertension Pulmonary Medical History: Reports: Hx Bronchitis, Hx COPD, Hx Respiratory Failure Denies: Hx Asthma, Hx Pneumonia, Hx Intubation, Hx Tuberculosis Neurological Medical History: Denies: Hx Cerebrovascular Accident, Hx Seizures Endocrine Medical History: Denies: Hx Diabetes Mellitus Type 1, Hx Diabetes Mellitus Type 2, Hx Hyperthyroidism, Hx Hypothyroidism Renal/ Medical History: Reports: Hx Benign Prostatic Hyperplasia. Denies: Hx Peritoneal Dialysis GI Medical History: Reports: Hx Gastroesophageal Reflux Disease. Denies: Hx Cirrhosis, Hx Crohn's Disease, Hx Hepatitis, Hx Hiatal Hernia, Hx Ulcerative C olitis Musculoskeletal Medical History: Reports Hx Arthritis, Denies Hx Fibromyalgia, Denies Hx Gout Skin Medical History: Denies Hx Eczema, Denies Hx Psoriasis Psychiatric Medical History: Reports: Hx Bipolar Disorder, Hx Depression Traumatic Medical History: Reports: Hx Fractures - R wrist, nose Infectious Medical History: Denies: Hx Hepatitis, Hx HIV Past Surgical History: Reports: Hx Cardiac Catheterization, Hx Cardiac Surgery - cabg, Hx Coronary Artery Bypass Graft - 2008, Hx Orthopedic Surgery - Right wrist fracture treated with internal fixation using hardware. Denies: Hx Pacemaker - Immunizations Hx Diphtheria, Pertussis, Tetanus Vaccination: Yes Hx Pneumococcal Vaccination: 09/11/10 Review of Systems - Review of Systems -: Yes ROS unobtainable due to patient's medical condition Physical Exam - Vital signs Vitals: Temp Pulse Resp BP Pulse Ox 97.9 F 90 28 H 134/81 H 80 L 07/08/20 10:57 07/08/20 10:57 07/08/20 10:57 07/08/20 10:57 07/08/20 10:57 - Notes Notes: PHYSICAL EXAMINATION: GENERAL: Is a 60-year-old male postictal after reported seizure HEAD: Atraumatic, normocephalic. EYES: Pupils equal round and reactive to light, extraocular movements intact, sclera anicteric, conjunctiva are mildly icteric ENT: nares patent, oropharynx clear without exudates. Tacky mucous membranes. NECK: Normal range of motion, supple without lymphadenopathy, no appreciable JVD LUNGS: Lungs clear to auscultation bilaterally and equal. No wheezes rales or rhonchi. Poor inspiratory expiratory effort HEART: Regular rate and rhythm without murmurs ABDOMEN: Soft, nontender, normal bowel sounds. No guarding, no rebound. No masses appreciated. EXTREMITIES: Active full range of motion, no pitting or edema. No cyanosis. 2+ pulses x4 NEUROLOGICAL: Patient is postictal does not follow commands will look at you when you call him by name. SKIN: Warm, Dry, and intact. Normal turgor, no rashes or lesions noted. Course - Re-evaluation Re-evalutation: 07/08/20 15:13 Patient has been maintained on a inspector machine parts the entire time in the emergency department. Patient has been reevaluated several times by myself as well as nursing staff. CT of brain demonstrates no acute findings chest x-ray shows no acute findings per radiology. Laboratory studies however show a significant hyponatremia which very likely could be the etiology of the patient's seizure. 07/08/20 15:19 Because of the patient's severe hyponatremia and continued altered mental status patient has been consulted to the [facility] for admission. He recommends that the patient have a central line placed because of the need for hypertonic saline. Leukocytosis of 31.6 is identified but no source is found at this time it may be demargination secondary to the seizure. Patient did require 2 mg of Ativan for sedation secondary to too much movement prior to placing the central line. Patient has been consulted to and accepted by the [facility] for admission. - Vital Signs Vital signs: Temp Pulse Resp BP Pulse Ox 97.9 F 80 18 132/86 H 91 L 07/08/20 10:57 07/08/20 13:00 07/08/20 15:01 07/08/20 15:01 07/08/20 15:01 - Laboratory Result Diagrams: 07/08/20 11:03 07/08/20 12:02 Laboratory results interpreted by me: 07/08/20 07/08/20 07/08/20 11:03 11:03 11:03 WBC 31.6 H* RDW 14.9 H Seg Neuts % (Manual) 90 H Lymphocytes % (Manual) 2 L Abs Neuts (Manual) 29.4 H Abs Monocytes (Manual) 1.6 H Sodium 104.3 L* Potassium 3.3 L Chloride 58 L Carbon Dioxide 36 H Glucose 221 H Creatine Kinase 367 H CK-MB (CK-2) 7.97 H NT-Pro-B Natriuret Pep 2070 H Total Protein 6.1 L Urine Protein Urine Glucose (UA) Salicylates < 1.0 L Acetaminophen < 10 L 07/08/20 07/08/20 12:02 13:11 WBC RDW Seg Neuts % (Manual) Lymphocytes % (Manual) Abs Neuts (Manual) Abs Monocytes (Manual) Sodium 104.0 L* Potassium 3.4 L Chloride 60 L Carbon Dioxide 35 H Glucose 204 H Creatine Kinase CK-MB (CK-2) NT-Pro-B Natriuret Pep Total Protein Urine Protein 30 H Urine Glucose (UA) 150 H Salicylates Acetaminophen - Diagnostic Test Radiology reviewed: Reports reviewed - EKG Interpretation by Me EKG shows normal: Sinus rhythm Rate: Normal Rhythm: NSR When compared to previous EKG there are: Changes noted Procedures - Central Line Right Internal jugular Time completed: 14:50 Consent obtained: No - ams Central line pre-insertion: Sterile PPE donned, Chloraprep applied, Sterile drapes applied Central line size (Fr.): 7 Central line lumen type: Triple Anesthetic type: 1% Lidocaine mL's of anesthesia: 3 Ultrasound guided: Yes Central line post-insertion: Blood return from lumens, Biopatch applied, Sutured, Sterile dressing applied, Position confirmed w/ CXR Number of attempts: 1 Complications: No Critical Care Note - Critical Care Note Total time excluding time spent on procedures (mins): 45 Comments: Please allow 45 minutes of critical care time spent obtaining history from patient or surrogate, discussions with consultants, development of treatment plan with patient or surrogate, evaluation of patient's response to treatment, examination of patient. This also includes ordering and reviewing laboratory, EKG and / or radiologic studies, performing and reassessing treatments and interventions as well as reviewing previous visits and old charts. This is exclusive of separately billable procedures. Discharge - Discharge Clinical Impression: Tobacco abuse, Hyponatremia, Marijuana abuse, Seizure Leukocytosis Qualifiers: Leukocytosis type: unspecified Qualified Code(s): D72.829 - Elevated white blood cell count, unspecified Condition: Fair Disposition: ADMITTED INPATIENT Admitting Provider: Albin (Extension Work Director) Unit Admitted: ICU
[2020-07-08 11:52] LABS: ACETAMINOPHEN < 10 ug/mL (10-30); ALCOHOL < 10 mg/dL (NONE DETECTED); SALICYLATE < 1.0 mg/dL (2.0-20.0)
[2020-07-08 11:54] LABS: ABSOLUTE LYMPHOCYTES# (MANUAL) 0.6 10^3/uL (0.5-4.7); ABSOLUTE MONOCYTES # (MANUAL) 1.6 10^3/uL (0.1-1.4); BAND NEUTROPHILS % (MANUAL) 3 % (3-5); BASOPHILS % (MANUAL) 0 % (0-2); EOSINOPHILS % (MANUAL) 0 % (0-6); LYMPHOCYTES % (MANUAL) 2 % (13-45); MONOCYTES % (MANUAL) 5 % (3-13); SEGMENTED NEUTROPHILS % (MAN) 90 % (42-78); TOTAL CELLS COUNTED 100
[2020-07-08 11:55] LABS: PLATELET COMMENT ADEQUATE; RBC MORPHOLOGY COMMENT NORMO-CYTIC/CHROMIC
[2020-07-08 11:56] LABS: CREATINE KINASE MB 7.97 ng/mL (<4.55); TROPONIN I 0.014 ng/mL
[2020-07-08 11:59] LABS: WHITE BLOOD COUNT 31.6 10^3/uL (4.0-10.5)
[2020-07-08 12:50] LABS: ANION GAP 9 (5-19); BLOOD UREA NITROGEN 19 mg/dL (7-20); CALCIUM 8.6 mg/dL (8.4-10.2); CARBON DIOXIDE 35 mmol/L (22-30); CHLORIDE 60 mmol/L (98-107); GLUCOSE 204 mg/dL (75-110); POTASSIUM 3.4 mmol/L (3.6-5.0)
[2020-07-08] MEDS ORDERED: NORMAL SALINE 1000 ML 1,000 ML IV PRN (12:54)
[2020-07-08 13:46] LABS: APPEARANCE,URINE CLEAR; BILIRUBIN,URINE NEGATIVE (NEGATIVE); COLOR,URINE YELLOW; GLUCOSE, URINE 150 mg/dL (NEGATIVE); KETONES,URINE NEGATIVE (NEGATIVE); LEUKOCYTE ESTERASE,URINE NEGATIVE (NEGATIVE); NITRITE,URINE NEGATIVE (NEGATIVE); PROTEIN,URINE 30 mg/dL (NEGATIVE); URINE SPECIFIC GRAVITY 1.014; UROBILINOGEN,URINE NEGATIVE mg/dL (<2.0)
[2020-07-08] MEDS ORDERED: LORAZEPAM INJ 2 MG/1 ML VIAL IV ONE ×4 (13:59→20:46)
[2020-07-08 14:53] LABS: URINE AMPHETAMINES SCREEN NEGATIVE; URINE BARBITURATES SCREEN NEGATIVE; URINE BENZODIAZEPINES SCREEN NEGATIVE; URINE COCAINE SCREEN NEGATIVE; URINE METHADONE SCREEN NEGATIVE; URINE PHENCYCLIDINE SCREEN NEGATIVE
[2020-07-08 14:54] LABS: URINE MARIJUANA (THC) SCREEN UNCONFIRMED POSITIVE
[2020-07-08] MEDS ORDERED: SODIUM CHLORIDE 3% 500 ML IV ONE ×3 (14:56→21:22)
[2020-07-08] MEDS ORDERED: SODIUM CHLORIDE 3% 1,000 ML IV ONE (14:56)
--- NOTE | 2020-07-08 15:21 | EKG REPORT ---
SEVERITY:- ABNORMAL ECG - SINUS RHYTHM BIATRIAL ABNORMALITIES NONSPECIFIC INTRAVENTRICULAR CONDUCTION DELAY INFERIOR INFARCT, OLD : Confirmed by: Aletha Auguste MD 08-Jul-2020 15:20:05
[2020-07-08] MEDS: ENOXAPARIN SODIUM INJ 40 MG/0.4 ML DISP.SYRIN SUBCUT SCH (15:31)
[2020-07-08 16:47] LABS: ARTERIAL BLOOD BASE EXCESS 6.9 mmol/L; ARTERIAL BLOOD FIO2 ROOM AIR; ARTERIAL BLOOD H2CO3 1.41 mmol/L (1.05-1.35); ARTERIAL BLOOD O2 SATURATION 88.3 % (94-98); ARTERIAL BLOOD PH 7.45 (7.35-7.45); ARTERIAL BLOOD PO2 52.4 mmHg (80-100); ARTERIAL BLOOD TOTAL CO2 33.4 mmol/L (23-27)
--- NOTE | 2020-07-08 17:08 | RADIOLOGY REPORT (SQ) ---
EXAM DESCRIPTION: CHEST SINGLE VIEW IMAGES COMPLETED DATE/TIME: 07/08/2020 11:40 am REASON FOR STUDY: ams COMPARISON: 04/06/2020. EXAM PARAMETERS: NUMBER OF VIEWS: One view. TECHNIQUE: Single frontal radiographic view of the chest acquired. RADIATION DOSE: NA LIMITATIONS: None. FINDINGS: LUNGS AND PLEURA: Mild chronic interstitial changes. No opacities, masses or pneumothorax . No pleural effusion. MEDIASTINUM AND HILAR STRUCTURES: No masses. Contour normal. HEART AND VASCULAR STRUCTURES: Heart normal in size. Normal vasculature. BONES: No acute findings. HARDWARE: Sternotomy wires and coronary bypass markers. OTHER: No other significant finding. IMPRESSION: NO ACUTE RADIOGRAPHIC FINDING IN THE CHEST. TECHNICAL DOCUMENTATION: JOB ID: [id number] 2010 [employer]- All Rights Reserved Reading location - IP/workstation name: [facility]
--- NOTE | 2020-07-08 17:10 | RADIOLOGY REPORT (SQ) ---
EXAM DESCRIPTION: CT HEAD WITHOUT IMAGES COMPLETED DATE/TIME: 07/08/2020 12:05 pm REASON FOR STUDY: ams COMPARISON: 04/06/2020. TECHNIQUE: Axial images acquired through the brain without intravenous contrast. Images reviewed wi th bone, brain and subdural windows. Additional sagittal and coronal reconstructions were generated. Images stored on PACS. All CT scanners at this facility use dose modulation, iterative reconstruction, and/or weight based d osing when appropriate to reduce radiation dose to as low as reasonably achievable (ALARA). [facility]: Dose Right [facility]: CareDose [facility]: Dose Right [facility]: Teradose 4D [facility]: Vestiage RADIATION DOSE: mGy. LIMITATIONS: None. FINDINGS: VENTRICLES: Normal size and contour. CEREBRUM: No masses. No hemorrhage. No midline shift. No evidence for acute infarction. Normal gra y/white matter differentiation. No areas of low density in the white matter. CEREBELLUM: No masses. No hemorrhage. No alteration of density. No evidence for acute infarction. EXTRAAXIAL SPACES: No fluid collections. No masses. ORBITS AND GLOBE: No intra- or extraconal masses. Normal contour of globe without masses. CALVARIUM: No fracture. PARANASAL SINUSES: No fluid or mucosal thickening. SOFT TISSUES: No mass or hematoma. OTHER: No other significant finding. IMPRESSION: NORMAL BRAIN CT WITHOUT CONTRAST. EVIDENCE OF ACUTE STROKE: NO. COMMENT: Quality ID # [id number]: Final reports with documentation of one or more dose reduction techniques (e.g., Automated exposure control, adjustment of the mA and/or kV according to patient size, use of iterative reconstruction technique) TECHNICAL DOCUMENTATION: JOB ID: [id number] 2010 [email or web address]- All Rights Reserved Reading location - IP/workstation name: [email or web address]
[2020-07-08 17:42] LABS: OSMOLALITY,URINE 393 mOsm/kg (300-900)
[2020-07-08 17:43] LABS: URINE SODIUM 50 mmol/L (30-90)
--- NOTE | 2020-07-08 17:46 | RADIOLOGY REPORT (SQ) ---
EXAM DESCRIPTION: CHEST SINGLE VIEW IMAGES COMPLETED DATE/TIME: 07/08/2020 3:07 pm REASON FOR STUDY: [facility] COMPARISON: 07/08/2020 at 1127 hours. EXAM PARAMETERS: NUMBER OF VIEWS: One view. TECHNIQUE: Single frontal radiographic view of the chest acquired. RADIATION DOSE: NA LIMITATIONS: None. FINDINGS: LUNGS AND PLEURA: No opacities, masses or pneumothorax. No pleural effusion. MEDIASTINUM AND HILAR STRUCTURES: No masses. Contour normal. HEART AND VASCULAR STRUCTURES: Heart normal in size. Normal vasculature. BONES: No acute findings. HARDWARE: Central line on the right side, tip at the level of the superior vena cava. Sternotomy wir es. OTHER: No other significant finding. IMPRESSION: NO PNEUMOTHORAX FOLLOWING CENTRAL LINE PLACEMENT. NO CHANGE IN APPEARANCE OF THE CHEST. TECHNICAL DOCUMENTATION: JOB ID: [id number] 2010 [email or web address]- All Rights Reserved Reading location - IP/workstation name: [email or web address]
[2020-07-08] MEDS ORDERED: KETAMINE HCL INJ 500 MG/10 ML VIAL ONE (18:06)
[2020-07-08] MEDS ORDERED: KETAMINE HCL INJ 500 MG/10 ML VIAL IV ONE (18:11)
[2020-07-08] MEDS ORDERED: LORAZEPAM INJ 2 MG/1 ML VIAL ONE (20:48)
[2020-07-08] MEDS: LEVETIRACETAM 500 MG/NACL-ISO 500 MG/100 ML RTUPB IV SCH ×2 (22:13→23:27)
[2020-07-08] MEDS: LORAZEPAM INJ 2 MG/1 ML VIAL IV PRN (23:15)
[2020-07-08] MEDS ORDERED: QUETIAPINE FUMARATE 25 MG TABLET PO ONE (23:30)
[2020-07-09] MEDS: LORAZEPAM INJ 2 MG/1 ML VIAL IV PRN ×7 (01:30→20:19)
[2020-07-09 04:03] LABS: HEMATOCRIT 38.9 % (37.9-51.0); HEMOGLOBIN 13.3 g/dL (13.5-17.0); MEAN CORPUSCULAR HEMOGLOBIN 30.1 pg (27.0-33.4); MEAN CORPUSCULAR HGB CONC 34.2 g/dL (32.0-36.0); MEAN CORPUSCULAR VOLUME 88 fl (80-97); PLATELET COUNT 262 10^3/uL (150-450); RED BLOOD COUNT 4.43 10^6/uL (4.35-5.55); RED CELL DISTRIBUTION WIDTH 15.6 % (11.5-14.0); WHITE BLOOD COUNT 25.8 10^3/uL (4.0-10.5)
[2020-07-09 04:12] LABS: ANION GAP 8 (5-19); BLOOD UREA NITROGEN 12 mg/dL (7-20); CALCIUM 8.6 mg/dL (8.4-10.2); CARBON DIOXIDE 30 mmol/L (22-30); CHLORIDE 85 mmol/L (98-107); CHOLESTEROL 127.53 mg/dL (0-200); GLUCOSE 78 mg/dL (75-110); POTASSIUM 3.4 mmol/L (3.6-5.0); TRIGLYCERIDES 96 mg/dL (<150)
[2020-07-09 04:23] LABS: DIRECT LDL 45 mg/dL (<100)
[2020-07-09 04:28] LABS: ABSOLUTE LYMPHOCYTES# (MANUAL) 1.3 10^3/uL (0.5-4.7); ABSOLUTE MONOCYTES # (MANUAL) 1.8 10^3/uL (0.1-1.4); BASOPHILS % (MANUAL) 0 % (0-2); EOSINOPHILS % (MANUAL) 0 % (0-6); LYMPHOCYTES % (MANUAL) 5 % (13-45); MONOCYTES % (MANUAL) 7 % (3-13); SEGMENTED NEUTROPHILS % (MAN) 88 % (42-78); TOTAL CELLS COUNTED 100
[2020-07-09 04:30] LABS: ANISOCYTOSIS SLIGHT; PLATELET COMMENT ADEQUATE; TEAR DROP CELLS SLIGHT
[2020-07-09] MEDS: LEVETIRACETAM 500 MG/NACL-ISO 500 MG/100 ML RTUPB IV SCH ×2 (09:35→21:36)
[2020-07-09] MEDS: ENOXAPARIN SODIUM INJ 40 MG/0.4 ML DISP.SYRIN SUBCUT SCH (09:38)
[2020-07-09] MEDS ORDERED: DEXMEDETOMIDINE IN 0.9 % NACL 400 MCG/100 ML RTUPB IV PRN (11:27)
--- NOTE | 2020-07-09 11:49 | PDOC CRITICAL CARE PROG REPORT ---
General Date:: 07/09/20 ICU Day:: 2 Hospital Day:: 2 Events in the past 12 to 24 Hours:: the patient was admitted yesterday from the ED with altered mental status, low serum Na+. He had presented wiyth a seizure a well. He is currently in the ICU in restraints. His sodium was a bit overcorrected day 1. His last na was 122. The numebers are not really consistent with a tea/toast or other low solute cause (beer ptomania). SIAFDH is possible but thepatiet was corrected quite easily. [facility] is [facility] that the[facility] haad been on diuretics. Reason for ICU Addmission:: Hyponatremia, seizure Physical Exam Vital Signs: Temp Pulse Resp BP Pulse Ox 99.5 F 115 H 25 H 138/89 H 94 07/09/20 10:00 07/09/20 10:00 07/09/20 10:00 07/09/20 10:00 07/09/20 10:00 Intake & Output 07/08/20 07/09/20 07/10/20 06:59 06:59 06:59 Intake Total 1100 Output Total 1350 425 Balance -250 -425 Weight 58.6 kg Weight/Height Weight 58.6 kg Height 5 ft 10 in Laboratory/Radiographs Laboratory Results: 07/09/20 03:38 07/09/20 03:38 07/08/20 07/08/20 07/08/20 11:03 11:03 12:02 WBC 31.6 H* RBC 4.71 Hgb 14.5 Hct 40.5 MCV 86 MCH 30.8 MCHC 35.8 RDW 14.9 H Plt Count 296 Seg Neutrophils % Not Reportable Carbonic Acid HCO3/H2CO3 Ratio ABG pH ABG pCO2 ABG pO2 ABG HCO3 ABG O2 Saturation ABG Base Excess FiO2 Sodium 104.3 L* 104.0 L* Potassium 3.3 L 3.4 L Chloride 58 L 60 L Carbon Dioxide 36 H 35 H Anion Gap 10 9 BUN 18 19 Creatinine 0.82 0.67 Est GFR ( Amer) > 60 > 60 Glucose 221 H 204 H Calcium 8.6 8.6 Total Bilirubin 1.2 AST 39 Alkaline Phosphatase 90 Ammonia Total Protein 6.1 L Albumin 3.7 Triglycerides Cholesterol LDL Cholesterol Direct VLDL Cholesterol HDL Cholesterol Amylase Lipase 67.1 Free T4 Urine Color Urine Appearance Urine pH Ur Specific [place] Urine Protein Urine Glucose (UA) Urine Ketones Urine Blood Urine Nitrite Ur Leukocyte Esterase Urine WBC (Auto) Urine RBC (Auto) Urine Osmolality 07/08/20 07/08/20 07/08/20 13:11 13:11 13:11 WBC RBC Hgb Hct MCV MCH MCHC RDW Plt Count Seg Neutrophils % Carbonic Acid HCO3/H2CO3 Ratio ABG pH ABG pCO2 ABG pO2 ABG HCO3 ABG O2 Saturation ABG Base Excess FiO2 Sodium Potassium Chloride Carbon Dioxide Anion Gap BUN Creatinine Est GFR ( Amer) Glucose Calcium Total Bilirubin AST Alkaline Phosphatase Ammonia Total Protein Albumin Triglycerides Cholesterol LDL Cholesterol Direct VLDL Cholesterol HDL Cholesterol Amylase Lipase Free T4 Urine Color YELLOW Urine Appearance CLEAR Urine pH 7.0 Ur Specific [place] 1.014 1.016 Urine Protein 30 H Urine Glucose (UA) 150 H Urine Ketones NEGATIVE Urine Blood NEGATIVE Urine Nitrite NEGATIVE Ur Leukocyte Esterase NEGATIVE Urine WBC (Auto) 0 Urine RBC (Auto) 2 Urine Osmolality 393 07/08/20 07/08/20 07/08/20 16:19 17:45 17:45 WBC RBC Hgb Hct MCV MCH MCHC RDW Plt Count Seg Neutrophils % Carbonic Acid 1.41 H HCO3/H2CO3 Ratio 22:1 ABG pH 7.45 ABG pCO2 47.0 H ABG pO2 52.4 L ABG HCO3 32.0 H ABG O2 Saturation 88.3 L ABG Base Excess 6.9 FiO2 ROOM AIR Sodium Potassium Chloride Carbon Dioxide Anion Gap BUN Creatinine Est GFR ( Amer) Glucose Calcium Total Bilirubin AST Alkaline Phosphatase Ammonia < 8.7 L Total Protein Albumin Triglycerides Cholesterol LDL Cholesterol Direct VLDL Cholesterol HDL Cholesterol Amylase 67 Lipase 78.6 Free T4 Urine Color Urine Appearance Urine pH Ur Specific [place] Urine Protein Urine Glucose (UA) Urine Ketones Urine Blood Urine Nitrite Ur Leukocyte Esterase Urine WBC (Auto) Urine RBC (Auto) Urine Osmolality 07/08/20 07/08/20 07/08/20 17:45 17:45 21:09 WBC RBC Hgb Hct MCV MCH MCHC RDW Plt Count Seg Neutrophils % Carbonic Acid HCO3/H2CO3 Ratio ABG pH ABG pCO2 ABG pO2 ABG HCO3 ABG O2 Saturation ABG Base Excess FiO2 Sodium 110.0 L* 113.4 L* Potassium Chloride Carbon Dioxide Anion Gap BUN Creatinine Est GFR ( Amer) Glucose Calcium Total Bilirubin AST Alkaline Phosphatase Ammonia Total Protein Albumin Triglycerides Cholesterol LDL Cholesterol Direct VLDL Cholesterol HDL Cholesterol Amylase Lipase Free T4 1.60 Urine Color Urine Appearance Urine pH Ur Specific [place] Urine Protein Urine Glucose (UA) Urine Ketones Urine Blood Urine Nitrite Ur Leukocyte Esterase Urine WBC (Auto) Urine RBC (Auto) Urine Osmolality 07/09/20 07/09/20 03:38 03:38 WBC 25.8 H RBC 4.43 Hgb 13.3 L Hct 38.9 MCV 88 MCH 30.1 MCHC 34.2 RDW 15.6 H Plt Count 262 Seg Neutrophils % Not Reportable Carbonic Acid HCO3/H2CO3 Ratio ABG pH ABG pCO2 ABG pO2 ABG HCO3 ABG O2 Saturation ABG Base Excess FiO2 Sodium 122.8 L Potassium 3.4 L Chloride 85 L Carbon Dioxide 30 Anion Gap 8 BUN 12 Creatinine 0.60 Est GFR ( Amer) > 60 Glucose 78 Calcium 8.6 Total Bilirubin AST Alkaline Phosphatase Ammonia Total Protein Albumin Triglycerides 96 Cholesterol 127.53 LDL Cholesterol Direct 45 VLDL Cholesterol 19.0 HDL Cholesterol 61 Amylase Lipase Free T4 Urine Color Urine Appearance Urine pH Ur Specific [place] Urine Protein Urine Glucose (UA) Urine Ketones Urine Blood Urine Nitrite Ur Leukocyte Esterase Urine WBC (Auto) Urine RBC (Auto) Urine Osmolality 07/08/20 07/08/20 11:03 11:03 Creatine Kinase 367 H CK-MB (CK-2) 7.97 H Troponin I 0.014 NT-Pro-B Natriuret Pep 2070 H Impressions: Head CT 07/08/20 11:03 IMPRESSION: NORMAL BRAIN CT WITHOUT CONTRAST. EVIDENCE OF ACUTE STROKE: NO. Chest X-Ray 07/08/20 14:39 IMPRESSION: NO PNEUMOTHORAX FOLLOWING CENTRAL LINE PLACEMENT. NO CHANGE IN APPEARANCE OF THE CHEST. Assessment and Plan - Diagnosis (1) Hyponatremia Is this a current diagnosis for this admission?: Yes Plan: Have hel;d hypertonic and placed patient on D51/2NACL at this point. Not sure what sent him over the edge. Will continue q 6h BMPs for now. (2) Leukocytosis Qualifiers: Leukocytosis type: unspecified Qualified Code(s): D72.829 - Elevated white blood cell count, unspecified Is this a current diagnosis for this admission?: Yes (3) Seizure Is this a current diagnosis for this admission?: Yes Plan: The patient haad a seizure likely due to his hyponatrmia now quite better. (4) Altered mental status Qualifiers: Altered mental status type: delirium Qualified Code(s): R41.0 - Disorientation, unspecified Is this a current diagnosis for this admission?: Yes Plan: The patient is clearly delirious. He is agitated and non-verbal. he strggles to get out of bed. He did have some seizure activity on presentatin when the sodium was at 104 as noted in the previous not the patient had presented previously to this hospitla with hyponatremia althought the cuse was not elucidated at that time. Critical Time Critical Time (minutes): 25 Level of Care: ICU -: 1. The care of a critical patient is a dynamic process. This note is a employment representative synopsis but static in nature. The timeframe for treatments giv en in order is not necessarily the actual time these treatments may have been done. 2. This patient requires critical care secondary to ongoing requirements for therapy not offered or safe outside the critical care environment. Transfer to a lower level of care will result in altered life or limb morbidity and mortality. 3. Multidisciplinary rounds completed. 4. ABCDE bundle addressed.
[2020-07-09] MEDS: DEXTROSE 5%-1/2 NORMAL SALINE 1,000 ML IV PRN (12:02)
[2020-07-09] MEDS: DEXMEDETOMIDINE IN NS 400 MCG/100 ML RTUPB IV PRN ×2 (12:02→17:47)
[2020-07-09 13:14] LABS: ANION GAP 6 (5-19); BLOOD UREA NITROGEN 10 mg/dL (7-20); CALCIUM 8.6 mg/dL (8.4-10.2); CARBON DIOXIDE 30 mmol/L (22-30); CHLORIDE 89 mmol/L (98-107); GLUCOSE 75 mg/dL (75-110); POTASSIUM 3.1 mmol/L (3.6-5.0)
[2020-07-09 13:48] LABS: PATH REVIEW PATHOLOGIST REVIEWED
[2020-07-09] MEDS ORDERED: HALOPERIDOL LACTATE INJ 5 MG/1 ML VIAL ONE (16:37)
[2020-07-09] MEDS ORDERED: LORAZEPAM INJ 2 MG/1 ML VIAL ONE (16:44)
[2020-07-09] MEDS ORDERED: HALOPERIDOL LACTATE INJ 5 MG/1 ML VIAL IV ONE (17:15)
--- NOTE | 2020-07-09 18:04 | Operative Report ---
Bedside Procedure - History of Present Illness History of Present Illness: Patient is a 60-year-old male brought into the emergency department by EMS chief complaint of seizure while at home. Remainder of HPI and review of systems is unobtainable secondary to patient condition. On presentation to the emergency department the patient is obviously postictal and mildly combative. Soft restraints were needed to prevent pulling out of IV catheter and subsequently Camp catheter. Unclear who called EMS at his home. I have reviewed some old records. the patient was admitted 04/06 with acute on chronic respiraotry failureIn the emergency department his ABG was 7.26/ PacO2 93/ Pa02 82.The patient was fairly awke with these values There is additional history of HTN, HLP, GERD , depression and the patient is an active smoker. He denied using ETOH regularly at that time. The patient was placed on BIPAP and seen by the home based assistant. i believe he was transferred to another facility thereafter.. It is interesting that his serum sodium at that time was 114 with a blood sugar of 144 with normal renal fn. CT of head was unremarkable at that time. Pro-BNP was rather elevated at 17,900. CP was close to 20,000 as well. The patient is on Celexa and Risperidone suggesting ongoing mental helath issues. he was admitted in 08/09 with an exacerbation of COPD. His sodium on admission at that time was 134. Indication for Procedure: Venous access for 3% nacl Provider: IZABELA PEÑA - Central Line Right Internal jugular Consent obtained: Yes Central line pre-insertion: Chloraprep applied Central line lumen type: Triple Anesthetic type: 2% Lidocaine mL's of anesthesia: 3 Ultrasound guided: Yes Line secured with sutures: Yes Central line post-insertion: Blood return from lumens, Biopatch applied, Sutured, Sterile dressing applied, Position confirmed w/ CXR Complications: No
[2020-07-09] MEDS ORDERED: LORAZEPAM INJ 2 MG/1 ML VIAL IV ONE (18:30)
[2020-07-09 18:51] LABS: BLOOD UREA NITROGEN 9 mg/dL (7-20); CALCIUM 8.6 mg/dL (8.4-10.2); CARBON DIOXIDE 32 mmol/L (22-30); CHLORIDE 90 mmol/L (98-107); GLUCOSE 81 mg/dL (75-110)
[2020-07-09 18:55] LABS: ANION GAP 3 (5-19)
[2020-07-09 18:56] LABS: POTASSIUM 2.8 mmol/L (3.6-5.0)
[2020-07-09] MEDS: POTASSI CL 20 MEQ/50 ML RIDER 20 MEQ/50 ML RTUPB IV SCH ×3 (20:18→23:56)
[2020-07-09] MEDS: QUETIAPINE FUMARATE 25 MG TABLET PO SCH (21:55)
--- NOTE | 2020-07-10 00:18 | CDI QUERY ---
<MARCOS LONG - Last Filed: 07/10/20 00:17> CDI Query CDI Review: Documentation in the medical record indicates that this patient has been diagnosed as having the symptom of ALTERED MENTAL STATUS. Additional findings also documented in the medical record: Per Critical Care Notes: Altered mental status Qualifiers: Altered mental status type: delirium Qualified Code(s): R41.0 - Disorientation, unspecified Is this a current diagnosis for this admission?: Yes Plan: The patient is clearly delirious. He is agitated and non-verbal. he struggles to get out of bed. He did have some seizure activity on presentation when the sodium was at 104 as noted in the previous not the patient had presented previously to this hospital with hyponatremia although the cause was not elucidated at that time. Labs: WBC: 31.6 Sodium: 104 Potassium: 3.4 Based on your medical judgment, can you further clarify in the progress notes if these findings associated with altered mental status are due to a definite or suspected underlying neurologic cause such as: Metabolic Encephalopathy Toxic Encephalopathy Altered mental status without encephalopathy Other condition (please specify) None of the above / Not applicable Thank you for your consideration. LESLEY Croft RN Clinical Artificial Candy Maker Physician Advisor <IZABELA PEÑA - Last Filed: 07/13/20 15:23> CDI Query Agree with Query: Yes - patient had metabolic encephalopathy related to hyponatremia
[2020-07-10] MEDS: DEXMEDETOMIDINE IN NS 400 MCG/100 ML RTUPB IV PRN ×2 (00:32→07:45)
[2020-07-10] MEDS: DEXTROSE 5%-1/2 NORMAL SALINE 1,000 ML IV PRN (01:11)
[2020-07-10] MEDS: LORAZEPAM INJ 2 MG/1 ML VIAL IV PRN ×2 (02:26→08:23)
[2020-07-10 03:42] LABS: BLOOD UREA NITROGEN 9 mg/dL (7-20); CALCIUM 8.5 mg/dL (8.4-10.2); GLUCOSE 82 mg/dL (75-110); POTASSIUM 3.7 mmol/L (3.6-5.0)
[2020-07-10 03:48] LABS: CARBON DIOXIDE 32 mmol/L (22-30); CHLORIDE 93 mmol/L (98-107)
[2020-07-10 03:56] LABS: ANION GAP 2 (5-19)
[2020-07-10 07:17] LABS: HEMATOCRIT 36.9 % (37.9-51.0); HEMOGLOBIN 12.6 g/dL (13.5-17.0); MEAN CORPUSCULAR HEMOGLOBIN 30.2 pg (27.0-33.4); MEAN CORPUSCULAR VOLUME 89 fl (80-97); PLATELET COUNT 215 10^3/uL (150-450); RED BLOOD COUNT 4.16 10^6/uL (4.35-5.55); RED CELL DISTRIBUTION WIDTH 15.5 % (11.5-14.0)
[2020-07-10 07:22] LABS: ANION GAP 5 (5-19); BLOOD UREA NITROGEN 9 mg/dL (7-20); CALCIUM 8.5 mg/dL (8.4-10.2); CARBON DIOXIDE 28 mmol/L (22-30); CHLORIDE 95 mmol/L (98-107); GLUCOSE 85 mg/dL (75-110); POTASSIUM 3.2 mmol/L (3.6-5.0)
[2020-07-10] MEDS: LEVETIRACETAM 500 MG/NACL-ISO 500 MG/100 ML RTUPB IV SCH ×2 (09:10→22:01)
[2020-07-10] MEDS: ENOXAPARIN SODIUM INJ 40 MG/0.4 ML DISP.SYRIN SUBCUT SCH (09:11)
[2020-07-10] MEDS: POTASSI CL 20 MEQ/50 ML RIDER 20 MEQ/50 ML RTUPB IV SCH ×2 (09:11→12:01)
[2020-07-10] MEDS ORDERED: ALTEPLASE INJ 2 MG VIAL (CATH CLEARANCE) IV ONE (10:45)
[2020-07-10 13:58] LABS: ANION GAP 5 (5-19); BLOOD UREA NITROGEN 8 mg/dL (7-20); CALCIUM 8.7 mg/dL (8.4-10.2); CARBON DIOXIDE 30 mmol/L (22-30); CHLORIDE 94 mmol/L (98-107); GLUCOSE 74 mg/dL (75-110); POTASSIUM 3.9 mmol/L (3.6-5.0)
--- NOTE | 2020-07-10 14:04 | PDOC CRITICAL CARE PROG REPORT ---
General ICU Day:: 3 Hospital Day:: 3 Events in the past 12 to 24 Hours:: the patient was admitted yesterday from the ED with altered mental status, low serum Na+. He had presented with a seizure a well. He is currently in the ICU in restraints. His sodium was a bit overcorrected day 1. His last Na+ was 122. The numbers are not really consistent with a tea/toast or other low solute cause (beer potomania). SIADH is possible but the patient was corrected quite easily. It is does not appear based on his home med lost that the patient had been on diuretics. 07/10 The patient is a little more alert today. When stimulated he opens his eyes and mutters a few words. His sodium is up to 127. His potassium is low and getting replaced. The patient is being taken off precedex. He will likely be moved to the medical floor. Reason for ICU Addmission:: Hyponatremia, seizure Physical Exam Vital Signs: Temp Pulse Resp BP Pulse Ox 97.9 F 68 30 H 165/88 H 94 07/10/20 12:00 07/10/20 12:00 07/10/20 12:00 07/10/20 12:00 07/10/20 12:00 Intake & Output 07/09/20 07/10/20 07/11/20 06:59 06:59 06:59 Intake Total 1100 1453 223 Output Total 1350 2070 630 Balance -250 -617 -407 Weight 58.6 kg 63.4 kg Weight/Height Weight 63.4 kg Height 5 ft 10 in Laboratory/Radiographs Laboratory Results: 07/10/20 06:14 07/09/20 07/10/20 07/10/20 17:55 01:15 06:14 WBC RBC Hgb Hct MCV MCH MCHC RDW Plt Count Sodium 125.1 L 126.6 L 127.5 L Potassium 2.8 L* 3.7 3.2 L Chloride 90 L 93 L 95 L Carbon Dioxide 32 H 32 H 28 Anion Gap 3 L 2 L 5 BUN 9 9 9 Creatinine 0.50 L 0.53 0.51 L Est GFR ( Amer) > 60 > 60 > 60 Glucose 81 82 85 Calcium 8.6 8.5 8.5 07/10/20 06:14 WBC 19.0 H RBC 4.16 L Hgb 12.6 L Hct 36.9 L MCV 89 MCH 30.2 MCHC 34.0 RDW 15.5 H Plt Count 215 Sodium Potassium Chloride Carbon Dioxide Anion Gap BUN Creatinine Est GFR ( Amer) Glucose Calcium 07/08/20 07/08/20 11:03 11:03 Creatine Kinase 367 H CK-MB (CK-2) 7.97 H Troponin I 0.014 NT-Pro-B Natriuret Pep 2070 H Impressions: Head CT 07/08/20 11:03 IMPRESSION: NORMAL BRAIN CT WITHOUT CONTRAST. EVIDENCE OF ACUTE STROKE: NO. Chest X-Ray 07/08/20 14:39 IMPRESSION: NO PNEUMOTHORAX FOLLOWING CENTRAL LINE PLACEMENT. NO CHANGE IN APPEARANCE OF THE CHEST. Assessment and Plan - Diagnosis (1) Hyponatremia Is this a current diagnosis for this admission?: Yes Plan: Have held hypertonic and placed patient on D51/2NACL at this point. Not sure what sent him over the edge. Will continue q 6h BMPs for now. 07/10 The sodium is now 127. He is on D51/2Nacl. The etiology may be SIADH but oit is not entirely clear. (2) Leukocytosis Qualifiers: Leukocytosis type: unspecified Qualified Code(s): D72.829 - Elevated white blood cell count, unspecified Is this a current diagnosis for this admission?: Yes Plan: His WBC appears to be trending down daily. It is now at 19K CXR did not suggest a pneumonia. His intial UA was unremarkable. At admission he had a low grade temp but it has since normalized. he is not on abx at this time (3) Seizure Is this a current diagnosis for this admission?: Yes Plan: The patient haad a seizure likely due to his hyponatrmia now quite better. (4) Altered mental status Qualifiers: Altered mental status type: delirium Qualified Code(s): R41.0 - Disorientation, unspecified Is this a current diagnosis for this admission?: Yes Plan: The patient is clearly delirious. He is agitated and non-verbal. he strggles to get out of bed. He did have some seizure activity on presentatin when the sodium was at 104 as noted in the previous not the patient had presented previously to this hospitla with hyponatremia althought the cuse was not elucidated at that time. 07/10 His mental status apears jemal gradualkly improving. Not as agitated as he had been. he is moving all extremities and speaks when spoken to. Critical Time Critical Time (minutes): 20 Level of Care: ICU -: 1. The care of a critical patient is a dynamic process. This note is a regional sales representative synopsis but static in nature. The timeframe for treatments given in order is not necessarily the actual time these treatments may have been done. 2. This patient requires critical care secondary to ongoing requirements for therapy not offered or safe outside the critical care environment. Transfer to a lower level of care will result in altered life or limb morbidity and mor tality. 3. Multidisciplinary rounds completed. 4. ABCDE bundle addressed.
[2020-07-10] MEDS ORDERED: HALOPERIDOL LACTATE INJ 5 MG/1 ML VIAL ONE (14:24)
[2020-07-10] MEDS ORDERED: HALOPERIDOL LACTATE INJ 5 MG/1 ML VIAL IV ONE (15:30)
[2020-07-10] MEDS: QUETIAPINE FUMARATE 25 MG TABLET PO SCH (22:02)
[2020-07-11] MEDS: DEXTROSE 5%-1/2 NORMAL SALINE 1,000 ML IV PRN ×2 (00:28→21:28)
[2020-07-11] MEDS: ENOXAPARIN SODIUM INJ 40 MG/0.4 ML DISP.SYRIN SUBCUT SCH (12:19)
[2020-07-11] MEDS: LEVETIRACETAM 500 MG/NACL-ISO 500 MG/100 ML RTUPB IV SCH ×2 (12:19→21:28)
--- NOTE | 2020-07-11 12:46 | PDOC PROGRESS REPORT ---
Subjective Date:: 07/11/20 Subjective:: Patient was seen in his room today. He is awake and alert. He is hungry and as tamiko to eat. He denies any nausea vomiting or abdominal pain Reason For Visit: HYPONATREMIA,SEIZURE Physical Exam Vital Signs: Temp Pulse Resp BP Pulse Ox 97.8 F 82 15 153/75 H 91 L 07/11/20 12:04 07/11/20 12:04 07/11/20 12:04 07/11/20 12:04 07/11/20 12:04 Intake & Output 07/10/20 07/11/20 07/12/20 06:59 06:59 06:59 Intake Total 1453 1423 Output Total 2070 1875 Balance -617 -452 Weight 63.4 kg 58.7 kg General appearance: PRESENT: no acute distress, thin Head exam: PRESENT: atraumatic, normocephalic Eye exam: PRESENT: conjunctiva pink, EOMI, PERRLA. ABSENT: scleral icterus Ear exam: PRESENT: normal external ear exam Mouth exam: PRESENT: tongue midline Neck exam: ABSENT: carotid bruit, JVD, lymphadenopathy, thyromegaly Respiratory exam: PRESENT: clear to auscultation carlos. ABSENT: rales, rhonchi, wheezes Cardiovascular exam: PRESENT: RRR, +S1, +S2. ABSENT: diastolic murmur, rubs, systolic murmur Pulses: PRESENT: normal dorsalis pedis pul Vascular exam: PRESENT: normal capillary refill GI/Abdominal exam: PRESENT: normal bowel sounds, soft. ABSENT: distended, guarding, mass, organolmegaly, rebound, tenderness Rectal exam: PRESENT: deferred Extremities exam: PRESENT: full ROM. ABSENT: calf tenderness, clubbing, pedal edema Neurological exam: PRESENT: alert, awake, oriented to person, oriented to place, oriented to time, oriented to situation, CN II-XII grossly intact. ABSENT: motor sensory deficit Psychiatric exam: PRESENT: appropriate affect, normal mood. ABSENT: homicidal ideation, suicidal ideation Skin exam: PRESENT: dry, intact, warm. ABSENT: cyanosis, rash Results Laboratory Results: 07/10/20 06:14 07/10/20 12:53 07/10/20 12:53 Sodium 128.6 L Potassium 3.9 Chloride 94 L Carbon Dioxide 30 Anion Gap 5 BUN 8 Creatinine 0.47 L Est GFR ( Amer) > 60 Glucose 74 L Calcium 8.7 07/08/20 07/08/20 11:03 11:03 Creatine Kinase 367 H CK-MB (CK-2) 7.97 H Troponin I 0.014 NT-Pro-B Natriuret Pep 2070 H Impressions: Head CT 07/08/20 11:03 IMPRESSION: NORMAL BRAIN CT WITHOUT CONTRAST. EVIDENCE OF ACUTE STROKE: NO. Chest X-Ray 07/08/20 14:39 IMPRESSION: NO PNEUMOTHORAX FOLLOWING CENTRAL LINE PLACEMENT. NO CHANGE IN APPEARANCE OF THE CHEST. Assessment and Plan - Diagnosis (1) Acute metabolic encephalopathy Is this a current diagnosis for this admission?: Yes Plan: Due to severe hyponatremia. Patient appears to be back at his baseline mental status (2) Hyponatremia Is this a current diagnosis for this admission?: Yes Plan: Have held hypertonic and placed patient on D51/2NACL at this point. Not sure what sent him over the edge. Will continue q 6h BMPs for now. 07/10 The sodium is now 127. He is on D51/2Nacl. The etiology may be SIADH but oit is not entirely clear. 07/11 his sodium is slowly climbing up.: Hypotonic fluid is still infusing. Will reevaluate sodium in a.m. and likely DC hypotonic fluid if acceptable (3) Leukocytosis Qualifiers: Leukocytosis type: unspecified Qualified Code(s): D72.829 - Elevated white blood cell count, unspecified Is this a current diagnosis for this admission?: Yes Plan: His WBC appears to be trending down daily. It is now at 19K CXR did not suggest a pneumonia. His intial UA was unremarkable. At admission he had a low grade temp but it has since normalized. Patient has not received any antibiotics and is WBC is slowly declining. We will continue to monitor (5) Seizure Is this a current diagnosis for this admission?: Yes Plan: The patient haad a seizure likely due to his hyponatrmia now quite better. He is still on Keppra will need to reevaluate and likely DC once his sodium is acceptable (7) Protein-calorie malnutrition, severe Is this a current diagnosis for this admission?: Yes Plan: Etiology is multifactorial. Will start on a diet today - Time Time Spent with patient: 15-24 minutes Medications reviewed and adjusted accordingly: Yes Anticipated Discharge Disposition: Home, Self Care Anticipated Discharge Timeframe: within 72 hours
[2020-07-11] MEDS: QUETIAPINE FUMARATE 25 MG TABLET PO SCH (21:28)
[2020-07-12 05:29] LABS: ANION GAP 6 (5-19); BLOOD UREA NITROGEN 8 mg/dL (7-20); CALCIUM 8.5 mg/dL (8.4-10.2); CARBON DIOXIDE 29 mmol/L (22-30); CHLORIDE 94 mmol/L (98-107); GLUCOSE 113 mg/dL (75-110); POTASSIUM 3.3 mmol/L (3.6-5.0)
[2020-07-12 06:48] LABS: HEMATOCRIT 36.5 % (37.9-51.0); HEMOGLOBIN 12.7 g/dL (13.5-17.0); MEAN CORPUSCULAR HEMOGLOBIN 30.9 pg (27.0-33.4); MEAN CORPUSCULAR HGB CONC 34.9 g/dL (32.0-36.0); MEAN CORPUSCULAR VOLUME 88 fl (80-97); PLATELET COUNT 238 10^3/uL (150-450); RED BLOOD COUNT 4.13 10^6/uL (4.35-5.55); RED CELL DISTRIBUTION WIDTH 15.5 % (11.5-14.0); WHITE BLOOD COUNT 12.9 10^3/uL (4.0-10.5)
[2020-07-12] MEDS ORDERED: INFLUENZA QUAD (6MOS+) 2020-21 VAC 0.5 ML SYR IM ONE (08:00)
[2020-07-12] MEDS: ENOXAPARIN SODIUM INJ 40 MG/0.4 ML DISP.SYRIN SUBCUT SCH (09:28)
[2020-07-12] MEDS: DEXTROSE 5%-1/2 NORMAL SALINE 1,000 ML IV PRN (09:28)
[2020-07-12] MEDS: LEVETIRACETAM 500 MG/NACL-ISO 500 MG/100 ML RTUPB IV SCH (09:28)
--- NOTE | 2020-07-12 12:10 | PDOC PROGRESS REPORT ---
Subjective Date:: 07/12/20 Subjective:: Patient was seen in his room today. He is awake and alert. He denies any naus ea vomiting or abdominal pain Reason For Visit: HYPONATREMIA,SEIZURE Physical Exam Vital Signs: Temp Pulse Resp BP Pulse Ox 97.7 F 77 18 151/78 H 91 L 07/12/20 10:00 07/12/20 08:30 07/12/20 08:30 07/12/20 08:30 07/12/20 08:30 Intake & Output 07/11/20 07/12/20 07/13/20 06:59 06:59 06:59 Intake Total 1423 1460 1353 Output Total 1875 1675 550 Balance -452 -215 803 Weight 58.7 kg 59.9 kg General appearance: PRESENT: no acute distress, thin Head exam: PRESENT: atraumatic, normocephalic Eye exam: PRESENT: conjunctiva pink, EOMI, PERRLA. ABSENT: scleral icterus Ear exam: PRESENT: normal external ear exam Mouth exam: PRESENT: moist, tongue midline Neck exam: ABSENT: carotid bruit, JVD, lymphadenopathy, thyromegaly Respiratory exam: PRESENT: clear to auscultation carlos. ABSENT: rales, rhonchi, wheezes Cardiovascular exam: PRESENT: RRR, +S1, +S2. ABSENT: diastolic murmur, rubs, systolic murmur Pulses: PRESENT: normal dorsalis pedis pul GI/Abdominal exam: PRESENT: normal bowel sounds, soft. ABSENT: distended, guarding, mass, organolmegaly, rebound, tenderness Rectal exam: PRESENT: deferred Extremities exam: PRESENT: full ROM. ABSENT: calf tenderness, clubbing, pedal edema Neurological exam: PRESENT: alert, awake, oriented to person, oriented to place, oriented to time, oriented to situation, CN II-XII grossly intact. ABSENT: motor sensory deficit Psychiatric exam: PRESENT: appropriate affect, normal mood. ABSENT: homicidal ideation, suicidal ideation Skin exam: PRESENT: dry, intact, warm. ABSENT: cyanosis, rash Results Laboratory Results: 07/12/20 04:39 07/12/20 04:39 07/12/20 07/12/20 04:39 04:39 WBC 12.9 H RBC 4.13 L Hgb 12.7 L Hct 36.5 L MCV 88 MCH 30.9 MCHC 34.9 RDW 15.5 H Plt Count 238 Sodium 128.8 L Potassium 3.3 L Chloride 94 L Carbon Dioxide 29 Anion Gap 6 BUN 8 Creatinine 0.44 L Est GFR ( Amer) > 60 Glucose 113 H Calcium 8.5 07/08/20 07/08/20 11:03 11:03 Creatine Kinase 367 H CK-MB (CK-2) 7.97 H Troponin I 0.014 NT-Pro-B Natriuret Pep 2070 H Impressions: Head CT 07/08/20 11:03 IMPRESSION: NORMAL BRAIN CT WITHOUT CONTRAST. EVIDENCE OF ACUTE STROKE: NO. Chest X-Ray 07/08/20 14:39 IMPRESSION: NO PNEUMOTHORAX FOLLOWING CENTRAL LINE PLACEMENT. NO CHANGE IN APPEARANCE OF THE CHEST. Assessment and Plan - Diagnosis (1) Acute metabolic encephalopathy Is this a current diagnosis for this admission?: Yes Plan: Due to severe hyponatremia. Patient appears to be back at his baseline mental status (2) Hyponatremia Is this a current diagnosis for this admission?: Yes Plan: Have held hypertonic and placed patient on D51/2NACL at this point. Not sure what sent him over the edge. Will continue q 6h BMPs for now. 07/10 The sodium is now 127. He is on D51/2Nacl. The etiology may be SIADH but oit is not entirely clear. 07/11 his sodium is slowly climbing up.: Hypotonic fluid is still infusing. Will reevaluate sodium in a.m. and likely DC hypotonic fluid if acceptable 07/12 sodium appears to be relatively stable however he is still on hypotonic fluids. I will DC his fluids and I think his low sodium should come up nicely (3) Leukocytosis Qualifiers: Leukocytosis type: unspecified Qualified Code(s): D72.829 - Elevated white blood cell count, unspecified Is this a current diagnosis for this admission?: Yes Plan: His WBC appears to be trending down daily. It is now at 19K CXR did not suggest a pneumonia. His intial UA was unremarkable. At admission he had a low grade temp but it has since normalized. Patient has not received any antibiotics and is WBC is slowly declining. We will continue to monitor 07/12 WBC continues to decline with patient on no antibiotics (5) Seizure Is this a current diagnosis for this admission?: Yes Plan: The patient haad a seizure likely due to his hyponatrmia now quite better. He is still on Keppra will need to reevaluate and likely DC once his sodium is acceptable 07/12 we will discontinue Keppra as the seizure activity was related to severe hyponatremia (7) Protein-calorie malnutrition, severe Is this a current diagnosis for this admission?: Yes Plan: Etiology is multifactorial. Continue to support - Time Time Spent with patient: 15-24 minutes Medications reviewed and adjusted accordingly: Yes Anticipated Discharge Disposition: Home, Self Care Anticipated Discharge Timeframe: within 48 hours
[2020-07-12] MEDS ORDERED: POTASSIUM CHLORIDE 10 MEQ TABLET.ER PO ONE (12:30)
[2020-07-12] MEDS: QUETIAPINE FUMARATE 25 MG TABLET PO SCH (23:10)
[2020-07-13 05:36] LABS: ANION GAP 9 (5-19); BLOOD UREA NITROGEN 5 mg/dL (7-20); CALCIUM 8.6 mg/dL (8.4-10.2); CARBON DIOXIDE 26 mmol/L (22-30); CHLORIDE 95 mmol/L (98-107); GLUCOSE 110 mg/dL (75-110); POTASSIUM 3.9 mmol/L (3.6-5.0)
[2020-07-13] MEDS: ENOXAPARIN SODIUM INJ 40 MG/0.4 ML DISP.SYRIN SUBCUT SCH (10:52)
--- NOTE | 2020-07-13 11:45 | PDOC DISCHARGE SUMMARY ---
Impression - Admit/DC Date/PCP Admission Date/Primary Care Provider: 07/08/20 15:40 Discharge Date: 07/13/20 - Discharge Diagnosis (1) Acute metabolic encephalopathy Is this a current diagnosis for this admission?: Yes (2) Hyponatremia Is this a current diagnosis for this admission?: Yes (3) Leukocytosis Is this a current diagnosis for this admission?: Yes (4) Seizure Is this a current diagnosis for this admission?: Yes (6) Protein-calorie malnutrition, severe Is this a current diagnosis for this admission?: Yes - Additional Information Resuscitation Status: Full Code Discharge Diet: As Tolerated Discharge Activity: Activity As Tolerated Home Medications: Atorvastatin Calcium [Lipitor 80 mg Tablet] 80 mg PO QHS 08/02/19 Dicyclomine HCl [Bentyl 10 mg Capsule] 10 mg PO BID 08/02/19 Escitalopram Oxalate [Lexapro] 20 mg PO DAILY 08/02/19 Gabapentin [Neurontin 300 mg Capsule] 300 mg PO DAILY 08/02/19 Lisinopril [Prinivil 5 mg Tablet] 5 mg PO DAILY 08/02/19 Lorazepam [Ativan 1 mg Tablet] 1 mg PO Q8HP PRN 08/02/19 Ranolazine [Ranexa 500 mg Tab.sr] 500 mg PO Q12 08/02/19 Risperidone [Risperdal] 2 mg PO BID 08/02/19 Tramadol HCl [Ultram 50 mg Tablet] 50 mg PO Q6HP PRN 08/02/19 Fluticasone Propionate [Flonase Nasal [place] 50 Mcg/[place] 16 gm] 1 spray NASL Q12 04/06/20 Isosorbide Mononitrate [Imdur 30 mg Tablet.er] 15 mg PO DAILY 04/06/20 Metoprolol Succinate [Toprol Xl 25 mg Tab.sr] 25 mg PO DAILY 04/06/20 Pramipexole Di-HCl [Mirapex 0.5 mg Tablet] 0.5 mg PO DAILY 04/06/20 Albuterol Sulfate [Proair HFA Inhalation Aerosol 8.5 gm MDI] 2 puff IH Q6HP PRN 07/08/20 History of Present Illiness History of Present Illness: ELLA HILL is a 60 year old male Patient was admitted from the emergency room with a change in mental status and found to be profoundly hyponatremic with a sodium of 104. He was initially admitted to the intensive care unit for correction of his severe hyponatremia and then moved to the medical unit after improvement Hospital Course Hospital Course: Patient was treated with hypertonic saline. Precise etiology of his hyponatremia is unclear but it obviously was severe enough to cause seizures. He was monitored in the ICU. He was started on Keppra which he received for a few days but this was subsequently discontinued once his sodium had corrected to a reasonable amount. He has had no further seizures. Patient is on a bunch of antipsychotic medicine and it is unclear what his precise etiology for the hyponatremia is. I will suggest outpatient follow-up for review of his medications to ensure that this is not contributing to the profound hyponatremia. And also had a leukocytosis of 31,000 on initial presentation. This was felt to be an inflammatory reaction as there was no evidence of acute infection. He did not receive any antibiotics while in hospital. His white count has gone down to 12,000. He was also initially delirious likely a metabolic encephalopathy from his severe hyponatremia however he has continued to improve once he was transferred to the medical unit. He appears to be at his baseline at this time. Is awake and alert and oriented. Physical Exam Vital Signs: Temp Pulse Resp BP Pulse Ox 98.2 F 105 H 20 133/85 H 91 L 07/13/20 07:30 07/13/20 07:30 07/13/20 07:30 07/13/20 07:30 07/13/20 07:30 Intake & Output 07/12/20 07/13/20 07/14/20 06:59 06:59 06:59 Intake Total 1460 4130 Output Total 1675 3110 Balance -215 1020 Weight 59.9 kg 60.9 kg General appearance: PRESENT: no acute distress, thin, other - tall and lanky Head exam: PRESENT: atraumatic, normocephalic Eye exam: PRESENT: conjunctiva pink, EOMI, PERRLA. ABSENT: scleral icterus Ear exam: PRESENT: normal external ear exam Mouth exam: PRESENT: moist, tongue midline Neck exam: ABSENT: carotid bruit, JVD, lymphadenopathy, thyromegaly Respiratory exam: PRESENT: clear to auscultation carlos. ABSENT: rales, rhonchi, wheezes Cardiovascular exam: PRESENT: RRR, +S1, +S2. ABSENT: diastolic murmur, rubs, systolic murmur Pulses: PRESENT: normal dorsalis pedis pul Vascular exam: PRESENT: normal capillary refill GI/Abdominal exam: PRESENT: normal bowel sounds, soft. ABSENT: distended, guarding, mass, organolmegaly, rebound, tenderness Rectal exam: PRESENT: deferred Extremities exam: PRESENT: full ROM. ABSENT: calf tenderness, clubbing, pedal edema Neurological exam: PRESENT: alert, awake, oriented to person, oriented to place, oriented to time, oriented to situation, CN II-XII grossly intact. ABSENT: motor sensory deficit Psychiatric exam: PRESENT: appropriate affect, normal mood. ABSENT: homicidal ideation, suicidal ideation Skin exam: PRESENT: dry, intact, warm. ABSENT: cyanosis, rash Results Laboratory Results: WBC 12.9 10^3/uL (4.0-10.5) H 07/12/20 04:39 RBC 4.13 10^6/uL (4.35-5.55) L 07/12/20 04:39 Hgb 12.7 g/dL (13.5-17.0) L 07/12/20 04:39 Hct 36.5 % (37.9-51.0) L 07/12/20 04:39 MCV 88 fl (80-97) 07/12/20 04:39 MCH 30.9 pg (27.0-33.4) 07/12/20 04:39 MCHC 34.9 g/dL (32.0-36.0) 07/12/20 04:39 RDW 15.5 % (11.5-14.0) H 07/12/20 04:39 Plt Count 238 10^3/uL (150-450) 07/12/20 04:39 Lymph % (Auto) Not Reportable 07/09/20 03:38 [place] % (Auto) Not Reportable 07/09/20 03:38 Eos % (Auto) Not Reportable 07/09/20 03:38 Baso % (Auto) Not Reportable 07/09/20 03:38 Absolute Neuts (auto) Not Reportable 07/09/20 03:38 Absolute Lymphs (auto) Not Reportable 07/09/20 03:38 Absolute Monos (auto) Not Reportable 07/09/20 03:38 Absolute Eos (auto) Not Reportable 07/09/20 03:38 Absolute Basos (auto) Not Reportable 07/09/20 03:38 Total Counted 100 07/09/20 03:38 Seg Neutrophils % Not Reportable 07/09/20 03:38 Seg Neuts % (Manual) 88 % (42-78) H 07/09/20 03:38 Band Neutrophils % 3 % (3-5) 07/08/20 11:03 Lymphocytes % (Manual) 5 % (13-45) L 07/09/20 03:38 Monocytes % (Manual) 7 % (3-13) 07/09/20 03:38 Eosinophils % (Manual) 0 % (0-6) 07/09/20 03:38 Basophils % (Manual) 0 % (0-2) 07/09/20 03:38 Abs Neuts (Manual) 22.7 10^3/uL (1.7-8.2) H 07/09/20 03:38 Abs Lymphs (Manual) 1.3 10^3/uL (0.5-4.7) 07/09/20 03:38 Abs Monocytes (Manual) 1.8 10^3/uL (0.1-1.4) H 07/09/20 03:38 Absolute Eos (Manual) 0.0 10^3/uL (0.0-0.6) 07/09/20 03:38 Abs Basophils (Manual) 0.0 10^3/uL (0.0-0.2) 07/09/20 03:38 Platelet Comment ADEQUATE 07/09/20 03:38 Anisocytosis SLIGHT 07/09/20 03:38 Tear Drop Cells SLIGHT 07/09/20 03:38 RBC Morph Comment NORMO-CYTIC/CHROMIC 07/08/20 11:03 PT 13.9 SEC (11.4-15.4) 07/08/20 11:03 INR 1.05 07/08/20 11:03 Carbonic Acid 1.41 mmol/L (1.05-1.35) H 07/08/20 16:19 HCO3/H2CO3 Ratio 22:1 07/08/20 16:19 ABG pH 7.45 (7.35-7.45) 07/08/20 16:19 ABG pCO2 47.0 mmHg (35-45) H 07/08/20 16:19 ABG pO2 52.4 mmHg (80-100) L 07/08/20 16:19 ABG HCO3 32.0 mmol/L (20-24) H 07/08/20 16:19 ABG Total CO2 33.4 mmol/L (23-27) H 07/08/20 16:19 ABG O2 Saturation 88.3 % (94-98) L 07/08/20 16:19 ABG Base Excess 6.9 mmol/L 07/08/20 16:19 FiO2 ROOM AIR 07/08/20 16:19 Sodium 129.5 mmol/L (137-145) L 07/13/20 04:34 Potassium 3.9 mmol/L (3.6-5.0) 07/13/20 04:34 Chloride 95 mmol/L (98-107) L 07/13/20 04:34 Carbon Dioxide 26 mmol/L (22-30) 07/13/20 04:34 Anion Gap 9 (5-19) 07/13/20 04:34 BUN 5 mg/dL (7-20) L 07/13/20 04:34 Creatinine 0.40 mg/dL (0.52-1.25) L 07/13/20 04:34 Est GFR ( Amer) > 60 (>60) 07/13/20 04:34 Est GFR (MDRD) Non-Af > 60 (>60) 07/13/20 04:34 Glucose 110 mg/dL (75-110) 07/13/20 04:34 Calcium 8.6 mg/dL (8.4-10.2) 07/13/20 04:34 Total Bilirubin 1.2 mg/dL (0.2-1.3) 07/08/20 11:03 Direct Bilirubin 0.2 mg/dL (0.0-0.4) 07/08/20 11:03 Neonat Total Bilirubin Not Reportable 07/08/20 11:03 Neonat Direct Bilirubin Not Reportable 07/08/20 11:03 Neonat Indirect Bili Not Reportable 07/08/20 11:03 AST 39 U/L (17-59) 07/08/20 11:03 ALT 22 U/L (<50) 07/08/20 11:03 Alkaline Phosphatase 90 U/L (38-126) 07/08/20 11:03 Ammonia < 8.7 umol/L (9-33) L 07/08/20 17:45 Creatine Kinase 367 U/L (55-170) H 07/08/20 11:03 CK-MB (CK-2) 7.97 ng/mL (<4.55) H 07/08/20 11:03 Troponin I 0.014 ng/mL 07/08/20 11:03 NT-Pro-B Natriuret Pep 2070 pg/mL (<125) H 07/08/20 11:03 Total Protein 6.1 g/dL (6.3-8.2) L 07/08/20 11:03 Albumin 3.7 g/dL (3.5-5.0) 07/08/20 11:03 Triglycerides 96 mg/dL (<150) 07/09/20 03:38 Cholesterol 127.53 mg/dL (0-200) 07/09/20 03:38 LDL Cholesterol Direct 45 mg/dL (<100) 07/09/20 03:38 VLDL Cholesterol 19.0 mg/dL (10-31) 07/09/20 03:38 HDL Cholesterol 61 mg/dL (>40) 07/09/20 03:38 Amylase 67 U/L (30-110) 07/08/20 17:45 Lipase 78.6 U/L (23-300) 07/08/20 17:45 Free T4 1.60 ng/dL (0.78-2.19) 07/08/20 17:45 Urine Color YELLOW 07/08/20 13:11 Urine Appearance CLEAR 07/08/20 13:11 Urine pH 7.0 (5.0-9.0) 07/08/20 13:11 Ur Specific [place] 1.014 07/08/20 13:11 Ur Specific [place] 1.016 07/08/20 13:11 Urine Protein 30 mg/dL (NEGATIVE) H 07/08/20 13:11 Urine Glucose (UA) 150 mg/dL (NEGATIVE) H 07/08/20 13:11 Urine Ketones NEGATIVE mg/dL (NEGATIVE) 07/08/20 13:11 Urine Blood NEGATIVE (NEGATIVE) 07/08/20 13:11 Urine Nitrite NEGATIVE (NEGATIVE) 07/08/20 13:11 Urine Bilirubin NEGATIVE (NEGATIVE) 07/08/20 13:11 Urine Urobilinogen NEGATIVE mg/dL (<2.0) 07/08/20 13:11 Ur Leukocyte Esterase NEGATIVE (NEGATIVE) 07/08/20 13:11 Urine WBC (Auto) 0 /HPF 07/08/20 13:11 Urine RBC (Auto) 2 /HPF 07/08/20 13:11 U Hyaline Cast (Auto) 2 /LPF 07/08/20 13:11 Squamous Epi Cells Auto <1 /HPF 07/08/20 13:11 Urine Mucus (Auto) RARE /LPF 07/08/20 13:11 Urine Osmolality 393 mOsm/kg (300-900) 07/08/20 13:11 Urine Sodium 50 mmol/L (30-90) 07/08/20 13:11 Urine Ascorbic Acid NEGATIVE (NEGATIVE) 07/08/20 13:11 Salicylates < 1.0 mg/dL (2.0-20.0) L 07/08/20 11:03 Urine Opiates Screen NEGATIVE 07/08/20 13:11 Urine Methadone Screen NEGATIVE 07/08/20 13:11 Acetaminophen < 10 ug/mL (10-30) L 07/08/20 11:03 Ur Barbiturates Screen NEGATIVE 07/08/20 13:11 Ur Phencyclidine Scrn NEGATIVE 07/08/20 13:11 Ur Amphetamines Screen NEGATIVE 07/08/20 13:11 U Benzodiazepines Scrn NEGATIVE 07/08/20 13:11 Urine Cocaine Screen NEGATIVE 07/08/20 13:11 U Marijuana (THC) Screen UNCONFIRMED POSITIVE 07/08/20 13:11 Serum Alcohol < 10 mg/dL (NONE DETECTED) 07/08/20 11:03 COVID-19 Source See comment 07/08/20 20:06 COVID-19 ([facility]) Not Detected (Not Detect) 07/08/20 20:06 Influenza A (RT-PCR) NEGATIVE (NEGATIVE) 07/10/20 17:40 Influenza B (RT-PCR) NEGATIVE (NEGATIVE) 07/10/20 17:40 RSV (RT-PCR) NEGATIVE (NEGATIVE) 07/10/20 17:40 SARS-CoV-2 Rap RNA(RT-PCR) NEGATIVE (NEGATIVE) 07/10/20 17:40 Slides for Path Review PATHOLOGIST REVIEWED 07/08/20 11:03 07/08/20 11:03 CK-MB (CK-2) 7.97 H Troponin I 0.014 NT-Pro-B Natriuret Pep 2070 H Impressions: Chest X-Ray 07/08/20 11:03 IMPRESSION: NO ACUTE RADIOGRAPHIC FINDING IN THE CHEST. Head CT 07/08/20 11:03 IMPRESSION: NORMAL BRAIN CT WITHOUT CONTRAST. EVIDENCE OF ACUTE STROKE: NO. Chest X-Ray 07/08/20 14:39 IMPRESSION: NO PNEUMOTHORAX FOLLOWING CENTRAL LINE PLACEMENT. NO CHANGE IN APPEARANCE OF THE CHEST. Plan Health Concerns: I will suggest reevaluation of his medications to evaluate for any recurrent because of hyponatremia. There is also a history of alcohol use and patient will need ongoing counseling. Time Spent: Greater than 30 Minutes Stroke Is this a Stroke Patient?: No Acute Heart Failure Is this a Heart Failure Patient?: No
[2020-07-13 13:44] VITALS: BP 147/81
== END 2020-07-13 16:05 | disposition home or self-care (01) | DRG 640 ==
LOC: ER 10:57 → EH 15:40 → ICU 20:28 → 4N 07-10 23:34
PROVIDERS: ADMIT Internal Medicine; ATTEND Internal Medicine
PROC: 05HM33Z Insertion of Infusion Device into Right Internal Jugular Vein, Percutaneous Approach (ICD-10-PCS; principal; 2020-07-09)
PROC: 3E02340 Introduction of Influenza Vaccine into Muscle, Percutaneous Approach (ICD-10-PCS; 2020-07-11)
DX: E87.1 Hypo-osmolality and hyponatremia (principal); E43 Unspecified severe protein-calorie malnutrition; G93.41 Metabolic encephalopathy; Z68.1 Body mass index [BMI] 19.9 or less, adult; R56.9 Unspecified convulsions; I10 Essential (primary) hypertension; E78.5 Hyperlipidemia, unspecified; K21.9 Gastro-esophageal reflux disease without esophagitis; F32.9 Major depressive disorder, single episode, unspecified; R41.0 Disorientation, unspecified; D72.829 Elevated white blood cell count, unspecified; F17.210 Nicotine dependence, cigarettes, uncomplicated; I25.10 Atherosclerotic heart disease of native coronary artery without angina pectoris; E78.00 Pure hypercholesterolemia, unspecified; F31.9 Bipolar disorder, unspecified; I25.2 Old myocardial infarction; N40.0 Benign prostatic hyperplasia without lower urinary tract symptoms; Z23 Encounter for immunization; Z79.899 Other long term (current) drug therapy; Z78.1 Physical restraint status; Z88.2 Allergy status to sulfonamides; Z88.6 Allergy status to analgesic agent; Z91.040 Latex allergy status; Z83.3 Family history of diabetes mellitus; Z82.49 Family history of ischemic heart disease and other diseases of the circulatory system; Z80.9 Family history of malignant neoplasm, unspecified; Z95.1 Presence of aortocoronary bypass graft
CPT/HCPCS: 36415; 36556; 36600; 51702; 70450; 71045; 80048; 80053; 80061; 80307; 81001; 81002; 82140; 82150; 82550; 82553; 82803; 83690; 83880; 83935; 84295; 84300; 84439; 84484; 85025; 85027; 85610; 87635; 93005; 93010; 96374; 96375; 99285; 99291; 0241U; C9803; J1630; J1650; J1953; J2060; J2997; J3480; J3490; J7030